=== PATIENT | female | born 1945 | race African-American/Black ===

== ENCOUNTER 2017-12-17 16:01 | Emergency (ER) | payer OTHER ==
--- OUTSIDE RECORDS SUMMARY | 2017-12-17 16:02 | XMS REPORT | Clinical Summary ---
:1945 Author Organization [facility] Address [address] [place] [address] Care Team Providers Name Role Phone Shaneka Nayak MD Primary Care Provider Allergies Active Allergy Reactions Severity Noted Date Comments Codeine GI Intolerance 06/19/2016 nausea Current Medications Prescription Sig. Disp. Refills Start Date End Date Status aspirin (ECOTRIN) Take 1 tablet Active 81 MG enteric every day by coated tablet oral route. CALCIUM ORAL Take 600 mg by Active mouth 2 (two) times a day. DOCOSAHEXANOIC Take by mouth. Active ACID/EPA (FISH OIL ORAL) glimepiride Take 1 tablet (4 180 tablet 3 08/10/2017 Active (AMARYL) 4 MG mg total) by tablet mouth 2 (two) times a day. amLODIPine Take 1 tablet (5 90 tablet 3 08/10/2017 08/10/19 Active (NORVASC) 5 mg mg total) by 19 tablet mouth 2 (two) times a day. lisinopril-hydrochl Take 1 tablet by 180 tablet 3 08/10/2017 Active orothiazide mouth 2 (two) (PRINZIDE,ZESTORETI times a day. C) 20-25 mg per tablet meloxicam (MOBIC) Take 1 tablet 90 tablet 3 10/12/2017 Active 7.5 mg tablet (7.5 mg total) by mouth daily. metFORMIN XR Take 2 tablets 360 tablet 3 10/12/2017 10/13/19 Active (GLUCOPHAGE XR) 500 (1,000 mg total) 19 mg 24 hr tablet by mouth daily with breakfast. Take 2 tablets by mouth twice daily simvastatin (ZOCOR) Take 1 tablet 90 tablet 3 10/12/2017 Active 40 MG tablet (40 mg total) by mouth nightly. simvastatin 40 mg tablet metFORMIN XR TAKE TWO TABLETS 360 tablet 3 08/18/2016 08/10/19 Discontinued (GLUCOPHAGE-XR) 500 BY MOUTH TWICE 18 mg 24 hr tablet DAILY simvastatin (ZOCOR) simvastatin 40 01/13/20 Discontinued 40 MG tablet mg tablet 17 amLODIPine amlodipine 10 mg 06/26/20 Discontinued (NORVASC) 10 MG tablet 17 tablet glimepiride Take one tablet 90 tablet 3 09/05/2016 08/10/19 Discontinued (AMARYL) 4 MG by mouth once 18 tablet daily lisinopril-hydrochl Take 1 tablet by 180 tablet 3 11/19/2016 08/10/19 Discontinued orothiazide mouth 2 (two) 18 (PRINZIDE,ZESTORETI times a day. C) 20-25 mg per tablet azithromycin 01/03/2017 07/14/20 Discontinued (ZITHROMAX) 250 MG 17 tablet benzonatate 01/03/2017 07/14/20 Discontinued (TESSALON) 100 MG 17 capsule simvastatin (ZOCOR) simvastatin 40 90 tablet 3 01/12/2017 01/16/20 Discontinued 40 MG tablet mg tablet 17 simvastatin (ZOCOR) Take 1 tablet 90 tablet 3 01/15/2017 08/10/19 Discontinued 40 MG tablet (40 mg total) by 18 mouth nightly. simvastatin 40 mg tablet amLODIPine TAKE ONE TABLET 90 tablet 3 06/30/2017 08/10/19 Discontinued (NORVASC) 10 mg BY MOUTH ONCE 18 tablet DAILY meloxicam (MOBIC) Take 2 tablets 28 tablet 0 07/14/2017 07/28/20 7.5 mg (15 mg total) by 17 tabletIndications: mouth daily for Acute pain of left 14 days. shoulder metroNIDAZOLE Take 1 tablet 14 tablet 0 07/29/2017 08/05/19 (FLAGYL) 500 MG (500 mg total) 18 tablet by mouth 2 (two) times a day for 7 days. meloxicam (MOBIC) Take 7.5 mg by 10/13/19 Discontinued 7.5 mg tablet mouth daily. Prn 18 metFORMIN XR Take 1 tablet 180 tablet 3 08/10/2017 09/18/19 Discontinued (GLUCOPHAGE-XR) 500 (500 mg total) 18 mg 24 hr tablet by mouth 2 (two) times a day. simvastatin (ZOCOR) Take 1 tablet 90 tablet 3 08/10/2017 10/13/19 Discontinued 40 MG tablet (40 mg total) by 18 mouth nightly. simvastatin 40 mg tablet metFORMIN Take 2 tablets 480 tablet 3 09/18/2017 10/13/19 Discontinued (GLUCOPHAGE) 500 mg by mouth twice 18 tablet daily Active Problems Problem Noted Date Diabetes mellitus 06/19/2016 Essential hypertension 06/19/2016 Hyperlipidemia 06/19/2016 Hypertension 06/19/2016 Encounters Date Type Specialty Care Team Description 10/12/2017 Office Visit Cardiology Tommy Carey Essential hypertension MD Petey 09/18/2017 Refill Cardiology Trever Martinez RN 08/10/2017 Office Visit Cardiology Tommy Carey Routine adult health MD Petey maintenance (Primary Dx) 2017 Orders Only Cardiology Tommy Carey MD 08/06/2017 Refill Cardiology Tommy Carey Med Jean Angelo MD 07/29/2017 Orders Only Family Medicine Shaneka Nayak MD 07/22/2017 Office Visit Family Medicine Malini, Type 2 diabetes mellitus with complication, without long-term current use of insulin (Primary Dx); MD Shaneka Screening for colon cancer; Encounter for screening mammogram for breast cancer; Postmenopausal state; Pap smear for cervical cancer screening; Essential hypertension; Hyperlipidemia, unspecified hyperlipidemia type; Sciatica of right side 07/22/2017 Orders Only Family Shaneka Powers MD 07/16/2017 Hospital Encounter Radiology Malini, Acute pain of right knee MD Shaneka 07/14/2017 Office Visit Family Bob Nayak, Type 2 diabetes mellitus with complication, without long-term current use of insulin (Primary Dx); MD Shaneka Hyperlipidemia, unspecified hyperlipidemia type; Acute pain of right knee; Screening for thyroid disorder; Acute pain of left shoulder; Flu vaccine need 06/26/2017 Refill Cardiology Tommy Carey MD 01/16/2017 Refill Cardiology Trever Martinez RN 01/15/2017 Refill Cardiology Trever Martinez RN 01/12/2017 Refill Cardiology Trever Martinez RN 01/07/2017 Office Visit Cardiology Tommy Carey Essential hypertension ( Primary Dx); MD Petey Diabetes mellitus screening; Hyperlipidemia, unspecified hyperlipidemia type after 12/16/2016 Immunizations Name Dates Previously Given Next Due FLUZONE HIGH-DOSE PF 07/14/2017 Family History Medical History Relation Name Comments Heart disease Father Arthritis Mother Diabetes Mother Heart disease Mother Hypertension Mother Relation Name Status Comments Father Mother Alive Social History Tobacco Use Types Packs/Day Years Used Date Never Smoker Smokeless Tobacco: Never Used Alcohol Use Drinks/Week oz/Week Comments No Sex Assigned at Date Recorded Not on file Last Filed Vital Signs Vital Sign Reading Time Taken Blood Pressure 150/73 10/12/2017 11:26 AM CDT Pulse 78 10/12/2017 11:26 AM CDT Temperature 36.7 C (98.1 F) 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 Respiratory Rate - - Oxygen Saturation 95% 08/10/2017 11:05 AM 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 Inhaled Oxygen Concentration - - Weight 108 kg (237 lb) 10/12/2017 11:26 AM CDT Height 175.3 cm (5' 9") 10/12/2017 11:26 AM CDT Body Mass Index 35 10/12/2017 11:26 AM CDT Plan of Treatment Date Type Specialty Care Team Description 02/08/2018 Office Visit Cardiology Tommy Carey MD [address] [address] Health Maintenance Due Date Last Done Comments DIABETIC FOOT EXAM 1955 COLON CANCER SCREENING 1994 SHINGRIX VACCINE (#1) 1994 ZOSTER VACCINE 2004 PNEUMOCOCCAL POLYSACCHARIDE VACCINE AGE 65 2009 AND OVER PNEUMOCOCCAL-13 2009 INFLUENZA VACCINE 03/03/2018 07/14/2017, 07/14/2017 URINE MICROALBUMIN 07/14/2018 07/14/2017 DIABETIC RETINAL EYE EXAM 03/03/2019 03/03/2017 BREAST CANCER SCREENING 07/22/2019 07/22/2017 Results ECG 12 lead (08/10/2017 11:10 AM)Only the most recent of2 resultswithin the time period is included. Component Value Ref Range Ventricular rate 82 Atrial rate 82 CA interval 170 QRSD interval 80 QT interval 404 QTC interval 472 P axis 1 67 QRS axis 1 46 T wave axis 46 EKG impression Sinus rhythm with marked sinus arrhythmia-Nonspecific T wave abnormality-Prolonged QT-Abnormal ECG-In automated comparison with ECG of 07-JAN-2017 10:30,-No significant change was found- Specimen Performing Laboratory [facility] [place] [address] [place] [address] Pap IG, HPV-hr (07/22/2017) Component Value Ref Range Diagnosis Comment Comment: NEGATIVE FOR INTRAEPITHELIAL LESION AND MALIGNANCY. PREDOMINANCE OF COCCOBACILLI CONSISTENT WITH SHIFT IN VAGINAL ROXANNA IS PRESENT. Specimen adequacy Comment Comment: Satisfactory for evaluation.Endocervical and/or squamous metaplastic cells (endocervical component) are present. Clinician provided ICD10 CommentComment: Z12.4 Performed by: CommentComment: Mira Corcoran, Mathematics Education Professor (ASCP) Comment . Pathologist provided ICD10 CommentComment: R87.5 Note: Comment Comment: The Pap smear is a screening test designed to aid in the detection of premalignant and malignant conditions of the uterine cervix.It is not a diagnostic procedure and should not be used as the sole means of detecting cervical cancer.Both false-positive and false-negative reports do occur. Test methodology Comment Comment: This liquid based ThinPrep(R) pap test was screened with the use of an image guided system. HPV, high-risk Negative Negative Comment: This high-risk HPV test detects thirteen high-risk types (16/18/31/33/35/39/45/51/52/56/58/59/68) without differentiation. Specimen Performing Laboratory [facility] Narrative Performed at: - [id number] Production Editor: Yanna Page MD, Phone:[phone] Performed at: - [id number] Production Editor: Yanna Page MD, Phone:[phone] Specimen Comment: No. of containers..01 ThinPrep Vial XR Knee 3 Vw Right (07/16/2017 2:50 PM) Specimen Performing Laboratory [facility] [address] [place] [address] Narrative EXAMINATION:XR KNEE 3 VW RIGHT CLINICAL HISTORY:M25.561 Pain in right knee, R knee pain COMPARISON:None. IMPRESSION: There is patella viviana. There is a joint effusion. No fractures seen. Degenerative osteoarthritic changes are present. MRI recommended for further evaluation. 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 IMPRESSION: There is patella viviana. There is a joint effusion. No fractures seen. Degenerative osteoarthritic changes are present. MRI recommended for further evaluation. [facility]-[id number] Microalbumin / creatinine urine ratio (07/14/2017 10:40 AM) Component Value Ref Range Creatinine, urine, random 200.4 Not Estab. mg/dL Microalbumin, urine 20.4 Not Estab. ug/mL Microalbumin/creatinine ratio 10.2 0.0 - 30.0 mg/g creat Specimen Performing Laboratory Urine [facility] Narrative Performed at:[address] [place], [place] [id number] Production Editor: Mitul Aponte MD, Phone:[phone] Thyroid stimulating hormone (07/14/2017 10:40 AM) Component Value Ref Range TSH 0.967 0.450 - 4.500 uIU/mL Specimen Performing Laboratory Blood [facility] Narrative Performed at:[address] [place], [place] [id number] Production Editor: Mitul Aponte MD, Phone:[phone] Hemoglobin A1c (07/14/2017 10:40 AM) Component Value Ref Range Hemoglobin A1C 11.0 (H) 4.8 - 5.6 % Comment: Pre-diabetes: 5.7 - 6.4 Diabetes: >6.4 Glycemic control for adults with diabetes: <7.0 Specimen Performing Laboratory Blood [facility] Narrative Performed at:[id number] Production Editor: Mitul Aponte MD, Phone:[phone] Lipid panel (07/14/2017 10:40 AM)Only the most recent of2 resultswithin the time period is included. Component Value Ref Range Cholesterol 121 100 - 199 mg/dL Triglycerides 93 0 - 149 mg/dL HDL cholesterol 41 >39 mg/dL VLDL cholesterol josé 19 5 - 40 mg/dL LDL cholesterol calculated 61 0 - 99 mg/dL Non-HDL cholesterol 80 0 - 129 mg/dL Specimen Performing Laboratory Blood [facility] Narrative Performed at: - [facility] [id number] Production Editor: Mitul Aponte MD, Phone:[phone] Comprehensive metabolic panel (07/14/2017 10:40 AM)Only the most recent of2 resultswithin the time period is included. Component Value Ref Range Glucose 235 (H) 65 - 99 mg/dL BUN, whole blood 13 8 - 27 mg/dL Creatinine 0.69 0.57 - 1.00 mg/dL EGFR Non-Afr. Zimbabwean 87 >59 mL/min/1.73 EGFR 101 >59 mL/min/1.73 BUN/creatinine ratio 19 12 - 28 Sodium 142 134 - 144 mmol/L Potassium 3.9 3.5 - 5.2 mmol/L Chloride 98 96 - 106 mmol/L CO2 28 18 - 29 mmol/L Calcium 9.6 8.7 - 10.3 mg/dL Protein 6.9 6.0 - 8.5 g/dL Albumin, S 4.2 3.5 - 4.8 g/dL Globulin, total 2.7 1.5 - 4.5 g/dL Albumin/globulin ratio 1.6 1.2 - 2.2 Total bilirubin 0.4 0.0 - 1.2 mg/dL Alkaline phosphatase 64 39 - 117 IU/L AST 12 0 - 40 IU/L ALT 10 0 - 32 IU/L Specimen Performing Laboratory Blood [facility] Narrative Performed at: - [facility] [id number] Production Editor: Mitul Aponte MD, Phone:[phone] after 12/16/2016 Insurance Payer Benefit Plan / Group Subscriber ID Type Phone Address [employer] [facility] xxxxxxxxx HMO [phone] [place] [id number]
--- NOTE | 2017-12-17 16:59 | ER ---
Nurse's Notes [facility] Name: Marianela Mills Age: 72 yrs Sex: Female : 1945 Arrival Date: 12/17/2017 Time: 16:04 Bed Waiting Private MD: None, None Diagnosis: Presentation: 12/17 16:10 Presenting complaint: Patient states: Right low back pain that shoots down right leg aj for 1 week. Transition of care: patient was not received from another setting of care. Onset of symptoms was December 10, 2017. Care prior to arrival: None. 16:10 Method Of Arrival: Ambulatory aj 16:10 Acuity: CASANDRA 4 aj Triage Assessment: 16:13 General: Appears in no apparent distress. comfortable, Behavior is calm, cooperative, aj appropriate for age. Pain: Complains of pain in coccyx, right lower back, right gluteus agnieszka and right gluteal fold. Neuro: Level of Consciousness is awake, alert, obeys commands, Oriented to person, place, time, situation, Appropriate for age. Respiratory: Airway is patent Respiratory effort is even, unlabored, Respiratory pattern is regular, symmetrical. Derm: Skin is intact, is healthy with good turgor, Skin is pink, warm \T\ dry. normal. Musculoskeletal: Circulation, motion, and sensation intact. Range of motion: intact in all extremities. Historical: - Allergies: 16:13 Codeine; aj - Home Meds: 16:13 lisinopril-hydrochlorothiazide 20-25 mg oral tab 1 tab twice a day [Active]; aj glimepiride 4 mg Oral tab 2 tab twice a day [Active]; metformin 500 mg Oral Tb24 2 tabs 2 times per day [Active]; aspirin 81 mg Oral TbEC 1 tab once daily [Active]; amlodipine oral [Active]; simvastatin 40 mg Oral tab 1 tab once daily [Active]; - PMHx: 16:13 Diabetes - NIDDM; Hyperlipidemia; Hypertension; aj - PSHx: 16:13 None; aj - Immunization history:: Adult Immunizations up to date. - Social history:: Smoking status: Patient/guardian denies using tobacco. Vital Signs: 16:13 BP 149 / 58; Pulse 81; Resp 16; Temp 97.9; Pulse Ox 99% on R/A; Weight 107.5 kg; Height aj 5 ft. 9 in. (175.26 cm); 16:13 Body Mass Index 35.00 (107.50 kg, 175.26 cm) aj ED Course: 16:04 Patient arrived in ED. mr 16:04 None, None is Private Physician. mr 16:11 Triage completed. aj 16:13 Arm band placed on left wrist. Patient placed in waiting room, Patient notified of wait aj time. Administered Medications: No medications were administered Outcome: 17:28 Patient left the ED. iw Signatures: Sheila Vargas, RN RN Claudia Villa mr Rayne Marquis, RN RN iw
[2017-12-17 17:31] VITALS: BP 149/58; TEMP 97.9; O2SAT 99
== END 2017-12-17 17:28 | disposition left against medical advice (07) ==
LOC: ER 16:01
DX: Z53.21 Procedure and treatment not carried out due to patient leaving prior to being seen by health care provider (principal)
CPT/HCPCS: 99281

== ENCOUNTER 2017-12-19 08:44 | Emergency (ER) | payer OTHER ==
--- OUTSIDE RECORDS SUMMARY | 2017-12-19 08:48 | XMS REPORT | Clinical Summary ---
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 Respiratory Rate - - Oxygen Saturation 95% 08/10/2017 11:05 AM SCOURING MACHINE TENDER Inhaled Oxygen Concentration - - Weight 108 kg (237 lb) 10/12/2017 11:26 AM CDT Height 175.3 cm (5' 9") 10/12/2017 11:26 AM CDT Body Mass Index 35 10/12/2017 11:26 AM CDT Plan of Treatment Date Type Specialty Care Team Description 02/08/2018 Office Visit Cardiology Tommy Carey MD [address] [address] Health Maintenance Due Date Last [...] Range Ventricular rate 82 Atrial rate 82 [place] interval 170 QRSD interval 80 QT interval 404 QTC interval 472 P axis 1 67 QRS axis 1 46 T wave axis 46 EKG impression Sinus rhythm with marked sinus arrhythmia-Nonspecific T wave abnormality-Prolonged QT-Abnormal ECG-In automated comparison with ECG of 07-JAN-2017 10:30,-No significant change was found- Specimen Performing Laboratory [facility] [address] [place] [address] Pap IG, HPV-hr (07/22/2017) Component Value Ref Range Diagnosis Comment Comment: NEGATIVE FOR INTRAEPITHELIAL LESION AND MALIGNANCY. PREDOMINANCE OF COCCOBACILLI CONSISTENT WITH SHIFT IN VAGINAL ROXANNA IS PRESENT. Specimen adequacy Comment Comment: Satisfactory for evaluation.Endocervical and/or squamous metaplastic cells (endocervical component) are present. Clinician provided ICD10 CommentComment: Z12.4 Performed by: CommentComment: Mira Corcoran, Supervisor Slate Splitting (ASCP) Comment . Pathologist provided ICD10 CommentComment: [...] Performing Laboratory [facility] Narrative Performed at: - [id number] Sleeve Setter Safety Stitch: Yanna Page MD, Phone:[phone] Performed at: - [id number] Sleeve Setter Safety Stitch: Yanna Page MD, Phone:[phone] Specimen Comment: No. of containers..01 ThinPrep Vial XR Knee 3 Vw Right (07/16/2017 2:50 PM) Specimen Performing Laboratory [facility] [address] [place] [address] Narrative EXAMINATION:XR KNEE 3 VW RIGHT CLINICAL HISTORY:M25.561 Pain in right knee, R knee pain COMPARISON:None. IMPRESSION: There is patella viviana. There is a joint effusion. No fractures seen. Degenerative osteoarthritic changes are present. MRI recommended for further evaluation. 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 IMPRESSION: There is patella viviana. There is a joint effusion. No fractures seen. Degenerative osteoarthritic changes are present. MRI recommended for further evaluation. [facility]-[id number] Microalbumin / creatinine urine ratio (07/14/2017 10:40 AM) Component Value Ref Range Creatinine, urine, random 200.4 Not Estab. mg/dL Microalbumin, urine 20.4 Not Estab. ug/mL Microalbumin/creatinine ratio 10.2 0.0 - 30.0 mg/g creat Specimen Performing Laboratory Urine [facility] Narrative Performed at:[address] [place], [place] [id number] Sleeve Setter Safety Stitch: Mitul Aponte MD, Phone:[phone] Thyroid stimulating hormone (07/14/2017 10:40 AM) Component Value Ref Range TSH 0.967 0.450 - 4.500 uIU/mL Specimen Performing Laboratory Blood [facility] Narrative Performed at:[address] [place], [place] [id number] Sleeve Setter Safety Stitch: Mitul Aponte MD, Phone:[phone] Hemoglobin A1c (07/14/2017 10:40 AM) Component Value Ref Range Hemoglobin A1C 11.0 (H) 4.8 - 5.6 % Comment: Pre-diabetes: 5.7 - 6.4 Diabetes: >6.4 Glycemic control for adults with diabetes: <7.0 Specimen Performing Laboratory Blood [facility] Narrative Performed at:[id number] Sleeve Setter Safety Stitch: Mitul Apnote MD, Phone:[phone] Lipid panel (07/14/2017 10:40 AM)Only the most [...] Blood [facility] Narrative Performed at: - [facility] [id number] Sleeve Setter Safety Stitch: Mitul Aponte MD, Phone:[phone] Comprehensive metabolic panel (07/14/2017 10:40 AM)Only the most recent of2 resultswithin the time period is included. Component Value Ref Range Glucose 235 (H) 65 - 99 mg/dL BUN, whole blood 13 8 - 27 mg/dL Creatinine 0.69 0.57 - 1.00 mg/dL EGFR Non-Afr. Algerian 87 >59 mL/min/1.73 EGFR 101 >59 mL/min/1.73 [...] Blood [facility] Narrative Performed at: - [facility] [id number] Sleeve Setter Safety Stitch: Mitul Aponte MD, Phone:[phone] after 12/18/2016 Insurance Payer Benefit Plan / Group Subscriber ID Type Phone Address [employer] [facility] xxxxxxxxx HMO [phone] [place] [id number]
--- NOTE | 2017-12-19 10:00 | RAD REPORT ---
EXAM DESCRIPTION: CT - Stone Protocol - 12/19/2017 9:33 am CLINICAL HISTORY: Abdominal pain, flank pain COMPARISON: CT study September 2012 TECHNIQUE: Axial 5 mm thick images were obtained without oral or IV contrast. The [id number] span s the entirety of the system including uppermost abdomen and lung bases. All CT scans are performed using dose optimization technique as appropriate and may include automated exposure control or mA/KV adjustment according to patient size. FINDINGS: No hydronephrosis is present and no obstructing ureteral calculi. No suspicious renal mass es. Isodense masses and pyelonephritis are not excluded on a stone protocol CT scan. No nonobstructin g calculi. No perinephric stranding. Urinary bladder is contracted limiting assessment. No bladder ca lculi. No adrenal abnormality. Imaged portions of the liver, spleen and pancreas show no suspicious findings on non-contrast imaging . No gallbladder or biliary tree abnormality identified. Gallstones can be occult. No suspicious bowel findings. Uterus and ovaries show no suspicious findings. No hernia, mass or bulky lymphadenopathy noted. No free air, free fluid or inflammatory stranding. No significant bony abnormality. IMPRESSION: Negative CT stone protocol study for acute or suspicious finding. Isodense masses and pyelonephritis are not excluded on stone protocol technique.
[2017-12-19 10:20] LABS: Urine Blood NEGATIVE (NEG); Urine Glucose TRACE (NEG); Urine Protein TRACE (NEG); Urine Specific Gravity 1.015 (1.005-1.030)
--- NOTE | 2017-12-19 10:22 | ER ---
Nurse's Notes [facility] Name: Marianela Mills Age: 72 yrs Sex: Female : 1945 Arrival Date: 12/19/2017 Time: 08:48 Bed 7 Private MD: Diagnosis: Sprain of ligaments of lumbar spine Presentation: 12/19 09:01 Presenting complaint: Patient states: right lower back pain radiates to right leg. pain ae1 scale of 9/10. denies injury. Transition of care: patient was not received from another setting of care. Onset of symptoms was December 13, 2017. Initial Sepsis Screen: Does the patient meet any 2 criteria? No. Patient's initial sepsis screen is negative. Does the patient have a suspected source of infection? No. Patient's initial sepsis screen is negative. Care prior to arrival: None. 09:01 Method Of Arrival: Ambulatory ae1 09:01 Acuity: CASANDRA 4 ae1 Triage Assessment: 09:11 General: Appears uncomfortable, Behavior is cooperative, anxious. Pain: Complains of ae1 pain in right mid back and right low back Pain radiates to right gluteal fold and right hamstring. 09:30 EENT: No signs and/or symptoms were reported regarding the EENT system. Neuro: Level of ae1 Consciousness is awake, alert, obeys commands, Oriented to person, place, time, situation. Cardiovascular: Patient's skin is warm and dry. Respiratory: Airway is patent Respiratory effort is even, unlabored, Respiratory pattern is regular, symmetrical. GI: No signs and/or symptoms were reported involving the gastrointestinal system. Abdomen is round obese. : No signs and/or symptoms were reported regarding the genitourinary system. Denies burning with urination. Derm: Skin is normal. Musculoskeletal: Reports pain in right mid back and right low back That radiates to the right posterior leg. Historical: - Allergies: 09: Codeine; ae1 - Home Meds: 09:09 amlodipine oral [Active]; aspirin 81 mg Oral TbEC 1 tab once daily [Active]; ae1 glimepiride 4 mg Oral tab 2 tab twice a day [Active]; lisinopril-hydrochlorothiazide 20-25 mg Oral tab 1 tab twice a day [Active]; metformin 500 mg Oral Tb24 2 tabs 2 times per day [Active]; simvastatin 40 mg Oral tab 1 tab once daily [Active]; - PMHx: 09:09 Diabetes - NIDDM; Hyperlipidemia; Hypertension; ae1 - PSHx: 09:09 None; ae1 - Immunization history:: Last tetanus immunization: > 10 years ago Flu vaccine is up to date. - Social history:: Smoking status: Patient/guardian denies using tobacco. Screenin:10 Abuse screen: Denies threats or abuse. Nutritional screening: No deficits noted. ae1 Tuberculosis screening: No symptoms or risk factors identified. Fall Risk None identified. Assessment: 10:35 Reassessment: Patient appears in no apparent distress at this time. No changes from ae1 previously documented assessment. Vital Signs: 09:06 BP 160 / 85; Pulse 70; Resp 20; Temp 98(O); Pulse Ox 99% on R/A; Weight 107.5 kg (R); ae1 Pain 9/10; 10:00 BP 144 / 76; Pulse 69; Resp 16; Pulse Ox 100% ; jl7 10:31 BP 165 / 70; Pulse 70; Resp 16; Pulse Ox 98% ; jl7 ED Course: 08:48 Patient arrived in ED. sb2 08:50 Hany Munson MD is Attending Physician. gs 08:51 Chantelle Taylor, XIANG is Primary Nurse. jl7 09:05 Triage completed. ae1 09:09 Placed in gown. Bed in low position. Call light in reach. Side rails up X 1. Pulse ox ae1 on. NIBP on. Warm blanket given. 09:10 Arm band placed on right wrist. ae1 09:31 CT completed. Patient moved to CT via stretcher. Patient moved back from CT. cw1 09:32 CT Stone Protocol In Process Unspecified. EDMS 10:35 No provider procedures requiring assistance completed. Patient did not have IV access ae1 during this emergency room visit. Administered Medications: No medications were administered Outcome: 10:22 Discharge ordered by . gs 10:35 Discharged to home ambulatory, with personal cane. ae1 10:35 Condition: stable 10:35 Discharge instructions given to patient, Instructed on discharge instructions, follow up and referral plans. Demonstrated understanding of instructions, follow-up care. 10:37 Patient left the ED. ae1 Signatures: Dispatcher [employer] EDFL Erika Pressley cw1 Eloy Murguia RN RN ae1 Chantelle Taylor RN RN jl7 Hany Munson MD MD gs Misa Mitchell sb2 Corrections: (The following items were deleted from the chart) 10:37 10:36 BP 165 / 70; Pulse 71bpm; Resp 17bpm; Pulse Ox 99% RA; ae1 ae1
--- NOTE | 2017-12-19 10:22 | EDPHYS ---
Physician Documentation [facility] Name: Marinaela Mills Age: 72 yrs Sex: Female : 1945 Arrival Date: 12/19/2017 Time: 08:48 Bed 7 Private MD: ED Physician Hany Munson HPI: 12/19 11:25 This 72 yrs old Black Female presents to ER via Ambulatory with complaints of Low Back gs Pain, SIDE PAIN. 11:25 The patient presents with pain that is acute. The symptoms are located in the right mid gs back and right low back. The pain radiates to the right low back. Onset: The symptoms/episode began/occurred 1 week(s) ago. Modifying factors: the patient symptoms are aggravated by any movement, movement. Associated signs and symptoms: Pertinent negatives: hematuria. Associated signs and symptoms: Pertinent negatives: incontinence, urinary retention. Severity of symptoms: At their worst the symptoms were moderate, in the emergency department the symptoms are unchanged. Historical: - Allergies: 09:09 Codeine; ae1 - Home Meds: 09:09 amlodipine oral [Active]; aspirin 81 mg Oral TbEC 1 tab once daily [Active]; ae1 glimepiride 4 mg Oral tab 2 tab twice a day [Active]; lisinopril-hydrochlorothiazide 20-25 mg Oral tab 1 tab twice a day [Active]; metformin 500 mg Oral Tb24 2 tabs 2 times per day [Active]; simvastatin 40 mg Oral tab 1 tab once daily [Active]; - PMHx: 09:09 Diabetes - NIDDM; Hyperlipidemia; Hypertension; ae1 - PSHx: 09:09 None; ae1 - Immunization history:: Last tetanus immunization: > 10 years ago Flu vaccine is up to date. - Social history:: Smoking status: Patient/guardian denies using tobacco. ROS: 11:25 All other systems are negative. gs Exam: 11:25 Head/Face: Normocephalic, atraumatic. Eyes: Pupils equal round and reactive to light, gs extra-ocular motions intact. Lids and lashes normal. Conjunctiva and sclera are non-icteric and not injected. Cornea within normal limits. Periorbital areas with no swelling, redness, or edema. ENT: Nares patent. No nasal discharge, no septal abnormalities noted. Tympanic membranes are normal and external auditory canals are clear. Oropharynx with no redness, swelling, or masses, exudates, or evidence of obstruction, uvula midline. Mucous membranes moist. Neck: Trachea midline, no thyromegaly or masses palpated, and no cervical lymphadenopathy. Supple, full range of motion without nuchal rigidity, or vertebral point tenderness. No Meningismus. Chest/axilla: Normal chest wall appearance and motion. Nontender with no deformity. No lesions are appreciated. Cardiovascular: Regular rate and rhythm with a normal S1 and S2. No gallops, murmurs, or rubs. Normal PMI, no JVD. No pulse deficits. Respiratory: Lungs have equal breath sounds bilaterally, clear to auscultation and percussion. No rales, rhonchi or wheezes noted. No increased work of breathing, no retractions or nasal flaring. Abdomen/GI: Soft, non-tender, with normal bowel sounds. No distension or tympany. No guarding or rebound. No evidence of tenderness throughout. Skin: Warm, dry with normal turgor. Normal color with no rashes, no lesions, and no evidence of cellulitis. MS/ Extremity: Pulses equal, no cyanosis. Neurovascular intact. Full, normal range of motion. Neuro: Awake and alert, GCS 15, oriented to person, place, time, and situation. Cranial nerves II-XII grossly intact. Motor strength 5/5 in all extremities. Sensory grossly intact. Cerebellar exam normal. Normal gait. 11:25 Constitutional: The patient appears alert, awake. 11:25 Back: pain. 11:40 Back: pain, that is moderate, of the right low back. gs Vital Signs: 09:06 BP 160 / 85; Pulse 70; Resp 20; Temp 98(O); Pulse Ox 99% on R/A; Weight 107.5 kg (R); ae1 Pain 9/10; 10:00 BP 144 / 76; Pulse 69; Resp 16; Pulse Ox 100% ; jl7 10:31 BP 165 / 70; Pulse 70; Resp 16; Pulse Ox 98% ; jl7 MDM: 09:07 Patient medically screened. gs 11:40 Differential diagnosis: strain, Herniated disc UTI, kidney stone. Data reviewed: vital gs signs, nurses notes. Response to treatment: the patient's symptoms have mildly improved after treatment, and as a result, I will discharge patient. 12/19 09:37 Order name: Urine Dipstick--Ancillary (enter results) ag 12/19 09:09 Order name: CT Stone Protocol; Complete Time: 10:20 gs 12/19 09:09 Order name: Urine Dipstick-Ancillary (obtain specimen); Complete Time: 09:29 Administered Medications: No medications were administered Disposition: 12/19/17 10:22 Discharged to Home. Impression: Sprain of ligaments of lumbar spine. - Condition is Stable. - Discharge Instructions: Back Exercises, [id number]. - Medication Reconciliation Form, Thank You Letter, Antibiotic Education, Prescription Opioid Use form. - Follow up: Private Physician; When: 2 - 3 days; Reason: Re-evaluation by your physician. Signatures: Dispatcher [employer] EDEloy Solis RN RN ae1 Hany Munson MD MD gs Corrections: (The following items were deleted from the chart) 10:37 10:22 12/19/2017 10:22 Discharged to Home. Impression: Sprain of ligaments of lumbar ae1 spine. Condition is Stable. Forms are Medication Reconciliation Form, Thank You Letter, Antibiotic Education, Prescription Opioid Use. Follow up: Private Physician; When: 2 - 3 days; Reason: Re-evaluation by your physician. gs
[2017-12-19 10:41] VITALS: TEMP 98
[2017-12-19 10:43] VITALS: BP 165/70; O2SAT 98
== END 2017-12-19 10:37 | disposition home or self-care (01) ==
LOC: ER 08:44
DX: S33.5XXA Sprain of ligaments of lumbar spine, initial encounter (principal); I10 Essential (primary) hypertension; E78.5 Hyperlipidemia, unspecified; E11.9 Type 2 diabetes mellitus without complications; Z79.82 Long term (current) use of aspirin; Z88.5 Allergy status to narcotic agent
CPT/HCPCS: 74176; 76377; 81003; 99284

== ENCOUNTER 2018-09-14 16:31 | Emergency (ER) | payer OTHER ==
--- OUTSIDE RECORDS SUMMARY | 2018-09-14 16:34 | XMS REPORT | Clinical Summary ---
:1945 Author Organization [facility] Address [address] [place] [address] Care Team Providers Name Role Phone Yobany Natarajan DO Primary Care Provider Allergies Active Allergy Reactions Severity Noted Date Comments Codeine GI Intolerance 06/19/2016 nausea Medications Medication Sig Dispensed Refills Start Date End Date Status aspirin (ECOTRIN) Take 1 tablet 0 Active 81 MG enteric every day by coated tablet oral route. CALCIUM ORAL Take 600 mg by 0 Active mouth 2 (two) times a day. DOCOSAHEXANOIC Take by mouth. 0 Active ACID/EPA (FISH OIL ORAL) glimepiride Take 1 tablet (4 180 tablet 3 08/10/2017 Active (AMARYL) 4 MG mg total) by tablet mouth 2 (two) times a day. meloxicam (MOBIC) Take 1 tablet 90 tablet [...] by mouth nightly. simvastatin 40 mg tablet cyanocobalamin Take 1,000 mcg 0 Active (VITAMIN B-12) 1000 by mouth daily. MCG tablet cholecalciferol, Take by mouth. 0 Active vitamin D3, (VITAMIN D3) 5,000 unit tablet amLODIPine TAKE ONE TABLET 90 tablet 3 04/23/2018 Active (NORVASC) 5 mg BY MOUTH TWICE tablet DAILY lisinopril-hydrochl TAKE ONE TABLET 180 tablet 3 08/30/2018 Active orothiazide BY MOUTH TWICE (PRINZIDE,ZESTORETI DAILY C) 20-25 mg per tablet meloxicam (MOBIC) Take 7.5 mg by 0 10/13/19 Discontinued 7.5 mg tablet mouth daily. Prn 18 amLODIPine Take 1 tablet (5 90 tablet 3 08/10/2017 04/23/20 Discontinued (NORVASC) 5 mg mg total) by 18 tablet mouth 2 (two) times a day. metFORMIN XR Take 1 tablet 180 tablet 3 08/10/2017 09/18/19 Discontinued (GLUCOPHAGE-XR) 500 (500 mg total) 18 mg 24 hr tablet by mouth 2 (two) times a day. simvastatin (ZOCOR) Take 1 tablet 90 tablet 3 08/10/2017 10/13/19 Discontinued 40 MG tablet (40 mg total) by 18 mouth nightly. simvastatin 40 mg tablet lisinopril-hydrochl Take 1 tablet by 180 tablet 3 08/10/2017 08/30/19 Discontinued orothiazide mouth 2 (two) 19 (PRINZIDE,ZESTORETI times a day. C) 20-25 mg per tablet metFORMIN Take 2 tablets 480 tablet 3 09/18/2017 10/13/19 Discontinued (GLUCOPHAGE) 500 mg by mouth twice 18 tablet daily Active Problems Problem Noted Date Diabetes mellitus 06/19/2016 Essential hypertension 06/19/2016 Hyperlipidemia 06/19/2016 Hypertension 06/19/2016 Encounters Date Type Specialty Care Team Description 09/04/2018 Refill Cardiology Tommy Carey MD 08/30/2018 Refill Cardiology Tommy Carey Med Refill MD Petey 05/12/2018 Office Visit Cardiology Tommy Carey Essential hypertension MD Petey (Primary Dx) 04/23/2018 Refill Cardiology Tommy Carey MD 02/08/2018 Office Visit Cardiology Tommy Carey Essential hypertension MD Petey (Primary Dx) 10/12/2017 Office Visit Cardiology Tommy Carey Essential hypertension MD Petey 09/18/2017 Refill Cardiology José Luis Martinez, RN Med Refill after 09/13/2017 Immunizations Name Dates Previously Given Next Due [...] Assigned at Date Recorded Not on file Job Start Date Occupation Industry Not on file Not on file Not on file Travel History Travel Start Travel End No recent travel history available. Last Filed Vital Signs Vital Sign Reading Time Taken Blood Pressure 132/72 05/12/2018 11:55 AM CDT Pulse 69 05/12/2018 11:55 AM CDT Temperature - - Respiratory Rate 16 02/08/2018 11:39 AM CDT Oxygen Saturation - - Inhaled Oxygen Concentration - - Weight 112 kg (247 lb) 05/12/2018 11:55 AM CDT Height 175.3 cm (5' 9") 05/12/2018 11:55 AM CDT Body Mass Index 36.48 05/12/2018 11:55 AM CDT Plan of Treatment Date Type Specialty Care Team Description 11/10/2018 Office Visit Cardiology Tommy Carey MD [address] [place] [id number] Health Maintenance Due Date Last Done Comments DIABETIC FOOT EXAM 1955 COLON CANCER SCREENING 1994 SHINGLES VACCINES (1 of 2) 1994 PNEUMOCOCCAL POLYSACCHARIDE VACCINE AGE 65 2009 AND OVER PNEUMOCOCCAL-13 2009 INFLUENZA VACCINE 03/03/2018 07/14/2017, 07/14/2017 URINE MICROALBUMIN 07/14/2018 07/14/2017 DIABETIC RETINAL EYE EXAM 05/18/2019 05/18/2018, 03/03/2017 BREAST CANCER SCREENING 07/22/2019 07/22/2017 Procedures Procedure Name Priority Date/Time Associated Diagnosis Comments ECG 12-LEAD Routine 02/08/2018 11:39 AM Essential hypertension Results for this CDT procedure are in the results section. after 09/13/2017 Results ECG 12 lead (02/08/2018 11:39 AM CDT) Ventricular rate 74 [facility] Atrial rate 74 [facility] ND interval 176 [facility] QRSD interval 84 [facility] QT interval 402 [facility] QTC interval 446 [facility] P axis 1 62 [facility] QRS axis 1 22 [facility] T wave axis 53 [facility] EKG impression Normal sinus rhythm-Nonspecific T wave abnormality-Abnormal ECG -In automated comparison with ECG of 10-AUG-2017 11:10,-Nonspecific T wave abnormality no longer evident in Inferior leads-Electronically S [facility] igned By Shun Gallardo ([id number]) on 02/08/2018 10:23:39 PM Performing Organization Address City/State/Zipcode Phone Number [facility] [address] [place] [address] after 09/13/2017 Insurance Payer Benefit Plan / Group Subscriber ID Type Phone Address [facility] xxxxxxxxx O ([place]) [place] [address]
--- NOTE | 2018-09-14 19:31 | RAD REPORT ---
EXAM DESCRIPTION: CT - Stone Protocol - 09/14/2018 7:22 pm CLINICAL HISTORY: Abdominal pain, right flank pain COMPARISON: December 2017 TECHNIQUE: Axial 5 mm thick images were obtained without oral or IV contrast. The [id number] span s the entirety of the system including uppermost abdomen and lung bases. All CT scans are performed using dose optimization technique as appropriate and may include automated exposure control or mA/KV adjustment according to patient size. FINDINGS: No hydronephrosis is present and no obstructing ureteral calculi. No suspicious renal mass es. Isodense masses and pyelonephritis are not excluded on a stone protocol CT scan. Urinary bladder is fully contracted limiting assessment. Uterus and ovaries show no suspicious findings. Phleboliths are present in the pelvis. No significant adrenal finding. Imaged portions of the liver, spleen and pancreas show no suspicious findings on non-contrast imaging . Small left lobe subcapsular liver cyst is unchanged. No biliary tree dilatation. No acute gallbladder finding seen. Gallstones can be occult on CT imaging . No suspicious bowel findings. Appendix is normal. Small hiatal hernia is present. No mass or bulky lymphadenopathy. No free air, free fluid or inflammatory stranding. Disc and bony degenerative changes are present similar to comparison. IMPRESSION: Noncontrast CT abdomen and pelvis imaging shows no acute or emergent finding. Isodense masses and pyelonephritis are not excluded on stone protocol technique. Above detailed findings are not significantly different from December 2017.
[2018-09-14] MEDS ORDERED: ALBUTEROL 2.5 MG/3 ML NEB SOL ONE (20:15)
[2018-09-14 20:23] LABS: Absolute Lymphocytes (CBC) 1.6 K/uL (0.7-4.9); Absolute Monocytes 0.5 K/uL (0.1-1.3); Absolute Neutrophil 2.7 K/uL (1.8-8.0); Basophils % 1.2 % (0-1.3); Eosinophils % 1.3 % (0-4.4); Hematocrit 36.5 % (36.0-45.0); Lymphocytes % 32.6 % (15.3-44.8); MPV 10.3 fL (7.6-11.3); Monocytes % 9.9 % (3.3-12.3)
[2018-09-14 20:32] LABS: Potassium 3.1 mmol/L (3.5-5.1)
--- NOTE | 2018-09-14 20:48 | RAD REPORT ---
EXAM DESCRIPTION: RAD - Chest Pa And Lat (2 Views) - 09/14/2018 8:25 pm CLINICAL HISTORY: Abdominal pain, right flank pain COMPARISON: Portable January 2017 TECHNIQUE: PA and lateral views of the chest were obtained. FINDINGS: The lungs are clear of a focal consolidation, mass or failure finding. Fibrotic lung patte rn is not clearly different. Heart size is normal and central vasculature is within normal limits. No pleural effusion or pneumothorax seen. No acute bony finding noted. No aortic abnormality. IMPRESSION: No acute cardiopulmonary process. No significant change from comparison.
[2018-09-14 21:11] LABS: Anisocytosis 1+; Blood Morphology Comment NOTED (NOT SEEN); Hypochromasia 1+; Platelet Estimate ADEQ; Platelets, Giant FEW; Target Cells 1+; Urine White Blood Cell Casts OK
--- NOTE | 2018-09-14 21:13 | ER ---
Nurse's Notes [facility] Name: Marianela Mills Age: 73 yrs Sex: Female : 1945 Arrival Date: 09/14/2018 Time: 16:35 Bed 28 Private MD: None, None Diagnosis: Acute bronchitis;Low back pain Presentation: 09/14 16:49 Presenting complaint: Right flank pain and lower abdominal pain x 2 days. Also c/o hb nonproductive cough and mild SOB x 1 week. Transition of care: patient was not received from another setting of care. Onset of symptoms was September 14, 2018. Risk Assessment: Do you want to hurt yourself or someone else? Patient reports no desire to harm self or others. Care prior to arrival: None. 16:49 Method Of Arrival: Ambulatory hb 16:49 Acuity: CASANDRA 3 hb 22:11 Initial Sepsis Screen: Does the patient meet any 2 criteria? No. Patient's initial mg2 sepsis screen is negative. Does the patient have a suspected source of infection? No. Patient's initial sepsis screen is negative. Historical: - Allergies: 16:50 Codeine; hb - PMHx: 21:08 Diabetes - NIDDM; Hypertension; Hyperlipidemia; gs - Immunization history:: Adult Immunizations up to date. - Social history:: Smoking status: Patient/guardian denies using tobacco. - Ebola Screening: : No symptoms or risks identified at this time. Screenin:45 Abuse screen: Denies threats or abuse. Nutritional screening: No deficits noted. tl3 Tuberculosis screening: No symptoms or risk factors identified. Fall Risk None identified. Assessment: 18:45 General: Appears in no apparent distress. comfortable, well groomed, well developed, tl3 well nourished, Behavior is calm, cooperative, appropriate for age. Pain: Complains of pain in right flank. Neuro: Level of Consciousness is awake, alert, obeys commands, Oriented to person, place, time, situation, Appropriate for age. Cardiovascular: Patient's skin is warm and dry. Respiratory: Airway is patent Respiratory effort is even, unlabored, Respiratory pattern is regular, symmetrical, Breath sounds are clear bilaterally. Respiratory: Reports cough that is dry. GI: No signs and/or symptoms were reported involving the gastrointestinal system. : No signs and/or symptoms were reported regarding the genitourinary system. EENT: No signs and/or symptoms were reported regarding the EENT system. Derm: No signs and/or symptoms reported regarding the dermatologic system. 20:09 Reassessment: Patient appears in no apparent distress at this time. No changes from tl3 previously documented assessment. Patient and/or family updated on plan of care and expected duration. Pain level reassessed. Patient is alert, oriented x 3, equal unlabored respirations, skin warm/dry/pink. Vital Signs: 16:50 BP 148 / 80; Pulse 88; Resp 16; Temp 97.9; Pulse Ox 100% on R/A; Pain 8/10; hb 18:45 BP 160 / 93; Pulse 77; Resp 16; Pulse Ox 99% on R/A; tl3 20:09 BP 166 / 63; Pulse 74; Resp 18; Pulse Ox 100% on R/A; tl3 ED Course: 16:35 Patient arrived in ED. sb2 16:37 None, None is Private Physician. sb2 16:49 Triage completed. hb 16:50 Arm band placed on. hb 18:38 Hany Munson MD is Attending Physician. gs 18:45 Patient has correct armband on for positive identification. Bed in low position. Call tl3 light in reach. Side rails up X2. Pulse ox on. NIBP on. Warm blanket given. 18:45 No provider procedures requiring assistance completed. tl3 18:51 Mallory Mccoy, RN is Primary Nurse. tl3 19:[address] via wheelchair. vm2 19:22 CT Stone Protocol In Process Unspecified. EDMS 20:09 Initial lab(s) drawn, by ED staff, sent to lab. Inserted saline lock: 20 gauge in left tl3 antecubital area, using aseptic technique. Blood collected. 20:14 Basic Metabolic Panel Sent. jp3 20:14 CBC with Diff Sent. jp3 20:30 Chest Pa And Lat (2 Views) XRAY In Process Unspecified. EDMS 21:06 Urine collected: clean catch specimen, clear, rebecca colored. tl3 21:07 Urine Microscopic Only Sent. tl3 22:10 IV discontinued, intact, bleeding controlled, No redness/swelling at site. Pressure mg2 dressing applied. Administered Medications: 20:04 Drug: Albuterol 2.5 mg Route: Inhalation; tl3 21:24 Follow up: Response: No adverse reaction tl3 21:24 Drug: Potassium Effervescent Tablet 50 mEq Route: PO; tl3 21:24 Follow up: Response: No adverse reaction tl3 Outcome: 21:12 Discharge ordered by . gs 22:10 Discharged to home ambulatory. mg2 22:10 Condition: stable 22:10 Discharge instructions given to patient, Instructed on discharge instructions, follow up and referral plans. medication usage, Demonstrated understanding of instructions, follow-up care, medications, Prescriptions given X 1. 22:11 Patient left the ED. mg2 Signatures: Dispatcher [employer] EDMS Freya Reinoso, RN RN Jazmine Garnett 2 Hany Munson MD MD gs Misa Mitchell sb2 Mallory Mccoy RN RN tl3 Lucas Doshi RN RN mg2 Renard Skinner jp3 Corrections: (The following items were deleted from the chart) 16:51 16:49 Presenting complaint: Right flank pain and lower abdominal pain x [address] [facility]
--- NOTE | 2018-09-14 21:13 | EDPHYS ---
Physician Documentation [facility] Name: Marianela Mills Age: 73 yrs Sex: Female : 1945 Arrival Date: 09/14/2018 Time: 16:35 Bed 28 Private MD: None, None ED Physician Hany Munson HPI: 09/14 21:10 This 73 yrs old Black Female presents to ER via Ambulatory with complaints of Flank gs Pain. 21:10 The patient complains of pain in the right low back. The pain radiates to the right gs lower quadrant. Onset: The symptoms/episode began/occurred 2 day(s) ago. Modifying factors: The symptoms are alleviated by nothing. the symptoms are aggravated by movement, cough. Associated signs and symptoms: Pertinent negatives: dysuria, fever, hematuria. Associated signs and symptoms: Pertinent negatives: pain radiating to the lower extremities. Severity of pain: At its worst the pain was moderate in the emergency department the pain is unchanged. The patient has experienced similar episodes in the past, a few times. Historical: - Allergies: 16:50 Codeine; hb - PMHx: 21:08 Diabetes - NIDDM; Hypertension; Hyperlipidemia; gs - Immunization history:: Adult Immunizations up to date. - Social history:: Smoking status: Patient/guardian denies using tobacco. - Ebola Screening: : No symptoms or risks identified at this time. ROS: 21:10 Respiratory: Positive for cough. gs 21:10 All other systems are negative. Exam: 21:10 Head/Face: Normocephalic, atraumatic. Eyes: Pupils equal round and reactive to light, gs extra-ocular motions intact. Lids and lashes normal. Conjunctiva and sclera are non-icteric and not injected. Cornea within normal limits. Periorbital areas with no swelling, redness, or edema. ENT: Nares patent. No nasal discharge, no septal abnormalities noted. Tympanic membranes are normal and external auditory canals are clear. Oropharynx with no redness, swelling, or masses, exudates, or evidence of obstruction, uvula midline. Mucous membranes moist. Neck: Trachea midline, no thyromegaly or masses palpated, and no cervical lymphadenopathy. Supple, full range of motion without nuchal rigidity, or vertebral point tenderness. No Meningismus. Chest/axilla: Normal chest wall appearance and motion. Nontender with no deformity. No lesions are appreciated. Cardiovascular: Regular rate and rhythm with a normal S1 and S2. No gallops, murmurs, or rubs. Normal PMI, no JVD. No pulse deficits. 21:10 Abdomen/GI: Soft, non-tender, with normal bowel sounds. No distension or tympany. No guarding or rebound. No evidence of tenderness throughout. Skin: Warm, dry with normal turgor. Normal color with no rashes, no lesions, and no evidence of cellulitis. MS/ Extremity: Pulses equal, no cyanosis. Neurovascular intact. Full, normal range of motion. Neuro: Awake and alert, GCS 15, oriented to person, place, time, and situation. Cranial nerves II-XII grossly intact. Motor strength 5/5 in all extremities. Sensory grossly intact. Cerebellar exam normal. Normal gait. 21:10 Constitutional: The patient appears alert, awake. 21:10 Respiratory: the patient does not display signs of respiratory distress, Respirations: normal, Breath sounds: wheezing: expiratory that is mild, is scattered. 21:10 Back: CVA tenderness, that is mild, is noted on the right. Vital Signs: 16:50 BP 148 / 80; Pulse 88; Resp 16; Temp 97.9; Pulse Ox 100% on R/A; Pain 8/10; hb 18:45 BP 160 / 93; Pulse 77; Resp 16; Pulse Ox 99% on R/A; tl3 20:09 BP 166 / 63; Pulse 74; Resp 18; Pulse Ox 100% on R/A; tl3 MDM: 19:43 Patient medically screened. 21:10 Differential diagnosis: pyelonephritis, UTI, back strain pneumonia. Data reviewed: vital signs, nurses notes. Counseling: I had a detailed discussion with the patient and/or guardian regarding: the historical points, exam findings, and any diagnostic results supporting the discharge/admit diagnosis, lab results, radiology results, the need for outpatient follow up. Response to treatment: the patient's symptoms have markedly improved after treatment, and as a result, I will discharge patient. 09/14 19:02 Order name: Urine Microscopic Only; Complete Time: 21:23 09/14 19:02 Order name: CBC with Diff; Complete Time: 21:13 09/14 19:02 Order name: Basic Metabolic Panel; Complete Time: 21:07 09/14 20:44 Order name: CBC Smear Scan; Complete Time: 21:13 EDGA 09/14 21:25 Order name: Urine Dipstick--Ancillary (enter results) ms 09/14 21:25 Order name: Urine --Ancillary (enter results) ms 09/14 19:02 Order name: Urine Dipstick-Ancillary (obtain specimen); Complete Time: 21:07 09/14 19:02 Order name: CT Stone Protocol; Complete Time: 19:43 09/14 19:44 Order name: Chest Pa And Lat (2 Views) XRAY; Complete Time: 21:07 Administered Medications: 20:04 Drug: Albuterol 2.5 mg Route: Inhalation; tl3 21:24 Follow up: Response: No adverse reaction tl3 21:24 Drug: Potassium Effervescent Tablet 50 mEq Route: PO; tl3 21:24 Follow up: Response: No adverse reaction tl3 Disposition: 09/14/18 21:12 Discharged to Home. Impression: Acute bronchitis, Low back pain. - Condition is Stable. - Discharge Instructions: Acute Bronchitis, Adult, Back Injury Prevention, [id number]. - Prescriptions for Albuterol Sulfate 90 mcg/actuation - inhale 1-2 puff by INHALATION route every 4-6 hours; 1 Inhaler. - Medication Reconciliation Form, Thank You Letter, Antibiotic Education, Prescription Opioid Use form. - Follow up: Private Physician; When: 2 - 3 days; Reason: Re-evaluation by your physician. Signatures: Dispatcher [employer] [facility] Freya Reinoso RN RN Hany Munson MD MD Mallory Mccoy RN RN tl3 Lucas Doshi RN RN mg2 Corrections: (The following items were deleted from the chart) 22:11 21:12 09/14/2018 21:12 Discharged to Home. Impression: Acute bronchitis; Low back pain. mg2 Condition is Stable. Forms are Medication Reconciliation Form, Thank You Letter, Antibiotic Education, Prescription Opioid Use. Follow up: Private Physician; When: 2 - 3 days; Reason: Re-evaluation by your physician.
[2018-09-14 21:18] LABS: Urine Bacteria NONE SEEN /HPF (<20); Urine Culture Reflex Order NOT NEEDED; Urine RBC NONE SEEN /HPF (NONE SEEN)
[2018-09-14] MEDS ORDERED: POTASSIUM 25 MEQ EFFERV TAB ONE (21:30)
[2018-09-14 21:43] LABS: Urine Blood NEGATIVE (NEG); Urine Glucose NEGATIVE (NEG); Urine Protein NEGATIVE (NEG)
[2018-09-14 23:15] VITALS: TEMP 97.9
[2018-09-14 23:19] VITALS: BP 166/63; O2SAT 100
== END 2018-09-14 22:11 | disposition home or self-care (01) ==
LOC: ER 16:31
DX: J20.9 Acute bronchitis, unspecified (principal); M54.5 Low back pain; E11.9 Type 2 diabetes mellitus without complications; I10 Essential (primary) hypertension; E78.5 Hyperlipidemia, unspecified; Z88.5 Allergy status to narcotic agent
CPT/HCPCS: 36415; 71046; 74176; 76377; 80048; 81003; 81015; 81025; 85025; 99285

== ENCOUNTER 2020-07-10 19:05 | Observation (INO) | payer OTHER ==
--- OUTSIDE RECORDS SUMMARY | 2020-07-10 19:13 | XMS REPORT | Clinical Summary ---
:1945 Author Organization [facility] Address [address] [place] [address] Care Team Providers Name Role Phone Yobany Natarajan DO Primary Care Provider Allergies Active Allergy Reactions Severity Noted Date Comments Codeine GI Intolerance 06/19/2016 nausea Medications Medication Sig Dispensed Refills Start Date End Date Status aspirin (ECOTRIN) Take 1 tablet 0 Active 81 MG enteric every day by coated tablet oral route. CALCIUM ORAL Take 600 mg by 0 Ac tive mouth 2 (two) times a day. DOCOSAHEXANOIC Take by mouth. 0 Active ACID/EPA (FISH OIL ORAL) glimepiride Take 1 tablet (4 180 tablet 3 08/10/2017 Active (AMARYL) 4 MG mg total) by tablet mouth 2 (two) times a day. meloxicam (MOBIC) Take 1 tablet 90 tablet 3 10/12/2017 Active 7.5 mg tablet (7.5 mg total) by mouth daily. cyanocobalamin Take 1,000 mcg 0 Active (VITAMIN B-12) 1000 by mouth daily. MCG tablet cholecalciferol, Take by mouth. 0 Active vitamin D3, (VITAMIN D3) 5,000 unit tablet lisinopril-hydrochl TAKE ONE TABLET 180 tablet 3 08/30/2018 Active orothiazide BY MOUTH TWICE (PRINZIDE,ZESTORETI DAILY C) 20-25 mg per tablet simvastatin (ZOCOR) Take 1 tablet 90 tablet 3 04/18/2019 Active 40 MG tablet (40 mg total) by mouth nightly. simvastatin 40 mg tablet amLODIPine Take 1 tablet by 180 tablet 0 07/06/2020 Active (NORVASC) 5 mg mouth twice tablet daily amLODIPine Take 1 tablet (5 180 tablet 1 04/13/2019 04/11/20 Discontinued (NORVASC) 5 mg mg total) by 20 tablet mouth 2 (two) times a day. amLODIPine Take 1 tablet by 180 tablet 0 04/11/2020 07/06/20 Discontinued (NORVASC) 5 mg mouth twice 20 tablet daily Active Problems Problem Noted Date Diabetes mellitus 06/19/2016 Essential hypertension 06/19/2016 Hyperlipidemia 06/19/2016 Hypertension 06/19/2016 Encounters Date Type Specialty Care Team Description 07/06/2020 Refill Cardiology Tommy Carey MD M ed Refill 04/11/2020 Refill Cardiology Tommy Carey MD M ed Refill after 07/10/2019 Immunizations Name Administration Dates Next Due FLUZONE HIGH-DOSE PF 07/14/2017 Surgical History Surgery Date Site/Laterality Comments BUNIONECTOMY Medical History Medical History Date Comments Hypertension Hyperlipidemia Diabetes (HCC) Chest pain in the past Family History Medical History Relation Name Comments Heart disease Father Arthritis Mother Diabetes Mother Heart disease Mother Hypertension Mother Relation Name Status Comments Father Mother Alive Social History Tobacco Use Types Packs/Day Years Used Date Never Smoker Smokeless Tobacco: Never Used Alcohol Use Drinks/Week oz/Week Comments No Sex Assigned at Date Recorded Not on file Last Filed Vital Signs Not on file Plan of Treatment Health Maintenance Due Date Last Done Comments DIABETIC FOOT EXAM 1954 COLONOSCOPY SCREENING 1994 SHINGLES VACCINES (#1) 1994 65+ PNEUMOCOCCAL VACCINE (1 of 1 - 2009 PPSV23) URINE MICROALBUMIN 07/14/2018 07/14/2017 BREAST CANCER SCREENING 07/22/2019 07/22/2017 INFLUENZA VACCINE 03/03/2020 07/14/2017, 07/14/2017, 12/18/2015 DIABETES: RETINAL EYE EXAM 05/18/2020 05/18/2018, 7, 03/03/2017, Additional history exists Results Not on fileafter 07/10/2019
[2020-07-10 19:50] LABS: Basophils % 0.9 % (0-1.3); Hematocrit 34.5 % (36.0-45.0); Lymphocytes % 30.5 % (15.3-44.8); MPV 9.9 fL (7.6-11.3); RBC Red Blood Cell Count 5.27 M/uL (3.86-4.86)
[2020-07-10 19:53] LABS: Protime INR 0.98
[2020-07-10 20:06] LABS: ALT/SGPT 14 U/L (12-78); AST/SGOT 12 U/L (15-37); Albumin 3.6 g/dL (3.4-5.0); Alkaline Phosphatase 48 U/L (45-117); Bilirubin Direct < 0.1 mg/dL (0-0.2); Bilirubin Total 0.2 mg/dL (0.2-1.0); Magnesium 1.7 mg/dL (1.8-2.4); NT PRO-BNP 808 pg/mL (<450); Protein, Total 7.5 g/dL (6.4-8.2)
[2020-07-10 20:07] LABS: Blood Morphology Comment NOTED (NOT SEEN); Hypochromasia 1+; Platelet Estimate ADEQ; White Blood Cell Scan OK (OK)
[2020-07-10 20:10] LABS: Potassium 3.4 mmol/L (3.5-5.1)
[2020-07-10] MEDS ORDERED: FAMOTIDINE 20 MG/2 ML VIAL IV ONE (20:15)
--- NOTE | 2020-07-10 21:07 | RAD REPORT ---
EXAM DESCRIPTION: RAD - Chest Single View - 07/10/2020 8:45 pm CLINICAL HISTORY: SOB, bilateral arm pain COMPARISON: Two view chest December 1018 TECHNIQUE: AP portable chest image was obtained 07/10/2020 8:45 pm . FINDINGS: No peripheral mass or consolidation. Interstitial pattern matches comparison. Overlying so ft tissues accentuate lung base opacification. Heart and vasculature are normal. No measurable pleura l effusion and no pneumothorax. No acute bony abnormality seen. No acute aortic findings suspected. IMPRESSION: No acute cardiopulmonary process. No significant change from comparison study.
[2020-07-10] MEDS ORDERED: MAGNESIUM SULFATE 1 gm IVPB 1 GM/100 ML BAG IV ONE (21:09)
[2020-07-10] MEDS ORDERED: POTASSIUM 25 MEQ EFFERV TAB ONE (21:09)
--- NOTE | 2020-07-10 21:47 | EDPHYS ---
Physician Documentation [facility] Name: Marianela Mills Age: 74 yrs Sex: Female : 1945 Arrival Date: 07/10/2020 Time: 19:06 Bed 18 Private MD: None, None ED Physician Julio Cesar Gongora HPI: 07/10 19:59 This 74 yrs old Black Female presents to ER via Ambulatory with complaints of Shortness karli Of Breath, Shoulder Pain, Neck Pain, <24hrs Old, Decreased Heart Rate, Headache. 19:59 The patient has shortness of breath at rest, with light activity. Onset: The karli symptoms/episode began/occurred 2 day(s) ago. Duration: The symptoms are continuous, and are steadily getting worse. The patient's shortness of breath has no apparent modifying factors. Associated signs and symptoms: Pertinent positives: non-productive cough. Severity of symptoms: At their worst the symptoms were mild moderate in the emergency department the symptoms have improved mildly. The patient has experienced similar episodes in the past, a few times. Historical: - Allergies: 19:24 Codeine; ca1 - PMHx: 19:24 Diabetes - NIDDM; Hyperlipidemia; Hypertension; ca1 - PSHx: 19:24 None; ca1 - Immunization history:: Adult Immunizations up to date, Pneumococcal vaccine is up to date, Flu vaccine is up to date. - Social history:: Smoking status: Patient denies any tobacco usage or history of. ROS: 20:00 Constitutional: Negative for fever, chills, and weight loss, Eyes: Negative for injury, karli pain, redness, and discharge, ENT: Negative for injury, pain, and discharge, Neck: Negative for injury, pain, and swelling, Respiratory: Negative for shortness of breath, cough, wheezing, and pleuritic chest pain, Abdomen/GI: Negative for abdominal pain, nausea, vomiting, diarrhea, and constipation, Back: Negative for injury and pain, : Negative for injury, bleeding, discharge, and swelling, MS/Extremity: Negative for injury and deformity, Skin: Negative for injury, rash, and discoloration, Psych: Negative for depression, anxiety, suicide ideation, homicidal ideation, and hallucinations, Allergy/Immunology: Negative for hives, rash, and allergies, Endocrine: Negative for neck swelling, polydipsia, polyuria, polyphagia, and marked weight changes, Hematologic/Lymphatic: Negative for swollen nodes, abnormal bleeding, and unusual bruising. 20:00 Cardiovascular: Positive for palpitations. 20:00 Neuro: Positive for weakness. 20:04 Abdomen/GI: Negative for black/tarry stool, rectal pain, rectal bleeding. karli Exam: 20:00 Constitutional: This is a well developed, well nourished patient who is awake, alert, karli and in no acute distress. Head/Face: Normocephalic, atraumatic. ENT: Nares patent. No nasal discharge, no septal abnormalities noted. Tympanic membranes are normal and external auditory canals are clear. Oropharynx with no redness, swelling, or masses, exudates, or evidence of obstruction, uvula midline. Mucous membranes moist. Neck: Trachea midline, no thyromegaly or masses palpated, and no cervical lymphadenopathy. Supple, full range of motion without nuchal rigidity, or vertebral point tenderness. No Meningismus. Chest/axilla: Normal chest wall appearance and motion. Nontender with no deformity. No lesions are appreciated. Respiratory: Lungs have equal breath sounds bilaterally, clear to auscultation and percussion. No rales, rhonchi or wheezes noted. No increased work of breathing, no retractions or nasal flaring. Abdomen/GI: Soft, non-tender, with normal bowel sounds. No distension or tympany. No guarding or rebound. No evidence of tenderness throughout. Back: No spinal tenderness. No costovertebral tenderness. Full range of motion. Female : Normal external genitalia. Skin: Warm, dry with normal turgor. Normal color with no rashes, no lesions, and no evidence of cellulitis. MS/ Extremity: Pulses equal, no cyanosis. Neurovascular intact. Full, normal range of motion. Neuro: Awake and alert, GCS 15, oriented to person, place, time, and situation. Cranial nerves II-XII grossly intact. Motor strength 5/5 in all extremities. Sensory grossly intact. Cerebellar exam normal. Normal gait. Psych: Awake, alert, with orientation to person, place and time. Behavior, mood, and affect are within normal limits. 20:00 Eyes: Pupils: no acute changes, equal, round, and reactive to light and accomodation, Extraocular movements: no acute changes, Conjunctiva: pale, Corneas: are normal, no acute changes, Sclera: Anterior chamber: normal, no acute changes. 20:04 Musculoskeletal/extremity: DVT Exam: No signs of deep vein thrombosis. no pain, no karli swelling, no tenderness, negative Homans' sign noted on exam, no appreciated bluish discoloration, no erythema, no increased warmth. 20:05 ECG was reviewed by the Attending Physician. karli Vital Signs: 19:21 BP 171 / 62; Pulse 48; Resp 17 S; Temp 97(TE); Pulse Ox 100% on R/A; Weight 104.33 kg ca1 (R); Height 5 ft. 9 in. (175.26 cm) (R); Pain 8/10; 19:52 BP 147 / 54; Pulse 44; Resp 16; Pulse Ox 99% ; rr5 21:24 BP 158 / 62; Pulse 48; Resp 16; Pulse Ox 99% ; rr5 22:20 BP 133 / 88; Pulse 49; Resp 17; Pulse Ox 97% ; rr5 23:12 BP 132 / 59; Pulse 47; Resp 19; Pulse Ox 98% ; rr5 19:21 Body Mass Index 33.96 (104.33 kg, 175.26 cm) ca1 MDM: 19:27 Patient medically screened. karli 20:02 Differential diagnosis: Anemia Bronchitis CHF exacerbation, Chronic Obstructive karli Pulmonary Disease arrythmia, dehydration, pulmonary edema, Unstable Angina. Antibiotic administration: Not indicated. The patient's Wells Deep Vein Thrombosis Score was calculated as follows: Total Score: 0-2 Pts- Low Risk. The patient's pulmonary embolism risk score was calculated as follows: Total Score: 0-2 points. This patient was found to be at low risk for a pulmonary embolism by using the Well's assessment criteria. Immunization status: Pneumococcal vaccine: Influenza vaccine: Not up to date. Data reviewed: vital signs, nurses notes, lab test result(s), EKG, radiologic studies, plain films. Data interpreted: ekg monitor: rate is 44 beats/min, rhythm is regular, Pulse oximetry: on room air is 99 %. Counseling: I had a detailed discussion with the patient and/or guardian regarding: the historical points, exam findings, and any diagnostic results supporting the discharge/admit diagnosis, lab results, radiology results, the need for further work-up and treatment in the hospital. 07/10 19:29 Order name: Basic Metabolic Panel; Complete Time: 20:49 rr5 07/10 19:29 Order name: CBC with Diff rr5 07/10 19:29 Order name: LFT's rr5 07/10 19:29 Order name: Magnesium rr5 07/10 19:29 Order name: NT PRO-BNP rr5 07/10 19:29 Order name: PT-INR rr5 07/10 19:29 Order name: Troponin (emerg Dept Use Only) rr5 07/10 19:51 Order name: CBC with Automated Diff; Complete Time: 20:49 EDMS 07/10 19:59 Order name: Type And Screen [facility] 07/10 19:59 Order name: Protime (+INR); Complete Time: 20:49 EDMS 07/10 20:05 Order name: Troponin (Emerg Dept Use Only); Complete Time: 20:49 EDMS 07/10 20:06 Order name: Liver (Hepatic) Function; Complete Time: 20:49 EDMS 07/10 20:06 Order name: NT PRO-BNP; Complete Time: 20:49 EDMS 07/10 20:06 Order name: Magnesium; Complete Time: 20:49 EDMS 07/10 20:28 Order name: ABO/RH no charge; Complete Time: 20:49 EDMS 07/10 21:00 Order name: Type and Screen EDMA 07/10 22:03 Order name: COVID-19 rr 07/10 22:31 Order name: CORONAVIRUS EDMA 07/10 22:47 Order name: Urine Culture [facility] 07/10 22:51 Order name: Urine Dipstick--Ancillary (enter results) tt3 07/10 23:25 Order name: SARS-COV-2 RT PCR EDMA 07/10 23:29 Order name: Urine Dipstick-Ancillary EDMS 07/11 02:07 Order name: Troponin I EDMS 07/11 05:20 Order name: CBC with Automated Diff EDMS 07/11 05:43 Order name: Hemoglobin A1c EDMS 07/11 05:55 Order name: Comprehensive Metabolic Panel EDMS 07/11 05:55 Order name: T4 Free EDMS 07/11 05:55 Order name: Magnesium EDMS 07/11 05:55 Order name: Thyroid Stimulating Hormone EDMS 07/11 07:34 Order name: Troponin I EDMS 07/10 19:29 Order name: XRAY Chest (1 view); Complete Time: 21:43 rr5 07/10 19:29 Order name: EKG; Complete Time: 19:30 rr5 07/10 19:29 Order name: Cardiac monitoring; Complete Time: 19:29 rr5 07/10 19:29 Order name: EKG - Nurse/Tech; Complete Time: 19:29 rr5 07/10 19:29 Order name: IV Saline Lock; Complete Time: 19:29 rr5 07/10 19:29 Order name: Labs collected and sent; Complete Time: 19:29 rr5 07/10 19:29 Order name: O2 Per Protocol; Complete Time: 19:29 rr5 07/10 19:29 Order name: O2 Sat Monitoring; Complete Time: 19:29 rr5 07/10 19:59 Order name: Urine Dipstick-Ancillary (obtain specimen); Complete Time: 23:12 karli 07/10 20:50 Order name: Shoulder Right (2 View) XRAY [facility] 07/11 07:56 Order name: Glucose, Ancillary Testing EDMS 07/11 12:18 Order name: Glucose, Ancillary Testing EDMS EC:05 Rate is 47 beats/min. Rhythm is regular. QRS [place] is Normal. NV interval is normal. QRS karli interval is normal. QT interval is normal. No Q waves. T waves are Normal. No ST changes noted. Clinical impression: 1st degree heart block. Interpreted by me. Reviewed by me. Administered Medications: 20:09 Drug: Pepcid 20 mg Route: IVP; Site: right forearm; rr5 21:25 Follow up: Response: No adverse reaction rr5 21:00 Drug: Magnesium Sulfate 1 grams Route: IVPB; Infused Over: 1 hrs; Site: right forearm; mg2 22:00 Follow up: Response: No adverse reaction; IV Status: Completed infusion; IV Intake: rr5 100ml 21:01 Drug: Potassium Effervescent Tablet 25 mEq Route: PO; mg2 21:49 Follow up: Response: No adverse reaction rr5 22:50 Drug: Rocephin 1 grams Route: IV; Rate: per protocol; Site: right forearm; rr5 23:37 Follow up: Response: No adverse reaction; IV Status: Completed infusion; IV Intake: [id number] Disposition: 07/11/20 10:51 Hospitalization ordered by Rolf Horner for Observation. Preliminary diagnosis is Chest pain, unspecified. - Bed requested for [facility] ER HOLD. - Status is Observation. ph - Condition is Stable. Signatures: Dispatcher [employer] EDMS Yolis Martinez Kindra Jaquez RN Leona Lam RN Julio Cesar Ellis MD MD cha Hall, Patricia, RN RN ph Glenda, Lucas, RN RN mg2 Shivam Chaves RN RN rr5 Gale Bro RN RN ca1 Corrections: (The following items were deleted from the chart) 22:04 21:47 Hospitalization Ordered by Shivam Montejo MD for Observation. Preliminary mw diagnosis is Hypokalemia; Hypomagnesemia; Dizziness and giddiness; Bradycardia, unspecified; Type 2 diabetes mellitus. Bed requested for Telemetry/MedSurg (observation). Status is Observation. Condition is Fair. Problem is new. Symptoms have improved. [facility] 22:48 22:04 07/10/2020 21:47 Hospitalization Ordered by Shivam Montejo MD for Observation. [facility] Preliminary diagnosis is Hypokalemia; Hypomagnesemia; Dizziness and giddiness; Bradycardia, unspecified; Type 2 diabetes mellitus. Bed requested for [facility] ER HOLD. Status is Observation. Condition is Fair. Problem is new. Symptoms have improved. 07/11 10:17 12 22:48 07/10/2020 21:47 Hospitalization Ordered by Shivam Montejo MD for Observation. Preliminary diagnosis is Hypokalemia; Hypomagnesemia; Dizziness and giddiness; Bradycardia, unspecified; Type 2 diabetes mellitus; Urinary tract infection, site not specified. Bed requested for [facility] ER HOLD. Status is Observation. Condition is Fair. Problem is new. Symptoms have improved. [facility] 07/11 10:49 10:17 07/10/2020 21:47 Hospitalization Ordered by Shivam Montejo MD for Observation. Preliminary diagnosis is Hypokalemia; Hypomagnesemia; Dizziness and giddiness; Bradycardia, unspecified; Type 2 diabetes mellitus; Urinary tract infection, site not specified. Bed requested for Telemetry/MedSurg (Inpatient). Status is Observation. Condition is Fair. Problem is new. Symptoms have improved. 14:44 10:51 Hospitalization Ordered by Rolf Horner DO for Observation. Preliminary bd diagnosis is Chest pain, unspecified. Bed requested for Telemetry/MedSurg (observation). Status is Observation. Condition is Stable. kl 14:46 14:44 07/11/2020 10:51 Hospitalization Ordered by Rolf Horner DO for Observation. ph Preliminary diagnosis is Chest pain, unspecified. Bed requested for [facility] ER HOLD. Status is Observation. Condition is Stable. bd
--- NOTE | 2020-07-10 21:47 | ER ---
Nurse's Notes [facility] Name: Marianela Mills Age: 74 yrs Sex: Female : 1945 Arrival Date: 07/10/2020 Time: 19:06 Bed 18 Private MD: None, None Diagnosis: Chest pain, unspecified Presentation: 07/10 19:21 Chief complaint: Patient states: Low HR at 46 bpm today. Bilateral arm pain x 1 week, ca1 denies injury. Headache and neck pain x 2 weeks, worse in the last few days. SOB with exertion, denies cough and fever. Coronavirus screen: Client denies travel out of the [place] in the last 14 days. shortness of breath, Client presents with at least one sign or symptom that may indicate coronavirus-19. Standard/surgical mask placed on the client. Provider contacted for isolation considerations. Ebola Screen: Patient negative for fever greater than or equal to 101.5 degrees Fahrenheit, and additional compatible Ebola Virus Disease symptoms Patient denies exposure to infectious person. Patient denies travel to an Ebola-affected area in the 21 days before illness onset. No symptoms or risks identified at this time. Initial Sepsis Screen: Does the patient meet any 2 criteria? No. Patient's initial sepsis screen is negative. Does the patient have a suspected source of infection? No. Patient's initial sepsis screen is negative. Risk Assessment: Do you want to hurt yourself or someone else? Patient reports no desire to harm self or others. Onset of symptoms was July 10, 2020. 19:21 Method Of Arrival: Ambulatory ca1 19:21 Acuity: CASANDRA 2 ca1 Triage Assessment: 19:30 Respiratory: the patient has mild shortness of breath. rr5 Historical: - Allergies: 19:24 Codeine; ca1 - PMHx: 19:24 Diabetes - NIDDM; Hyperlipidemia; Hypertension; ca1 - PSHx: 19:24 None; ca1 - Immunization history:: Adult Immunizations up to date, Pneumococcal vaccine is up to date, Flu vaccine is up to date. - Social history:: Smoking status: Patient denies any tobacco usage or history of. Screenin:54 Abuse screen: Denies threats or abuse. Denies injuries from another. Nutritional rr5 screening: No deficits noted. Tuberculosis screening: No symptoms or risk factors identified. Fall Risk IV access (20 points). Total Bhakta Fall Scale indicates No Risk (0-24 pts). Assessment: 19:30 General: Appears in no apparent distress. uncomfortable, Behavior is calm, cooperative, rr5 appropriate for age. 19:30 Pain: Complains of pain in head, neck, arm Pain currently is 10 out of 10 on a pain rr5 scale. Quality of pain is described as aching, Pain began gradually, Is intermittent. Neuro: Level of Consciousness is awake, alert, obeys commands, Oriented to person, place, time, situation, Reports headache. Cardiovascular: Capillary refill < 3 seconds Patient's skin is warm and dry. Rhythm is sinus bradycardia. Respiratory: Airway is patent Respiratory effort is even, unlabored, Respiratory pattern is regular, symmetrical, GI: No signs and/or symptoms were reported involving the gastrointestinal system. : No signs and/or symptoms were reported regarding the genitourinary system. EENT: No signs and/or symptoms were reported regarding the EENT system. Derm: Skin is intact, is healthy with good turgor, Skin temperature is warm. Musculoskeletal: Circulation, motion, and sensation intact. Capillary refill < 3 seconds. 20:10 Reassessment: Patient appears in no apparent distress at this time. Patient is alert, rr5 oriented x 3, equal unlabored respirations, skin warm/dry/pink. 21:24 Reassessment: Patient appears in no apparent distress at this time. Patient is alert, rr5 oriented x 3, equal unlabored respirations, skin warm/dry/pink. Patient states symptoms have improved. 21:32 Reassessment: Patient appears in no apparent distress at this time. shoulder xray rr5 performed at bedside. 22:28 Reassessment: Patient appears in no apparent distress at this time. Patient is alert, rr5 oriented x 3, equal unlabored respirations, skin warm/dry/pink. hospitalist at bedside assessing the patient. 23:35 Reassessment: Patient appears in no apparent distress at this time. Patient is alert, rr5 oriented x 3, equal unlabored respirations, skin warm/dry/pink. Vital Signs: 19:21 BP 171 / 62; Pulse 48; Resp 17 S; Temp 97(TE); Pulse Ox 100% on R/A; Weight 104.33 kg ca1 (R); Height 5 ft. 9 in. (175.26 cm) (R); Pain 8/10; 19:52 BP 147 / 54; Pulse 44; Resp 16; Pulse Ox 99% ; rr5 21:24 BP 158 / 62; Pulse 48; Resp 16; Pulse Ox 99% ; rr5 22:20 BP 133 / 88; Pulse 49; Resp 17; Pulse Ox 97% ; rr5 23:12 BP 132 / 59; Pulse 47; Resp 19; Pulse Ox 98% ; rr5 19:21 Body Mass Index 33.96 (104.33 kg, 175.26 cm) ca1 ED Course: 19:06 Patient arrived in ED. ag5 19:18 Shivam Chaves, RN is Primary Nurse. rr5 19:23 Triage completed. ca1 19:24 Arm band placed on right wrist. ca1 19:27 Julio Cesar Gongora MD is Attending Physician. karli 19:29 Inserted saline lock: 20 gauge in right forearm, using aseptic technique. Blood rr5 collected. 19:30 EKG done, by ED staff, reviewed by Julio Cesar Gongora MD. rr5 19:54 Patient has correct armband on for positive identification. Placed in gown. Bed in low rr5 position. Call light in reach. quality assurance monitor body on. Pulse ox on. NIBP on. 20:44 XRAY Chest (1 view) In Process Unspecified. EDMS 21:43 Shoulder Right (2 View) XRAY In Process Unspecified. EDMS 21:45 Shivam Montejo MD is Hospitalizing Provider. karli 21:57 None, None is Private Physician. sg 22:18 COVID swab sent to lab. jp3 22:29 No provider procedures requiring assistance completed. Patient admitted, IV remains in rr5 place. intact, No redness/swelling at site. 07/11 10:50 Rolf Horner DO is Hospitalizing Provider. kl Administered Medications: 07/10 20:09 Drug: Pepcid 20 mg Route: IVP; Site: right forearm; rr5 21:25 Follow up: Response: No adverse reaction rr5 21:00 Drug: Magnesium Sulfate 1 grams Route: IVPB; Infused Over: 1 hrs; Site: right forearm; mg2 22:00 Follow up: Response: No adverse reaction; IV Status: Completed infusion; IV Intake: rr5 100ml 21:01 Drug: Potassium Effervescent Tablet 25 mEq Route: PO; mg2 21:49 Follow up: Response: No adverse reaction rr5 22:50 Drug: Rocephin 1 grams Route: IV; Rate: per protocol; Site: right forearm; rr5 23:37 Follow up: Response: No adverse reaction; IV Status: Completed infusion; IV Intake: [id number] Intake: 22:00 IV: 100ml; Total: 100ml. rr5 23:37 IV: 10ml; Total: 110ml. rr5 Outcome: 21:47 Decision to Hospitalize by Provider. karli 23:13 Admitted to ER Hold. Please see [facility] for further documentation. rr5 23:13 Condition: stable 23:13 Instructed on the need for admit. 07/11 10:51 Decision to Hospitalize by Provider. kl 14:46 Patient left the ED. ph Signatures: Dispatcher [employer] EDKindra Cassidy RN RN Sarmad Eugene RN RN sg Anderson, Corey, MD MD cha Hall, Patricia, RN RN Lucas Doshi RN RN mg2 Renard Skinner jp3 Shivam Chaves RN RN rr5 Gale Bro RN RN ca1 Robert Tracy [facility]
[2020-07-10] MEDS ORDERED: ONDANSETRON 4 MG/2 ML VIAL ONE (22:09)
--- NOTE | 2020-07-10 23:02 | P.HP ---
Certification for Inpatient Patient admitted to: Observation With expected LOS: <2 Midnights Patient will require the following post-hospital care: None Practitioner: I am a practitioner with admitting privileges, knowledge of patient current condition, hospital course, and medical plan of care. Services: Services provided to patient in accordance with Admission requirements found in Title 42 Section 412.3 of the Code of Federal Regulations <Quinn Azevedo - Last Filed: 07/10/20 22:59> Patient History Date of Service: 07/10/20 Primary Care Provider: Dr. brooks Reason for admission: Bradycardia History of Present Illness: 74-year-old female with history of diabetes mellitus type 2, hy pertension, hyperlipidemia presents emergency department for palpitations and shortness of breath with exertion over the course of the last 1 week. Patient reports checking her heart rate this morning with a pulse oximeter and reading in the 40s. Patient denies any chest pain, does report some shortness of breath with exertion and orthostatic symptoms. Patient was evaluated in the emergency department, EKG shows sinus bradycardia, patient does not take any beta- blockers, only lisinopril and amlodipine for blood pressure. Workup in the emergency department revealed mild hypokalemia and hypomagnesemia 3.4 and 1.7 respectively. Patient denies history of heart disease, BNP mildly elevated at 808, initial troponin 0.04. Patient also with microcytic anemia, hemoglobin 11.0, hematocrit 34.5, MCV 65.4. Patient denies any blood in stools. ED provider wishes to admit patient for further evaluation and management. When I saw the patient in the emergency department she is awake, alert, oriented x3. Patient denies any chest pain, dizziness but does report shortness of breath with exertion. - Past Medical/Surgical History -: Diabetes mellitus type 2 -: Hypertension -: Hyperlipidemia -: none Psychosocial/ Personal History: Patient lives at home with her and is retired. - Social History Smoking Status: Never smoker Alcohol use: No CD- Drugs: No Caffeine use: Yes Place of Residence: Home <Quinn Azevedo - Last Filed: 07/10/20 22:59> Date of Service: 07/11/20 - Family History Family History: Reviewed- Non-Contributory <Shivam Montejo - Last Filed: 07/11/20 20:36> Allergies codeine [Codeine] Adverse Reaction (Verified 09/19/12 10:52) Nausea/Vomiting Review of Systems 10-point ROS is otherwise unremarkable Cardiovascular: Palpitations, Other (Orthostatics dizziness) <Quinn Azevedo - Last Filed: 07/10/20 22:59> Physical Examination - Physical Exam General: Alert, In no apparent distress HEENT: Atraumatic, PERRLA, Mucous membr. moist/pink Neck: Supple, 2+ carotid pulse no bruit, No LAD Respiratory: Clear to auscultation bilaterally, Normal air movement Cardiovascular: Normal S1 S2, Irregular heart rate/rhythm (Sinus bradycardia in the 40s) Capillary refill: <2 Seconds Gastrointestinal: Normal bowel sounds, No tenderness Musculoskeletal: No tenderness Integumentary: No rashes Neurological: Normal speech, Normal strength at 5/5 x4 extr, Normal tone, Normal affect - Studies Laboratory Data (last 24 hrs) 07/10/20 19:35: PT 11.6, INR 0.98 07/10/20 19:35: Magnesium 1.7 L, Total Bilirubin 0.2, AST 12 L, ALT 14, Alkaline Phosphatase 48 07/10/20 19:35: Sodium 141, Potassium 3.4 L, BUN 32 H, Creatinine 1.03, Glucose 252 H 07/10/20 19:29: WBC 6.4, Hgb 11.0 L, Hct 34.5 L, Plt Count 198 <Quinn Azevedo - Last Filed: 07/10/20 22:59> Assessment and Plan - Plan Assessment Palpitations, Sinus bradycardia with a rate in the low 40s Hypomagnesemia Hypokalemia Hypertension Diabetes mellitus type 2 Hyperlipidemia Plan Palpitations, Sinus bradycardia with a rate in the low 40s: Patient not significantly symptomatic at this time. Monitor on telemetry. Check thyroid panel with morning labs. Review medications. Cardiology consult in place. DVT prophylaxis with Lovenox 40 mg subcutaneous once daily. Hypomagnesemia: Magnesium protocol Hypokalemia: Potassium protocol Hypertension: Obtained, reviewed and continue home medications as appropriate. Diabetes mellitus type 2: A1c with morning labs, a.c. HS Accu-Cheks, sliding scale insulin therapy. Hyperlipidemia: Obtain and continue home medications. Discharge Plan: Home Plan to discharge in: 24 Hours - Advance Directives Does patient have a Living Will: No Does patient have a Durable POA for Healthcare: No - Code Status/Comfort Care Code Status Assessed: Yes (Full code) Critical Care: No Time Spent Managing Pts Care (In Minutes): 55 <Quinn Azevedo - Last Filed: 07/10/20 22:59> - Plan Plan of care reviewed and agree as noted above by Quinn Azevedo. <Shivam Montejo - Last Filed: 07/11/20 20:36>
[2020-07-10] MEDS ORDERED: CEFTRIAXONE/SWI 1gm 1 GM/10 ML SYR ONE (23:09)
[2020-07-10 23:28] LABS: Urine Specific Gravity 1.025 (1.005-1.030)
[2020-07-10 23:29] LABS: Urine Blood NEGATIVE (NEG); Urine Glucose NEGATIVE (NEG); Urine Protein NEGATIVE (NEG); Urine pH 5.5 (5.0-7.0)
[2020-07-11] MEDS ORDERED: ACETAMINOPHEN 500 MG TAB PO PRN (00:19)
[2020-07-11] MEDS ORDERED: ONDANSETRON 4 MG/2 ML VIAL IV PRN (00:19)
[2020-07-11 00:49] VITALS: BMI 33.8
[2020-07-11 05:19] LABS: Absolute Lymphocytes (CBC) 1.5 K/uL (0.7-4.9); Basophils % 0.9 % (0-1.3); Hematocrit 33.7 % (36.0-45.0); Lymphocytes % 29.2 % (15.3-44.8); MPV 10.4 fL (7.6-11.3); RBC Red Blood Cell Count 5.14 M/uL (3.86-4.86)
[2020-07-11] MEDS ORDERED: ACETAMINOPHEN 500 MG TAB ONE (05:29)
[2020-07-11 05:55] LABS: ALT/SGPT 16 U/L (12-78); AST/SGOT 10 U/L (15-37); Albumin 3.2 g/dL (3.4-5.0); Alkaline Phosphatase 43 U/L (45-117); BUN Blood Urea Nitrogen 25 mg/dL (7-18); Bicarbonate 29 mmol/L (21-32); Bilirubin Total 0.3 mg/dL (0.2-1.0); Glucose Level 198 mg/dL (74-106); Magnesium 1.8 mg/dL (1.8-2.4); Potassium 3.6 mmol/L (3.5-5.1); Protein, Total 6.7 g/dL (6.4-8.2); Sodium Level 141 mmol/L (136-145)
--- NOTE | 2020-07-11 07:13 | EKG ---
Test Date: 2020-07-10 Test Time: 19:22:19 Economic Analyst: MEASUREMENT RESULTS: Intervals: Rate: 47 [place]: 252 QRSD: 76 QT: 486 QTc: 430 [place]: P: 67 [place]: 252 QRS: 29 T: 84 INTERPRETIVE STATEMENTS: Marked sinus bradycardia with 1st degree AV block Abnormal ECG Compared to ECG 09/19/2012 12:59:55 First degree AV block now present Sinus rhythm no longer present T-wave abnormality no longer present Electronically Signed On 07-11-20 07:09:04 ICEBOX WORKER by Marlon Lorenz
[2020-07-11] MEDS ORDERED: MAGNESIUM SULFATE 1 gm IVPB 1 GM/100 ML BAG IV ONE ×2 (07:24→07:42)
[2020-07-11] MEDS ORDERED: POTASSIUM CL SA 10 MEQ TAB PO ONE ×2 (07:26→07:41)
--- NOTE | 2020-07-11 07:55 | RAD REPORT ---
EXAM DESCRIPTION: Shoulder Right 2 View - 07/10/2020 9:43 pm CLINICAL HISTORY: PAIN COMPARISON: No comparisons TECHNIQUE: Internal and external rotation views of the right shoulder were obtained. FINDINGS: There is no fracture or dislocation. AC joint degenerative changes are present with infer iorly directed spurring from both the clavicle and acromion. Acromial humeral joint space is narrowed . No abnormal soft tissue calcifications. No acute or destructive process. IMPRESSION: Right shoulder degenerative change without fracture or dislocation.
[2020-07-11] MEDS: INSULIN -REGULAR HUMAN 50 UNIT/0.5 ML ML SQ SCH ×2 (09:00→13:00)
[2020-07-11] MEDS ORDERED: ENOXAPARIN 40 MG/0.4 ML SQ SCH (09:00)
[2020-07-11] MEDS ORDERED: ENOXAPARIN 40 MG/0.4 ML SQ ONE (09:52)
[2020-07-11] MEDS ORDERED: INSULIN -REGULAR HUMAN 50 UNIT/0.5 ML ML ONE ×2 (09:52→13:21)
[2020-07-11] MEDS ORDERED: PNEUMOCOCCAL VACCINE 0.5 ML IMVAC ONE (10:00)
--- NOTE | 2020-07-11 13:18 | ECHO ---
HEIGHT: 5 ft 9 in WEIGHT: 229 lb 4.492 oz DATE OF STUDY: 07/11/[address]: Marlon Lorenz MD 2-DIMENSIONAL: YES M.MODE: YES DOPPLER: YES COLOR FLOW: YES TDS: NO PORTABLE: NO DEFINITY: NO BUBBLE STUDY: NO DIAGNOSIS: CHEST PAIN, BRADYCARDIA CARDIAC HISTORY: CATHERIZATION: NO SURGERY: NO PROSTHETIC VALVE: NO PACEMAKER: NO MEASUREMENTS (cm) DIASTOLIC (NORMALS) SYSTOLIC (NORMALS) IVSd 1.3 (0.6-1.2) LA Diam 4.0 (1.9-4.0) LVEF 62% LVIDd 4.5 (3.5-5.7) LVIDs 3.0 (2.0-3.5) %FS 33% LVPWd 1.3 (0.6-1.2) Ao Diam 3.0 (2.0-3.7) 2 DIMENSIONAL ASSESSMENT: RIGHT ATRIUM: NORMAL LEFT ATRIUM: NORMAL RIGHT VENTRICLE: NORMAL LEFT VENTRICLE: LEFT VENTRICULAR HYPERTROPHY TRICUSPID VALVE: NORMAL MITRAL VALVE: MITRAL ANNULAR CALCIFICATION PULMONIC VALVE: NORMAL AORTIC VALVE: SCLEROSIS PERICARDIAL EFFUSION: NONE AORTIC ROOT: NORMAL LEFT VENTRICULAR WALL MOTION: NORMAL DOPPLER/COLOR FLOW: MILD TRICUSPID REGURGITATION. RIGHT VENTRICULAR SYSTOLIC PRESSURE 40 mmHg. COMMENTS: MILD PULMONARY HYPERTENSION. NORMAL LEFT VENTRICULAR EJECTION FRACTION. LEFT VENTRICULAR HYPERTROPHY. NO WALL MOTION ABNORMALITY. NO EFFUSION. MITRAL ANNULAR CALCIFICATION. AORTIC SCLEROSIS. TECHNOLOGIST: Carlos FALCON
--- NOTE | 2020-07-11 14:14 | P.DS ---
Admission Date: 07/10/20 Discharge Date: 07/11/20 Primary Care Provider: Dr. brooks Disposition: ROUTINE DISCHARGE Discharge Condition: GOOD Reason for Admission: Bradycardia Consultations: Cardiology - Dr. Lorenz Procedures: CXR: no acute cardiopulmonary process R shoulder x-ray: AC joint degenerative changes without fracture or dislocation. no acute or destructive process. EKG (07/10): Sinus bradycardia (HR: 47), with 1st degree AV block (ID: 252, QTc: 430) TTE (07/11): normal LVEF: 62%, no wall motion abnormality. no effusion. mild pulmonary HTN, LVH, mitral annular calficiation, aortic sclerosis. Problem List Palpitations, Sinus bradycardia with a rate in the low 40s Hypomagnesemia Hypokalemia Hypertension Diabetes mellitus type 2 Hyperlipidemia Brief History of Present Illness: 74-year-old female, PMH: DM2, HTN, HLD, who presented to ED due to palpitation and intermittent SOB over the last 1 week. Patient reports checking her heart rate this morning with a pulse oximeter and reading in the 40s. Patient denies any chest pain, does report some shortness of breath with exertion and orthostatic symptoms. Patient was evaluated in the emergency department, EKG shows sinus bradycardia, patient does not take any beta- blockers, only lisinopril and amlodipine for blood pressure. Workup in the emergency department revealed mild hypokalemia and hypomagnesemia 3.4 and 1.7 respectively. Patient denies history of heart disease, BNP mildly elevated at 808, initial troponin 0.04. Patient also with microcytic anemia, hemoglobin 11.0, hematocrit 34.5, MCV 65.4. Patient denies any blood in stools. Hospital Course: Patient was monitored on telemetry without any acute events. Her heart rate re mained in sinus bradycardia 45-50s. Her troponins were obtained and were 0.4 -> 0.5 -> 0.4. Cardiology was consulted and felt this may be due to her amlodipine. Her amlodipine was discontinued, an echocardiogram was obtained which was reported as normal. Her case was discussed with Cardiology who felt patient was stable for discharge home, with a plan for her to follow up as an outpatient for possible lexiscan and event monitor once off amlodipine for at least 1 week. Patient denied any dizziness/palpitations/chest pain on day of discharge. TSH/Free T4 were normal. Hgb A1c was checked and 8.3. Recommended to f/u with PCP regarding microcytic anemia and shoulder pain. Vital Signs/Physical Exam: Temp Pulse Resp BP Pulse Ox 97.4 F 48 L 16 128/42 L 97 07/11/20 08:00 07/11/20 08:00 07/11/20 08:00 07/11/20 08:00 07/11/20 08:00 General: Alert, In no apparent distress, Oriented x3 HEENT: Mucous membr. moist/pink, Sclerae nonicteric Respiratory: Clear to auscultation bilaterally, Normal air movement Cardiovascular: No edema, Other (sinus bradycardia, HR: 48-50) Gastrointestinal: Soft and benign, No tenderness Musculoskeletal: Other (R shoulder with some pain with passive and active ROM al ingrid AC joint) Integumentary: No rashes, No significant lesion Neurological: Normal speech, Normal affect Laboratory Data at Discharge: WBC 5.1 K/uL (4.3-10.9) D 07/11/20 05:00 Hgb 10.6 g/dL (12.0-15.0) L 07/11/20 05:00 Hct 33.7 % (36.0-45.0) L 07/11/20 05:00 Plt Count 188 K/uL (152-406) 07/11/20 05:00 PT 11.6 SECONDS (9.5-12.5) 07/10/20 19:35 INR 0.98 07/10/20 19:35 Sodium 141 mmol/L (136-145) 07/11/20 05:00 Potassium 3.6 mmol/L (3.5-5.1) 07/11/20 05:00 BUN 25 mg/dL (7-18) H 07/11/20 05:00 Creatinine 0.75 mg/dL (0.55-1.3) 07/11/20 05:00 Glucose 198 mg/dL (74-106) H 07/11/20 05:00 Magnesium 1.8 mg/dL (1.8-2.4) 07/11/20 05:00 Total Bilirubin 0.3 mg/dL (0.2-1.0) 07/11/20 05:00 AST 10 U/L (15-37) L 07/11/20 05:00 ALT 16 U/L (12-78) 07/11/20 05:00 Alkaline Phosphatase 43 U/L (45-117) L 07/11/20 05:00 Troponin I 0.04 ng/mL (0.0-0.045) 07/11/20 06:50 Patient Discharge Instructions: Follow up with PCP in the next [address] Lorenz's office will contact you in the next few days to set up an appointment. He will work to schedule you for a cardiac stress test and possibly a heart event monitor. Continue home medications except for your amlodipine. Diet: ADA Activity: Ad tim Followup: Marlon Lorenz MD [ACTIVE - CAN ADMIT] - NONE,NONE [Primary Care Provider] - Time spent managing pt's care (in minutes): 40
[2020-07-11 14:52] VITALS: BP 137/72; TEMP 98.1
--- NOTE | 2020-07-15 14:17 | CON ---
Date of Consultation: 07/11/2020 The patient admitted to Dr. Montejo's service on 07/10/2020. I saw the patient on 07/11/2020. Reason For Consultation: Bradycardia. History Of Present Illness: Ms. Mills is a 74-year-old white woman without any significant past c ardiac history. She has a history of diabetes, hypertension, dyslipidemia. Came in with atypical ch est pain, mostly neck pain, shortness of breath, headache, pain in the left arm, loss of balance, but was found to have a bradycardia with a heart rate of 44. The patient does take a calcium channel bl ocker, specifically amlodipine. Denied any syncope. Denied any nausea, vomiting, diaphoresis, PND, orthopnea, pedal edema, or palpitation. Past Medical History: As stated above. Allergies: INCLUDE CODEINE. Review of Systems: Negative. Social History: Negative. Family History: Negative. Physical Examination: Vital Signs: Stable except for a heart rate of 44. General: She was in no acute distress, tension free HEENT: Negative. Neck: Supple with no bruit. Chest: Clear. Cardiac: Revealed bradycardia with aortic sclerosis and murmur. No gallops or rubs. Abdomen: Benign. Extremities: Revealed no clubbing, cyanosis, or edema. Diagnostic Data: Showed UTI with troponin of 0.05. Impression And Plan: Bradycardia, unknown etiology, certainly could be related to her urinary tract infection. Her troponin elevation is not clinically significant. She is on lisinopril, Zocor, glime piride, Neurontin, and metformin and I would stop her amlodipine and consider decreasing her Neuronti n dose. We would like to get an echocardiogram on her. I would consider an event monitor and a Pauly scan in the near future because of her atypical symptoms including shortness of breath and neck pain. I would be happy to see her in the office in the next week or 2. We will see what her echo shows. Her urinary tract infection needs to be treated with antibiotics. MARGARITO/STEPHON Voice ID: [id number] Report ID: [id number]
== END 2020-07-11 14:20 | disposition home or self-care (01) ==
LOC: ER 19:05 → ERHOLD 22:53
PROVIDERS: ADMIT Hospitalist; ATTEND Hospitalist
DX: R00.1 Bradycardia, unspecified (principal); R00.2 Palpitations; E83.42 Hypomagnesemia; E87.6 Hypokalemia; I10 Essential (primary) hypertension; Z20.828 Contact with and (suspected) exposure to other viral communicable diseases; E11.9 Type 2 diabetes mellitus without complications; E78.5 Hyperlipidemia, unspecified; D50.9 Iron deficiency anemia, unspecified; R94.31 Abnormal electrocardiogram [ECG] [EKG]
CPT/HCPCS: 96365; 96367; 93005; 93306; 87088; 85025 ×2; 87086; 80048; 36415; 86900; 83735 ×2; 86850; 85610; 86901; 82947 ×2; 80076; 84443; 87077; 87186; 81003; 83036; 84484 ×3; 84439; 80053; 83880; 71045; 73030; 96375; 99285; U0003; J1650; J3475 ×2; J0696; J2405; G0378 ×2

== ENCOUNTER 2022-01-07 21:53 | Emergency (ER) | payer OTHER ==
--- OUTSIDE RECORDS SUMMARY | 2022-01-07 21:56 | XMS REPORT | Continuity of Care Document ---
:[address] [facility] t Address [address] [place] [address] [address] [place] [address] Care Team Providers Name Role Phone Pcp, Does Not Have A Primary Care Physician Dave_S Attending Clinician Unavailable RACHELLE Attending Clinician Unavailable lAberto OTOOLE, T Attending Clinician Unavailable Only, Db Test Attending Clinician Unavailable Thelma STOCKLAYER Attending Clinician THELMA Attending Clinician Unavailable ISAEL Attending Clinician Unavailable PIERCE Attending Clinician Unavailable NINO Attending Clinician Unavailable MD NINO Attending Clinician Unavailable Ogletree_C Attending Clinician Unavailable Delgado_Roddy Admitting Clinician Unavailable NINO Admitting Clinician Unavailable MD NINO Admitting Clinician Unavailable Ogletree_C Admitting Clinician Unavailable Payers Payer Name Policy Type Policy Number Effective Date Expiration Date S ource [facility] [id number] 2021 [employer] 00:00:00 (MEDICARE REPLACEMENT/ADVANT AGE - HMO) [employer] [place] [id number] 2018 (MEDICARE 00:00:00 REPLACEMENT/ADVANT AGE - HMO) Problems Condition Condition Condition Status Onset Resolution Last Treating Co mments Source Name Details Category Date Date Treatment Clinician Date Vitamin D 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 4-18 Fa bassem 00:00: Practic 00 e Vaginolabi Vaginolabi Problem Active V illage al hernia al Hernia 9-25 Fami ly 00:00: Practic [address] SNOM[address] CT Problem Active Destinee adam Concept Concept 7-24 Family 00:00: Practic 00 e R06.02 - Diagnosis Active 2021-01-03 M emoria SHORTNESS 01-03 11:44:00 l OF BREATH R06.02 - 00:01: Her webb SHORTNESS 00 OF BREATH Active 01/03/2021 [facility] Epigastric Epigastric Problem Active V illage pain Pain 1-11 Family 00:00: Practic 00 e Cardiac Cardiac Problem Active 2019-08 [facility] pacemaker Pacemaker 2-25 Fami ly in situ in Situ 00:00: Practic 00 e History of Problem Active 2019-082020-10-09 M smootha heart 2 17:34:47 l block History 00:00: [place] (situation of heart 00 ) block (situation ) Active 07/03/2020 Problem 10/09/2020 HAS A PACEMAKER [facility] 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 adam mammograph Mammograph 8-19 Fa bassem y y 00:00: Practic 00 e Fredrickso Fredrickso Problem Active [facility] n [facility] IIa n [facility]op 00:00: Pr actic roteinemia roteinemia 00 e Benign Benign Problem Active [facility] essential Essential 04-11 Fami ly hypertensi Hypertensi 00:00: Pr actic on on 00 e Evaluation Evaluation Problem Active [facility] ill[facility] finding Finding 04-11 Family 00:00: Practic 00 e Pure Pure Problem Active [facility] hyperchole [facility]ole 04[facility]11 [facility] sterolemia sterolemia 00:00: Pr actic 00 e Type 2 Type 2 Problem Active [facility] diabetes Diabetes 04-11 Family mellitus Mellitus 00:00: Practi c without without 00 e complicati Complicati on on Family Family Problem Active [facility] history of History of 6-05 Fa bassem malignant Malignant 00:00: Prac tic neoplasm Neoplasm 00 e of of digestive Digestive organ Organ Family Family Problem Active [place] history of History of 6-05 Fa bassem malignant Malignant 00:00: Prac tic neoplasm Neoplasm 00 e of of gastrointe Gastrointe stinal stinal tract Tract Family Family Problem Active [facility] history of History of 6-05 Fa bassem cancer of Cancer of 00:00: Prac tic colon Colon 00 e Vitamin B Vitamin B Problem Active Destinee adam deficiency Deficiency 6-04 Fa bassem 00:00: Practic 00 e Anemia Anemia Problem Active [place] 6-04 Family 00:00: Practic 00 e Hypertensi Hypertensi Problem Active V illage ve ve 2-19 Family disorder Disorder 00:00: Practi c 00 e Hyperchole Problem Active 2020-10-09 M emoria sterolemia 17:34:47 l (disorder) Miguel n Hyperchole sterolemia (disorder) Active Problem 10/09/2020 [facility] Unspecifie Problem 2020-10-09 M emoria d chronic 17:34:47 l gastritis Arturo without Unspecifie bleeding d chronic gastritis without bleeding 10/09/2020 [facility] Hyperlipid Problem Resolve 2021-04-20 Memoria emia d 00:38:26 l (disorder) Miguel n Hyperlipid emia (disorder) Resolved Problem 04/20/2021 Medical Group,[facility] Complete Problem Active 2021-04-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 00:38:26 l icular Complete Miguel n block atrioventr (disorder) icular block (disorder) Active Problem 04/20/2021 Medical Group,[facility] Dyspnea on Problem Active 2021-04-20 M emoria exertion 00:38:26 l (finding) Dyspnea Herm gabi on exertion (finding) Active Problem 04/20/2021 Medical [facility] Morbid Problem Active 2021-04-20 Memor ia obesity 00:38:26 l (disorder) Morbid Herm gaib obesity (disorder) Active Problem 04/20/2021 Medical [facility] Palpitatio Problem Active 2021-04-20 M emoria ns 00:38:26 l (finding) Arturo Palpitatio ns (finding) Active Problem 04/20/2021 Medical [facility] Diabetes Problem Resolve 2021-04-20 Me moria mellitus d 00:38:26 l (disorder) Diabetes He rmann mellitus (disorder) Resolved Problem 04/20/2021 Medical Group,[facility] , [facility] Gastroesop Problem Active 2020-10-09 M emoria hageal 17:34:47 l reflux Arturo disease Gastroesop (disorder) hageal reflux disease (disorder) Active Problem 10/09/2020 [facility] Allergies, Adverse Reactions, Alerts Allergy Allergy Status Severity Reaction(s) Onset Inactive Treating Comm ents Source Name Type Date Date Clinician CODEINE Allergy Active [place] SULFATE to 5-25 Family substan 00:00: Practic e 00 e NO KNOWN Drug Active [facility] ALLERGIE Class ity of [facility] codeine codeine Active Nausea Memoria (finding) l Arturo Social History Social Habit Start Date Stop Date Quantity Comments Source Exposure to Yes [facility] SARS-CoV-2 (event) Medica Branch Sex Ass[birth year] [facility] 00:00:00 00:00:00 Medical Branch Smoking Status Start Date Stop Date Source Unknown if ever smoked [facility] Never Smoker [facility] Family P racjudy Medications Ordered Filled Start Stop Current Ordering Indication Dosage Frequency Signature Comments Components Source Medication Medication Date Date Medication? 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, stop date 09/24/20 9:41:00 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 propofol No 50 mg = 5 Maurizio rainer 2-22 mL, l 15:26: Emulsion, 00 IV, Once, first dose 09/24/20 9:26:00 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, stop date 09/24/20 9:26:00 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 propofol 2021-0 No 50 mg = 5 Maurizio rainer 2-22 mL, l 15:26: Emulsion, [place] 00 IV, Once, first dose 09/24/20 9:26:00 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, stop date 09/24/20 9:26:00 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 propofol 2020-0 No 70 mg = 7 Maurizio rainer 2-22 mL, l 15:22: Emulsion, [place] 00 IV, Once, first dose 09/24/20 9:22:00 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, stop date 09/24/20 9:22:00 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 propofol 2020-0 No 70 mg = 7 Maurizio rainer 2-22 mL, l 15:22: Emulsion, [place] 00 IV, Once, first dose 09/24/20 9:22:00 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, stop date 09/24/20 9:22:00 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 lidocaine 2020-0 No 50 mg = Memor ia - 2.5 mL, l 15:20: Injection, Arturo 00 IV, Once, first dose 09/24/20 9:20:00 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, stop date 09/24/20 9:20:00 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 lidocaine 2020-0 No 50 mg = Memor ia -22 2.5 mL, l 15:20: Injection, Arturo 00 IV, Once, first dose 09/24/20 9:20:00 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, stop date 09/24/20 9:20:00 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 LR 1,000 mL 2020-0 No 1,000 mL, M emoria 2-22 IV, 30 l 13:35: mL/hr, [place] 00 start date 09/24/20 7:35:00 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, 2.2, m2 Lidocaine 2020-0 Yes 0.2 mL, Memor ia 2% 0.2 mL 09-24 Injection, l IV Start 13:35: Subcutaneo Her webb [[facility]] 00 us, Once PRN for other (see comment), first dose 09/24/20 7:35:00 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 LR 1,000 mL 2020-0 No 1,000 mL, M emoria 2-22 IV, 30 l 13:35: mL/hr, [place] 00 start date 09/24/20 7:35:00 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, 2.2, m2 Lidocaine 2020-0 Yes 0.2 mL, Memor ia 2% 0.2 mL 2-22 Injection, l IV Start 13:35: Subcutaneo Her webb [[place]] 00 us, Once PRN for other (see comment), first dose 09/24/20 7:35:00 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 Metformin 0 Yes 500 mg, Memor ia 2-20 Oral, BID, l 17:05: DM Metformin Yes 500 mg, Memor ia 2-20 Oral, BID, l 17:05: DM gabapentin Yes 300 mg = 1 M emoria 300 MG Oral 2-20 caps, l Capsule 16:46: Oral, qHS Beth nn [Neurontin] 00 simvastatin Yes 40 mg = 1 M emoria 40 mg oral 2-20 tabs, l tablet 16:46: Oral, qHS, Beth nn 00 HIGH CHOL Vitamin D3 Yes 5,000 Memori a 5000 intl 2-20 IntUnit = l units (125 16:46: 1 caps, Herm gabi mcg) oral 00 Oral, capsule Daily, SUPPLEMENT gabapentin Yes 300 mg = 1 M emoria 300 MG Oral 2-20 caps, l Capsule 16:46: Oral, qHS Beth nn [Neurontin] 00 simvastatin Yes 40 mg = 1 M emoria 40 mg oral 2-20 tabs, l tablet 16:46: Oral, qHS, Beth nn 00 HIGH CHOL Vitamin D3 Yes 5,000 Memori a 5000 intl 2-20 IntUnit = l units (125 16:46: 1 caps, Herm gabi mcg) oral 00 Oral, capsule Daily, SUPPLEMENT glimepiride Yes 2 mg = 1 Me moria 2 mg oral 2-20 tabs, l tablet 16:44: Oral, [place] 00 Daily, DM lisinopril Yes 20 mg = 1 Me moria 20 mg oral 2-20 tabs, l tablet 16:44: Oral, Arturo 00 Daily, HTN glimepiride Yes 2 mg = 1 Me moria 2 mg oral 2-20 tabs, l tablet 16:44: Oral, Arturo 00 Daily, DM lisinopril Yes 20 mg = 1 Me moria 20 mg oral 2-20 tabs, l tablet 16:44: Oral, Arturo Daily, HTN Metoprolol Yes 50 mg = 1 Me moria Succinate 2-20 tabs, l ER 50 mg 16:43: Oral, qHS, Her webb oral 00 HTN tablet, extended release Omeprazole 0 Yes 20 mg = 1 Me moria 20 MG 2-20 caps, l Enteric 16:43: Oral, [place] Coated Daily, Capsule GERD Metoprolol Yes 50 mg = 1 Me moria Succinate 2-20 tabs, l ER 50 mg 16:43: Oral, qHS, Her webb oral 00 HTN tablet, extended release Omeprazole Yes 20 mg = 1 Me moria 20 MG 2-20 caps, l Enteric 16:43: Oral, Arturo Coated Daily, Capsule GERD amLODIPine Yes 2.5 mg = 1 M emoria 2.5 mg oral 2-20 tabs, l tablet 16:41: Oral, [place] Daily, HTN Aspir 81 Yes 81 mg = 1 Maurizio rainer oral 2-20 tabs, l delayed 16:41: Oral, Arturo release 00 Daily tablet amLODIPine Yes 2.5 mg = 1 M emoria 2.5 mg oral 2-20 tabs, l tablet 16:41: Oral, [place] Daily, HTN Aspir 81 Yes 81 mg = 1 Maurizio rainer oral 2-20 tabs, l delayed 16:41: Oral, Arturo release 00 Daily tablet metoprolol Yes 50 mg = 1 Me moria 50 mg oral 2-05 tab, PO, l tablet, 18:18: Daily, # Miguel n extended 00 90 tab, 3 release Refill(s), Pharmacy: [facility], 175.26, cm, 09/07/20 11:34:00 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, Height, 108.182, kg, 09/07/20 11:34:00 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, Weight glimepiride Yes 2 mg = 1 Me moria 2 mg oral 2-05 tab, PO, l tablet 17:42: Breakfast, Beth nn 00 # 30 tab, 0 Refill(s) Aspirin 81 0 Yes 81 mg = 1 Me moria MG Enteric 2-05 tab, PO, l Coated 17:42: Daily, # Arturo Tablet 00 90 tab, 3 Refill(s) Vitamin D3 Yes 0 Memoria 2-05 Refill(s) l 17:42: Arturo 00 Vitamin B12 Yes 0 Memori a 2-05 Refill(s) l 17:42: [place] 00 Calcium Yes CHEW, BID, Maurizio rainer 500+D 2-05 0 l 17:42: Refill(s) [place] 00 omeprazole Yes 20 mg = 1 Me moria 20 mg oral 2-05 cap, PO, l delayed 17:42: Daily, # Miguel n release 00 30 cap, 0 capsule Refill(s) Metformin Yes 500 mg = 1 Me moria hydrochlori 2-05 tab, PO, l de 500 MG 17:42: BID-Meals, He rmann Oral Tablet 00 # 30 tab, 0 Refill(s) Hydrochloro Yes 1 tab, PO, Memoria thiazide 25 2-05 Daily, # l MG / 17:42: 30 tab, 0 [place] Lisinopril 00 Refill(s) 20 MG Oral Tablet amLODIPine Yes 5 mg = 1 Mem oria 5 mg oral 2-05 tab, PO, l tablet 17:42: Daily, # [place] 00 90 tab, 0 Refill(s) simvastatin Yes 40 mg = 1 M emoria 40 mg oral 2-05 tab, PO, l tablet 17:42: Bedtime, # Beth nn 00 90 tab, 1 Refill(s) Tylenol as Tylenol as No Tylenol as [place] needed needed needed Family Practic e Vitamin D3 Vitamin D3 No Vitamin D3 [place] Take 1 tab Take 1 tab Take 1 tab Family daily daily daily Practic e amlodipine amlodipine No amlodipine [place] 5 mg tablet 5 mg tablet 5 mg F amily TAKE 1 TAKE 1 tablet Practic TABLET BY TABLET BY TAKE 1 e MOUTH TWICE MOUTH TWICE TABLET BY A DAY A DAY MOUTH TWICE A DAY calcium calcium No calcium Villag e Take 1 tab Take 1 tab Take 1 tab Family daily daily daily Practic e Eliquis 5 Eliquis 5 No Eliquis 5 Village mg tablet mg tablet mg tablet Family TAKE 1 TAKE 1 TAKE 1 Practic TABLET BY TABLET BY TABLET BY e MOUTH TWICE MOUTH TWICE MOUTH A DAY A DAY TWICE A DAY FreeStyle FreeStyle No FreeStyle [facility] Marisabel 2 Marisabel 2 Marisabel 2 Family Sensor kit Sensor kit Sensor kit Practic Use as Use as Use as e directed. directed. directed. glimepiride glimepiride No glimepirid [facility] 2 mg tablet 2 mg tablet e 2 mg Family TAKE 1 TAKE 1 tablet Practic TABLET BY TABLET BY TAKE 1 e MOUTH EVERY MOUTH EVERY TABLET BY DAY DAY MOUTH EVERY DAY iron 1QD iron 1QD No iron 1QD [facility] Pract[facility] e lisinopril lisinopril No lisinopril [facility] 20 20 20 Family mg-hydrochl mg-hydrochl mg-hydroch Practic orothiazide orothiazide lorothiazi e 25 mg 25 mg de 25 mg tablet TAKE tablet TAKE tablet 1 TABLET 1 TABLET TAKE 1 TWICE A DAY TWICE A DAY TABLET BY ORAL BY ORAL TWICE A ROUTE FOR ROUTE FOR DAY BY 90 DAYS. 90 DAYS. ORAL ROUTE FOR 90 DAYS. metformin metformin No metformin [facility] ER 500 mg ER 500 mg ER 500 mg Family tablet,exte tablet,exte tablet,ext Practic nded nded ended e release 24 release 24 release 24 hr TAKE 2 hr TAKE 2 hr TAKE 2 TABLETS BY TABLETS BY TABLETS BY MOUTH TWICE MOUTH TWICE MOUTH A DAY FOR A DAY FOR TWICE A 90 DAYS 90 DAYS DAY FOR 90 DAYS metoprolol metoprolol No metoprolol [facility] succinate succinate succinate Family ER 50 mg ER 50 mg ER 50 mg Pra ctic tablet,exte tablet,exte tablet,ext e nded nded ended release 24 release 24 release 24 hr TAKE 1 hr TAKE 1 hr TAKE 1 TABLET BY TABLET BY TABLET BY MOUTH TWICE MOUTH TWICE MOUTH A DAY FOR A DAY FOR TWICE A 30 DAYS 30 DAYS DAY FOR 30 DAYS omeprazole omeprazole No 1mg Q1D omeprazole [facility] 20 mg 20 mg 20 mg Family capsule,del capsule,del capsule,de Practic ayed ayed layed e release release release Take 1 mg Take 1 mg Take 1 mg every day every day every day by oral by oral by oral route. route. route. OneTouch OneTouch No OneTouch Destinee adam Delica Plus Delica Plus Delica Family Lancet 33 Lancet 33 Plus Pract ic gauge gauge Lancet 33 e gauge OneTouch OneTouch No OneTouch Destinee adam Ultra Test Ultra Test Ultra Test Family strips USE strips USE strips USE Practic 1 STRIP TO 1 STRIP TO 1 STRIP TO e CHECK 3 CHECK 3 CHECK 3 TIMES DAILY TIMES DAILY TIMES DAILY OneTouch OneTouch No OneTouch Destinee medina Ultra2 Ultra2 Ultra2 Family Meter Meter Meter Practic e simvastatin simvastatin No naomitati [place] 40 mg 40 mg n 40 mg Family tablet tablet tablet Practic simvastatin simvastatin glenn e 40 mg 40 mg n 40 mg tablet 1 tablet 1 tablet 1 Tablet(s) Tablet(s) Tablet(s) Oral at Oral at Oral at bedtime bedtime bedtime Immunizations Ordered Immunization Filled Immunization Date Status Commen ts Source Name Name COVID-19, mRNA, COVID-19, mRNA, 2021-07-03 Completed [facility] age Family LNP-S, PF, 30 mcg/0.3 LNP-S, PF, 30 mcg/0.3 00:00:00 Practice mL dose mL dose (Pfizer-BioNTech) (Xradia-BioNTech) influenza, high-dose, influenza, high-dose, 2021-04-03 Completed [facility] quadrivalent quadrivalent 00:00:00 Practice COVID-19, mRNA, COVID-19, mRNA, 2020-10-04 Completed [facility] age Family LNP-S, PF, 30 mcg/0.3 LNP-S, PF, 30 mcg/0.3 00:00:00 Practice mL dose mL dose (Pfizer-BioNTech) (Pfizer-BioNTech) COVID-19, mRNA, COVID-19, mRNA, 2020-09-03 Completed [facility] age Family LNP-S, PF, 30 mcg/0.3 LNP-S, PF, 30 mcg/0.3 00:00:00 Practice mL dose mL dose (Pfizer-BioNTech) (Pfizer-BioNTech) influenza, seasonal, influenza, seasonal, 2014-05-09 Completed [facility] injectable injectable 00:00:00 Practice pneumococcal pneumococcal 2011-12-05 Completed [facility] bassem polysaccharide PPV23 polysaccharide PPV23 00:00:00 Practice Td (adult) Td (adult) 2003-04-27 Completed [facility] preservative free preservative free 00:00:00 Practice Vital Signs Vital Name Observation Time Observation Value Comments Source BP Diastolic 2021-11-18 00:00:00 74 mm[Hg] [facility] Height 2021-11-18 00:00:00 68 [in_i] [facility] BMI (Body Mass Index) 2021-11-18 00:00:00 36.9 kg/m2 [facility] Family Practice BP Systolic 2021-11-18 00:00:00 149 mm[Hg] [facility] Practice Body Weight 2021-11-18 00:00:00 242.6 [lb_av] [facility] Practice BP Diastolic 2021-08-19 00:00:00 80 mm[Hg] [facility] Practice Height 2021-08-19 00:00:00 68 [in_i] [facility] Practice BMI (Body Mass Index) 2021-08-19 00:00:00 38.3 kg/m2 [facility] Practice BP Systolic 2021-08-19 00:00:00 156 mm[Hg] [facility] Practice Body Weight 2021-08-19 00:00:00 252 [lb_av] [facility] Practice Height 2021-04-04 15:11:00 175.26 cm [facility] Arturo Weight 2021-04-04 15:11:00 [facility] Arturo BMI Calculated 2021-04-04 15:11:00 Memori al Arturo Systolic (mm Hg) 2021-04-04 15:11:00 Maurizio rial Arturo Diastolic (mm Hg) 2021-04-04 15:11:00 Mem orial [place] Heart Rate 2021-04-04 15:11:00 [facility] Arturo Systolic (mm Hg) 2021-01-03 16:17:00 Maurizio rial [place] Diastolic (mm Hg) 2021-01-03 16:17:00 Mem orial Arturo Heart Rate 2021-01-03 16:17:00 [facility] [place] Height 2021-01-03 16:17:00 175.26 cm [facility] [place] Weight 2021-01-03 16:17:00 [facility] Arturo BMI Calculated 2021-01-03 16:17:00 Memori al Arturo Systolic (mm Hg) 2020-10-08 15:56:00 Maurizio rial Arturo Diastolic (mm Hg) 2020-10-08 15:56:00 Mem orial Arturo Heart Rate 2020-10-08 15:56:00 [facility] [place] Height 2020-10-08 15:56:00 175.26 cm [facility] Arturo Weight 2020-10-08 15:56:00 [facility] Arturo BMI Calculated 2020-10-08 15:56:00 Memori al Arturo Respitory Rate 2020-09-24 16:06:00 Memori al [place] Systolic (mm Hg) 2020-09-24 16:06:00 Maurizio rial [place] Diastolic (mm Hg) 2020-09-24 16:06:00 Mem orial Arturo Heart Rate 2020-09-24 15:50:00 [facility] [place] Respitory Rate 2020-09-24 15:50:00 Memori al [place] Systolic (mm Hg) 2020-09-24 15:50:00 Maurizio rial [place] Diastolic (mm Hg) 2020-09-24 15:50:00 Mem orial [place] Heart Rate 2020-09-24 15:40:00 [facility] [place] Respitory Rate 2020-09-24 15:40:00 Memori al Arturo Systolic (mm Hg) 2020-09-24 15:40:00 Maurizio rial [place] Diastolic (mm Hg) 2020-09-24 15:40:00 Mem orial [place] Temperature Oral (F) 2020-09-24 15:30:00 36.4 [facility] Heart Rate 2020-09-24 15:30:00 [facility] Art[facility] Temperature Oral (F) 2020-09-24 13:46:00 36.5 [facility] [place] Height 2020-09-24 13:46:00 175.2 cm [facility] [place] Height 2020-09-22 16:40:00 175.2 cm [facility] Arturo Systolic (mm Hg) 2020-09-07 17:34:00 Maurizio rial [place] Diastolic (mm Hg) 2020-09-07 17:34:00 Mem orial Arturo Heart Rate 2020-09-07 17:34:00 [facility] Height 2020-09-07 17:34:00 175.26 cm [facility] Weight 2020-09-07 17:34:00 [facility] BMI Calculated 2020-09-07 17:34:00 Memori al Arturo Procedures Procedure Date / Time Performing Source Performed Clinician X-RAY CERVICAL SPINE 2 OR 3 VIEW 2021-08-19 [facility] 00:00:00 Practice ESOPHAGOGASTRODUODENOSCOPY 2020-09-24 Memcarley ial Arturo W/BIOPSY [id number] (N/A)<sup>1</sup> 15:25:00 PACEMAKER PLACEMENT<sup>2, 3</sup> 2020-07-03 [facility] 00:00:00 Cardiac pacemaker procedure Maurizio rianancy Morris Bunionectomy [facility] Colonoscopy [facility] Excision of Bunion [place] [facility] y Practice Plan of Care Planned Activity Planned Date Details Comments Source Diagnostic Test Pending 2021-11-18 HbA1c (hemoglobin [facility] Family 00:00:00 A1c), blood [code Practice = HbA1c (hemoglobin A1c), blood] Diagnostic Test Pending 2021-11-18 microalbumin/crea [facility] 00:00:00 tinine, mass Practice ratio, urine [code = microalbumin/crea tinine, mass ratio, urine] Diagnostic Test Pending 2021-11-18 lipid panel, [facility] 00:00:00 serum [code = Practice lipid panel, serum] Diagnostic Test Pending 2021-11-18 vitamin B12 + Destinee [facility] 00:00:00 folate, serum or Practice blood [code = vitamin B12 + folate, serum or blood] Diagnostic Test Pending 2021-11-18 vitamin D, [facility] 00:00:00 25-hydroxy, Practice total, serum [code = vitamin D, 25-hydroxy, total, serum] Diagnostic Test Pending 2021-11-18 [facility]in, serum Practice [code = iron + TIBC + ferritin, serum] Diagnostic Test Pending 2021-11-18 CBC w/ auto diff [facility] 00:00:00 [code = CBC w/ Practice auto diff] Instructions [facility] Practice Encounters Start End Encounter Admission Attending Care Care Encounter Source Date/Time Date/Time Type Type Clinicians Facility Department ID 2021-04-03 Preadmit nullFlavo [facility] [id number] [place] 14:14:13 jose rafael Morris 2021-11-18 2021-11-18 Outpatient Delgado_S VFP VFP [id number] [facility] 02:05:00 02:05:00 [id number] Family Practic e 2021-11-18 2021-11-18 Yobany VFP [place] - [id number] [facility] 00:00:00 00:00:00 R Delgado [facility] DO: 1309 Medical - Pract ic Fm [address] [facility] ([facility]) [place] [address] , Ph. 2021-10-10 2021-10-10 Outpatient RADHA RADHA [id number] Memoria 10:30:00 10:30:00 42 l [place] 2021-09-04 2021-09-04 Outpatient Dave_S VFP VFP [id number] [facility] 05:38:00 05:38:00 [id number] Family Practic e 2021-09-04 2021-09-04 Outpatient Dave_S VFP VFP [id number] [facility] 05:38:00 05:38:00 [id number] Family Practic e 2021-08-22 2021-08-22 Outpatient Dave_S VFP VFP [id number] [facility] 03:12:00 03:12:00 [id number] Family Practic e 2021-08-19 2021-08-19 Outpatient Dave_S VFP VFP [id number] [facility] 01:08:00 01:08:00 [id number] Family Practic e 2021-08-19 2021-08-19 Yobany VFP [place] - [id number] [facility] 00:00:00 00:00:00 Jose Rafael Kiesha Natarajan Family DO: 1309 Medical - Pract ic [address] [facility] ([facility]) [place] [address] , Ph. 2021-07-30 2021-07-30 Outpatient Dave_S VFP VFP [id number] [facility] 10:12:00 10:12:00 [id number] Family Practic e 2021-07-03 2021-07-03 Outpatient [facility] [id number] [place] 00:00:00 00:00:[address] 2021-05-12 2021-05-12 Emergency MONTICELLO, [facility] [id number] [place] 00:00:00 00:00:00 SHAHBAZ [address] 2021-04-17 2021-04-18 Outpatient nullFlavo [facility] [id number] Memoria 16:30:00 04:59:59 r Cardiology [address] [place] 2021-04-04 2021-04-05 Outpatient nullFlavo [facility] [id number] Memoria 15:00:00 04:59:59 r Cardiology 39 l [place] Herma 2021-04-05 2021-04-05 Letter ESTEVAN Dominguez [id number] Univers 00:00:00 00:00:00 (Out) Lilibeth T JOSE [id number] it y of [facility] [id number] Aidan as [id number] [address] 2021-04-03 2021-04-03 Laboratory Only, Ang Db Test [facility] [id number] Univers 14:12:44 14:22:44 Only Thelma, [facility] [id number] ity [facility] [id number] Aidan as Delgado?Blea [id number] [address] Medical Office Building 2021-04-03 2021-04-03 Outpatient R THELMA [facility] [id number] [facility] 14:10:00 14:10:00 BRAD estevez o f [facility] 2021-01-03 2021-01-04 Outpatient nullFlavo [facility] [id number] Memoria 16:00:00 04:59:59 r Cardiology 40 l [facility] Miguel 2021-01-03 2021-01-04 Outpt Diag nullFlavo [facility] [id number] Memoria 16:34:00 04:59:00 Services r Outpatient 01 l [facility] [place] [facility] 2020-12-04 2020-12-06 Phone nullFlavo [facility] [id number] Memoria 15:12:08 04:59:59 Message r Cardiology 00 l [facility] Miguel 2020-11-06 2020-11-06 Emergency [facility] [id number] [place] [address] 00:00:00 00:00:00 NERI [address] 2020-10-08 2020-10-09 Outpatient nullFlavo [facility] [id number] Memoria 16:15:00 05:59:59 r Cardiology 37 l [facility] Miguel 2020-10-082020-10-09 Outpatient nullFlavo [facility] [id number] Memoria 14:15:00 05:59:59 r Cardiology 38 l Alexandrea Rivera n 2020-10-04 2020-10-04 Outpatient PIERCE [facility] [id number] [place] 00:00:00 00:00:[address] 2020-09-27 2020-09-27 Ambulatory nullFlavo [facility] [id number] Memoria 20:00:00 20:00:00 Pre-Reg r Cardiology 36 l Alexandrea Rivera n 2020-09-24 2020-09-24 Outpatient nullFlavo [facility] [id number] Memoria 13:16:01 16:18:00 [facility] 2020-09-13 2020-09-13 Outpatient [facility] [id number] [place] 00:00:00 00:00:[address] 2020-09-07 2020-09-08 Outpatient nullFlavo [facility] [id number] Memoria 17:00:00 05:59:59 r Cardiology 35 l Alexandrea Rivera n 2020-07-13 2020-07-17 Inpatient NINO [facility] [id number] [place] 00:00:00 00:00:00 IBLL [address] 2020-07-16 2020-07-16 Ambulatory nullFlavo [facility] [id number] Memoria 21:00:00 21:00:00 Pre-Reg r Cardiology 34 l Alexandrea Rivera n 2018-12-22 2018-12-22 Outpatient Ogletree_C [facility] [id number] [place] 11:37:00 11:37:00 [facility] Results Test Description Test Time Test Comments Results Result Comments Source LABORATORY 2020-09-24 164 [facility] Beth nn 13:37:00 LABORATORY 2020-09-24 164 [facility] 13:37:00 SARS-CoV-2 (COVID-19) RNA [Presence] in Respiratory sp ecimen by 2020-07-14 05:35:39 MILLY with probe detection Test Item Value Reference Range Interpretation Comme nts SARS-CoV-2 (COVID-19) RNA [Presence] in Respiratory Not detected No t-Detected specimen by MILLY with probe detection (test code = 57710-3)
[2022-01-07] MEDS ORDERED: NA CHLORIDE 0.9% 500 ML ONE (23:27)
[2022-01-07] MEDS ORDERED: DIPHENHYDRAMINE 50 MG/ML VIAL ONE (23:27)
[2022-01-07] MEDS ORDERED: METOCLOPRAMIDE 10 MG/2mL INJ ONE (23:27)
[2022-01-07 23:28] LABS: Absolute Lymphocytes (CBC) 1.7 K/uL (0.7-4.9); Hematocrit 34.7 % (36.0-45.0); Lymphocytes % 32.4 % (15.3-44.8); MPV 9.9 fL (7.6-11.3); RBC Red Blood Cell Count 5.26 M/uL (3.86-4.86)
[2022-01-07 23:29] LABS: Protime INR 1.32
[2022-01-07 23:44] LABS: Albumin 3.4 g/dL (3.4-5.0); Bilirubin Direct 0.1 mg/dL (0-0.2); Bilirubin Total 0.2 mg/dL (0.2-1.0); Magnesium 1.8 mg/dL (1.8-2.4); Potassium 3.3 mmol/L (3.5-5.1); Protein, Total 6.9 g/dL (6.4-8.2); Troponin High Sensitivity 46.9 pg/mL (<58.9)
[2022-01-08 00:13] LABS: Blood Morphology Comment NOTED (NOT SEEN); Hypochromasia 1+; Platelet Estimate ADEQ; Platelets, Giant OCC; Polychromasia 1+; Target Cells 1+; White Blood Cell Scan OK (OK)
[2022-01-08 00:16] LABS: Urine Blood Negative (Negative); Urine Glucose 2+ (Negative); Urine Protein Negative (Negative)
--- NOTE | 2022-01-08 01:19 | ER ---
Nurse's Notes [facility] Name: Marianela Mills Age: 76 yrs Sex: Female : 1945 Arrival Date: 01/07/2022 Time: 21:55 Bed 4 Private MD: Diagnosis: Other cervical disc degeneration, unspecified cervical region;Headache Presentation: 01/07 22:01 Chief complaint: Patient states: The neck pain started about 3-4 weeks ago. The jb4 headache started 2-3 days ago. tylenol is no helping. Coronavirus screen: At this time, the client does not indicate any symptoms associated with coronavirus-19. Ebola Screen: No symptoms or risks identified at this time. Initial Sepsis Screen: Does the patient meet any 2 criteria? No. Patient's initial sepsis screen is negative. Does the patient have a suspected source of infection? No. Patient's initial sepsis screen is negative. Risk Assessment: Do you want to hurt yourself or someone else? Patient reports no desire to harm self or others. Onset of symptoms was January 07, 2022. Transition of care: patient was not received from another setting of care. 22:01 Method Of Arrival: Ambulatory jb4 22:01 Acuity: CASANDRA 4 jb4 Triage Assessment: 22:02 Headache History: The patient has had previous headaches and this one is more severe jb4 than previous episodes. General: Appears in no apparent distress. comfortable, Behavior is calm, cooperative, appropriate for age. Pain: Pain currently is 8 out of 10 on a pain scale. Pain began 2-3 days ago. Also complains of no other associated symptoms. Neuro: Level of Consciousness is awake, alert, obeys commands, Oriented to person, place, time, situation. Historical: - Allergies: 22:02 Codeine; jb4 - PMHx: 22:02 Diabetes - NIDDM; Hypertension; Hyperlipidemia; jb4 - PSHx: 22:02 pacemaker; jb4 - Immunization history:: Adult Immunizations up to date. - Social history:: Smoking status: Patient denies any tobacco usage or history of. Patient/guardian denies using alcohol, street drugs. Screenin:41 Abuse screen: Denies threats or abuse. Denies injuries from another. Nutritional as6 screening: No deficits noted. Tuberculosis screening: No symptoms or risk factors identified. Fall Risk None identified. Assessment: 22:40 General: Appears in no apparent distress. Behavior is calm, cooperative. Pain: as6 Complains of pain in head and neck Quality of pain is described as sharp. Neuro: Byers Agitation-Sedation Scale (RASS): 0 - Alert and Calm Level of Consciousness is awake, alert, obeys commands, Oriented to person, place, time, situation, Reports headache. Cardiovascular: Capillary refill < 3 seconds Patient's skin is warm and dry. Respiratory: Respiratory effort is even, unlabored, Respiratory pattern is regular, symmetrical. Musculoskeletal: Reports pain in neck. 01/08 00:52 Reassessment: Patient and/or family updated on plan of care and expected duration. Pain as6 level reassessed. Patient states symptoms have improved. Vital Signs: 01/07 22:01 BP 146 / 68; Pulse 77; Resp 16; Temp 98.7(O); Pulse Ox 99% on R/A; Weight 107.5 kg (R); jb4 Height 5 ft. 8 in. (172.72 cm) (R); Pain 8/10; 22:41 BP 134 / 55; Pulse 68; Resp 18 S; Pulse Ox 100% on R/A; as6 01/08 00:00 BP 146 / 73; Pulse 65; Resp 18 S; Pulse Ox 100% on R/A; as6 00:52 BP 139 / 65; Pulse 68; Resp 19 S; Pulse Ox 100% on R/A; as6 01/07 22:01 Body Mass Index 36.04 (107.50 kg, 172.72 cm) jb4 ED Course: 01/07 21:55 Patient arrived in ED. ja2 22:02 Triage completed. jb4 22:02 Arm band placed on right wrist. jb4 22:34 Estuardo Pedroza, XIANG is Primary Nurse. as6 22:40 Sohail Barron MD is Attending Physician. mh7 22:41 Bed in low position. Call light in reach. Side rails up X 1. Adult w/ patient. Pulse ox as6 on. NIBP on. Warm blanket given. 23:19 Inserted saline lock: 20 gauge in right antecubital area, using aseptic technique. as6 Blood collected. 23:44 XRAY Chest (1 view) In Process Unspecified. EDMS 01/08 00:24 CT Head C Spine In Process Unspecified. EDMS 01:30 No provider procedures requiring assistance completed. IV discontinued, intact, as6 bleeding controlled, No redness/swelling at site. Pressure dressing applied. Administered Medications: 01/07 23:28 Drug: NS 0.9% 500 ml Route: IV; Rate: bolus; Site: right antecubital; as6 01/08 01:29 Follow up: Response: No adverse reaction; IV Status: Completed infusion; IV Intake: as6 500ml 01/07 23:28 Drug: Reglan (metoCLOPramide) 5 mg Route: IVP; Site: right antecubital; as6 01/08 01:29 Follow up: Response: No adverse reaction as6 01/07 23:28 Drug: Benadryl (diphenhydrAMINE) 25 mg Route: IVP; Site: right antecubital; as6 01/08 01:30 Follow up: Response: No adverse reaction as6 Medication: 01:30 VIS not applicable for this client. as6 Intake: 01:29 IV: 500ml; Total: 500ml. as6 Outcome: 01:19 Discharge ordered by . home 01:30 Discharged to home ambulatory, with significant other. as6 01:30 Condition: stable 01:30 Discharge instructions given to patient, Instructed on discharge instructions, follow up and referral plans. Demonstrated understanding of instructions, follow-up care. 01:30 Patient left the ED. as6 Signatures: Dispatcher [employer] EDMS Alvaro Marvin RN RN Sohail Ramírez MD MD mh7 Alexander, Jessica ja2 Slawson, Ashby RN RN as6 Corrections: (The following items were deleted from the chart) 01/07 22:04 22:02 PSHx: None; gera jb4
--- NOTE | 2022-01-08 01:19 | EDPHYS ---
Physician Documentation [facility] Name: Marianela Mills Age: 76 yrs Sex: Female : 1945 Arrival Date: 01/07/2022 Time: 21:55 Bed 4 Private MD: ED Physician Sohail Barron HPI: 01/07 22:55 This 76 yrs old Black Female presents to ER via Ambulatory with complaints of Headache, mh7 Neck Pain, <24hrs Old. 22:55 The patient or guardian complains of pain, that is chronic. The symptoms are located on mh7 the right paraspinal. Onset: The symptoms/episode began/occurred 4 week(s) ago. 22:55 Context: The problem was sustained at an unknown location, The neck injury/problem mh7 resulted from from unknown cause. Associated signs and symptoms: Pertinent positives: headache, Pertinent negatives: chills, constipation, fever, bladder incontinence, bowel incontinence, nausea, numbness, tingling, vomiting, weakness. The pain does not radiate. Modifying factors: The symptoms are alleviated by nothing. the symptoms are aggravated by movement, touching area. Severity of symptoms: At their worst the symptoms were moderate, 5 day(s) ago, in the emergency department the symptoms have improved, moderately. Historical: - Allergies: 22:02 Codeine; jb4 - PMHx: 22:02 Diabetes - NIDDM; Hypertension; Hyperlipidemia; jb4 - PSHx: 22:02 pacemaker; jb4 - Immunization history:: Adult Immunizations up to date. - Social history:: Smoking status: Patient denies any tobacco usage or history of. Patient/guardian denies using alcohol, street drugs. ROS: 22:55 Constitutional: Negative for fever, chills, and weight loss, Eyes: Negative for injury, mh7 pain, redness, and discharge, ENT: Negative for injury, pain, and discharge, Cardiovascular: Negative for chest pain, palpitations, and edema, Respiratory: Negative for shortness of breath, cough, wheezing, and pleuritic chest pain, Abdomen/GI: Negative for abdominal pain, nausea, vomiting, diarrhea, and constipation, Back: Negative for injury and pain, : Negative for injury, bleeding, discharge, and swelling, MS/Extremity: Negative for injury and deformity, Skin: Negative for injury, rash, and discoloration. 22:55 Psych: Negative for depression, anxiety, suicide ideation, homicidal ideation, and hallucinations, Allergy/Immunology: Negative for hives, rash, and allergies, Endocrine: Negative for neck swelling, polydipsia, polyuria, polyphagia, and marked weight changes, Hematologic/Lymphatic: Negative for swollen nodes, abnormal bleeding, and unusual bruising. 22:55 Neuro: Negative for altered mental status, dizziness, gait disturbance, hearing loss, loss of consciousness, numbness, seizure activity, speech changes, syncope, near syncope, tingling, tinnitus, tremor, visual changes, weakness. Exam: 22:55 Constitutional: This is a well developed, well nourished patient who is awake, alert, mh7 and in no acute distress. Head/Face: Normocephalic, atraumatic. Eyes: Pupils equal round and reactive to light, extra-ocular motions intact. Lids and lashes normal. Conjunctiva and sclera are non-icteric and not injected. Cornea within normal limits. Periorbital areas with no swelling, redness, or edema. ENT: Nares patent. No nasal discharge, no septal abnormalities noted. Tympanic membranes are normal and external auditory canals are clear. Oropharynx with no redness, swelling, or masses, exudates, or evidence of obstruction, uvula midline. Mucous membranes moist. Chest/axilla: Normal chest wall appearance and motion. Nontender with no deformity. No lesions are appreciated. Cardiovascular: Regular rate and rhythm with a normal S1 and S2. No gallops, murmurs, or rubs. Normal PMI, no JVD. No pulse deficits. Respiratory: Lungs have equal breath sounds bilaterally, clear to auscultation and percussion. No rales, rhonchi or wheezes noted. No increased work of breathing, no retractions or nasal flaring. Abdomen/GI: Soft, non-tender, with normal bowel sounds. No distension or tympany. No guarding or rebound. No evidence of tenderness throughout. Back: No spinal tenderness. No costovertebral tenderness. Full range of motion. Skin: Warm, dry with normal turgor. Normal color with no rashes, no lesions, and no evidence of cellulitis. MS/ Extremity: Pulses equal, no cyanosis. Neurovascular intact. Full, normal range of motion. Neuro: Awake and alert, GCS 15, oriented to person, place, time, and situation. Cranial nerves II-XII grossly intact. Motor strength 5/5 in all extremities. Sensory grossly intact. Cerebellar exam normal. Normal gait. Psych: Awake, alert, with orientation to person, place and time. Behavior, mood, and affect are within normal limits. Vital Signs: 22:01 BP 146 / 68; Pulse 77; Resp 16; Temp 98.7(O); Pulse Ox 99% on R/A; Weight 107.5 kg (R); jb4 Height 5 ft. 8 in. (172.72 cm) (R); Pain 8/10; 22:41 BP 134 / 55; Pulse 68; Resp 18 S; Pulse Ox 100% on R/A; as6 0608 00:00 BP 146 / 73; Pulse 65; Resp 18 S; Pulse Ox 100% on R/A; as6 00:52 BP 139 / 65; Pulse 68; Resp 19 S; Pulse Ox 100% on R/A; as6 01/07 22:01 Body Mass Index 36.04 (107.50 kg, 172.72 cm) jb4 MDM: 01:15 Differential diagnosis: arthritis, C-Spine Fracture Cervical Disc Herniation Cervical mh7 Discogenic Pain Cervical Raiculopathy Cervical Spondylosis cervical strain, Degenerative Disc Disease fracture, Osteoarthritis Spondylolisthesis Spondylosis torticollis. Data reviewed: vital signs, nurses notes, lab test result(s), cardiac enzymes, CBC, electrolytes, urinalysis, EKG, radiologic studies, CT scan. Data interpreted: Pulse oximetry: on room air is 100 %. Interpretation: normal. Counseling: I had a detailed discussion with the patient and/or guardian regarding: the historical points, exam findings, and any diagnostic results supporting the discharge/admit diagnosis, the presence of at least one elevated blood pressure reading (>120/80) during this emergency department visit, lab results, radiology results, the need for outpatient follow up, to return to the emergency department if symptoms worsen or persist or if there are any questions or concerns that arise at home. Response to treatment: the patient's symptoms have resolved after treatment, the patient's blood pressure is in an acceptable range, mental status has returned to baseline, the patient no longer shows bradycardia, the patient is not short of breath, the patient is not tachycardic, the patient's pain is gone, the patient's temperature has normalized. 01:19 Patient medically screened. [facility] 01/07 23:01 Order name: Basic Metabolic Panel; Complete Time: 00:17 [facility] 01/07 23:01 Order name: CBC with Diff; Complete Time: 00:17 [facility] 01/07 23:01 Order name: LFT's; Complete Time: 00:17 [facility] 01/07 23:01 Order name: Magnesium; Complete Time: 00:17 [facility] 01/07 23:01 Order name: NT PRO-BNP; Complete Time: 00:17 [facility] 01/07 23:01 Order name: PT-INR; Complete Time: 23:44 [facility] 01/07 23:01 Order name: Troponin HS; Complete Time: 00:17 [facility] 01/07 23:01 Order name: XRAY Chest (1 view) [facility] 01/07 23:05 Order name: CT Head C Spine [facility] 01/07 23:31 Order name: CBC Smear Scan; Complete Time: 00:17 [facility] 01/08 00:16 Order name: Urine Dipstick-Ancillary; Complete Time: 00:17 [facility] 01/07 23:01 Order name: EKG; Complete Time: 23:02 [facility] 01/07 23:01 Order name: Cardiac monitoring; Complete Time: 23:32 [facility] 01/07 23:01 Order name: EKG - Nurse/Tech; Complete Time: 23:32 [facility] 01/07 23:01 Order name: IV Saline Lock; Complete Time: 23:19 [facility] 01/07 23:01 Order name: Labs collected and sent; Complete Time: 23:19 [facility] 01/07 23:01 Order name: O2 Per Protocol; Complete Time: 23:08 [facility] 01/07 23:01 Order name: O2 Sat Monitoring; Complete Time: 23:08 [facility] 01/07 23:05 Order name: Urine Dipstick-Ancillary (obtain specimen); Complete Time: 00:16 7 Administered Medications: 01/07 23:28 Drug: NS 0.9% 500 ml Route: IV; Rate: bolus; Site: right antecubital; as6 01/08 01:29 Follow up: Response: No adverse reaction; IV Status: Completed infusion; IV Intake: as6 500ml 01/07 23:28 Drug: Reglan (metoCLOPramide) 5 mg Route: IVP; Site: right antecubital; as6 01/08 01:29 Follow up: Response: No adverse reaction as6 01/07 23:28 Drug: Benadryl (diphenhydrAMINE) 25 mg Route: IVP; Site: right antecubital; as6 01/08 01:30 Follow up: Response: No adverse reaction as6 Disposition Summary: 01/08/22 01:19 Discharge Ordered Location: Home [facility] Problem: an ongoing problem 7 Symptoms: have improved mh7 Condition: Stable mh7 Diagnosis - Other cervical disc degeneration, unspecified cervical region mh7 - Headache mh7 Followup: 7 - With: Private Physician - When: 1 - 2 days - Reason: Worsening of condition, Recheck today's complaints, Continuance of care, Re-evaluation by your physician Discharge Instructions: - Discharge Summary Sheet mh7 - General Headache Without Cause mh7 - Degenerative Disk Disease mh7 Forms: - Medication Reconciliation Form 7 - Thank You Letter mh7 - Antibiotic Education mh7 - Prescription Opioid Use 7 Signatures: Dispatcher [employer] EDAlvaro Reyes RN RN jb4 Sohail Barron MD MD mh7 Estuardo Pedroza RN RN as6 Corrections: (The following items were deleted from the chart) 01/07 22:04 22:02 PSHx: None; jb4 jb4
[2022-01-08 01:37] VITALS: TEMP 98.7
[2022-01-08 01:39] VITALS: O2SAT 100
[2022-01-08 01:42] VITALS: BP 139/65
--- NOTE | 2022-01-08 07:52 | EKG ---
Test Date: 2022-01-07 Test Time: 23:18:07 Carpenters Supervisor: ANGY MEASUREMENT RESULTS: Intervals: Rate: 60 OH: 204 QRSD: 150 QT: 454 QTc: 454 Winder: P: 26 OH: 204 QRS: -57 T: 109 INTERPRETIVE STATEMENTS: AV dual-paced rhythm Abnormal ECG Compared to ECG 07/10/2020 19:22:19 Sinus bradycardia no longer present First degree AV block no longer present Electronically Signed On 01-08-22 07:52:24 CDT by Marlon Lorenz
--- NOTE | 2022-01-08 13:19 | RAD REPORT ---
EXAM DESCRIPTION: Chest Single View CLINICAL HISTORY: 76 years Female, CONGESTION TECHNIQUE: 1 view (Single frontal view of the chest) COMPARISON: None. FINDINGS: Suboptimal evaluation of the lung bases secondary to patient's body habitus and underexpos ure of this region. LINES AND TUBES: Dual-lead left-sided pacemaker. CARDIOVASCULAR STRUCTURES: Cardiomegaly. No pulmonary venous congestion. LUNGS: No gross confluent areas of acute consolidation. PLEURA: No layering pleural effusions. No pneumothorax. BONES: No acute osseous abnormality of the thorax. IMPRESSION: 1. Suboptimal evaluation of lung bases as described. Bibasilar atelectasis/consolidati on plus or minus small effusions cannot be entirely excluded. 2. Cardiomegaly. Electronically signed by: Scot Del Rio MD 01/08/2022 12:02 AM CDT Due to temporary technical issues with the PACS/Fluency reporting system, reports are being signed by the in house radiologist without review as a courtesy to ensure prompt reporting. The interpreting r adiologist is fully responsible for the content of the report.
--- NOTE | 2022-01-08 13:24 | RAD REPORT ---
EXAM DESCRIPTION: CT HEAD AND CERVICAL SPINE WITHOUT CONTRAST CLINICAL HISTORY: Headache COMPARISON: None. TECHNIQUE: CT HEAD AND CERVICAL SPINE WITHOUT CONTRAST on 01/07/2022 11:05 PM CDT This exam was performed according to our departmental dose-optimization program, which includes autom ated exposure control, adjustment of the mA and/or kV according to patient size and/or use of iterati ve reconstruction technique. FINDINGS: Brain: There is no acute hemorrhage, mass effect or midline shift. Dalton-white differentiat ion is preserved. There is no hydrocephalus. There is no significant volume loss for age. The calvarium is intact. Orbits and globes are unremarkable. The paranasal sinuses are clear. Mastoid air cells are clear. Cervical Spine: There is no acute fracture. Alignment is anatomic. There are small ventral osteophyte s at essentially every level. There is incomplete posterior fusion of C1. There is moderate narrowing of the C5-6 and C6-7 discs. Vertebral body heights are preserved. Soft ti ssues are unremarkable. IMPRESSION: No acute postraumatic findings. Electronically signed by: Randolph Bingham MD 01/08/2022 12:36 AM CDT Due to temporary technical issues with the PACS/Fluency reporting system, reports are being signed by the in house radiologist without review as a courtesy to ensure prompt reporting. The interpreting r adiologist is fully responsible for the content of the report.
== END 2022-01-08 01:30 | disposition home or self-care (01) ==
LOC: ER 21:53
DX: M50.30 Other cervical disc degeneration, unspecified cervical region (principal); E11.9 Type 2 diabetes mellitus without complications; I10 Essential (primary) hypertension; Z95.0 Presence of cardiac pacemaker; Z88.5 Allergy status to narcotic agent
CPT/HCPCS: 96361; 93005; 85025; 80048; 36415; 83735; 85610; 80076; 81003; 84484; 83880; 70450; 72125; 71045; 96375; 96374; 99284; J2765; J1200; J7040

== ENCOUNTER 2023-05-08 05:46 | Emergency (ER) | payer OTHER ==
--- OUTSIDE RECORDS SUMMARY | 2023-05-08 05:54 | XMS REPORT | Continuity of Care Document ---
:1945 Author Organization [facility] t Address [address] [place] [address] Care Team Providers Name Role Phone PCP, PATIENT DOES NOT HAVE A Primary Care Physician Unavaila DEDE Montoya Attending Clinician Unavailable RICH BIRCH Attending Clinician Unavailable MAG AKHTAR Attending Clinician Unavailable ROBBIN HITCHCOCK Attending Clinician Unavailable MD LUKE Attending Clinician Unavailable LAB45 Attending Clinician Unavailable ADI LANGFORD Attending Clinician Unavailable Only, Ang Db Test Attending Clinician Unavailable Unknown, Attending Attending Clinician Unavailable Doctor Unassigned, [place] Attending Clinician Unavailable Wendy Travis Attending Clinician Jaciel SADLER, Celestine Ac Attending Clinician ROSE PAULINO Attending Clinician Unavailable Chay Skinner Attending Clinician VISIT, NURSE CSL ECHO Attending Clinician Unavailable Neri José DO Attending Clinician Erin SADLER, Katia Attending Clinician Dominic SADLER, Sukhwinder Attending Clinician Britney SADLER, Allie Hilton Attending Clinician Kelsy Avila Attending Clinician Sarmad Dyer Attending Clinician Raina Dunham Attending Clinician Thania SADLER, Keturah Forbes. Attending Clinician Vikash SADLER, Byron Maria Attending Clinician [phone] Tatianna ZAMORANO, Thania Attending Clinician Kristine Riggs DO Attending Clinician [phone] Anuj SADLER, Ervin Orozco Attending Clinician Bharat SADLER, Stefani Attending Clinician Barron Quevedo DO Attending Clinician Sha SADLER, Marlene Attending Clinician Tino SADLER, Andressa Attending Clinician Alberto OTOOLE, Lilibeth Bonds Attending Clinician Unavailable ObduliaKindra Grant Attending Clinician KINDRA STEINER Attending Clinician Unavailable Dave_S Attending Clinician Unavailable Tani Garcia Attending Clinician Estevan Carey MD Attending Clinician [phone] Brad Albright Attending Clinician BRAD GOMEZ Attending Clinician Unavailable Yani Velazco Attending Clinician POLO PELAYO Attending Clinician Unavailable VISIT, NURSE GRADUATE STUDENT STRESS Attending Clinician Unavailable Roslyn Miles Attending Clinician BILL ONEILL Attending Clinician Unavailable Yoan Ribeiro Attending Clinician MD BILL ONEILL Attending Clinician Unavailable Ogletree_C Attending Clinician Unavailable MD CELESTINE GRISSOM Admitting Clinician Unavailable KATIA PANIAGUA Admitting Clinician Unavailable KETURAH CALZADA Admitting Clinician Unavailable BARRON QUEVEDO Admitting Clinician Unavailable MD STEFANI MICHELLE Admitting Clinician Unavailable Dave_S Admitting Clinician Unavailable Roslyn Miles Admitting Clinician BILL ONEILL Admitting Clinician Unavailable MD BILL ONEILL Admitting Clinician Unavailable Ogletree_C Admitting Clinician Unavailable Payers Payer Name Policy Type Policy Number Effective Date Expiration Date Roddy dahl WELLCARE [place] [id number] 2023 CLASSIC NO PREMIUM 00:00:00 R2T [place]ARE [place] [id number] 2021 CLASSIC NO PREMIUM 00:00:00 [place] - [id number] 2021 [place] 00:00:00 (MEDICARE REPLACEMENT/ADVANT AGE - HMO) [place] [id number] (MEDICARE 00:00:00 REPLACEMENT/ADVANT AGE - HMO) Problems Condition Condition Condition Status Onset Resolution Last Treating Co mments Source Name Details Category Date Date Treatment Clinician Date Hypercoagu Hypercoagu Disease Active Overview : Constance pichardo lable 04-30 Formattin Seybold state state 00:00: g of this - (multi (multi 00 note Externa HCC) HCC) might be l different from the original. On [facility] st Assessmen t & Plan: Formattin g of this note might be different from the original. monitor Chronic Chronic Disease Active Overview: Kaylie jin diastolic diastolic 04-30 Formattin S eybold heart heart 00:00: g of this - failure failure 00 note Externa (multi (multi might be l HCC) HCC) different from the original. 02/22 Echocardi ogram revealed normal LV systolic function with an EF of 55 to 59% and grade 1 diastolic dysfuncti onLast Assessmen t & Plan: Formattin g of this note might be different from the original. compensat ed History of History of Disease Active Overview : Constance sustained sustained 04-30 Formattin S eybold ventricula ventricula 00:00: g of this - r r 00 note Externa tachycardi tachycardi might be l a a different from the original. History of long VT status post AICD/QT syndrome and AV block status post pacemaker - s/p ICDLast Assessmen t & Plan: Formattin g of this note might be different from the original. Followed by cardiolog y Microcytic Microcytic Disease Active Overview : Constance anemia anemia 04-30 Formattin Seybold 00:00: g of this - 00 note Externa might be l different from the original. chronic Diabetic Diabetic Disease Active Overview: William lsey peripheral peripheral 04-30 Formattin Seybold vascular vascular 00:00: g of this - disease disease 00 note Externa (multi (multi might be l HCC) HCC) different from the original. PAD abnormal Doppler, no significa nt claudicat ionhigh intensity statin Reduce risk factorssm oking abstinenc eRecommen d self foot examinati ons Increase exercise and walkingaro id Doppler showed no hemodynam ically significa nt stenosis in either carotid artery. Mild calcified atheroscl erotic vascular disease is present in the bilateral common, internal and external carotid arteriesL ast Assessmen t & Plan: Formattin g of this note might be different from the original. monitor Paroxysmal Paroxysmal Disease Active Overview : Constance atrial atrial 04-30 Formattin Seybold fibrillati fibrillati 00:00: g of this - on (multi on (multi 00 note Exte rna HCC) HCC) might be l different from the original. Images from the original note were not included. Eliquis 5 MG oral TabletMet oprolol Tartrate (LOPRESSO R) 50 MG oral TabletLas t Assessmen t & Plan: Formattin g of this note might be different from the original. Controlle d Uncontroll Uncontroll Disease Active Overview : Constance ed ed 03-23 Formattin Seybold hypertensi hypertensi 00:00: g of this - on on note Externa might be l different from the original. LISINOPRI L-HCTZ 20-25 MG oral TabletLas t Assessmen t & Plan: Formattin g of this note might be different from the original. 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 long-term long-term A1c goal current current < use of use of 8Metformi insulin insulin n HCl 500 (multi (multi MG oral [facility]) [facility]) TabletLas t Assessmen t & Plan: Formattin g of this note might be different from the original. 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 DM is poorly controlle d with A1c > 8,Aim at improving diabetes control to AIC< 8 I have discussed with her the great importanc e of following the treatment plan diet and medicatio n adherence exactly as directed in order to achieve a good medical outcome.L ast Assessmen t & Plan: Formattin g of this note might be different from the original. monitor Morbid Morbid Disease Active Overview: Constance obesity obesity 02-24 Formattin Seybo ld 00:00: g of this - 00 note is Externa different l from the original. Wt Readings from Last 3 Encounter s: 04/30/23 230 lb (104.3 kg) 03/23/23 228 lb (103.4 kg) 02/24/23 232 lb (105.2 kg) Last Assessmen t & Plan: Formattin g of this note might be different from the original. Unchanged Abnormal Abnormal Diagnosis Active 2023-02-05 Memoria urine odor urine odor 02-02 08:20:24 l (finding) (finding) 00:00: Jose ashley Active 00 02/02/2023 Diagnosis 02/05/2023 [facility] [place] Artificial Artificia Diagnosis Active 2022-09-04 Memoria lens l lens 09-01 10:04:56 l present present 00:00: Arturo (finding) (finding) 00 Active 09/01/2022 Diagnosis 09/04/2022 Medical Group,[facility] [place] Patient Patient Diagnosis Active 2022-09-04 Memoria encounter encounter 09-01 10:04:56 l status status 00:00: Arturo (finding) (finding) 00 Active 09/01/2022 Diagnosis 09/04/2022 [facility] Body mass Body mass Diagnosis Active 2022-09-04 Memoria index 30+ index 30+ 1-30 10:04:56 l - obesity - obesity 00:00: Herm gabi (finding) (finding) 00 Active 09/01/2022 Diagnosis 09/04/2022 [facility] Anemia Anemia Diagnosis Active 2022-09-04 Me moria (disorder) (disorder) 09-01 10:04:56 l Active 00:00: Radcliffe 09/01/2022 00 Diagnosis 09/04/2022 [facility] Vitamin D 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 4-18 Fa bassem 00:00: Practic 00 e Vaginolabi Vaginolabi Problem Active V illage al hernia al Hernia 9-25 Fami ly 00:00: Practic [address] SNOM[address] CT Problem Active Destinee adam Concept Concept 7-24 Family 00:00: Practic 00 e R06.02 - R06.02 - Diagnosis Active 2021-01-03 Memoria SHORTNESS SHORTNESS 6-03 11:44:00 l OF BREATH OF BREATH 00:01: Herm gabi Active 00 01/03/2021 [facility] Epigastric Epigastric Problem Active V illage pain Pain 1-11 Family 00:00: Practic 00 e Mobitz Mobitz Disease Active 2019-08 Methodi type 2 type 2 2-11 st second second 00:00: Hospita degree degree 00 l heart heart block block History of History Problem Active 2019-082020-10-09 Memoria heart of heart 2-01 17:34:47 l block block 00:00: Arturo (situation (situation 00 ) ) Active 07/03/2020 Problem 10/09/2020 HAS A PACEMAKER [facility] 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-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 00:00: Practic 00 e Screening Screening Problem Active Destinee adam mammograph Mammograph 8-19 Fa bassem y y 00:00: Practic 00 e Fredrickso Fredrickso Problem Active V illage n type IIa n Type IIa 04-11 Montrell luevano hyperlipop Hyperlipop 00:00: Pr actic roteinemia roteinemia 00 e Benign Benign Problem Active [facility] essential Essential 04-11 Fami ly hypertensi Hypertensi 00:00: Pr actic on on 00 e Evaluation Evaluation Problem Active V illage finding Finding 04-11 Family 00:00: Practic 00 e Pure Pure Problem Active [facility] hyperchole Hyperchole 04-11 Montrell luevano sterolemia sterolemia 00:00: Pr actic 00 e Type 2 Type 2 Problem Active [facility] diabetes Diabetes 04-11 Family mellitus Mellitus 00:00: Practi c without without 00 e complicati Complicati on on Family Family Problem Active [facility] history of History of 6-05 Montrell luevano malignant Malignant 00:00: Prac tic neoplasm Neoplasm 00 e of of digestive Digestive organ Organ Family Family Problem Active [facility] history of History of 6-05 Montrell luevano malignant Malignant 00:00: Prac tic neoplasm Neoplasm 00 e of of gastrointe Gastrointe stinal stinal tract Tract Family Family Problem Active [facility] history of History of 6-05 Montrell luevano cancer of Cancer of 00:00: Prac tic colon Colon 00 e Vitamin B Vitamin B Problem Active Destinee adam deficiency Deficiency 6-04 Fa bassem 00:00: Practic 00 e Anemia Anemia Problem Active [facility] 6-04 Family 00:00: Practic 00 e Diabetes Diabetes Disease Active 2015-08 Metho di mellitus mellitus 08-19 00:00: Hospita 00 l Essential Essential Disease Active 2015-08 Met hodi hypertensi hypertensi 08-19 on 00:00: Hospita 00 l Hyperlipid Hyperlipid Disease Active 2015-08 M ethodi emia emia 08-19 00:00: Hospita 00 l Hypertensi Hypertensi Disease Active 2015-08 M ethodi on on 08-19 00:00: Hospita 00 l Hypertensi Hypertensi Problem Active V illage ve ve 2-19 Family disorder Disorder 00:00: Practi c 00 e Unspecifie Unspecifi Problem 2020-10-09 Memoria d chronic ed chronic 17:34:47 l gastritis gastritis Herm gabi without without bleeding bleeding 10/09/2020 [facility] Hyperchole Hyperchol Problem Active 2020-10-09 Memoria sterolemia esterolemi 17:34:47 l (disorder) a Miguel n (disorder) Active Problem 10/09/2020 [facility] alpha alpha Problem Active 2023-04-15 Memor ia Thalassemi Thalassemi 22:08:00 l a a Arturo (disorder) (disorder) Active Problem 04/15/2023 [facility] [place] Neuropathy Neuropath Problem Active 2023-04-15 Memoria due to y due to 22:08:00 l type 2 type 2 [place] diabetes diabetes mellitus mellitus (disorder) (disorder) Active Problem 04/15/2023 Medical Group,[facility] [place] Atrial Atrial Problem Active 2022-04-30 Maurizio rainer fibrillati fibrillati 21:50:28 l on on Radcliffe (disorder) (disorder) Active Problem 04/30/2022 Medical Group Dyspnea on Dyspnea Problem Active 2021-10-26 Memoria exertion on 21:38:07 l (finding) exertion Beth nn (finding) Active Problem 10/26/2021 Medical Group, JOE Dawson,M JOE Lechuga Palpitatio Palpitati Problem Active 2021-10-26 Memoria ns ons 21:38:07 l (finding) (finding) Herm gabi Active Problem 10/26/2021 Medical Group, JOE Dawson,[facility] JOE Lechuga 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 22:08:00 l (disorder) (disorder) He rmann Active Problem 04/15/2023 Medical Group,[facility] [place] Automatic Automatic Problem Active 2023-04-15 Memoria implantabl implantabl 22:08:00 l e cardiac e cardiac Herm gabi defibrilla defibrilla tor in tor in situ situ (finding) (finding) Active Problem 04/15/2023 Medical Group,[facility] [place],[facility] [place] Cardiac Cardiac Problem Active 2023-02-05 Me moria pacemaker pacemaker 08:20:24 l in situ in situ Arturo (finding) (finding) Active Problem 02/05/2023 [facility], [facility] Complete Complete Problem Active 2023-04-15 Memoria atrioventr atrioventr 22:08:00 l icular icular Arturo block block (disorder) (disorder) Active Problem 04/15/2023 Medical Group, Daksha Valentine, [facility] [place],[facility] Foot Foot Problem Active 2023-04-15 Memor ia callus callus 22:08:00 l (disorder) (disorder) He rmann Active Problem 04/15/2023 Medical Group,[facility] [place] Gastroesop Gastroeso Problem Active 2023-04-15 Memoria hageal phageal 22:08:00 l reflux reflux Radcliffe disease disease (disorder) (disorder) Active Problem 04/15/2023 Medical Group,[facility] ,[facility] [place] History of History Problem Active 2023-04-15 Memoria cardiac of cardiac 22:08:00 l arrhythmia arrhythmia He rmann (situation (situation ) ) Active Problem 04/15/2023 [facility] [place],[facility] [place] Hypertroph Hypertrop Problem Active 2023-04-15 Memoria y of nail hy of nail 22:08:00 l (disorder) (disorder) He rmann Active Problem 04/15/2023 [facility] [place] Long-term Long-term Problem Active 2023-04-15 Memoria current current 22:08:00 l use of use of Arturo anticoagul anticoagul ant ant (situation (situation ) ) Active Problem 04/15/2023 Medical Group,[facility] [place] Mixed Mixed Problem Active 2023-04-15 Memor ia hyperlipid hyperlipid 22:08:00 l emia emia Radcliffe (disorder) (disorder) Active Problem 04/15/2023 Medical Group,[facility] [place] Peripheral Periphera Problem Active 2023-04-15 Memoria vascular l vascular 22:08:00 l disease disease Arturo (disorder) (disorder) Active Problem 04/15/2023 Medical Group,[facility] [place] Presbyopia Presbyopi Problem Active 2023-04-15 Memoria (disorder) a 22:08:00 l (disorder) Miguel n Active Problem 04/15/2023 Medical Group,[facility] [place] Pseudophak Pseudopha Problem Active 2023-04-15 Memoria ia franck 22:08:00 l (disorder) (disorder) He rmann Active Problem 04/15/2023 Medical Group,[facility] [place] Tear film Tear Problem Active 2023-04-15 Me moria insufficie film 22:08:00 l ncy insufficie Miguel n (disorder) ncy (disorder) Active Problem 04/15/2023 Medical Group,[facility] [place] Vitreous Vitreous Problem Active 2023-04-15 Memoria floaters floaters 22:08:00 l (disorder) (disorder) He rmann Active Problem 04/15/2023 Medical Group,[facility] [place] Hearing Hearing Problem Active 2022-08-31 Me moria loss of loss of 10:04:40 l left ear left ear Miguel n (disorder) (disorder) Active Problem 08/31/2022 Medical Group,[facility] [place] Onychomyco Onychomyc Problem Active 2022-08-31 Memoria sis osis 10:04:40 l (disorder) (disorder) He rmann Active Problem 08/31/2022 [facility] [place] History of History Problem Active 2022-08-31 Memoria - cardiac of - 10:04:40 l pacemaker cardiac Miguel n in situ pacemaker (context-d in situ ependent (context-d category) ependent category) Active Problem 08/31/2022 Medical Group,[facility] [place] Edema of Edema of Problem Active 2023-04-15 Memoria lower lower 22:08:00 l extremity extremity Herm gabi (finding) (finding) Active Problem 04/15/2023 [facility] [place],[facility] [place] Hypertensi Hypertens Problem Active 2023-04-15 Memoria ve heart matteo heart 22:08:00 l disease disease Arturo (disorder) (disorder) Active Problem 04/15/2023 [facility] [place] Z12.31 - Z12.31 - Diagnosis Active 2021-07-31 Memoria ENCNTR ENCNTR 12:37:00 l SCREEN SCREEN Arturo MAMMOGRAM MAMMOGRAM FOR MA FOR MA Active JOE Weldon History of History Diagnosis 2022023-03-01 2023-03-01 Memoria - of - 02-26 09:58:02 09:58:02 l cerebrovas cerebrovas 15:29: He rmann cular cular 00 disease disease (context-d (context-d ependent ependent category) category) 02/26/2023 Diagnosis 03/01/2023 Medical Group,[facility] [place] Localized Localized Diagnosis 2023-03-01 2023-03-01 Memoria edema edema 02-26 09:58:02 09:58:02 l (finding) (finding) 15:29: Herm gabi 02/26/2023 00 Diagnosis 03/01/2023 [facility] [place],[facility] [place] History of Past Illness Condition Condition Condition Status Onset Resolution Last Treating Co mments Source Name Details Category Date Date Treatment Clinician Date Urine Urine Diagnosis 2023-02-05 2023-02-05 Memoria screening screening 02-02 08:20:24 08:20:24 l abnormal abnormal 14:14: Miguel benson (finding) (finding) 00 02/02/2023 Diagnosis 02/05/2023 [facility] [place] Obese Obese Diagnosis 2022-09-2022-09-04 Memoria class II class II 09-01 10:04:56 10:04:56 l (finding) (finding) 16:08: Herm gabi 09/01/2022 00 Diagnosis 09/04/2022 Medical Group Vitreous Vitreous Diagnosis 2022-09-2022-09-04 Memoria opacity of opacity of 09-01 10:04:56 10:04:56 l right eye right eye 16:08: Herm gabi (disorder) (disorder) 00 09/01/2022 Diagnosis 09/04/2022 Medical Group,[facility] [place] Well adult Well Diagnosis 2022-09-2022-09-04 Memoria monitoring adult 09-01 10:04:56 10:04:56 l check done monitoring 16:07: He rachid (finding) check done 00 (finding) 09/01/2022 Diagnosis 09/04/2022 [facility] [place] Atrophic Atrophic Diagnosis 2023-0 2022-09-04 2022-09-04 Memoria vaginitis vaginitis 09-01 10:04:56 10:04:56 l (disorder) (disorder) 16:07: Joshua rashid 09/01/2022 00 Diagnosis 09/04/2022 Medical Group Onychogryp Diagnosis 2022-09-2022-09-04 Memoria osis Onychogryp 09-01 10:04:56 10:04:56 l (disorder) osis 16:07: Miguel n (disorder) 00 09/01/2022 Diagnosis 09/04/2022 Medical Group,[facility] [place] Callosity Callosity Diagnosis 2022-09-2022-09-04 Memoria (disorder) (disorder) 09-01 10:04:56 10:04:56 l 09/01/2022 16:07: Miguel n Diagnosis 00 09/04/2022 Medical Group,[facility] [place] Gastroesop Gastroeso Diagnosis 2022-09-2022-09-04 Memoria hageal phageal 09-01 10:04:56 10:04:56 l reflux reflux 16:07: Arturo disease disease 00 without without esophagiti esophagiti s s (disorder) (disorder) 3 Diagnosis 09/04/2022 Medical Group Essential Essential Diagnosis 2022-09-2022-09-04 Memoria hypertensi hypertensi 09-01 10:04:56 10:04:56 l on on 16:07: Arturo (disorder) (disorder) 00 3 Diagnosis 09/04/2022 Medical Group,[facility] [place] Impacted Impacted Diagnosis 2021-082022-06-19 2022-06-19 Memoria cerumen in cerumen in 08-16 10:36:41 10:36:41 l left ear left ear 15:53: Miguel n (disorder) (disorder) 00 06/16/2022 Diagnosis 06/19/2022 Medical Group Other Other Problem 2022-02-13 2022-02-13 M emoria specified specified 02-10 02:19:35 02:19:35 l noninflamm noninflamm 18:31: He rmann atory atory 00 disorders disorders of vagina of vagina 02/10/2022 2 Medical Group Nail Nail Problem 2022-02-13 2022-02-13 M emoria dystrophy dystrophy 02-10 02:19:35 02:19:35 l 02/10/2022 15:30: Miguel benson 02/13/2022 00 Medical Group Postmenopa Postmenop Problem 2022-02-13 2022-02-13 Memoria usal ausal 02-10 02:19:35 02:19:35 l atrophic atrophic 15:14: Miguel benson vaginitis vaginitis 00 02/10/2022 2 Medical Group Candidiasi Candidias Problem 2022-02-13 2022-02-13 Memoria s of skin is of skin 02-10 02:19:35 02:19:35 l and nail and nail 15:14: Miguel benson 02/10/2022 00 2 Medical Group Impacted Impacted Problem 2022-02-13 2022-02-13 Gonzalooria cerumen, cerumen, 02-10 02:19:35 02:19:35 l left ear left ear 15:13: Miguel benson 02/10/2022 00 2 Medical Group Type 2 Type 2 Problem 2022-02-13 2022-02-13 Memoria diabetes diabetes 02-10 02:19:35 02:19:35 l mellitus mellitus 15:00: Miguel benson with with 00 diabetic diabetic neuropathy neuropathy , , unspecifie unspecifie d d 02/10/2022 02/13/2022 Medical Group Other Other Problem 2022-01-27 2022-01-27 M emoria specified specified 01-24 02:32:49 02:32:49 l menopausal menopausal 22:11: He rmann and and 00 perimenopa perimenopa usal usal disorders disorders 01/24/2022 01/27/2022 Medical Group Candidiasi Candidias Problem 2022-01-27 2022-01-27 Memoria s, is, 01-24 02:32:49 02:32:49 l unspecifie unspecifie 15:59: He rmann d d 01/24/2022 01/27/2022 Medical Group Mixed Mixed Problem 2022-01-11 2022-01-11 Daksha heredia hyperlipid hyperlipid 01-08 02:53:18 02:53:18 l emia emia 18:34: Radcliffe 01/08/2022 00 01/11/2022 Medical Group Unspecifie Unspecifi Problem 2022-01-11 2022-01-11 Memoria d atrial ed atrial 01-08 02:53:18 02:53:18 l fibrillati fibrillati 18:33: He rmann on on 01/08/2022 01/11/2022 Medical Group Essential Essential Problem 2022-01-11 2022-01-11 Memoria (primary) (primary) 01-08 02:53:18 02:53:18 l hypertensi hypertensi 18:33: He rmann on on 01/08/2022 01/11/2022 Medical Group Corns and Corns and Problem 2021-12-30 2021-12-30 Memoria callositie callositie 12-27 02:44:33 02:44:33 l s s 14:44: Arturo 12/27/2021 00 12/30/2021 Medical Group Gastro-eso Gastro-es Problem 2021-12-30 2021-12-30 Memoria phageal ophageal 12-27 02:44:33 02:44:33 l reflux reflux 14:32: Radcliffe disease disease 00 without without esophagiti esophagiti s s 12/27/2021 12/30/2021 Medical Group Presence Presence Problem 2021-12-30 2021-12-30 Memoria of cardiac of cardiac 12-27 02:44:33 02:44:33 l pacemaker pacemaker 14:32: Herm gabi 12/27/2021 00 12/30/2021 Medical Group Allergies, Adverse Reactions, Alerts Allergy Allergy Status Severity Reaction(s) Onset Inactive Treating Comm ents Source Name Type Date Date Clinician Amlodijoycelyn Propensi Active 2022-08 lower Constance ne ty to 0-05 extremity Seybold adverse 00:00: edemalowe - reaction 00 r Externa s extremity l edema Empaglif Propensi Active 2022-08 Constance lozin ty to 0-05 Seybold adverse 00:00: - reaction 00 Externa s l CODEINE Allergy Active [place] SULFATE to 5-25 Family substanc 00:00: Practic e 00 e Codeine Propensi Active GI 2015-08 nausea Methodi ty to Intolerance 08-19 st adverse 00:00: Hospita reaction 00 l s to drug Codeine Propensi Active Nausea Only 2015-08 Other Ke lsey ty to 08-19 reaction( Seybold adverse 00:00: s): GI - reaction 00 Intoleran Exter na s cenauseaO l ther reaction( s): Not available codeine codeine Active Memoria l Arturo Jardianc Jardianc Active Memori a e e l Arturo amLODIPi amLODIPi Active Memori a ne<sup>1 ne<sup>1 l </sup> </sup> [place] NO KNOWN Drug Active [facility] ALLERGIE Class ity of [facility] Family History Family Member Diagnosis Comments Start Date Stop Date Source Natural father Heart disease [facility] Natural mother Arthritis [facility] Natural mother Diabetes [facility] Natural mother Heart disease [facility] Natural mother Hypertension [facility] Social History Social Habit Start Date Stop Date Quantity Comments Source Gender identity [facility] Sexual orientation [facility] History of Social 2023-03-14 2023-03-14 [facility] function 00:00:00 00:00:00 Hospital Tobacco use and 2023-02-24 2023-02-24 Smokeless Constance Olivarez ybold - exposure 00:00:00 00:00:00 tobacco non-user External Alcohol intake 2023-02-10 2023-02-10 Current Mu-Ism 00:00:00 00:00:00 non-drinker of Hospital alcohol (finding) Exposure to 2022-02-18 2022-02-28 Not sure University SARS-CoV-2 (event) 00:00:00 11:32:00 [facility] Sex Ass[birth year] At [birth year] Constance Olivarez ybold - 00:00:00 00:00:00 External Smoking Status Start Date Stop Date Source Tobacco smoking consumption [facility] Tobacco smoking status [facility] Medications Ordered Filled Start Stop Current Ordering Indication Dosage Frequency Signature Comments Components Source Medication Medication Date Date Medication? Clinician (SIG) Name Name Albuterol 2022-08 Yes Constance HFA 0-05 Seybold (VENTOLIN 09:54: - HFA) 108 55 Externa (90 Base) l MCG/ACT IN AERS Amlodipine 2022-08 Yes Constance Besylate 0-05 Seybold (NORVASC) 5 09:54: - MG oral 55 Externa Tablet l Benzonatate 2022-08 Yes Take 1 Kaylie ey 100 MG oral 0-05 capsule 3 Sey bold Capsule 09:54: times a - 55 day by Externa oral l route. Cephalexin 2022-08 Yes Constance 500 MG oral 0-05 Seybold Capsule 09:54: - 55 Externa l Fesoterodin 2022-08 Yes Take 1 Kaylie ey e Fumarate 0-05 tablet Seybold (Toviaz) 4 09:54: every day - MG oral 55 by oral Externa TABLET SR route. l 24 HR Meloxicam 2022-08 Yes Constance 15 MG oral 0-05 Seybold Tablet 09:54: - 55 Externa l Metformin 2022-08 Yes Constance HCl ER 500 0-05 Seybold MG oral 09:54: - TABLET SR 55 Externa 24 HR l Metformin 2022-08 Yes 1000mg Take 2 Kaylie ey HCl 500 MG 0-05 tablets Seybol d oral Tablet 09:53: (1,000 mg - 01 total) by Externa mouth in l the morning and 2 tablets (1,000 mg total) in the evening. Take with meals. Calcium 2022-08 Yes Take by Constance Carb-Cholec 0-05 mouth. Seybol d alciferol 09:53: - (CALCIUM 01 Externa 500 +D OR) l Ciclopirox 2022-08 Yes [id number] Apply to Constance 8 % apply 0-05 bilaterall Seyb old externally 00:00: y foot - Solution 00 daily to Externa the l affected area.. Metformin Yes 1000mg Take 2 Kaylie ey HCl 500 MG 9-28 tablets Seybol d oral Tablet 09:45: (1,000 mg - 45 total) by Externa mouth in l the morning and 2 tablets (1,000 mg total) in the evening. Take with meals. Calcium 2022-0 Yes Take by Constance Carb-Cholec 04-30 mouth. Seybol d alciferol 09:45: - (CALCIUM 45 Externa 500 +D OR) l Amlodipine 2022-0 Yes [id number] 5mg Take 1 K elsey Besylate 04-30 tablet (5 Seybol d (Norvasc) 5 00:00: mg total) - MG oral 00 by mouth Externa Tablet daily. l Amlodipine 2022-0 Yes [id number] 5mg Take 1 K elsey Besylate 04-30 tablet (5 Seybol d (Norvasc) 5 00:00: mg total) - MG oral 00 by mouth Externa Tablet daily. l Glimepiride 2022-0 Yes [id number] 2mg Take 1 Constance 2 MG oral 04-30 3 tablet (2 Seybo ld Tablet 00:00: mg total) - 00 by mouth Externa every l morning (before breakfast) . Dapaglifloz 2022-0 202- No [id number] 10mg Take 10 mg Constance in 04-30 3 by mouth Seybold Propanediol 00:00: 00:00 daily. - (Farxiga) 00 :00 Externa 10 MG oral l Tablet Potassium 2022-0 Yes [id number] 10meq Take 1 K elsey chloride 10 8-22 tablet (10 Se ybold MEQ oral 00:00: mEq total) - Tab CR 00 by mouth Externa daily. l Potassium 2022-0 Yes [id number] 10meq Take 1 K elsey chloride 10 8-22 tablet (10 Se ybold MEQ oral 00:00: mEq total) - Tab CR 00 by mouth Externa daily. l Calcium 2022-0 Yes Take by Constance Carb-Cholec - mouth. Seybol d alciferol 09:29: - (CALCIUM 15 Externa 500 +D OR) l Metformin 3-0 Yes 1000mg Take 2 Kaylie ey HCl 500 MG 8-21 tablets Seybol d oral Tablet 09:26: (1,000 mg - 19 total) by Externa mouth in l the morning and 2 tablets (1,000 mg total) in the evening. Take with meals. OneTouch Yes USE TO Constance Ultra in 8-16 TEST SUGAR Seybo ld vitro Strip 00:00: ONCE A DAY - 00 Externa l Benzonatate Yes TAKE 1 Kaylie ey 100 MG oral 8-15 CAPSULE BY Se ybold Capsule 00:00: MOUTH 3 - 00 TIMES A Externa DAY l NEEDED FOR COUGH FOR UP TO 7 DAYS azithromyci 0 Yes 250mg QD Take 1 Met hodi n 8-[address] (Zithromax 00:00: (250 mg Hosp rohit Z-Korey) 250 00 total) by l MG tablet mouth daily. Take 2 tablets the first day, then 1 tablet daily for 4 days. Azithromyci Yes 250mg Take 1 Isai sey n 250 MG 8-12 tablet Seybold oral Tablet 00:00: (250 mg - 00 total) by Externa mouth l daily. albuterol 2022- No 2{puff} Q4H Inhale 2 Methodi 90 03-14 09-[address] mcg/actuati 00:00: 04:59 every 4 Ho spita on inhaler 00 :00 (four) l hours as needed for wheezing for up to 30 days. benzonatate 2022- No 100mg Q.[id number] Take 1 Methodi (TESSALON) 03-[id number] 100 MG 00:00: 04:59 3D (100 mg Hospita capsule 00 :00 total) by l mouth 3 (three) times a day as needed for cough for up to 7 days. dextrometho 0 2022- No 10mL Q6H Take 10 mL Methodi rphan-guaif 03-[address] enesin 00:00: 04:59 every 6 Hospita (ROBITUSSIN 00 :00 (six) l -DM) 10-100 hours as mg/5 mL needed for liquid cough for up to 7 days. Lancets Yes 3 times Constance (OneTouch 8-10 daily USE Seybo ld Delica Plus 00:00: - [id number]) 00 DIRECTED. Exte rna does not l apply Misc hydrochloro 2023-0 Yes 1 tab, PO, Memoria thiazide-li 7-27 BID, # 180 l sinopril 25 15:30: tab, 3 Herm gabi mg-20 mg 00 Refill(s), oral tablet Pharmacy: [facility] #[id number], 170.18, cm, 02/26/23 9:18:00 CDT, Height, 105.114, kg, 02/26/23 9:18:00 CDT, Weight metoprolol 0 Yes 50 mg = 1 Me moria tartrate 50 7-27 tab, PO, l mg oral 15:29: BID, stop Beth nn tablet 00 metoprolol succ, # 180 tab, 3 Refill(s), Pharmacy: [facility] #[id number], 170.18, cm, 02/26/23 9:18:00 CDT, Height, 105.114, kg, 02/26/23 9:18:00 CDT, Weight Metoprolol 2022-0 Yes [id number] TAKE 1 K elsey Tartrate 7-27 TABLET BY Seybol d (LOPRESSOR) 00:00: MOUTH - 50 MG oral 00 TWICE A Journeyman Pipefitter a Tablet DAY STOP l METOPROLOL SUCCINATE Metoprolol 2022-0 Yes [id number] TAKE 1 K elsey Tartrate 7-27 TABLET BY Seybol d (LOPRESSOR) 00:00: MOUTH - 50 MG oral 00 TWICE A Journeyman Pipefitter a Tablet DAY STOP l METOPROLOL SUCCINATE Metoprolol 2022-0 Yes [id number] TAKE 1 K elsey Tartrate 7-27 TABLET BY Seybol d (LOPRESSOR) 00:00: MOUTH - 50 MG oral 00 TWICE A Journeyman Pipefitter a Tablet DAY STOP l METOPROLOL SUCCINATE Metformin 0 Yes 1000mg Take 2 Kaylie ey HCl 500 MG 7-25 tablets Seybol d oral Tablet 09:12: (1,000 mg - 35 total) by Externa mouth in l the morning and 2 tablets (1,000 mg total) in the evening. Take with meals. Losartan 0 Yes [id number] 1{tbl} Take 1 K elsey Potassium-H 7-25 tablet by Tushar dietz CTZ 50-12.5 00:00: mouth - MG oral 00 daily Externa Tablet l Losartan 2022-0 2023- No [id number] 1{tbl} Take 1 Constance Potassium-H 7-25 08-21 tablet by Se ybold CTZ 50-12.5 00:00: 00:00 mouth - MG oral 00 :00 daily Externa Tablet l MetFORMIN Yes = 2 tab, Maurizio rainer (Eqv-Glucop 7-20 PO, l brooke XR) 13:41: Dinner, # Herm gabi 500 mg oral 00 360 tab, 2 tablet, Refill(s), extended Pharmacy: [id number], 170.18, cm, 02/02/23 8:40:00 CDT, Height, 105.636, kg, 02/02/23 8:40:00 CDT, Weight Metformin 0 Yes = 2 tab, Kaylie ey HCl 500 MG 7-20 PO, Seybold oral Tablet 00:00: Dinner, # - 00 360 tab, 2 Externa Refill(s), l Pharmacy: [facility]ORE [id number], 170.18, cm, 02/02/23 8:40:00 CDT, Height, 105.636, kg, 02/02/23 8:40:00 CDT, Weight amLODIPine 2022- No 5mg Q.5D Take 1 Meth roberto (NORVASC) 5 02-13 tablet (5 st mg tablet 10:28: 00:00 mg total) Ho spita 02 :00 by mouth 2 l (two) times a day. Metoprolol 2022- No 50mg Take 1 Kaylie ey Succinate 02-13 tablet (50 Sey bold 50 MG oral 00:00: 00:00 mg total) - TABLET SR 00 :00 by mouth Journeyman Pipefitter a 24 HR daily l metoprolol 2022- No 50mg QD Take 1 Meth roberto succinate 02-13 tablet (50 st XL 00:00: 04:59 mg total) Hospita (TOPROL-XL) 00 :00 by mouth l 50 mg 24 hr daily for tablet 30 days. Metoprolol 2022- Yes 50mg Take 1 Kaylie ey Succinate 02-13 tablet (50 Sey bold 50 MG oral 00:00: 04:59 mg total) - TABLET SR 00 :00 by mouth Journeyman Pipefitter a 24 HR daily l metoprolol 2023-0 2023- No 50mg QD Take 1 Meth roberto succinate 02-13- tablet (50 st XL 00:00: 00:00 mg total) Hospita (TOPROL-XL) 00 :00 by mouth l 50 mg 24 hr daily for tablet 30 days. cyanocobala 2022-0 2022- No 5000ug QD Take 5 M ethodi min 02-12-[address] (VITAMIN 10:28: 00:00 (5,000 mcg Ho spita B-12) 1000 36 :00 total) by l MCG tablet mouth daily. cholecalcif 2022-0 2022- No Take by Me thodi cristina, 02-12- mouth. st vitamin D3, 10:28: 00:00 Hospi ta 125 mcg 36 :00 l (5,000 unit) tablet metoprolol 2022-0 2022- No 50mg Q.5D Take 1 Meth roberto succinate 02-12 tablet (50 st XL 10:28: 00:00 mg total) Hospita (TOPROL-XL) 35 :00 by mouth 2 l 50 mg 24 hr (two) tablet times a day. CALCIUM 2022-0 Yes 600mg Q.5D Take 600 Metho di ORAL 7-[address] 10:28: mouth 2 Hospita 32 (two) l times a day. metFORMIN 3-0 Yes 1000mg Q.5D Take 2 Meth roberto (GLUCOPHAGE 7-[address] ) 500 mg 10:28: (1,000 mg Hosp rohit tablet 32 total) by l mouth 2 (two) times a day with meals. apixaban 3-0 Yes 5mg Q.5D Take 1 Methodi (ELIQUIS) 5 7-13 tablet (5 st mg tablet 10:28: mg total) Hos andres 32 by mouth 2 l (two) times a day. pantoprazol 3-0 Yes 40mg QD Take 1 Meth roberto e 7-13 tablet (40 st (PROTONIX) 10:28: mg total) Ho spita 40 MG EC 32 by mouth l tablet daily. rosuvastati 3-0 Yes 20mg QD Take 1 Meth roberto n (CRESTOR) 7-13 tablet (20 st 20 mg 10:28: mg total) Hospita tablet 32 by mouth l daily. Eliquis 5 3-0 Yes 5mg Take 1 Constance MG oral 7-13 tablet (5 Seybold Tablet 00:00: mg total) - 00 by mouth Externa every 12 l hours. Eliquis 5 3-0 Yes 5mg Take 1 Constance MG oral 7-13 tablet (5 Seybold Tablet 00:00: mg total) - 00 by mouth Externa every 12 l hours. Eliquis 5 3-0 Yes 5mg Take 1 Constance MG oral 7-13 tablet (5 Seybold Tablet 00:00: mg total) - 00 by mouth Externa every 12 l hours Eliquis 5 3-0 Yes 5mg Take 1 Constance MG oral 7-13 tablet (5 Seybold Tablet 00:00: mg total) - 00 by mouth Externa every 12 l hours. lisinopriL 2022-0 2022- No 20mg QD Take 1 Meth roberto (PRINIVIL) 02-12 tablet (20 st 20 mg 00:00: 04:59 mg total) Hospit a tablet 00 :00 by mouth l daily for 30 days. Lisinopril 2022-0 2022- No TAKE 1 Kaylie ey 20 MG oral -25 TABLET BY Sey bold Tablet 00:00: 00:00 MOUTH - 00 :00 EVERY DAY Externa FOR 30 l DAYS lisinopriL 2022-0 2022- No 20mg QD Take 1 Meth roberto (PRINIVIL) 02-12 tablet (20 st 20 mg 00:00: 00:00 mg total) Hospit a tablet 00 :00 by mouth l daily for 30 days. rosuvastati Yes = 1 tab, Me moria n 20 mg 02-02 PO, l oral tablet 14:25: Bedtime, # [place] 00 90 tab, 3 Refill(s), Pharmacy: [facility] STORE [id number], 170.18, cm, 02/02/23 8:40:00 CDT, Height, 105.636, kg, 02/02/23 8:40:00 CDT, Weight Trulicity Yes 3 mg, Memoria Pen 3 - SUB-Q, l mg/0.5 mL 14:16: qWeek, # 3 He rmann subcutaneou 00 ea, 3 s solution Refill(s), Pharmacy: [facility] #[id number], 170.18, cm, 02/02/23 8:40:00 CDT, Height, 105.636, kg, 02/02/23 8:40:00 CDT, Weight metoprolol 2022-0 Yes 100 mg = 1 M emoria tartrate -03 tab, PO, l 100 mg oral 14:15: BID, # 180 Arturo tablet 00 tab, 3 Refill(s), Pharmacy: [facility] #[id number], 170.18, cm, 02/02/23 8:40:00 CDT, Height, 105.636, kg, 02/02/23 8:40:00 CDT, Weight Rosuvastati 2022-0 Yes 20mg Take 1 Kaylie ey n Calcium 7-03 tablet (20 Seyb old 20 MG oral 00:00: mg total) - Tablet 00 by mouth Externa at l bedtime. Rosuvastati 3-0 Yes 20mg Take 1 Kaylie ey n Calcium 7-03 tablet (20 Seyb old 20 MG oral 00:00: mg total) - Tablet 00 by mouth Externa at l bedtime. Rosuvastati 3-0 Yes 20mg Take 1 Kaylie ey n Calcium 7-03 tablet (20 Seyb old 20 MG oral 00:00: mg total) - Tablet 00 by mouth Externa at bedtime l Rosuvastati 3-0 Yes 20mg Take 1 Kaylie ey n Calcium 7-03 tablet (20 Seyb old 20 MG oral 00:00: mg total) - Tablet 00 by mouth Externa at l bedtime. metoprolol 2022-0 2023- No 100mg Q.5D Take 1 Met hodi tartrate 02-02 07-[address] (LOPRESSOR) 00:00: 00:00 (100 mg Ho spita 100 mg 00 :00 total) by l tablet mouth 2 (two) times a day. 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 l LISINOPRIL- 2022-0 Yes [id number] 1{tbl} Take 1 Constance HCTZ 20-25 6-26 tablet by Seyb old MG oral 00:00: mouth 2 - Tablet 00 times Externa daily. l LISINOPRIL- 2022-0 Yes [id number] 1{tbl} Take 1 Constance HCTZ 20-25 6-26 tablet by Seyb old MG oral 00:00: mouth 2 - Tablet 00 times Externa daily. l Eliquis 5 Yes = 1 tab, Maurizio rainer mg oral 6-09 PO, Q12H, l tablet 15:51: # 180 tab, Beth nn 00 3 Refill(s), Pharmacy: [id number], 170.18, cm, 09/01/22 9:50:00 RETAIL ACCOUNT MANAGER, Height, 103.364, kg, 09/01/22 9:50:00 RETAIL ACCOUNT MANAGER, Weight ONE TOUCH Yes ONE TOUCH Mem oria ULTRA BLUE 6- ULTRA BLUE l TEST STRP 15:51: TEST STRP, He rmann 00 See Instructio carline, USE TO TEST SUGAR ONCE A DAY, # 100 strip, Refill(s) 3, Pharmacy: [facility] [id number], 170.18, cm, 09/01/22 9:50:00 RETAIL ACCOUNT MANAGER, Height, 103.364, kg, 09/01/22 9:50:00 RETAIL ACCOUNT MANAGER, Weight Pantoprazol 0 Yes TAKE 1 Kaylie ey e Sodium 40 5-03 TABLET BY Sey bold MG oral 00:00: MOUTH ONCE - Tablet 00 A DAY Externa Delayed BEFORE l Response MEALS Pantoprazol 2022-0 Yes TAKE 1 Kaylie ey e Sodium 40 5-03 TABLET BY Sey bold MG oral 00:00: MOUTH ONCE - Tablet 00 A DAY Externa Delayed BEFORE l Response MEALS Pantoprazol 2022-0 Yes TAKE 1 Kaylie ey e Sodium 40 5-03 TABLET BY Sey bold MG oral 00:00: MOUTH ONCE - Tablet 00 A DAY Externa Delayed BEFORE l Response MEALS Pantoprazol Yes TAKE 1 Kaylie ey e Sodium 40 5-03 TABLET BY Tushar bold MG oral 00:00: MOUTH ONCE - Tablet 00 A DAY Externa Delayed BEFORE l Response MEALS Trulicity Yes 1.5 mg, Memor ia Pen 1.5 2-23 SUB-Q, l mg/0.5 mL 18:26: qWeek, # 2 He rmann subcutaneou 00 unknown s solution unit, 2 Refill(s), Pharmacy: [facility] STORE [id number], 170.18, cm, 09/01/22 9:50:00 RETAIL ACCOUNT MANAGER, Height, 103.364, kg, 09/01/22 9:50:00 RETAIL ACCOUNT MANAGER, Weight Trulicity 2021-08 Yes 1.5 mg, Memor ia Pen 1.5 2- SUB-Q, l mg/0.5 mL 14:28: qWeek, # 2 He rmann subcutaneou 00 unknown s solution unit, 2 Refill(s), Pharmacy: [facility] STORE [id number], 170.18, cm, 07/01/22 15:55:00 RETAIL ACCOUNT MANAGER, Height, 102.955, kg, 07/01/22 15:55:00 RETAIL ACCOUNT MANAGER, Weight Penlac Nail 2021-08 Yes 1 appl, Mem oria Lacquer 8% 08-31 TOP, l topical 22:16: Daily, X Miguel n solution 00 48 week, # 3 ml, 1 Refill(s), Pharmacy: [facility] #[id number], 170.18, cm, 07/01/22 15:55:00 RETAIL ACCOUNT MANAGER, Height, 102.955, kg, 07/01/22 15:55:00 RETAIL ACCOUNT MANAGER, Weight CALCIUM 2021-08 Yes 600mg Q.5D Take 600 Metho di ORAL 0-[address] 11:40: mouth 2 Hospita 06 (two) l times a day. cyanocobala 2021-08 Yes 5000ug QD Take 5,000 Methodi min 0-[address] (VITAMIN 11:40: mouth Hospita B-12) 1000 06 daily. l MCG tablet cholecalcif 2021-08 Yes Take by Met hodi cristina, 0-[address] vitamin D3, 11:40: Hospit a 125 mcg 06 l (5,000 unit) tablet metFORMIN 2021-08 Yes 1000mg Q.5D Take 1,000 Methodi (GLUCOPHAGE 0-[address] ) 500 mg 11:40: mouth 2 Hospit a tablet 06 (two) l times a day with meals. apixaban 2021-08 Yes 5mg Q.5D Take 1 Methodi (ELIQUIS) 5 0-18 tablet (5 st mg tablet 11:40: mg total) Hos andres 06 by mouth 2 l (two) times a day. Held for colonoscop y 05/20/2022 pantoprazol 2021-08 Yes 40mg QD Take 40 mg Methodi e 0-[address] (PROTONIX) 11:40: daily. Hospi ta 40 MG EC 06 l tablet rosuvastati 2021-08 Yes 20mg QD Take 20 mg Methodi n (CRESTOR) 0-[address] 20 mg 11:40: daily. Hospita tablet 06 l metoprolol 2021-08 Yes 50mg Q.5D Take 50 mg M ethodi succinate 0-[address] XL 11:40: (two) Hospita (TOPROL-XL) 06 times a l 50 mg 24 hr day. tablet CALCIUM 2021-08 Yes 600mg Q.5D Take 600 Metho di ORAL 0-[address] 11:40: mouth 2 Hospita 06 (two) l times a day. cyanocobala 2021-08 Yes 5000ug QD Take 5,000 Methodi min 0-[address] (VITAMIN 11:40: mouth Hospita B-12) 1000 06 daily. l MCG tablet cholecalcif 2021-08 Yes Take by Met hodi cristina, 0-[address] vitamin D3, 11:40: Hospit a 125 mcg 06 l (5,000 unit) tablet metFORMIN 2021-08 Yes 1000mg Q.5D Take 1,000 Methodi (GLUCOPHAGE 0-[address] ) 500 mg 11:40: mouth 2 Hospit a tablet 06 (two) l times a day with meals. apixaban 2021-08 Yes 5mg Q.5D Take 1 Methodi (ELIQUIS) 5 0-18 tablet (5 st mg tablet 11:40: mg total) Hos andres 06 by mouth 2 l (two) times a day. Held for colonoscop y 05/20/2022 pantoprazol 2021-08 Yes 40mg QD Take 40 mg Methodi e 0-[address] (PROTONIX) 11:40: daily. Hospi ta 40 MG EC 06 l tablet rosuvastati 2021-08 Yes 20mg QD Take 20 mg Methodi n (CRESTOR) 0-[address] 20 mg 11:40: daily. Hospita tablet 06 l metoprolol 2021-08 Yes 50mg Q.5D Take 50 mg M ethodi succinate 0-[address] XL 11:40: (two) Hospita (TOPROL-XL) 06 times a l 50 mg 24 hr day. tablet CALCIUM 2021-08 Yes 600mg Q.5D Take 600 Metho di ORAL 0-[address] 11:40: mouth 2 Hospita 06 (two) l times a day. cyanocobala 2021-08 Yes 5000ug QD Take 5,000 Methodi min 0-[address] (VITAMIN 11:40: mouth Hospita B-12) 1000 06 daily. l MCG tablet cholecalcif 2021-08 Yes Take by Met hodi cristina, 0-[address] vitamin D3, 11:40: Hospit a 125 mcg 06 l (5,000 unit) tablet metFORMIN 2021-08 Yes 1000mg Q.5D Take 1,000 Methodi (GLUCOPHAGE 0-[address] ) 500 mg 11:40: mouth 2 Hospit a tablet 06 (two) l times a day with meals. apixaban 2021-08 Yes 5mg Q.5D Take 1 Methodi (ELIQUIS) 5 0-18 tablet (5 st mg tablet 11:40: mg total) Hos andres 06 by mouth 2 l (two) times a day. Held for colonoscop y 05/20/2022 pantoprazol 2021-08 Yes 40mg QD Take 40 mg Methodi e 0-[address] (PROTONIX) 11:40: daily. Hospi ta 40 MG EC 06 l tablet rosuvastati 2021-08 Yes 20mg QD Take 20 mg Methodi n (CRESTOR) 0-[address] 20 mg 11:40: daily. Hospita tablet 06 l metoprolol 2021-08 Yes 50mg Q.5D Take 50 mg M ethodi succinate 0-[address] XL 11:40: (two) Hospita (TOPROL-XL) 06 times a l 50 mg 24 hr day. tablet cyclobenzap 2- 2022- No 5mg Q.5D Take 1 Met hodi rine 0-17 11-17 tablet (5 st (FLEXERIL) 00:00: 05:59 mg total) H ospita 5 mg tablet 00 :00 by mouth 2 l (two) times a day as needed for muscle spasms for up to 30 days. cyclobenzap 2021- 2022- No 5mg Q.5D Take 1 Met hodi rine 0-17 11-17 tablet (5 st (FLEXERIL) 00:00: 05:59 mg total) H ospita 5 mg tablet 00 :00 by mouth 2 l (two) times a day as needed for muscle spasms for up to 30 days. cyclobenzap 2022-1 2022- No 5mg Q.5D Take 1 Met hodi rine 0-17 11-17 tablet (5 st (FLEXERIL) 00:00: 05:59 mg total) H ospita 5 mg tablet 00 :00 by mouth 2 l (two) times a day as needed for muscle spasms for up to 30 days. cyclobenzap 2-1 2022- No 5mg Q.5D Take 1 Met hodi rine 0-17 11-17 tablet (5 st (FLEXERIL) 00:00: 05:59 mg total) H ospita 5 mg tablet 00 :00 by mouth 2 l (two) times a day as needed for muscle spasms for up to 30 days. dulaglutide 2022-0 Yes 1.5 mg, Mem oria 1.5 mg/0.5 8-12 SUB-Q, l mL 13:20: qWeek, # 2 [place] subcutaneou 00 mL, 3 s solution Refill(s), Pharmacy: [facility] #[id number], 170.18, cm, 02/10/22 9:52:00 CDT, Height, 109.182, kg, 02/10/22 9:52:00 CDT, Weight Dulaglutide 2-0 Yes 3 mg, Kelse y (Trulicity) 8-12 SUB-Q, Seybol d 3 MG/0.5ML 00:00: qWeek, # 3 - subcutaneou 00 ea, 3 Externa s Solution Refill(s), l Pen-injecto Pharmacy: [facility] #[id number], 170.18, cm, 02/02/23 8:40:00 CDT, Height, 105.636, kg, 02/02/23 8:40:00 CDT, Weight MireilleTouch 2021-0 Yes 10, # 100 Mem oria Delica 8-11 ea, Not l Extra Fine 16:55: insulin Herm gabi 33G Lancets 00 dependent, Does not use insulin pump, Last DM eval date 03/12/22, 3 Refill(s), Pharmacy: [facility] #[id number], 170.18, cm, 02/10/22 9:52:00 CDT, Height, 109.182, kg, 02/10/22 9:52:00 CDT, Weight MireilleTouch 0 Yes 10, # 100 Mem oria Ultra Blue 8-11 ea, Not l Blood 16:55: insulin Arturo Glucose 00 dependent, Test Strip Does not use insulin pump, Last DM eval date 03/12/22, 3 Refill(s), Pharmacy: [facility] #[id number], 170.18, cm, 02/10/22 9:52:00 CDT, Height, 109.182, kg, 02/10/22 9:52:00 CDT, Weight apixaban 2021-0 Yes 5mg Q.5D Take 5 mg Meth roberto (ELIQUIS) 5 8-[address] mg tablet 16:06: (two) Hospita 01 times a l day. pantoprazol 2021-0 Yes 40mg QD Take 40 mg Methodi e 8-[address] (PROTONIX) 16:06: daily. Hospi ta 40 MG EC 01 l tablet rosuvastati 2021-0 Yes 20mg QD Take 20 mg Methodi n (CRESTOR) 8-[address] 20 mg 16:06: daily. Hospita tablet 01 l metoprolol 2021-0 Yes 50mg Q.5D Take 50 mg M ethodi succinate 8-[address] XL 16:06: (two) Hospita (TOPROL-XL) 01 times a l 50 mg 24 hr day. tablet apixaban 2021-0 Yes 5mg Q.5D Take 5 mg Meth roberto (ELIQUIS) 5 8-[address] mg tablet 16:06: (two) Hospita 01 times a l day. pantoprazol 2-0 Yes 40mg QD Take 40 mg [facility] 8[facility] (PROTONIX) 16:06: daily. Hospi ta 40 MG EC 01 l tablet rosuvastati 2-0 Yes 20mg QD Take 20 mg [facility] (CRESTOR) 8-[address] 20 mg 16:06: daily. [facility]osp[facility] tablet 01 l metoprolol 2-0 Yes 50mg Q.5D Take 50 mg [facility] succinate 8-[address] XL 16:06: (two) [facility]ospita (TOPROL-XL) 01 times a l 50 mg 24 hr day. tablet apixaban 2-0 Yes 5mg Q.5D Take 5 mg Meth roberto (ELIQUIS) 5 8-[address] mg tablet 16:06: (two) [facility]ospita 01 times a l day. pantoprazol 2-0 Yes 40mg QD Take 40 mg [facility] 8[facility] (PROTONIX) 16:06: daily. [facility] ta 40 MG EC 01 l tablet rosuvastati 2-0 Yes 20mg QD Take 20 mg [facility] (CRESTOR) 8-[address] 20 mg 16:06: daily. [facility]osp[facility] tablet 01 l metoprolol 2-0 Yes 50mg Q.5D Take 50 mg [facility] succinate 8-[address] XL 16:06: (two) Hospita (TOPROL-XL) 01 times a l 50 mg 24 hr day. tablet CALCIUM 2021-0 Yes 600mg Q.5D Take 600 Metho di ORAL 8-[address] 16:07: mouth 2 Hospita 06 (two) l times a day. cyanocobala 2021-0 Yes 5000ug QD Take 5,000 [facility] min 8-[address] (VITAMIN 16:07: mouth [facility]osp[facility] B-12) 1000 06 daily. l MCG tablet cholecalcif 2021-0 Yes Take by [facility], 8-[address] vitamin D3, 16:07: Hospit a 125 mcg 06 l (5,000 unit) tablet metFORMIN 2-0 Yes 1000mg Q.5D Take 1,000 [facility] (GLUCOPHAGE 8-[address] ) 500 mg 16:07: mouth 2 Hospit a tablet 06 (two) l times a day with meals. CALCIUM 2022-0 Yes 600mg Q.5D Take 600 Metho di ORAL 8-[address] 16:07: mouth 2 [facility] 06 (two) l times a day. cyanocobala 2022-0 Yes 5000ug QD Take 5,000 [facility] min 8-[address] (VITAMIN 16:07: mouth Hospita B-12) 1000 06 daily. l MCG tablet cholecalcif 2022-0 Yes Take by Met sandra evans 03-[address] vitamin D3, 16:07: Hospit a 125 mcg 06 l (5,000 unit) tablet metFORMIN 2022-0 Yes 1000mg Q.5D Take 1,000 [facility] (GLUCOPHAGE 8-09 mg by ) 500 mg 16:07: mouth 2 Hospit a tablet 06 (two) l times a day with meals. CALCIUM 2022-0 Yes 600mg Q.5D Take 600 Metho di ORAL 8-[address] 16:07: mouth 2 [facility]osp[facility] 06 (two) l times a day. cyanocobala 2022-0 Yes 5000ug QD Take 5,000 [facility] min 8-[address] (VITAMIN 16:07: mouth [facility]ospita B-12) 1000 06 daily. l MCG tablet cholecalcif 2022-0 Yes Take by Met sandra evans 03-[address] vitamin D3, 16:07: Hospit a 125 mcg 06 l (5,000 unit) tablet metFORMIN 2022-0 Yes 1000mg Q.5D Take 1,000 [facility] (GLUCOPHAGE 8-[address] ) 500 mg 16:07: mouth 2 Hospit a tablet 06 (two) l times a day with meals. HYDROcodone 2021-0 202- No [id number] 1{tbl} Q6H Take 1 [facility] -acetaminop 03-[address] dahlia (NORCO) 00:00: 04:59 mouth [facility]osp ro[facility] 5-325 mg 00 :00 every 6 l per tablet (six) hours as needed for severe pain for up to 5 days .acute pain. Max Daily Amount: 4 tablets minocycline 2022-0 2022- No 100mg Q.5D Take 1 [facility] (MINOCIN) 03-11-[address] 100 MG 00:00: 04:59 (100 mg Hospita capsule 00 :00 total) by l mouth 2 (two) times a day for 5 days. Hold oral calcium while taking this antibiotic HYDROcodone 2022-0 2022- No [id number] 1{tbl} Q6H Take 1 [facility] -acetaminop 03-11-[address] hen (Nodeable) 00:00: 04:59 mouth [facility]osp rohit 5-325 mg 00 :00 every 6 l per tablet (six) hours as needed for severe pain for up to 5 days .acute pain. Max Daily Amount: 4 tablets minocycline 2022-0 2022- No 100mg Q.5D Take 1 [facility] (MINOCIN) 03-11-[address] 100 MG 00:00: 04:59 (100 mg Hospita capsule 00 :00 total) by l mouth 2 (two) times a day for 5 days. Hold oral calcium while taking this antibiotic HYDROcodone 2-0 2021- [place] [id number] 1{tbl} Q6H Take 1 [facility] -acetaminop 03-11-[address] hen (Nodeable) 00:00: 04:59 mouth [facility]osp ro[facility] 5-325 mg 00 :00 every 6 l per tablet (six) hours as needed for severe pain for up to 5 days .acute pain. Max Daily Amount: 4 tablets minocycline 2022-0 2022- No 100mg Q.5D Take 1 [facility] (MINOCIN) 03-11-[address] 100 MG 00:00: 04:59 (100 mg Hospita capsule 00 :00 total) by l mouth 2 (two) times a day for 5 days. Hold oral calcium while taking this antibiotic HYDROcodone 2022-0 2022- [place] [id number] 1{tbl} Q6H Take 1 [facility] -acetaminop 03-11-[address] hen (Nodeable) 00:00: 04:59 mouth [facility]osp ro[facility] 5-325 mg 00 :00 every 6 l per tablet (six) hours as needed for severe pain for up to 5 days .acute pain. Max Daily Amount: 4 tablets minocycline 2022-0 2022- No 100mg Q.5D Take 1 [facility] (MINOCIN) 03-11-[address] 100 MG 00:00: 04:59 (100 mg Hospita capsule 00 :00 total) by l mouth 2 (two) times a day for 5 days. Hold oral calcium while taking this antibiotic HYDROcodone 2021-0 2021- No [id number] 1{tbl} Q6H Take 1 [facility] -acetaminop 03-[address] [facility] (Nodeable) 00:00: 04:59 mouth [facility]osp ro[facility] 5-325 mg 00 :00 every 6 l per tablet (six) hours as needed for severe pain for up to 5 days .acute pain. Max Daily Amount: 4 tablets minocycline 2-0 202- No 100mg Q.5D Take 1 [facility] (MINOCIN) 03-[address] 100 MG 00:00: 04:59 (100 mg Hospita capsule 00 :00 total) by l mouth 2 (two) times a day for 5 days. Hold oral calcium while taking this antibiotic HYDROcodone 2021-0 2021- No [id number] 1{tbl} Q6H Take 1 [facility] -acetaminop 03-11 tablet by [facility]) 00:00: 04:59 mouth [facility]osp ro[facility] 5-325 mg 00 :00 every 6 l per tablet (six) hours as needed for severe pain for up to 5 days .acute pain. Max Daily Amount: 4 tablets minocycline 2021-0 2021- No 100mg Q.5D Take 1 [facility] (MINOCIN) 03-[address] 100 MG 00:00: 04:59 (100 mg Hospita capsule 00 :00 total) by l mouth 2 (two) times a day for 5 days. Hold oral calcium while taking this antibiotic aspirin 2021-0 2021- No Take 1 [facility] (ECOTRIN) 03-05- tablet st 81 MG 00:32: 00:00 every day Hospit a enteric 05 :00 by oral l coated route. tablet aspirin 2021-0 2021- No Take 1 [facility] (ECOTRIN) 03-05- tablet st 81 MG 00:32: 00:00 every day Hospit a enteric 05 :00 by oral l coated route. tablet aspirin 2021-0 2021- No Take 1 [facility] (ECOTRIN) 03-05- tablet st 81 MG 00:32: 00:00 every day Hospit a enteric 05 :00 by oral l coated route. tablet aspirin 2021- No Take 1 [facility] (ECOTRIN) 03-05- tablet st 81 MG 00:32: 00:00 every day Hospit a enteric 05 :00 by oral l coated route. tablet aspirin 2021- No Take 1 [facility] (ECOTRIN) 03-05 08- tablet st 81 MG 00:32: 00:00 every day Hospit a enteric 05 :00 by oral l coated route. tablet aspirin 2021- No Take 1 [facility] (ECOTRIN) 03-05- tablet st 81 MG 00:32: 00:00 every day Hospit a enteric 05 :00 by oral l coated route. tablet gabapentin 2021- No 300mg QD Take 300 M ethodi (NEURONTIN) 8 08-[address] 300 mg 00:27: 00:00 mouth Hospita capsule 38 :00 nightly. l gabapentin 2021-2021- No 300mg QD Take 300 M ethodi (NEURONTIN) 8 08-[address] 300 mg 00:27: 00:00 mouth Hospita capsule 38 :00 nightly. l gabapentin 2021- No 300mg QD Take 300 M [facility]i (NEURONTIN) 8 08-[address] 300 mg 00:27: 00:00 mouth Hospita capsule 38 :00 nightly. l gabapentin 2021- No 300mg QD Take 300 M ethodi (NEURONTIN) 8- 08-[address] 300 mg 00:27: 00:00 mouth Hospita capsule 38 :00 nightly. l gabapentin 2021- No 300mg QD Take 300 M ethodi (NEURONTIN) 8 08-[address] 300 mg 00:27: 00:00 mouth Hospita capsule 38 :00 nightly. l gabapentin 2021-2021- No 300mg QD Take 300 M ethodi (NEURONTIN) 8 08-[address] 300 mg 00:27: 00:00 mouth Hospita capsule 38 :00 nightly. l famotidine 2021- No 20mg Q24H Take 20 mg [facility] (PEPCID) 20 03-05 08-[address] MG tablet 00:26: 00:00 daily as Hos andres 28 :00 needed for l heartburn. famotidine 0 2021- No 20mg Q24H Take 20 mg [facility] (PEPCID) 20 03-[address] MG tablet 00:26: 00:00 daily as Hos andres 28 :00 needed for l heartburn. famotidine 2021-0 2022- No 20mg Q24H Take 20 mg [facility] (PEPCID) 20 03-[address] MG tablet 00:26: 00:00 daily as Hos andres 28 :00 needed for l heartburn. famotidine 2021-0 202- No 20mg Q24H Take 20 mg [facility] (PEPCID) 20 03-[address] MG tablet 00:26: 00:00 daily as Hos andres 28 :00 needed for l heartburn. famotidine 2021-2021- No 20mg Q24H Take 20 mg [facility] (PEPCID) 20 03-[address] MG tablet 00:26: 00:00 daily as Hos andres 28 :00 needed for l heartburn. famotidine 2021-0 2021- No 20mg Q24H Take 20 mg [facility] (PEPCID) 20 03-[address] MG tablet 00:26: 00:00 daily as Hos andres 28 :00 needed for l heartburn. DOCOSAHEXAN 2021- No Take by [facility] 03-[address] ACID/EPA 00:26: 00:00 Hospita (FISH OIL 03 :00 l ORAL) DOCOSAHEXAN 2021-0 2021- No Take by [facility] 03-[address] ACID/EPA 00:26: 00:00 Hospita (FISH OIL 03 :00 l ORAL) DOCOSAHEXAN 2021-0 2021- No Take by [facility] 03-[address] ACID/EPA 00:26: 00:00 Hospita (FISH OIL 03 :00 l ORAL) DOCOSAHEXAN 2021-0 2021- No Take by [facility] 03-[address] ACID/EPA 00:26: 00:00 Hospita (FISH OIL 03 :00 l ORAL) DOCOSAHEXAN 2021- No Take by [facility] 03-[address] ACID/EPA 00:26: 00:00 Hospita (FISH OIL 03 :00 l ORAL) DOCOSAHEXAN 2021- No Take by [facility] 03-[address] ACID/EPA 00:26: 00:00 Hospita (FISH OIL 03 :00 l ORAL) Trulicity Yes 0.75 mg, Maurizio rainer Pen 0.75 7-19 SUB-Q, l mg/0.5 mL 15:07: qWeek, # Herm gabi subcutaneou 00 15 mL, 3 s solution Refill(s), Pharmacy: [facility] #[id number], 170.18, cm, 02/10/22 9:52:00 CDT, Height, 109.182, kg, 02/10/22 9:52:00 CDT, Weight NovoFine Yes 1 ea, Memoria Insulin Pen 7-19 MISC, l [place] 32G 13:42: Daily, # He rmann 6 mm=08/06 00 90 ea, 3 inch Refill(s), Pharmacy: [facility] #[id number], 170.18, cm, 02/10/22 9:52:00 CDT, Height, 109.182, kg, 02/10/22 9:52:00 CDT, Weight liraglutide No 0.6 mg, Mem oria 18 mg/3 mL 7-19 SUB-Q, l subcutaneou 13:40: Daily, # He rmann s injection 00 15 mL, 3 Refill(s), Pharmacy: [facility] #[id number], 170.18, cm, 02/10/22 9:52:00 CDT, Height, 109.182, kg, 02/10/22 9:52:00 CDT, Weight MetFORMIN Yes 1,000 mg = Me moria (Eqv-Glucop 7-18 2 tab, PO, l brooke XR) 19:22: BID, with Herm gabi 500 mg oral 00 evening tablet, meal, # extended 360 tab, 3 release Refill(s), Pharmacy: [facility] #[id number], 170.18, cm, 02/10/22 9:52:00 CDT, Height, 109.182, kg, 02/10/22 9:52:00 CDT, Weight rosuvastati Yes 20 mg = 1 M emoria n 20 mg 7-18 tab, PO, l oral tablet 19:19: Bedtime, # Arturo 00 90 tab, 3 Refill(s), Pharmacy: [facility] #[id number], STOP SIMVASTATI N, 170.18, cm, 02/10/22 9:52:00 CDT, Height, 109.182, kg, 02/10/22 9:52:00 CDT, Weight clotrimazol Yes 1 appl, Mem oria e topical 7-11 TOP, BID, l 1% cream 15:14: X 7 day, # Her webb 00 15 gm, 0 Refill(s), Pharmacy: [facility] #[id number], 170.18, cm, 02/10/22 9:52:00 CDT, Height, 109.182, kg, 02/10/22 9:52:00 CDT, Weight empaglifloz Yes 25 mg = 1 M emoria in 25 mg 6-28 tab, PO, l oral tablet 21:38: QAM, # 90 H ermann 00 tab, 3 Refill(s), other BD Eclipse Yes 1 ea, Memori a Luer-Daniela 6-24 MISC, l Needle 30G 22:17: Daily, # tracey 1/2 inch 00 90 ea, 3 Refill(s), Pharmacy: [id number], 170.18, cm, 01/24/22 10:39:00 CDT, Height, 108.364, kg, 01/24/22 10:39:00 CDT, Weight fluconazole Yes 150 mg = 1 Memoria 150 mg oral 6-24 tab, PO, l tablet 16:13: ONCE, # 1 Miguel n 00 tab, 0 Refill(s), Pharmacy: [facility] #[id number], 170.18, cm, 01/24/22 10:39:00 CDT, Height, 108.364, kg, 01/24/22 10:39:00 CDT, Weight Ozempic 2 Yes 0.25 mg =, Me moria mg/1.5 mL 6-24 SUB-Q, l (0.25 mg or 16:12: qWeek, # 3 Arturo 0.5 mg 00 ea, 3 dose) Refill(s), [facility] Pharm[facility]: [id number], 170.18, cm, 01/24/22 10:39:00 CDT, Height, 108.364, kg, 01/24/22 10:39:00 CDT, Weight pantoprazol Yes TAKE 1 Maurizio rainer e 40 mg 6-08 TABLET BY l oral 18:16: MOUTH ONCE [facility] 00 A DAY coated BEFORE tablet MEALS DME Yes See Memoria Prescriptio 5-27 Instructio l n 14:39: ns, MISC, [place] 00 ONCE, DIABETIC SHOES, # 2 ea, 0 Refill(s) simvastatin Yes 40 mg = 1 M emoria 40 mg oral 5-27 tab, PO, l tablet 14:33: Bedtime, # Beth nn 00 30 tab, 0 Refill(s), Pharmacy: [facility] #[id number], 171.45, cm, 12/27/21 9:02:00 CDT, Height, 110.727, kg, 12/27/21 9:02:00 CDT, Weight metFORMIN Yes 1,000 mg = Me moria 500 mg oral 5-27 2 tab, PO, l tablet 14:33: BID-Meals, Beth nn 00 # 180 tab, 3 Refill(s), Pharmacy: [facility] #[id number], 171.45, cm, 12/27/21 9:02:00 CDT, Height, 110.727, kg, 12/27/21 9:02:00 CDT, Weight glimepiride Yes 2 mg = 1 Me moria 2 mg oral 5-27 tab, PO, l tablet 14:33: Breakfast, Beth nn 00 # 90 tab, 3 Refill(s), Pharmacy: [facility] #[id number], 171.45, cm, 12/27/21 9:02:00 CDT, Height, 110.727, kg, 12/27/21 9:02:00 CDT, Weight hydrochloro 2021-0 Yes 1 tab, PO, Memoria thiazide-li 5-27 BID, # 180 l sinopril 25 14:33: tab, 3 Herm gabi mg-20 mg 00 Refill(s), oral tablet [id number], 171.45, cm, 12/27/21 9:02:00 CDT, Height, 110.727, kg, 12/27/21 9:02:00 CDT, Weight metoprolol 2021-0 Yes 50 mg = 1 Me moria 50 mg oral 5-27 tab, PO, l tablet, 14:33: BID, per Miguel n extended [address], # 180 tab, 3 Refill(s), Pharmacy: [facility] #[id number], 171.45, cm, 12/27/21 9:02:00 CDT, Height, 110.727, kg, 12/27/21 9:02:00 CDT, Weight amLODIPine 0 Yes 5 mg = 1 Mem oria 5 mg oral 5-27 tab, PO, l tablet 14:33: BID, # 180 Beth nn 00 tab, 3 Refill(s), [id number], 171.45, cm, 12/27/21 9:02:00 CDT, Height, 110.727, kg, 12/27/21 9:02:00 CDT, Weight Eliquis 5 2021-0 Yes 5 mg = 1 Maurizio rainer mg oral 5-27 tab, PO, l tablet 14:33: Q12H, # Arturo 00 180 tab, 3 Refill(s), [id number], 171.45, cm, 12/27/21 9:02:00 CDT, Height, 110.727, kg, 12/27/21 9:02:00 CDT, Weight Tylenol 8 2021-0 No 1,300 mg = Me moria Hour Caplet 5-27 2 tab, PO, l 650 mg oral 14:00: Q8H, prn, H ermann tablet, 00 0 extended Refill(s) release Tylenol 2021-0 Yes 500 mg = 1 Maurizio rainer Extra 5-27 tab, PO, l Strength 13:58: Q4-6H, PRN Her webb 500 mg oral 00 Pain, prn, tablet # 120 tab, 0 Refill(s) Eliquis 5 No 5 mg, PO, Mem oria mg oral 5-27 Q12H, tab, l tablet 13:57: 0 Arturo 00 Refill(s), For Atrial Fibrilatio n amLODIPine 2020-08 Yes Take 1 Metho di (NORVASC) 5 2-[address] mg tablet 00:00: mouth Hospita 00 twice l daily amLODIPine 2020-08 Yes Take 1 Metho di (NORVASC) 5 2-[address] mg tablet 00:00: mouth Hospita 00 twice l daily amLODIPine 2020-08 Yes Take 1 Metho di (NORVASC) 5 2-[address] mg tablet 00:00: mouth Hospita 00 twice l daily amLODIPine 2020-08 Yes Take 1 Metho di (NORVASC) 5 2-[address] mg tablet 00:00: mouth Hospita 00 twice l daily amLODIPine 2020-08 Yes Take 1 Metho di (NORVASC) 5 2-[address] mg tablet 00:00: mouth Hospita 00 twice l daily amLODIPine 2020-08 Yes Take 1 Metho di (NORVASC) 5 2-[address] mg tablet 00:00: mouth Hospita 00 twice l daily amLODIPine 2020-08- No Take 1 Meth roberto (NORVASC) 5 2-17 07-[address] mg tablet 00:00: 00:00 mouth Hospit a 00 :00 twice l daily simvastatin 2020-08- No TAKE 1 [facility] (ZOCOR) 40 0-27 08-[address] mg tablet 00:00: 00:00 MOUTH ONCE H ospita 00 :00 DAILY AT l NIGHT simvastatin 2020-08- No TAKE 1 Met [facility] (ZOCOR) 40 0-27 08-[address] mg tablet 00:00: 00:00 MOUTH ONCE H ospita 00 :00 DAILY AT l NIGHT simvastatin 2020-08- No TAKE 1 Met hodi (ZOCOR) 40 0-27 08-[address] mg tablet 00:00: 00:00 MOUTH ONCE H ospita 00 :00 DAILY AT l NIGHT simvastatin 2020-08- No TAKE 1 Met hodi (ZOCOR) 40 0-27 08-[address] mg tablet 00:00: 00:00 MOUTH ONCE H ospita 00 :00 DAILY AT l NIGHT simvastatin 2020-08- No TAKE 1 Met [facility] (ZOCOR) 40 0-27 08-[address] mg tablet 00:00: 00:00 MOUTH ONCE H ospita 00 :00 DAILY AT l NIGHT simvastatin 2020-08- No TAKE 1 Met hodi (ZOCOR) 40 0-27 08-[address] mg tablet 00:00: 00:00 MOUTH ONCE H ospita 00 :00 DAILY AT l NIGHT Iron-150 Yes 1 tab, PO, Mem oria oral tablet 04-04 Daily, 0 l 15:12: Refill(s) Vitamin C Yes 1,000 mg, Mem oria 04-04 PO, Daily, l 15:12: 0 Refill(s) simvastatin 2020- No TAKE 1 Met hodi (ZOCOR) 40 7-01 10- TABLET BY st mg tablet 00:00: 00:00 MOUTH ONCE H ospita 00 :00 DAILY AT l NIGHT simvastatin 2020- No TAKE 1 Met hodi (ZOCOR) 40 7- 10-[address] mg tablet 00:00: 00:00 MOUTH ONCE H ospita 00 :00 DAILY AT l NIGHT simvastatin 2020- No TAKE 1 Met hodi (ZOCOR) 40 02-05 10- TABLET BY st mg tablet 00:00: 00:00 MOUTH ONCE H ospita 00 :00 DAILY AT l NIGHT gabapentin Yes 300 mg = 1 M emoria 300 MG Oral 6-03 cap, PO, l Capsule 16:24: TID, 0 Refill(s) amLODIPine 2020- No Take 1 Meth roberto (NORVASC) 5 11-[address] mg tablet 00:00: 00:00 mouth Hospit a 00 :00 twice l daily amLODIPine 2020- No Take 1 Meth roberto (NORVASC) 5 11-01-[address] mg tablet 00:00: 00:00 mouth Hospit a 00 :00 twice l daily amLODIPine 2020-0 2020- No Take 1 Meth roberto (NORVASC) 5 11-01-[address] mg tablet 00:00: 00:00 mouth Hospit a 00 :00 twice l daily amLODIPine 2020-0 2020- No Take 1 Meth roberto (NORVASC) 5 -08 14-[address] mg tablet 00:00: 00:00 mouth Hospit a 00 :00 twice l daily Misc 0 No 200 mL, Memoria Medication 2-22 Soln-IV, l 15:41: IV, Once, first dose 09/24/20 9:41:00 RETAIL ACCOUNT MANAGER, stop date 09/24/20 9:41:00 RETAIL ACCOUNT MANAGER propofol No 50 mg = 5 Maurizio rainer 2-22 mL, l 15:26: Emulsion, IV, Once, first dose 09/24/20 9:26:00 RETAIL ACCOUNT MANAGER, stop date 09/24/20 9:26:00 RETAIL ACCOUNT MANAGER propofol 2020- No 70 mg = 7 Maurizio rainer 2-22 mL, l 15:22: Emulsion, IV, Once, first dose 09/24/20 9:22:00 RETAIL ACCOUNT MANAGER, stop date 09/24/20 9:22:00 RETAIL ACCOUNT MANAGER lidocaine 0 No 50 mg = Memor ia 2-22 2.5 mL, l 15:20: Injection, IV, Once, first dose 09/24/20 9:20:00 RETAIL ACCOUNT MANAGER, stop date 09/24/20 9:20:00 RETAIL ACCOUNT MANAGER LR 1,000 mL 2020-0 No 1,000 mL, M emoria 2-22 IV, 30 l 13:35: mL/hr, start date 09/24/20 7:35:00 RETAIL ACCOUNT MANAGER, 2.2, m2 Lidocaine 2020-0 Yes 0.2 mL, Memor ia 2% 0.2 mL 2-22 Injection, l IV Start 13:35: Subcutaneo Her webb [[facility]] 00 us, Once PRN for other (see comment), first dose 09/24/20 7:35:00 RETAIL ACCOUNT MANAGER Metformin 2020-0 Yes 500 mg, Memor ia 2-20 Oral, BID, l 17:05: DM Arturo 00 gabapentin Yes 300 mg = 1 M [...] oral 2-20 tabs, l tablet 16:44: Oral, [place] 00 Daily, DM lisinopril Yes 20 mg = 1 Me moria 20 mg oral 2-20 tabs, l tablet 16:44: Oral, Arturo 00 Daily, HTN Metoprolol Yes 50 mg = 1 Me moria Succinate 2-20 tabs, l ER 50 mg 16:43: Oral, qHS, Her webb oral 00 HTN tablet, extended release Omeprazole Yes 20 mg = 1 Me moria 20 MG 2-20 caps, l Enteric 16:43: Oral, [place] Coated 00 Daily, Capsule GERD amLODIPine Yes 2.5 mg = 1 M emoria 2.5 mg oral 2-20 tabs, l tablet 16:41: Oral, [place] 00 Daily, HTN Aspir 81 Yes 81 mg = 1 Maurizio rainer oral 2-20 tabs, l delayed 16:41: Oral, [place] release 00 Daily tablet metoprolol Yes 50 mg = 1 Me moria 50 mg oral 2-05 tab, PO, l tablet, 18:18: Daily, # Miguel n extended 00 90 tab, 3 release Refill(s), Pharmacy: [id number], 175.26, cm, 09/07/20 11:34:00 RETAIL ACCOUNT MANAGER, Height, 108.182, kg, 09/07/20 11:34:00 RETAIL ACCOUNT MANAGER, Weight Metformin Yes 500 mg = 1 Me moria hydrochlori 2-05 tab, PO, l de 500 MG 17:42: BID-Meals, He rmann Oral Tablet 00 # 30 tab, 0 Refill(s) Hydrochloro Yes 1 tab, PO, Memoria thiazide 25 2-05 Daily, # l MG / 17:42: 30 tab, 0 Arturo Lisinopril 00 Refill(s) 20 MG Oral Tablet amLODIPine Yes 5 mg = 1 Mem oria 5 mg oral 2-05 tab, PO, l tablet 17:42: Daily, # [place] 00 90 tab, 0 Refill(s) simvastatin Yes 40 mg = 1 M emoria 40 mg oral 2-05 tab, PO, l tablet 17:42: Bedtime, # Beth nn 00 90 tab, 1 Refill(s) glimepiride Yes 2 mg = 1 Me moria 2 mg oral 2-05 tab, PO, l tablet 17:42: Breakfast, Beth nn 00 # 30 tab, 0 Refill(s) Aspirin 81 Yes 81 mg = 1 Me moria MG Enteric 2-05 tab, PO, l Coated 17:42: Daily, # [place] Tablet 00 90 tab, 3 Refill(s) Calcium Yes CHEW, BID, Maurizio rainer 500+D 2-05 0 l 17:42: Refill(s) Arturo 00 omeprazole Yes 20 mg = 1 Me moria 20 mg oral 2-05 cap, PO, l delayed 17:42: Daily, # Miguel n release 00 30 cap, 0 capsule Refill(s) Vitamin D3 Yes 25 Memoria 2-05 microgram, l 17:42: PO, Daily, Arturo 00 0 Refill(s) Vitamin B12 Yes 50 Memori a 2-05 microgram, l 17:42: PO, Daily, Arturo 00 0 Refill(s) lisinopril- Yes TAKE ONE [facility] hydrochloro 1-[address] thiazide 00:00: MOUTH Hospita (PRINZIDE,Z 00 TWICE l ESTORETIC) DAILY 20-25 mg per tablet lisinopril- Yes TAKE ONE Me thodi hydrochloro 1-[address] thiazide 00:00: MOUTH Hospita (PRINZIDE,Z 00 TWICE l ESTORETIC) DAILY 20-25 mg per tablet lisinopril- Yes TAKE ONE Me thodi hydrochloro 1-[address] thiazide 00:00: MOUTH Hospita (PRINZIDE,Z 00 TWICE l ESTORETIC) DAILY 20-25 mg per tablet lisinopril- Yes TAKE ONE Me thodi hydrochloro 1-[address] thiazide 00:00: MOUTH Hospita (PRINZIDE,Z 00 TWICE l ESTORETIC) DAILY 20-25 mg per tablet lisinopril- Yes TAKE ONE Me thodi hydrochloro 1-[address] thiazide 00:00: MOUTH Hospita (PRINZIDE,Z 00 TWICE l ESTORETIC) DAILY 20-25 mg per tablet lisinopril- Yes TAKE ONE Me thodi hydrochloro 1-[address] thiazide 00:00: MOUTH Hospita (PRINZIDE,Z 00 TWICE l ESTORETIC) DAILY 20-25 mg per tablet lisinopril- 2022- No TAKE ONE M ethodi hydrochloro 1-28 07-[address] thiazide 00:00: 00:00 MOUTH Hospita (PRINZIDE,Z 00 :00 TWICE l ESTORETIC) DAILY 20-25 mg per tablet Tylenol as Tylenol as No Tylenol as [...] TWICE A DAY FreeStyle FreeStyle No FreeStyle [place] Mar[place] 2 Marisabel 2 Marisabel 2 Family Sensor kit Sensor kit Sensor kit Practic Use as Use as Use as e directed. directed. directed. glimepiride glimepiride No glimepirid [place] 2 mg tablet 2 mg tablet e 2 mg Family TAKE 1 TAKE 1 tablet Practic TABLET BY TABLET BY TAKE 1 e MOUTH EVERY MOUTH EVERY TABLET BY DAY DAY MOUTH EVERY DAY iron 1QD iron 1QD No iron 1QD [facility] lisinopril lisinopril No lisinopril [facility] 20 20 20 Family mg-hydrochl mg-hydrochl mg-hydroch Practic orothiazide orothiazide lorothiazi e 25 mg 25 mg de 25 mg tablet TAKE tablet TAKE tablet 1 TABLET 1 TABLET TAKE 1 TWICE A DAY TWICE A DAY TABLET BY ORAL BY ORAL TWICE A ROUTE FOR ROUTE FOR DAY BY 90 DAYS. 90 DAYS. ORAL ROUTE FOR 90 DAYS. metformin metformin No metformin [place] ER 500 mg ER 500 mg ER [...] FOR 90 DAYS metoprolol metoprolol No metoprolol [facility] succinate succinate succinate Family ER 50 mg [...] DAYS omeprazole omeprazole No 1mg Q1D omeprazole [facility] 20 mg 20 mg 20 mg Family [...] 33 e gauge OneTouch OneTouch No OneTouch [facility] Ultra Test Ultra Test Ultra Test Family strips USE strips USE strips USE Practic 1 STRIP TO 1 STRIP TO 1 STRIP TO e CHECK 3 CHECK 3 CHECK 3 TIMES DAILY TIMES DAILY TIMES DAILY OneTouch OneTouch No OneTouch [facility] Ultra2 Ultra2 Ultra2 Family Meter Meter Meter Practic e simvastatin simvastatin No simvastati [place] 40 mg 40 mg n 40 mg Family tablet tablet tablet Practic simvastatin simvastatin simvastati e 40 mg 40 mg n 40 mg tablet 1 tablet 1 tablet 1 Tablet(s) Tablet(s) Tablet(s) Oral at Oral at Oral at bedtime bedtime bedtime Immunizations Ordered Immunization Filled Immunization Date Status Commen ts Source Name Name Tdap- (Boostrix, 2022-09-04 Completed [facility] jinbold Adacel) 00:00:00 - External Shingles IM 2022-09-04 Completed Constance camacho (Shingrix) 00:00:00 - External Tdap- (Boostrix, 2022-09-04 Completed [facility] jinbold Adacel) 00:00:00 - External Shingles IM 2022-09-04 Completed Constance camacho (Shingrix) 00:00:00 - External Influenza Virus 2022-06-16 Completed [facility] Olivarez ybold Vaccine, 00:00:00 - External Quadrivalent, High Dose, Age 65 And Up Influenza Virus 2022-06-16 Completed Con[facility] Olivarez ybold Vaccine, 00:00:00 - External Quadrivalent, High Dose, Age 65 And Up COVID-19, mRNA, COVID-19, mRNA, 2021-07-03 Completed [facility] LNP-S, PF, 30 LNP-S, PF, 30 00:00:00 Practice mcg/0.3 mL dose mcg/0.3 mL dose ([employer]) ([employer]) PFIZER COVID-19 MRNA 2021-07-03 Completed [facility] VACC[facility]ATION 00:00:00 Hospital PFIZER COVID-19 MRNA 2021-07-03 Completed [facility] VACCINATION 00:00:00 Hospital PFIZER COVID-19 MRNA 2021-07-03 Completed [facility] VACCINATION 00:00:00 Hospital PFIZER COVID-19 MRNA 2021-07-03 Completed [facility] VACCINATION 00:00:00 Hospital PFIZER COVID-19 MRNA 2021-07-03 Completed [facility] VACCINATION 00:00:00 Hospital PFIZER COVID-19 MRNA 2021-07-03 Completed [facility] VACCINATION 00:00:00 Hospital influenza, influenza, 2021-04-03 Completed [facility] high-dose, high-dose, 00:00:00 Practice quadrivalent quadrivalent COVID-19, mRNA, COVID-19, mRNA, 2020-10-04 Completed [facility] L[facility], PF, 30 LNP-S, PF, 30 00:00:00 Practice mcg/0.3 mL dose mcg/0.3 mL dose ([employer]) (Pf[employer]) PFIZER COVID-19 MRNA 2020-10-04 Completed [facility] VACC[facility] 00:00:00 Hospital PFIZER COVID-19 MRNA 2020-10-04 Completed [facility] VACCINATION 00:00:00 Hospital PFIZER COVID-19 MRNA 2020-10-04 Completed [facility] VACCINATION 00:00:00 Hospital PFIZER COVID-19 MRNA 2020-10-04 Completed [facility] VACCINATION 00:00:00 Hospital PFIZER COVID-19 MRNA 2020-10-04 Completed [facility] VACCINATION 00:00:00 Hospital PFIZER COVID-19 MRNA 2020-10-04 Completed Meth odist VACCINATION 00:00:00 [facility] PFIZER COVID-19 MRNA 2020-09-13 Completed Meth odist VACCINATION 00:00:00 [facility] PFIZER COVID-19 MRNA 2020-09-13 Completed [facility] odist VACCINATION 00:00:00 [facility] PFIZER COVID-19 MRNA 2020-09-13 Completed [facility] VACCINATION 00:00:00 Hospital PFIZER COVID-19 MRNA 2020-09-13 Completed [facility] VACCINATION 00:00:00 Hospital PFIZER COVID-19 MRNA 2020-09-13 Completed [facility] VACCINATION 00:00:00 [facility] PFIZER COVID-19 MRNA 2020-09-13 Completed [facility]ist VACCINATION 00:00:00 [facility] COVID-19, mRNA, COVID-19, mRNA, 2020-09-03 Completed [facility] LNP-S, PF, 30 LNP-S, PF, 30 00:00:00 Practice mcg/0.3 mL dose mcg/0.3 mL dose (Pfizer-BioNTech) (Pfizer-BioNTech) FLUZONE HIGH-DOSE PF 2017-07-14 Completed [facility] 00:00:00 Hospital FLUZONE HIGH-DOSE PF 2017-07-14 Completed Meth odist 00:00:00 [facility] FLUZONE HIGH-DOSE PF 2017-07-14 Completed [facility] 00:00:00 Hospital FLUZONE HIGH-DOSE PF 2017-07-14 Completed [facility] 00:00:00 Hospital FLUZONE HIGH-DOSE PF 2017-07-14 Completed [facility] 00:00:00 Hospital FLUZONE HIGH-DOSE PF 2017-07-14 Completed [facility] 00:00:00 Hospital Influenza Virus 2017-07-14 Completed Constance Olivarez ybold Vaccine, 00:00:00 - External Quadrivalent, High Dose, Age 65 And Up Influenza Virus 2017-07-14 Completed Constance Olivarez ybold Vaccine, 00:00:00 - External Quadrivalent, High Dose, Age 65 And Up influenza, seasonal, influenza, seasonal, 2014-05-09 Completed [facility] injectable injectable 00:00:00 Practice pneumococcal pneumococcal 2011-12-05 Completed [facility] bassem polysaccharide PPV23 polysaccharide PPV23 00:00:00 Practice Td (adult) Td (adult) 2003-04-27 Completed [facility] preservative free preservative free 00:00:00 Practice FLUZONE HIGH-DOSE PF Unknown Completed [facility] PFIZER COVID-19 MRNA Unknown Completed [facility] PFIZER COVID-19 MRNA Unknown Completed [facility] PFIZER COVID-19 MRNA Unknown Completed [facility] zoster vaccine, Unknown Completed [facility] inactivated [facility] diphtheria/pertussis Unknown Completed Maurizio rial , acel/tetanus adult Herm gabi [id number] Unknown Completed [facility] [id number] Herm gabi oost<sup>1</sup> influenza virus Unknown Completed [facility] vaccine, Arturo inactivated<sup>2</s up> influenza virus Unknown Completed [facility] vaccine, Arturo inactivated<sup>1</s up> [id number] Unknown Completed Maurizio rial [id number] Herm gabi [id number] Unknown Completed Maurizio rial [id number] Herm gabi [id number] Unknown Completed Maurizio rial [id number] Herm gabi Influenza Virus Unknown Completed Constance Olivarez ybold Vaccine, - External Quadrivalent, High Dose, Age 65 And Up Influenza Virus Unknown Completed Constance ybold Vaccine, - External Quadrivalent, High Dose, Age 65 And Up Tdap- (Boostrix, Unknown Completed Constance Pereyra eybold Adacel) - External Shingles IM Unknown Completed Constance Bustillo d (Shingrix) - External Influenza Virus Unknown Completed Constnace peters Vaccine, - External Quadrivalent, High Dose, Age 65 And Up Influenza Virus Unknown Completed Constance peters Vaccine, - External Quadrivalent, High Dose, Age 65 And Up Tdap- (Boostrix, Unknown Completed Constance stoddardld Adacel) - External Shingles IM Unknown Completed Constance Odonnellol d (Shingrix) - External Vital Signs Vital Name Observation Time Observation Value Comments Source Systolic blood 2023-04-30 14:44:00 160 mm[Hg] Constance Seybold - pressure External Diastolic blood 2023-04-30 14:44:00 60 mm[Hg] Israel solano Seybold - pressure External Heart rate 2023-04-30 14:44:00 64 /min Constance Pereyra eybold - External Body temperature 2023-04-30 14:44:00 36.89 Torri Kaylie ey Seybold - External Respiratory rate 2023-04-30 14:44:00 18 /min Kaylie jin Seybold - External Body height 2023-04-30 14:44:00 170.2 cm Constance Pereyra eybold - External Body weight 2023-04-30 14:44:00 104.327 kg Constance Pereyra eybold - External BMI 2023-04-30 14:44:00 36.02 kg/m2 Constance Pereyra eybold - External Systolic blood 2023-03-23 14:57:00 158 mm[Hg] Constance Olivarezybold - pressure External Diastolic blood 2023-03-23 14:57:00 64 mm[Hg] Israel solano Seybold - pressure External Heart rate 2023-03-23 14:23:00 84 /min Constance Pereyra eybold - External Body temperature 2023-03-23 14:23:00 36.83 Torri Kaylie ey Seybold - External Respiratory rate 2023-03-23 14:23:00 18 /min Kaylie jin Seybold - External Body height 2023-03-23 14:23:00 170.2 cm Constance Pereyra eybold - External Body weight 2023-03-23 14:23:00 103.42 kg Constance Pereyra eybold - External BMI 2023-03-23 14:23:00 35.71 kg/m2 Constance Pereyra eybold - External Systolic blood 2023-02-24 14:04:00 156 mm[Hg] Constance Rosa - pressure External Diastolic blood 2023-02-24 14:04:00 82 mm[Hg] Israel Rosa - pressure External Heart rate 2023-02-24 14:04:00 76 /min Constance jinbocale - External Body temperature 2023-02-24 14:04:00 36.11 Torri Kaylie Rosa - External Respiratory rate 2023-02-24 14:04:00 16 /min Kaylie Rosa - External Body height 2023-02-24 14:04:00 170.2 cm Constance jinbocale - External Body weight 2023-02-24 14:04:00 105.235 kg Constance mclaughlin - External BMI 2023-02-24 14:04:00 36.34 kg/m2 Constance mclaughlin - External Oxygen saturation in 2023-02-24 14:04:00 98 /min Constance Rosa - Arterial blood by External Pulse oximetry BP Diastolic 2021-11-18 00:00:00 74 mm[Hg] [facility] Height 2021-11-18 00:00:00 68 [in_i] [facility] BMI (Body Mass 2021-11-18 00:00:00 36.9 kg/m2 [facility] BP Systolic 2021-11-18 00:00:00 149 mm[Hg] [facility] Body Weight 2021-11-18 00:00:00 242.6 [lb_av] [facility] BP Diastolic 2021-08-19 00:00:00 80 mm[Hg] [facility] Height 2021-08-19 00:00:00 68 [in_i] [facility] BMI (Body Mass 2021-08-19 00:00:00 38.3 kg/m2 [facility] BP Systolic 2021-08-19 00:00:00 156 mm[Hg] [facility] Body Weight 2021-08-19 00:00:00 252 [lb_av] [facility] Systolic blood 2023-03-15 04:51:23 155 mm[Hg] [facility] pressure Diastolic blood 2023-03-15 04:51:23 75 mm[Hg] [facility] Hospital pressure Heart rate 2023-03-15 04:51:23 66 /min [facility] Respiratory rate 2023-03-15 04:51:23 18 /min [facility] Oxygen saturation in 2023-03-15 04:51:23 99 /min [facility] Arterial blood by Pulse oximetry Body height 2023-03-15 00:58:00 170.2 cm [facility] Body weight 2023-03-15 00:58:00 103.42 kg [facility] BMI 2023-03-15 00:58:00 35.71 kg/m2 [facility] Body temperature 2023-03-15 00:38:00 37.33 Torri [facility] Heart Rate 2023-02-26 14:18:00 [facility] Systolic (mm Hg) 2023-02-26 14:18:00 Maurizio rial [facility] Diastolic (mm Hg) 2023-02-26 14:18:00 [facility] orial Arturo Height 2023-02-26 14:18:00 5 [ft_i] [facility] Weight 2023-02-26 14:18:00 [facility] BMI Calculated 2023-02-26 14:18:00 [facility] Systolic (mm Hg) 2023-02-02 14:23:00 Maurizio rial [facility] Diastolic (mm Hg) 2023-02-02 14:23:00 [facility] Heart Rate 2023-02-02 13:40:00 [facility] Height 2023-02-02 13:40:00 5 [ft_i] [facility] Weight 2023-02-02 13:40:00 [facility] BMI Calculated 2023-02-02 13:40:00 [facility] Height 2022-09-01 15:50:00 5 [ft_i] [facility] Weight 2022-09-01 15:50:00 [facility] BMI Calculated 2022-09-01 15:50:00 [facility] Heart Rate 2022-09-01 15:50:00 [facility] Systolic (mm Hg) 2022-09-01 15:50:00 Maurizio rial [facility] Diastolic (mm Hg) 2022-09-01 15:50:00 [facility] Heart Rate 2022-08-28 16:46:00 [facility] Systolic (mm Hg) 2022-08-28 16:46:00 Maurizio rial [facility] Diastolic (mm Hg) 2022-08-28 16:46:00 Mem [facility] Height 2022-08-28 16:46:00 5 [ft_i] [facility] Weight 2022-08-28 16:46:00 [facility] BMI Calculated 2022-08-28 16:46:00 [facility] Heart Rate 2022-07-01 21:55:00 [facility] Systolic (mm Hg) 2022-07-01 21:55:00 Maurizio rial [facility] Diastolic (mm Hg) 2022-07-01 21:55:00 Mem [facility] Height 2022-07-01 21:55:00 5 [ft_i] [facility] Weight 2022-07-01 21:55:00 [facility] BMI Calculated 2022-07-01 21:55:00 [facility] Systolic (mm Hg) 2022-06-16 16:07:00 Maurizio rial [facility] Diastolic (mm Hg) 2022-06-16 16:07:00 [facility] Temperature Oral (F) 2022-06-16 15:51:00 97.7 F [facility] Heart Rate 2022-06-16 15:51:00 [facility] Height 2022-06-16 15:51:00 5 [ft_i] [facility] Weight 2022-06-16 15:51:00 [facility] BMI Calculated 2022-06-16 15:51:00 [facility] al [facility] Systolic blood 2022-05-20 16:14:00 155 mm[Hg] [facility] pressure Diastolic blood 2022-05-20 16:14:00 75 mm[Hg] [facility] pressure Heart rate 2022-05-20 16:14:00 62 /min [facility] Respiratory rate 2022-05-20 16:14:00 21 /min [facility] Oxygen saturation in 2022-05-20 16:14:00 98 /min [facility] Arterial blood by Pulse oximetry Body temperature 2022-05-20 15:44:00 36.44 Torri [facility] Body height 2022-05-20 13:03:00 175.3 cm [facility] Body weight 2022-05-20 13:03:00 102.513 kg [facility] BMI 2022-05-20 13:03:00 33.37 kg/m2 [facility] Heart Rate 2022-05-15 16:15:00 [facility] Systolic (mm Hg) 2022-05-15 16:15:00 Maurizio rial [facility] Diastolic (mm Hg) 2022-05-15 16:15:00 Mem [facility]rial [facility] Height 2022-05-15 16:15:00 5 [ft_i] [facility] Weight 2022-05-15 16:15:00 [facility] Calculated 2022-05-15 16:15:00 [facility] Systolic blood 2022-03-11 17:13:56 141 mm[Hg] [facility] pressure Diastolic blood 2022-03-11 17:13:56 79 mm[Hg] [facility] pressure Heart rate 2022-03-11 17:13:56 83 /min [facility] Body temperature 2022-03-11 17:13:56 36.11 Torri [facility] Respiratory rate 2022-03-11 17:13:56 8 /min [facility] Oxygen saturation in 2022-03-11 17:13:56 99 /min [facility] Arterial blood by Pulse oximetry Body weight 2022-03-11 10:00:13 108.5 kg [facility] BMI 2022-03-11 10:00:13 35.32 kg/m2 [facility] Body height 2022-03-04 19:50:00 175.3 cm [facility] Heart Rate 2022-02-10 14:52:00 [facility] Respitory Rate 2022-02-10 14:52:00 [facility] Systolic (mm Hg) 2022-02-10 14:52:00 Maurizio rial [facility] Diastolic (mm Hg) 2022-02-10 14:52:00 [facility] Height 2022-02-10 14:52:00 170.18 cm [facility] Weight 2022-02-10 14:52:00 [facility] BMI Calculated 2022-02-10 14:52:00 [facility] Heart Rate 2022-01-24 15:39:00 [facility] Respitory Rate 2022-01-24 15:39:00 [facility] Systolic (mm Hg) 2022-01-24 15:39:00 Maurizio rial [facility] Diastolic (mm Hg) 2022-01-24 15:39:00 [facility] Height 2022-01-24 15:39:00 170.18 cm [facility] Weight 2022-01-24 15:39:00 [facility] BMI Calculated 2022-01-24 15:39:00 [facility] Height 2022-01-08 18:12:00 170.18 cm [facility] Weight 2022-01-08 18:12:00 [facility] BMI Calculated 2022-01-08 18:12:00 [facility] Heart Rate 2022-01-08 18:12:00 [facility] Systolic (mm Hg) 2022-01-08 18:12:00 Maurizio rial [facility] Diastolic (mm Hg) 2022-01-08 18:12:00 [facility] Heart Rate 2021-12-27 14:02:00 [facility] Respitory Rate 2021-12-27 14:02:00 [facility] Systolic (mm Hg) 2021-12-27 14:02:00 Maurizio rial [facility] Diastolic (mm Hg) 2021-12-27 14:02:00 [facility] Height 2021-12-27 14:02:00 171.45 cm [facility] Weight 2021-12-27 14:02:00 [facility] BMI Calculated 2021-12-27 14:02:00 [facility] Systolic (mm Hg) 2021-04-04 15:11:00 Maurizio rial [facility] Diastolic (mm Hg) 2021-04-04 15:11:00 Mem [facility] Heart Rate 2021-04-04 15:11:00 [facility] Height 2021-04-04 15:11:00 175.26 cm [facility] Weight 2021-04-04 15:11:00 [facility] BMI Calculated 2021-04-04 15:11:00 [facility] Systolic (mm Hg) 2021-01-03 16:17:00 Mauriizo rial [facility] Diastolic (mm Hg) 2021-01-03 16:17:00 [facility] Heart Rate 2021-01-03 16:17:00 [facility] Height 2021-01-03 16:17:00 175.26 cm [facility] Weight 2021-01-03 16:17:00 [facility] BMI Calculated 2021-01-03 16:17:00 [facility] Systolic (mm Hg) 2020-10-08 15:56:00 Maurizio rial [facility] Diastolic (mm Hg) 2020-10-08 15:56:00 Mem [facility] Heart Rate 2020-10-08 15:56:00 [facility] Height 2020-10-08 15:56:00 175.26 cm [facility] Weight 2020-10-08 15:56:00 [facility] BMI Calculated 2020-10-08 15:56:00 [facility] Respitory Rate 2020-09-24 16:06:00 [facility] Systolic (mm Hg) 2020-09-24 16:06:00 Maurizio rial [facility] Diastolic (mm Hg) 2020-09-24 16:06:00 Mem [facility] Heart Rate 2020-09-24 15:50:00 [facility] Respitory Rate 2020-09-24 15:50:00 [facility] Systolic (mm Hg) 2020-09-24 15:50:00 Maurizio rial [facility] Diastolic (mm Hg) 2020-09-24 15:50:00 [facility] Heart Rate 2020-09-24 15:40:00 [facility] Respitory Rate 2020-09-24 15:40:00 [facility] Systolic (mm Hg) 2020-09-24 15:40:00 Maurizio rial [facility] Diastolic (mm Hg) 2020-09-24 15:40:00 [facility] Temperature Oral (F) 2020-09-24 15:30:00 36.4 Torri [facility] Heart Rate 2020-09-24 15:30:00 [facility] Temperature Oral (F) 2020-09-24 13:46:00 36.5 Torri [facility] Height 2020-09-24 13:46:00 175.2 cm [facility] Height 2020-09-22 16:40:00 175.2 cm Deonna Morris Systolic (mm Hg) 2020-09-07 17:34:00 Maurizio Morris Diastolic (mm Hg) 2020-09-07 17:34:00 Gonzalo Morris Heart Rate 2020-09-07 17:34:00 Deonna Morris Height 2020-09-07 17:34:00 175.26 cm Deonna Morris Weight 2020-09-07 17:34:00 [facility] BMI Calculated 2020-09-07 17:34:00 Nadeem al [facility] Procedures Procedure Date / Time Performing Source Performed Clinician CHEST PA LATERAL 2023-04-30 Robbin Hitchcockold - 16:09:15 External QUANTAFLO 2023-04-30 Robbin Hitchcock - 14:42:58 External ASSIGNMENT OF BENEFITS 2023-04-15 [facility] 19:42:07 Unassigned, No [facility] REAGENT STRIP/BLOOD GLUCOSE 2023-03-23 Robbin Hitchcockold - 14:32:00 External RESPIRATORY PATHOGEN PANEL WITH 2023-03-15 Celestine Grissom COVID-19 RT-PCR 03:40:00 Hospital ECG ED PRELIMINARY INTERPRETATION 2023-03-15 Celestine Grissom 03:20:10 Hospital XR CHEST 1 VW PORTABLE 2023-03-[address] 01:36:28 Hospital CBC WITH PLATELET AND DIFFERENTIAL 2023-03-15 Ruben Grissomist 01:11:00 Hospital COMPREHENSIVE METABOLIC PANEL 2023-03-15 Celestine Grissomist 01:11:00 Hospital TROPONIN T 2023-03-15 Celestine Grissomist 01:11:00 Hospital NT-PROBNP 2023-03-15 Celestine Grissomist 01:11:00 Hospital ESTIMATED GFR 2023-03-15 Celestine Grissom Mu-Ism 01:11:00 Hospital COVID-19, INFLUENZA A&B, AND RSV 2023-03-15 Celestine Grissom QUALITATIVE RT-PCR 01:11:00 [facility] ECG 12-LEAD 2023-03-15 Celestine Grissom 00:49:06 Hospital DURABLE MEDICAL EQUIPMENT 2023-02-12 Britney Allie Method ist 14:08:25 [facility] POC GLUCOSE 2023-02-12 Britney, Allie Mu-Ism 13:32:00 [facility] CBC WITH PLATELET AND DIFFERENTIAL 2023-02-12 Sukhwinder Alfaroist 09:58:00 Hospital PROTHROMBIN TIME WITH INR 2023-02-12 Sukhwinder Alfaro Method ist 09:58:00 Hospital PARTIAL THROMBOPLASTIN TIME (PTT) 2023-02-12 Sukhwinder Alfaroist 09:58:00 Hospital COMPREHENSIVE METABOLIC PANEL 2023-02-12 Sukhwinder Alfaro thodist 09:58:00 Hospital MAGNESIUM LEVEL 2023-02-12 Sukhwinder Alfaroist 09:58:00 Hospital PHOSPHORUS LEVEL 2023-02-12 Sukhwinder Alfaro 09:58:00 Hospital ESTIMATED GFR 2023-02-12 Sukhwinder Alfaroist 09:58:00 Hospital POC GLUCOSE 2023-02-12 Britney Allie Mu-Ism 04:21:00 [facility] POC GLUCOSE 2023-02-12 Allie Tan Mu-Ism 03:18:00 [facility] US CAROTID DUPLEX BILATERAL 2023-02-11 Zhanna Manriquez odist 23:14:00 Hospital POC GLUCOSE 2023-02-11 Britney Allie Mu-Ism 20:56:00 [facility] POC GLUCOSE 2023-02-11 Allie Tan Mu-Ism 16:55:00 [facility] TTE COMPLETE, W CONTRAST, W 2023-02-11 Harpreet Novak DOPPLER ([id number]) 16:36:00 [facility] POC GLUCOSE 2023-02-11 Allie Tan Mu-Ism 12:59:00 [facility] CBC WITH PLATELET AND DIFFERENTIAL 2023-02-11 Sukhwinder Alfaroist 09:11:00 Hospital PROTHROMBIN TIME WITH INR 2023-02-11 Sukhwinder Alfaro ist 09:11:00 Hospital PARTIAL THROMBOPLASTIN TIME (PTT) 2023-02-11 Sukhwinder Alfaro 09:11:00 Hospital COMPREHENSIVE METABOLIC PANEL 2023-02-11 Sukhwinder Alfaro thodist 09:11:00 Hospital MAGNESIUM LEVEL 2023-02-11 Sukhwinder Alfaro 09:11:00 Hospital PHOSPHORUS LEVEL 2023-02-11 Sukhwinder Alfaro 09:11:00 Hospital ESTIMATED GFR 2023-02-11 Sukhwinder Alfaro 09:11:00 Hospital POC GLUCOSE 2023-02-11 Sukhwinder Alfaro 03:34:00 Hospital FERRITIN LEVEL 2023-02-11 Sukhwinder Alfaro 03:10:00 Hospital TOTAL IRON BINDING CAPACITY 2023-02-11 Sukhwinder Alfaro Meth odist 03:10:00 Hospital TROPONIN T 2023-02-11 Sukhwinder Alfaro 03:10:00 Hospital TROPONIN T 2023-02-10 Katia Paniaguaist 23:32:00 Hospital XR CHEST 1 VW PORTABLE 2023-02-10 Darin Martínez 18:39:52 [facility] CT HEAD WO CONTRAST 2023-02-10 Darin Martínez 18:39:42 [facility] CBC WITH PLATELET AND DIFFERENTIAL 2023-02-10 Darin Martínez 18:21:00 [facility] COMPREHENSIVE METABOLIC PANEL 2023-02-10 Darin Martínez thodist 18:21:00 [facility] TROPONIN, I-STAT 2023-02-10 Darin Mratínez 18:21:00 [facility] B NATRIURETIC PEP, I-STAT 2023-02-10 Darin Martínez ist 18:21:00 [facility] ESTIMATED GFR 2023-02-10 Darin Martínez 18:21:00 [facility] SMEAR REVIEW 2023-02-10 Darin Martínez 18:21:00 [facility] ECG ED PRELIMINARY INTERPRETATION 2023-02-10 Darin Martínez 18:20:42 [facility] ECG 12-LEAD 2023-02-10 Darin Martínez 18:07:42 [facility] Diabetic retinopathy 2022-07-23 [facility] screening<sup>1</sup> 06:00:00 Debridement of nail(s) by any 2022-07-01 Me morisimone Morris method(s); 6 or more 22:25:00 Removal impacted cerumen using 2022-06-16 [facility] irrigation/lavage, unilateral 16:07:00 COLONOSCOPY 2022-05-20 Keturah Calzada 15:17:00 [facility]COSE [facility]22[facility]05-[facility] 13:08[facility]00 [facility] XR CHEST 1 VW PORTABLE 2022-05-[address] 08:02:18 [facility] CBC WITH PLATELET AND DIFFERENTIAL 2022-05-19 Jorje Riggs 07:25:00 [facility] COMPREHENSIVE METABOLIC PANEL 2022-05-19 Kristine Riggs 07:25:00 [facility] TROPONIN T 2022-05-19 Kristine Riggs 07:25:00 [facility] B NATRIURETIC PEPTIDE 2022-05-19 Kristine Riggs t 07:25:00 [facility] ESTIMATED GFR 2022-05-19 Kristine Riggs 07:25:00 [facility] ECG ED PRELIMINARY INTERPRETATION 2022-05-19 Mariaelena Riggs 07:22:38 [facility] ECG 12-LEAD 2022-05-19 Kristine Riggs 07:14:46 [facility] CBC WITH PLATELET AND DIFFERENTIAL 2022-03-11 Marlene Dalton 16:12:00 Hospital BASIC METABOLIC PANEL 2022-03-11 Marlene Dalton 16:12:00 Hospital ESTIMATED GFR 2022-03-11 Marlene Dalton 16:12:00 Hospital POC GLUCOSE 2022-03-11 Marlene Dalton 15:43:00 Hospital XR CHEST 1 VW PORTABLE 2022-03-11 Andressa Jiménez 15:16:29 [facility] EP AICD IMPLANT SINGLE DUAL BI 2022-03-11 Kel Chowdhury ethodist VENT 14:39:55 [facility] POC GLUCOSE 2022-03-11 Yasmeen Quevedo 01:30:00 [facility] POC GLUCOSE 2022-03-10 Arquisola, Mu-Ism 22:47:00 [facility] POC GLUCOSE 2022-03-10 Arquisola, Mu-Ism 16:49:00 [facility] POC GLUCOSE 2022-03-10 Arquisola, Mu-Ism 13:05:00 [facility] BASIC METABOLIC PANEL 2022-03-10 Arquisola, Mu-Ism 10:34:00 [facility] CBC HEMOGRAM 2022-03-10 Arquisola, Mu-Ism 10:34:00 [facility] MAGNESIUM LEVEL 2022-03-10 Arquisola, Mu-Ism 10:34:00 [facility] PROTHROMBIN TIME WITH INR 2022-03-10 Arquisola, Method ist 10:34:00 [facility] ESTIMATED GFR 2022-03-10 Arquisola, Mu-Ism 10:34:00 [facility] PHOSPHORUS LEVEL 2022-03-10 Arquisola, Mu-Ism 10:34:00 [facility] POC GLUCOSE 2022-03-10 Arquisola, Mu-Ism 01:56:00 [facility] POC GLUCOSE 2022-03-09 Arquisola, Mu-Ism 22:26:00 [facility] POC GLUCOSE 2022-03-09 Arquisola, Mu-Ism 17:13:00 [facility] POC GLUCOSE 2022-03-09 Arquisola, Mu-Ism 12:51:00 [facility] BASIC METABOLIC PANEL 2022-03-09 Arquisola, Mu-Ism 10:40:00 [facility] CBC HEMOGRAM 2022-03-09 Arquisola, Mu-Ism 10:40:00 [facility] ESTIMATED GFR 2022-03-09 Arquisola, Mu-Ism 10:40:00 [facility] POC GLUCOSE 2022-03-09 Arquisola, Mu-Ism 02:13:00 [facility] POC GLUCOSE 2022-03-08 Arquisola, Mu-Ism 22:26:00 [facility] POC GLUCOSE 2022-03-08 Arquisola, Mu-Ism 16:32:00 [facility] POC GLUCOSE 2022-03-07 Arquisola, Mu-Ism 21:33:00 [facility] POC GLUCOSE 2022-03-07 Arquisola, Mu-Ism 16:39:00 [facility] POC GLUCOSE 2022-03-07 Arquisola, Mu-Ism 16:22:00 [facility] POC GLUCOSE 2022-03-07 Arquisola, Mu-Ism 15:42:00 [facility] EP COMPREHENSIVE STUDY W 2022-03-[address] ARRHYTHMIA INDUCTION 14:48:05 [facility] POC GLUCOSE 2022-03-07 Micheal Quevedoist 12:36:00 [facility] ABO AND RH CONFIRMATION BY 2022-03-07 Sae Metho dist PROTOCOL 12:29:00 [facility] BASIC METABOLIC PANEL 2022-03-07 Yasmeen Quevedo 10:18:00 [facility] CBC HEMOGRAM 2022-03-07 Micheal Quevedoist 10:18:00 [facility] PROTHROMBIN TIME WITH INR 2022-03-07 Sae Method ist 10:18:00 [facility] TYPE AND SCREEN 2022-03-07 Yasmeen Quevedo 10:18:00 [facility] ESTIMATED GFR 2022-03-07 Micheal Quevedoist 10:18:00 [facility] POC GLUCOSE 2022-03-07 Yasmeen uQevedo 01:25:00 [facility] XR SHOULDER 2+ VW LEFT 2022-03-06 Yasmeen Quevedo 23:09:38 [facility] POC GLUCOSE 2022-03-06 Sae Mu-Ism 21:42:00 [facility] ECG 12-LEAD 2022-03-06 Andressa Jiménez 17:51:28 [facility] POC GLUCOSE 2022-03-06 Micheal Quevedoist 15:42:00 [facility] CV STRESS TEST NUCLEAR CARDIO 2022-03-06 Lorene Rubin thodist 15:00:00 [facility] NM MYOCARDIAL PERFUSION STRESS 2022-03-06 Lorene Rubin ethodist REST 2 DAY 15:00:00 [facility] POC GLUCOSE 2022-03-06 Micheal Quevedoist 12:19:00 [facility] CBC HEMOGRAM 2022-03-06 Yasmeen Quevedo 08:56:00 [facility] BASIC METABOLIC PANEL 2022-03-06 Yasmeen Quevedo 08:56:00 [facility] MAGNESIUM LEVEL 2022-03-06 Sae Mu-Ism 08:56:00 [facility] PHOSPHORUS LEVEL 2022-03-06 Sae Mu-Ism 08:56:00 [facility] ESTIMATED GFR 2022-03-06 Yasmeen Quevedo 08:56:00 [facility] POC GLUCOSE 2022-03-06 Yasmeen Quevedo 02:16:00 [facility] POC GLUCOSE 2022-03-05 Yasmeen Quevedo 21:27:00 [facility] POC GLUCOSE 2022-03-05 Yasmeen Quevedo 16:47:00 [facility] TTE COMPLETE, W CONTRAST, W 2022-03-05 Stefani Michelle DOPPLER ([id number]) 14:48:00 [facility] POC GLUCOSE 2022-03-05 Yasmeen Quevedo 12:42:00 [facility] CBC WITH PLATELET AND DIFFERENTIAL 2022-03-05 Stefani Michelle 10:15:00 Hospital BASIC METABOLIC PANEL 2022-03-05 Stefani Michelle 10:15:00 Hospital MAGNESIUM LEVEL 2022-03-05 Stefani Michelle 10:15:00 Hospital ESTIMATED GFR 2022-03-05 Stefani Michelle 10:15:00 [facility] ANTI-SPIKE IGG ANTIBODY 2022-03-05 Stefani Michelle TITER 03:34:00 Hospital TROPONIN T 2022-03-05 rEvin Leslie 03:34:00 [facility]IENT 2022-03-05 Stefani Michelle SURVEILLANCE 03:34:00 Hospital HEMOGLOBIN A1C 2022-03-05 Stefani Michelle 03:34:00 Hospital MAGNESIUM LEVEL 2022-03-05 Ervin Leslie 03:34:00 T. [facility] US DUPLEX VENOUS LOWER EXTREMITY 2022-03-05 Stefani Michelle LEFT 01:45:00 Hospital POC GLUCOSE 2022-03-05 Stefani Michelle 01:31:00 Hospital TROPONIN T 2022-03-04 Ervin Leslie 23:53:00 T. Hospital POC GLUCOSE 2022-03-04 Stefani Michelle 23:21:00 Hospital COVID-19 QUALITATIVE RT-PCR 2022-03-04 Ervin Leslie 21:27:00 T. Hospital CBC WITH PLATELET AND DIFFERENTIAL 2022-03-04 Kelvin Leslie Mu-Ism 19:50:00 T. Hospital COMPREHENSIVE METABOLIC PANEL 2022-03-04 Ervin Leslieodist 19:50:00 T. Hospital MAGNESIUM LEVEL 2022-03-04 Ervin Leslie 19:50:00 T. Hospital TROPONIN T 2022-03-04 Ervin Leslie 19:50:00 T. Hospital B NATRIURETIC PEPTIDE 2022-03-04 Ervin Leslie 19:50:00 T. Hospital ESTIMATED GFR 2022-03-04 Ervin Leslie 19:50:00 T. Hospital ECG ED PRELIMINARY INTERPRETATION 2022-03-04 Karen Leslie 19:40:20 T. Hospital ECG 12-LEAD 2022-03-04 Ervin Leslie 19:37:40 T. Hospital ECG 12-LEAD 2022-03-04 Eladio Bonilla 18:12:36 Hospital X-RAY CERVICAL SPINE 2 OR 3 VIEW 2021-08-19 [facility] Family 00:00:00 Practice Diabetic retinopathy 2021-08-01 [facility] screening<sup>2</sup> 06:00:00 XR CHEST 1 VW PORTABLE 2021-05-12 Ervin Leslie t 16:14:49 T. Hospital ECG ED PRELIMINARY INTERPRETATION 2021-05-12 Karen Leslie 16:08:06 T. Hospital HC COMPLETE BLD COUNT W/AUTO DIFF 2021-05-12 Karen Leslie 16:05:00 T. Hospital COMPREHENSIVE METABOLIC PANEL 2021-05-12 Ervin Leslie ethodist 16:05:00 T. Hospital TROPONIN, I-STAT 2021-05-12 Ervin Leslie 16:05:00 T. Hospital B NATRIURETIC PEP, I-STAT 2021-05-12 Ervin Leslie Metho dist 16:05:00 T. Hospital ESTIMATED GFR 2021-05-12 Ervin Leslie 16:05:00 T. Hospital SMEAR REVIEW 2021-05-12 Ervin Leslie 16:05:00 T. Hospital ECG 12-LEAD 2021-05-12 Ervin Leslie 15:16:29 T. Hospital ESOPHAGOGASTRODUODENOSCOPY 2020[facility] [id number] (N/A)<sup>1</sup> 15:25:00 PACEMAKER PLACEMENT<sup>2, 3</sup> 2020-07-03 [facility] 00:00:00 [facility] [place] [place] [facility] Cardiac pacemaker procedure Maurizio marzena Morris Plan of Care Planned Activity Planned Date Details Comments Source Future Scheduled Test 2023-04-15 DIABETIC FOOT EXAM [facility] 16:02:08 [code = DIABETIC FOOT EXAM] Future Scheduled Test 2023-04-15 Hepatitis C screening [facility] 16:02:08 (procedure) [code = 203489978] Future Scheduled Test 2023-04-15 65+ PNEUMOCOCCAL [facility] 16:02:08 VACCINE (2 - PCV) [code = 65+ PNEUMOCOCCAL VACCINE (2 - PCV)] Future Scheduled Test 2023-04-15 URINE MICROALBUMIN [facility] 16:02:08 [code = URINE MICROALBUMIN] Future Scheduled Test 2023-04-15 DIABETES: RETINAL EYE [facility] 16:02:08 EXAM [code = DIABETES: RETINAL EYE EXAM] Future Scheduled Test 2023-04-15 SHINGLES VACCINES (2 [facility] 16:02:08 of 2) [code = SHINGLES VACCINES (2 of 2)] Future Scheduled Test 2023-04-15 COVID-19 VACCINE (5 [facility] 16:02:08 Pfizer series) [code = COVID-19 VACCINE (5 - Pfizer series)] Future Scheduled Test 2023-04-15 INFLUENZA VACCINE [facility] 16:02:08 (#1) [code = INFLUENZA VACCINE (#1)] Future Scheduled Test 2022-11-10 Hepatitis C screening [facility] 18:48:20 (procedure) [code = 766223565] Future Scheduled Test 2022-11-10 SHINGLES VACCINES (1 [facility] 18:48:20 of 2) [code = SHINGLES VACCINES (1 of 2)] Future Scheduled Test 2022-11-10 65+ PNEUMOCOCCAL [facility] 18:48:20 VACCINE (2 - PCV) [code = 65+ PNEUMOCOCCAL VACCINE (2 - PCV)] Future Scheduled Test 2022-11-10 COVID-19 VACCINE (4 [facility] 18:48:20 Booster for Pfizer series) [code = COVID-19 VACCINE (4 - Booster for Pfizer series)] Future Scheduled Test 2022-11-10 INFLUENZA VACCINE [facility] 18:48:20 [code = INFLUENZA VACCINE] Future Scheduled Test 2022-07-25 Hepatitis C screening [facility] 10:36:29 (procedure) [code = [id number]] Future Scheduled Test 2022-07-25 SHINGLES VACCINES (1 [facility] 10:36:29 of 2) [code = SHINGLES VACCINES (1 of 2)] Future Scheduled Test 2022-07-25 65+ PNEUMOCOCCAL [facility] 10:36:29 VACCINE (2 - PCV) [code = 65+ PNEUMOCOCCAL VACCINE (2 - PCV)] Future Scheduled Test 2022-07-25 COVID-19 VACCINE ([address] [place] [address] 10:36:29 Booster for Pfizer series) [code = COVID-19 VACCINE (4 - Booster for Pfizer series)] Future Scheduled Test 2022-07-25 INFLUENZA VACCINE [facility] 10:36:29 [code = INFLUENZA VACCINE] Future Scheduled Test 2022-06-17 HEPATITIS B VACCINES [facility] 15:51:12 (1 of 3 - 3-dose series) [code = HEPATITIS B VACCINES (1 of 3 - 3-dose series)] Future Scheduled Test 2022-06-17 Hepatitis C screening [facility] 15:51:12 (procedure) [code = [id number]] Future Scheduled Test 2022-06-17 SHINGLES VACCINES (1 [facility] 15:51:12 of 2) [code = SHINGLES VACCINES (1 of 2)] Future Scheduled Test 2022-06-17 65+ PNEUMOCOCCAL [facility] 15:51:12 VACCINE (2 - PCV) [code = 65+ PNEUMOCOCCAL VACCINE (2 - PCV)] Future Scheduled Test 2022-06-17 COVID-19 VACCINE ([address] [place] [address] 15:51:12 Booster for Pfizer series) [code = COVID-19 VACCINE (4 - Booster for Pfizer series)] Future Scheduled Test 2022-06-17 INFLUENZA VACCINE [facility] 15:51:12 [code = INFLUENZA VACCINE] Future Scheduled Test 2022-04-23 HEPATITIS B VACCINES [facility] 13:33:26 (1 of 3 - 3-dose series) [code = HEPATITIS B VACCINES (1 of 3 - 3-dose series)] Future Scheduled Test 2022-04-23 Hepatitis C screening [facility] 13:33:26 (procedure) [code = [id number]] Future Scheduled Test 2022-04-23 SHINGLES VACCINES (1 [facility] 13:33:26 of 2) [code = SHINGLES VACCINES (1 of 2)] Future Scheduled Test 2022-04-23 65+ PNEUMOCOCCAL [facility] 13:33:26 VACCINE (2 - PCV) [code = 65+ PNEUMOCOCCAL VACCINE (2 - PCV)] Future Scheduled Test 2022-04-23 COVID-19 VACCINE (4 - [facility] 13:33:26 Booster for Pfizer series) [code = COVID-19 VACCINE (4 - Booster for Pfizer series)] Future Scheduled Test 2022-04-23 INFLUENZA VACCINE [facility] 13:33:26 [code = INFLUENZA VACCINE] Future Scheduled Test 2022-04-02 HEPATITIS B VACCINES [facility] 14:41:00 (1 of 3 - 3-dose series) [code = HEPATITIS B VACCINES (1 of 3 - 3-dose series)] Future Scheduled Test 2022-04-02 Hepatitis C screening [facility] 14:41:00 (procedure) [code = [id number]] Future Scheduled Test 2022-04-02 SHINGLES VACCINES (1 [facility] 14:41:00 of 2) [code = SHINGLES VACCINES (1 of 2)] Future Scheduled Test 2022-04-02 65+ PNEUMOCOCCAL [facility] 14:41:00 VACCINE (2 - PCV) [code = 65+ PNEUMOCOCCAL VACCINE (2 - PCV)] Future Scheduled Test 2022-04-02 COVID-19 VACCINE (4 - [facility] 14:41:00 Booster for Pfizer series) [code = COVID-19 VACCINE (4 - Booster for Pfizer series)] Future Scheduled Test 2022-04-02 INFLUENZA VACCINE [facility] 14:41:00 [code = INFLUENZA VACCINE] Future Scheduled Test 2022-04-02 HEPATITIS B VACCINES [facility] 14:41:00 (1 of 3 - 3-dose series) [code = HEPATITIS B VACCINES (1 of 3 - 3-dose series)] Future Scheduled Test 2022-04-02 Hepatitis C screening [facility] 14:41:00 (procedure) [code = 390870565] Future Scheduled Test 2022-04-02 SHINGLES VACCINES (1 [facility] 14:41:00 of 2) [code = SHINGLES VACCINES (1 of 2)] Future Scheduled Test 2022-04-02 65+ PNEUMOCOCCAL [facility] 14:41:00 VACCINE (2 - PCV) [code = 65+ PNEUMOCOCCAL VACCINE (2 - PCV)] Future Scheduled Test 2022-04-02 [facility]19 [facility] Booster for Pfizer series) [code = COVID-19 VACCINE (4 - Booster for Pfizer series)] Future Scheduled Test 2022-04-02 INFLUENZA VACCINE [facility] 14:41:00 [code = INFLUENZA VACCINE] Diagnostic Test 2021-11-18 microalbumin/creatini Destinee [facility] Family Pending 00:00:00 ne, mass ratio, urine Practi ce [code = microalbumin/creatini ne, mass ratio, urine] Diagnostic Test 2021-11-18 lipid [facility]00 [code = lipid panel, Practic e serum] Diagnostic Test 2021-11-18 vitamin B12 + folate, Destinee [facility] Pending 00:00:00 serum or blood [code Practic e = vitamin B12 + folate, serum or blood] Diagnostic Test 2021-11-18 vitamin D, [facility] Pending 00:00:00 25-hydroxy, total, Practice serum [code = vitamin D, 25-hydroxy, total, serum] Diagnostic Test 2021-11-18 iron + TIBC + [facility] Fam beth Pending 00:00:00 ferritin, serum [code Practi ce = iron + TIBC + ferritin, serum] Diagnostic Test 2021-11-18 CBC w/ auto diff [facility] Pending 00:00:00 [code = CBC w/ auto Practice diff] Diagnostic Test 2021-11-18 HbA1c (hemoglobin [facility] Pending 00:00:00 A1c), blood [code = Practice HbA1c (hemoglobin A1c), blood] Instructions [facility] Practice Encounters Start End Encounter Admission Attending Care Care Encounter Source Date/Time Date/Time Type Type Clinicians Facility Department ID 2023-05-08 Preadmit nullFlavo [facility] [id number] [place] 05:48:16 jose rafael Morris 2023-08-13 2023-08-13 Outpatient CONSTANCE HENDRICKS [id number] Constance 09:40:00 09:40:00 DEDE camacho 2023-07-15 2023-07-15 Outpatient CONSTANCE BIRCH [id number] Constance 10:20:00 10:20:00 RICH Seybo ld 2023-06-26 2023-06-26 Outpatient AKHTARMAG CONSTANCE MEDINA [id number] Constance 11:15:00 11:15:00 Seybol d 2023-06-01 2023-06-01 Outpatient DOCRACONSTANCE Bonds [id number] Constance 10:30:00 10:30:00 HAFIZA Seybol d 2023-05-07 2023-05-07 Outpatient RUTHIECONSTANCE BORREGO [id number] Constance 10:00:00 10:00:00 DEDE Seybol d 2023-05-05 2023-05-05 Outpatient KWABENA MEDINA [id number] Constance 00:00:00 00:00:00 MD KRISTEN Seybol d 2023-05-04 2023-05-04 Outpatient KWABENA MEDINA [id number] Constance 00:00:00 00:00:00 MD KRISTEN Seybol d 2023-04-30 2023-04-30 Outpatient CONSTANCE MEDINA [id number] Constance 11:40:00 11:40:00 Seybol d 2023-04-30 2023-04-30 Outpatient CONSTANCE MEDINA [id number] Constance 11:05:00 11:05:00 Seybol d 2023-04-30 2023-04-30 Outpatient LAB45 CONSTANCE MEDINA [id number] Constance 10:45:00 10:45:00 Seybol d 2023-04-30 2023-04-30 Outpatient DOCRATCONSTANCE [id number] Constance 09:15:00 09:15:00 HAFIZA Seybol d 2023-04-30 2023-04-30 Outpatient DOCRATCONSTANCE [id number] Constance 00:00:00 00:00:00 HAFIZA Seybol d 2023-04-29 2023-04-29 Outpatient DOCCONSTANCE RAYGOZA [id number] Constance 10:45:00 10:45:00 HAFIZA Seybol d 2023-04-20 2023-04-20 Outpatient CONSTANCE HITCHCOCK [id number] Constance 10:15:00 10:15:00 ROBBIN Seybol janice 2023-04-15 2023-04-15 Outpatient Jose Rafael [facility] [id number] Univers 14:45:00 14:50:54 RANIA ity of [facility] 2023-04-15 2023-04-15 Laboratory Only, Ang Db Test [facility] 1.2.8 40.114 [id number] Univers 14:45:00 14:50:54 Only Unknown, Attending HEALTH 350.1.13.10 ity of [place] 4.2.7.2.686 Aidan as DELGADO?BLEA [phone] [address] MEDICAL OFFICE BUILDING 2023-04-15 2023-04-15 Orders Doctor ESTEVAN 1.2.840.114 [id number] Univers 00:00:00 00:00:00 Only Unassigned, JOSE 350.1.13.10 ity of [place] [facility] 4.2.7.2.686 Aidan as [phone] [address] 2023-04-13 2023-04-13 Ambulatory MHIE [facility] Family [id number] Memoria 13:40:00 13:40:00 Pre-Reg Medicine 62 l Purple Pod Beth newberry 2023-04-13 2023-04-13 Outpatient MHIE MHIE [id number] Memoria 08:40:00 08:40:00 62 l Arturo 2023-04-13 2023-04-13 Outpatient LAURENCE Travis [facility] [id number] 08:40:00 08:40:00 Wendy 62 Mayte 2023-04-10 2023-04-10 Outpatient KWABENA MEDINA [id number] Constance 00:00:00 00:00:00 MD Keny PETERSON 2023-04-09 2023-04-09 Outpatient CONSTANCE HITCHCOCK [id number] Constance 11:00:00 11:00:00 ROBBIN Seybol janice 2023-04-08 2023-04-08 Outpatient MHIE CANDELARIAIE [id number] Memoria 15:30:00 15:30:00 62 nancy Morris 2023-03-23 2023-03-23 Outpatient LAB45 CONSTANCE MEDINA [id number] Constance 11:15:00 11:15:00 Seybol d 2023-03-23 2023-03-23 Outpatient CONSTANCE HITCHCOCK [id number] Constance 10:30:00 10:30:00 HAFIZA Seybol d 2023-03-18 2023-03-20 Phone MHIE [facility] Family [id number] Memoria 16:08:52 04:59:59 Message Medicine 20 l Purple Pod Beth nn 2023-03-18 2023-03-20 Outside MHIE [facility] Family [id number] Memoria 14:12:13 04:59:59 Medical Medicine 19 l Records Purple Pod Beth nn 2023-03-18 2023-03-19 Outpatient MHMG MG [id number] 11:08:52 23:59:59 20 2023-03-18 2023-03-19 Outpatient MHMG MHMG [id number] 09:12:13 23:59:59 19 2023-03-14 2023-03-15 Emergency [place], .2.840.1 [id number] Methodi 19:47:00 00:13:[address] 3.430.2.7 Hospit a .3.730519 l .8 2023-03-14 2023-03-15 Emergency [facility] 802 [id number] [place] 00:00:00 00:00:00 CELESTINE [address] 2023-03-04 2023-03-04 Outpatient CONSTANCE PAULINO [id number] Constance 11:30:00 11:30:00 ROSE Seybol d 2023-03-02 2023-03-02 Outpatient CONSTANCE MEDINA [id number] Constance 00:00:00 00:00:00 Seybol d 2023-02-26 2023-02-27 Outpatient MHIE MHMG [id number] Memoria 15:15:00 04:59:59 Cardiology 58 l [place]ades Beth nn 2023-02-26 2023-02-27 Outpatient MHIE [facility] [id number] Memoria 14:30:00 04:59:59 Cardiology 59 l [place] Beth nn 2023-02-26 2023-02-26 Outpatient Brody, [facility] [id number] 10:15:00 23:59:59 Chay 58 Jose 2023-02-26 2023-02-26 Outpatient VISIT, [facility] [id number] 09:30:00 23:59:59 NURSE CSL 59 ECHO 2023-02-26 2023-02-26 Outpatient ZAYRA RADHA [id number] Memoria 10:15:00 10:15:00 57 l Radcliffe 2023-02-26 2023-02-26 Outpatient ZAYRA IVERSNO [id number] Memoria 09:30:00 09:30:00 58 l [place]cliffe 2023-02-24 2023-02-24 Outpatient CONSTANCE PAULINO [id number] Constance 11:30:00 11:30:00 ROSE Seybol d 2023-02-24 2023-02-24 Outpatient LAB45 CONSTANCE MEDINA [id number] Constance 10:45:00 10:45:00 Seybol d 2023-02-10 2023-02-12 Emergency Mantena, Neri 1.2.840.1 [id number] Methodi 12:56:00 10:28:00 Erin Itsamuel 72229.1.1 951 s Sukhwinder Yoo 3.430.2.7 [facility] Allie Tan .3.391376 l .8 2023-02-10 2023-02-12 Outpatient [facility] [id number] [place] 00:00:00 00:00:00 ALLIE [address] 2023-02-02 2023-02-03 Outpatient [facility] [id number] Memoria 13:40:00 04:59:59 Medicine 60 l Purple Pod Beth nn 2023-02-02 2023-02-02 Outpatient Margarita, [facility] [id number] 08:40:00 23:59:59 Kelsy 60 2023-02-02 2023-02-02 Outpatient RADHA [facility] [id number] Memoria 08:40:00 08:40:00 60 l Arturo 2022-10-09 2022-10-11 Outside [facility] Family [id number] Memoria 20:16:03 05:59:59 Medical Medicine 18 l Records Purple Pod Beth 2022-10-09 2022-10-10 Outpatient MHMG MHMG [id number] 14:16:03 23:59:59 18 2022-10-07 2022-10-09 Phone [facility] [id number] Memoria 21:53:28 05:59:59 Message Medicine 17 l Purple Pod Beth 2022-10-07 2022-10-08 Outpatient MHMG MHMG [id number] 15:53:28 23:59:59 17 2022-09-29 2022-10-01 Phone [facility] [id number] Memoria 14:23:32 05:59:59 Message Medicine 16 l Purple Pod Beth 2022-09-29 2022-09-30 Outpatient MHMG MHMG [id number] 08:23:32 23:59:59 16 2022-09-30 2022-09-30 Ambulatory MHIE PSC [id number] Memoria 20:10:00 20:10:00 Pre-Reg Multi-Speci 57 l alty Pod Arturo 2022-09-30 2022-09-30 Outpatient MHIE MHIE [id number] Memoria 14:10:00 14:10:00 57 l Radcliffe 2022-09-30 2022-09-30 Outpatient Gomez, [facility]MG [id number] 14:10:00 14:10:00 Sarmad Navarro 2022-09-19 2022-09-19 Ambulatory [facility] [id number] Memoria 16:40:00 16:40:00 Pre-Reg Medicine 61 l Purple Pod Beth 2022-09-19 2022-09-19 Outpatient MHIE MHIE [id number] Memoria 10:40:00 10:40:00 61 l Radcliffe 2022-09-19 2022-09-19 Outpatient Thaddeus, MHMG MHMG [id number] 10:40:00 10:40:00 Wendy 61 Mayte 2022-09-01 2022-09-02 Outpatient [facility] [id number] Memoria 15:40:00 05:59:59 Medicine 55 l Purple Pod Beth nn 2022-09-01 2022-09-01 Outpatient Thaddeus, MHMG MHMG [id number] 09:40:00 23:59:59 Wendy 55 Mayte 2022-09-01 2022-09-01 Outpatient MHIE MHIE [id number] Memoria 09:40:00 09:40:00 55 l Arturo 2022-08-28 2022-08-29 Outpatient MHIE MHMG [id number] Memoria 16:45:00 05:59:59 Cardiology 54 l [place] Beth 2022-08-28 2022-08-28 Outpatient Brody, [facility] MHMG [id number] 10:45:00 23:59:59 Chay 54 Jose 2022-08-28 2022-08-28 Outpatient MHIE MHIE [id number] Memoria 10:45:00 10:45:00 53 l Arturo 2022-08-25 2022-08-27 Phone [facility] Family [id number] Memoria 15:51:45 05:59:59 Message Medicine 15 l Purple Pod Beth 2022-08-25 2022-08-26 Outpatient MHMG MHMG [id number] 09:51:45 23:59:59 15 2022-08-11 2022-08-13 Phone [facility]IE [facility] Family [id number] Memoria 16:39:01 05:59:59 Message Medicine 14 l Blue Pod Arturo 2022-08-11 2022-08-12 Outpatient MHMG MG [id number] 10:39:01 23:59:59 14 2022-07-09 2022-07-09 Ambulatory MHIE MHMG [id number] Memoria 16:30:00 16:30:00 Pre-Reg Cardiology 47 l [place] Beth [facility] 2022-07-09 2022-07-09 Outpatient MHIE MHIE [id number] Memoria 10:30:00 10:30:00 47 l Arturo 2022-07-09 2022-07-09 Outpatient Roly, MHMG MHMG [id number] 10:30:00 10:30:00 Raina Sales 46 2022-07-01 2022-07-02 Outpatient MHIE PSC [id number] Memoria 21:50:00 05:59:59 Multi-Speci 56 l alty Pod Arturo 2022-07-01 2022-07-01 Outpatient Margarita, MHMG MHMG [id number] 15:50:00 23:59:59 Kelsy 55 2022-07-01 2022-07-01 Outpatient MHIE MHIE [id number] Memoria 15:50:00 15:50:00 56 l Arturo 2022-06-19 2022-06-21 Phone [facility] Family [id number] Memoria 20:28:36 05:59:59 Message Medicine 13 l Blue Pod Radcliffe 2022-06-19 2022-06-21 Phone MHIE PSC After [id number] Memoria 20:27:22 05:59:59 Message Hours Pod 12 l Arturo 2022-06-19 2022-06-20 Outpatient MHMG MHMG [id number] 14:28:36 23:59:59 13 2022-06-19 2022-06-20 Outpatient MHMG MHMG [id number] 14:27:22 23:59:59 12 2022-06-16 2022-06-17 Outpatient [facility] Family [id number] Memoria 15:40:00 05:59:59 Medicine 53 l Purple Pod Beth 2022-06-16 2022-06-16 Outpatient Thaddeus, MHMG MHMG [id number] 09:40:00 23:59:59 Wendy 53 Mayte 2022-06-16 2022-06-16 Outpatient MHIE MHIE [id number] Memoria 09:40:00 09:40:00 53 l Arturo 2022-05-20 2022-05-20 [facility], 1.2.840.1 [id number] Methodi 06:22:00 11:40:00 Encounter Keturah Palencia 43351.1.[address] 3.430.2.7 Hospit a .3.281853 l .8 2022-05-20 2022-05-20 [facility], 1.2.840.1 [id number] Methodi 06:22:00 11:40:00 Encounter Keturah Palencia 92607.1.[address] 3.430.2.7 Hospit a .3.654550 l .8 2022-05-20 2022-05-20 Anesthesia Byron Suh 1.2.8 40.1 [id number] Methodi 10:19:00 10:46:00 Event Thania Campuzano 71954.1.[address] 3.430.2.7 Hospit a .3.746545 l .8 2022-05-20 2022-05-20 Anesthesia Byron Suh 1.2.8 40.1 [id number] Methodi 10:19:00 10:46:00 Event Thania Campuzano 61562.1.[address] 3.430.2.7 Hospit a .3.433371 l .8 2022-05-20 2022-05-20 Surgery [facility], 1.2.840.1 [id number] Methodi 08:25:00 08:55:[address]31[address] 3.430.2.7 Hospit a .3.328779 l .8 2022-05-20 2022-05-20 Surgery [facility], 1.2.840.1 [id number] Methodi 08:25:00 08:55:[address] 19661.1.[address] 3.430.2.7 Hospit a .3.315298 l .8 2022-05-19 2022-05-19 Emergency Oneil, 1.2.840.1 [id number] 2 [id number] Methodi 01:54:00 04:30:[address] Erika 3.430.2.7 Hospit a .3.445314 l .8 2022-05-19 2022-05-19 Emergency Oneil, 1.2.840.1 [id number] 2 [id number] Methodi 01:54:00 04:30:[address] Erika 3.430.2.7 Hospit a .3.029488 l .8 2022-05-19 2022-05-19 Travel 1.2.840.1 1.2.416.216 [id number] Methodi 00:00:00 00:00:[address] 3.430.2.7 0.2.7.3.698 Ho spita .3.583896 084.8 l .8 2022-05-19 2022-05-19 Travel 1.2.840.1 1.2.388.853 [id number] Methodi 00:00:00 00:00:[address] 3.430.2.7 0.2.7.3.698 Ho spita .3.443029 084.8 l .8 2022-05-15 2022-05-16 Outpatient nullFlavo [facility] [id number] Memoria 15:45:00 04:59:59 r Cardiology 52 l [place] Beth coni 2022-05-15 2022-05-15 Outpatient Brody [facility] [id number] 10:45:00 23:59:59 Chay 51 Jose 2022-05-15 2022-05-15 Outpatient ZAYRA RADHA [id number] Memoria 10:45:00 10:45:00 52 l Arturo 2022-04-28 2022-04-28 Ambulatory nullFlavo [facility] Family 34 [id number] Memoria 15:20:00 15:20:00 Pre-Reg r Medicine 50 l Purple Pod Beth coni 2022-04-28 2022-04-28 Outpatient ZAYRA RADHA [id number] Memoria 10:20:00 10:20:00 50 l Arturo 2022-04-28 2022-04-28 Outpatient Thaddeus [facility] [id number] 10:20:00 10:20:00 Wendy 50 Mayte 2022-04-22 2022-04-22 Ambulatory nullFlavo [facility] [id number] Memoria 20:00:00 20:00:00 Pre-Reg r Cardiology 50 l Alexandrea Rivera n 2022-04-22 2022-04-22 Outpatient MHIE MHIE [id number] Memoria 15:00:00 15:00:00 50 nancy Morris 2022-04-22 2022-04-22 Outpatient Brody, [facility] [id number] 15:00:00 15:00:00 Chay Garcia 2022-03-13 2022-03-15 Phone nullFlavo [facility] [id number] Memoria 18:40:43 04:59:59 Message r Medicine 11 l Purple Pod Beth nn 2022-03-13 2022-03-15 Phone nullFlavo [facility] [id number] Memoria 16:46:34 04:59:59 Message r Medicine 10 l Gold Pod Arturo 2022-03-13 2022-03-14 Outpatient [facility] [id number] 13:40:43 23:59:59 11 2022-03-13 2022-03-14 Outpatient [facility] [id number] 11:46:34 23:59:59 10 2022-03-10 2022-03-12 Phone nullFlavo [facility] [id number] Memoria 13:42:37 04:59:59 Message r Medicine 09 l Purple Pod Beth nn 2022-03-10 2022-03-11 Outpatient [facility] [id number] 08:42:37 23:59:59 09 2022-03-04 2022-03-11 [facility] Ervin Leslie 1.2.840.1 [id number] Methodi 14:21:00 16:06:00 Encounter Stefani Michelle [address]504.1.[address] [facility]430[facility]2.7 [facility] .3.528687 l .8 2022-03-11 2022-03-11 Surgery Andressa Jiménez 1.2.840.1 [id number] Methodi 09:00:00 10:45:[address] 3.430.2.7 Hospit a .3.022378 l .8 2022-03-06 2022-03-08 Phone nullFlavo [facility] After [id number] Memoria 15:56:21 04:59:59 Message r Hours Pod 08 l [place] 2022-03-06 2022-03-07 Outpatient [facility] [id number] 10:56:21 23:59:59 08 2022-03-07 2022-03-07 Ambulatory nullFlavo [facility] Family 34 [id number] Memoria 16:00:00 16:00:00 Pre-Reg r Medicine 49 l Purple Pod Beth 2022-03-07 2022-03-07 Outpatient Thaddeus [facility] [id number] 11:00:00 11:00:00 Wendy 49 Mayte 2022-03-07 2022-03-07 Outpatient RADHA [facility] [id number] Memoria 10:20:00 10:20:00 49 l Arturo 2022-03-07 2022-03-07 Surgery Andressa Jiménez 1.2.840.1 [id number] Methodi 08:10:00 09:40:[address] 3.430.2.7 Hospit a .3.426529 l .8 2022-03-06 2022-03-06 Ambulatory nullFlavo [facility] [id number] Memoria 15:45:00 15:45:00 Pre-Reg r Cardiology 44 l [place] Beth 2022-03-06 2022-03-06 Outpatient [facility] [id number] Memoria 10:45:00 10:45:00 44 l [place]cliffe 2022-03-06 2022-03-06 Outpatient Brody, [facility] [id number] 10:45:00 10:45:00 Chay Garcia 2022-03-01 2022-03-01 Letter ESTEVAN Dominguez 1.2.840.114 [id number] Univers 00:00:00 00:00:00 (Out) Lilibeth GARCIA 350.1.13.10 it [facility] 4.2.7.2.686 Aidan as [phone] [address] 2022-02-28 2022-02-28 Laboratory Only, Ang Db Test [facility] 1.2.8 40.114 [id number] Univers 12:15:00 12:30:00 Only Kindra Steiner [facility] 350.1.13.10 [facility] 4.2.7.2.686 Aidan as DELGADO?BLEA [phone] Me baron [address] MEDICAL OFFICE BUILDING 2022-02-28 2022-02-28 Outpatient R OBDULIA [facility] [id number] Univers 12:15:00 12:15:00 KINDRA estevez o f [facility] 2022-02-18 2022-02-20 Phone nullFlavo [facility] [id number] Memoria 14:29:48 04:59:59 Message r Medicine 07 l Gold Pod Arturo 2022-02-18 2022-02-20 Phone nullFlavo [facility] [id number] Memoria 14:28:04 04:59:59 Message r Medicine 06 l Blue Pod Arturo 2022-02-18 2022-02-19 Outpatient [facility] [id number] 09:29:48 23:59:59 07 2022-02-18 2022-02-19 Outpatient [facility] [id number] 09:28:04 23:59:59 06 2022-02-17 2022-02-19 Phone nullFlavo [facility] [id number] Memoria 20:31:17 04:59:59 Message r Medicine 05 l Blue Pod Arturo 2022-02-17 2022-02-18 Outpatient [facility] [id number] 15:31:17 23:59:59 05 2022-02-13 2022-02-15 Phone nullFlavo [facility] [id number] Memoria 16:47:58 04:59:59 Message r Medicine 04 l Purple Pod Beth 2022-02-13 2022-02-14 Outpatient MHMG [facility] [id number] 11:47:58 23:59:59 04 2022-02-10 2022-02-11 Outpatient nullFlavo [facility] 34 [id number] Memoria 14:40:00 04:59:59 r Medicine 45 l Purple Pod Beth 2022-02-10 2022-02-10 Outpatient Margarita, [facility] [id number] 09:40:00 23:59:59 Kelsy 45 2022-02-10 2022-02-10 Outpatient MHIE MHIE [id number] Memoria 09:40:00 09:40:00 45 l Arturo 2022-01-28 2022-01-30 Phone nullFlavo [facility] [id number] Memoria 20:37:21 04:59:59 Message r Medicine 03 l Purple Pod Beth 2022-01-28 2022-01-30 Phone nullFlavo [facility] [id number] Memoria 20:35:59 04:59:59 Message r Medicine 02 l Purple Pod Beth 2022-01-28 2022-01-29 Outpatient MHMG MG [id number] 655 15:37:21 23:59:59 03 2022-01-28 2022-01-29 Outpatient MHMG MG [id number] 15:35:59 23:59:59 02 2022-01-24 2022-01-25 Outpatient nullFlavo [facility] 34 [id number] Memoria 15:20:00 04:59:59 r Medicine 48 l Purple Pod Beth 2022-01-24 2022-01-24 Outpatient Margarita, MHMG MG [id number] 10:20:00 23:59:59 Kelsy 48 2022-01-24 2022-01-24 Outpatient MHIE IE [id number] Memoria 10:20:00 10:20:00 47 nancy Morris 2022-01-08 2022-01-09 [place] [id number] Memoria 18:00:00 04:59:59 r Cardiology 46 l [place] [facility] 2022-01-08 2022-01-08 Outpatient Roly, MG MG [id number] 13:00:00 23:59:59 Majid Mónica 46 2022-01-08 2022-01-08 Outpatient MHIE IE [id number] Memoria 13:00:00 13:00:00 45 nancy Morris 2022-01-02 2022-01-04 Phone nullFlavo [facility] [id number] Memoria 21:02:59 04:59:59 Message r Medicine 01 l Purple Pod Beth 2022-01-02 2022-01-03 Outpatient MHMG MG [id number] 16:02:59 23:59:59 2021-12-27 2021-12-28 Outpatient nullFlavo [facility] 34 [id number] Memoria 13:20:00 04:59:59 r Medicine 43 l Purple Pod Beth 2021-12-27 2021-12-27 Outpatient LAURENCE Avila [id number] 08:20:00 23:59:59 Kelsy 43 2021-12-27 2021-12-27 Outpatient ZAYRA IVERSON [id number] Memoria 08:20:00 08:20:00 43 l Arturo 2021-11-18 2021-11-18 Outpatient Dave_S VFP VFP [id number] [facility] 02:05:00 02:05:00 [id number] Family Practic e 2021-11-18 2021-11-18 Yobany VFP [place] - [id number] [facility] 00:00:00 00:00:00 Jose Rafael Natarajan, Kiesha Family DO: 1309 Medical - Pract ic 1092 _[facility] [address], [facility], ([facility] [place]) [place] [address] , Ph. 2021-10-24 2021-10-24 Ambulatory nullFlavo [facility] [id number] Memoria 16:00:00 16:00:00 Pre-Reg r Cardiology 42 l [place] Beth 2021-10-24 2021-10-24 Outpatient Brody [facility] [id number] 11:00:00 11:00:00 Chay Garcia 2021-10-10 2021-10-10 Outpatient ZAYRA IVERSON [id number] Memoria 10:30:00 10:30:00 42 l Arturo 2021-09-04 2021-09-04 Outpatient Dave_S VFP VFP [id number] -[id number] [place] 05:38:00 05:38:00 [id number] Family Practic e 2021-09-04 2021-09-04 Outpatient Dave_S VFP VFP [id number] [facility] 05:38:00 05:38:00 [id number] Family Practic e 2021-08-22 2021-08-22 Outpatient Dave_S VFP VFP [id number] -[id number] [facility] 03:12:00 03:12:00 [id number] Family Practic e 2021-08-19 2021-08-19 Outpatient Dave_S VFP VFP [id number] -[id number] [facility] 01:08:00 01:08:00 [id number] Family Practic e 2021-08-19 2021-08-19 Yobany VFP [place] - [id number] [facility] 00:00:00 00:00:00 Kiesha Guerrero DO: 1309 Medical - Pract ic Fm 10[address] VM_HOU_[facility] Suite [facility], ([facility] [place]) [place] [address] , Ph. 2021-07-31 2021-08-01 Outpt Diag nullFlavo [facility] [id number] [facility] 18:20:00 05:59:00 Services r Outpatient 02 l Imaging Arturo [place] 2021-07-31 2021-07-31 Outpatient Le, Tani MHOIP OIP [id number] 12:20:00 23:59:00 Vernon Narayanan 02 2021-07-30 2021-07-30 Outpatient Dave_S VFP VFP [id number] [facility] 10:12:00 10:12:00 [id number] Family Practic e 2021-07-19 2021-07-19 Refotilio Carey, 1.2.840.1 [id number] Methodi 00:00:00 00:00:[address] 3.430.2.7 Hospit a .3.935006 l .8 2021-07-03 2021-07-03 Clinical 1.2.840.1 [id number] Methodi 11:05:00 11:29:[address] 3.430.2.7 Hospit a .3.483478 l .8 2021-05-29 2021-05-29 Jean Carey 1.2.840.1 [id number] Methodi 00:00:00 00:00:[address] 3.430.2.7 Hospit a .3.877209 l .8 2021-05-12 2021-05-12 Emergency Anuj, 1.2.840.1 [id number] Methodi 10:16:00 12:52:00 [address]ason [address] 3.430.2.7 Hospit a .3.609594 l .8 2021-05-12 2021-05-12 Travel 1.2.840.1 1.2.124.134 [id number] [id number] Methodi 00:00:00 00:00:[address] 3.430.2.7 0.2.7.3.698 Ho spita .3.551977 084.8 l .8 2021-04-17 2021-04-18 Outpatient nullFlavo [facility] [id number] Memoria 16:30:00 04:59:59 r Cardiology 41 l [place] Beth 2021-04-17 2021-04-17 Outpatient VISIT, [facility] [id number] 11:30:00 23:59:59 NURSE CSL 41 ECHO 2021-04-17 2021-04-17 Outpatient ZAYRA IVERSON [id number] Memoria 11:30:00 11:30:00 41 nancy Morris 2021-04-04 2021-04-05 Outpatient nullFlavo [facility] [id number] Memoria 15:00:00 04:59:59 r Cardiology 39 l [place] Beth 2021-04-05 2021-04-05 Letter ESTEVAN Dominguez 1.2.840.114 [id number] Univers 00:00:00 00:00:00 (Out) Lilibeth GARCIA 350.1.13.10 y [facility] 4.2.7.2.686 Aidan as [phone] [facility] josé 019 [address] 2021-04-04 2021-04-04 Outpatient [facility], [facility] [id number] 10:00:00 23:59:59 Chay 39 Jose 2021-04-04 2021-04-04 Outpatient ZAYRA IVERSON [id number] Memoria 10:00:00 10:00:00 39 nancy Morris 2021-04-03 2021-04-03 Laboratory Only, Ang Db Test [facility] 1.2.8 40.114 [id number] Univers 14:12:44 14:22:44 Only Brad Gomez 350.1.13.10 itNoniton 4.2.7.2.686 Aidan as Delgado?Blea [id number] La baron [address] Medical Office Building 2021-04-03 2021-04-03 Outpatient R [facility] [id number] Univers 14:10:00 14:10:00 BRAD estevez o f [facility] 2021-01-03 2021-01-04 Outpatient nullFlavo [facility] [id number] Memoria 16:00:00 04:59:59 r Cardiology 40 l [facility] Miguel 2021-01-03 2021-01-04 Outpt Diag nullFlavo [facility] [id number] Memoria 16:34:00 04:59:00 Services r Outpatient 01 l [facility] Arturo [facility] 2021-01-03 2021-01-03 Outpatient Juan A, [facility] [id number] 11:00:00 23:59:59 Yani 40 [place] 2021-01-03 2021-01-03 Outpatient Brody, 2.16.840. 2.16.840.1. [id number] 11:34:00 23:59:00 Chay 1.053146. 236860.3.61 01 Jose 3.615.36 5.36 2021-01-03 2021-01-03 Outpatient MHIE RADHA [id number] Memoria 11:00:00 11:00:00 40 l Arturo 2020-12-04 2020-12-06 Phone nullFlavo [facility] [id number] Memoria 15:12:08 04:59:59 Message r Cardiology [facility] 2020-12-04 2020-12-05 Outpatient [facility] [id number] 10:12:08 23:59:59 00 2020-11-06 2020-11-06 Emergency [facility], [facility] 064 [id number] [place] 00:00:00 00:00:[address] NERI [address] 2020-10-08 2020-10-09 Outpatient nullFlavo [facility] [id number] Memoria 16:15:00 05:59:59 r Cardiology 37 l [facility] Miguel n 2020-10-08 2020-10-09 Outpatient nullFlavo [facility] [id number] Memoria 14:15:00 05:59:59 r Cardiology 38 l [facility] Miguel n 2020-10-08 2020-10-08 Outpatient Brody, [facility] [id number] 10:15:00 23:59:59 Chay 37 Jose 2020-10-08 2020-10-08 Outpatient Brody, [facility] [id number] 08:15:00 23:59:59 Chay 38 Jose 2020-10-08 2020-10-08 Outpatient MHIE IE [id number] Memoria 10:15:00 10:15:00 37 nancy Morris 2020-10-08 2020-10-08 Outpatient IE RADHA [id number] Memoria 08:15:00 08:15:00 [facility]-10-[facility] 2020-10-04 Outpatient PIERCE [facility] [id number] [address] [place] [address] 00:00:00 00:00:00 POLO Nicholas[address] 2020-09-27 2020-09-27 Ambulatory nullFlavo [facility] [id number] Memoria 20:00:00 20:00:00 Pre-Reg r Cardiology 36 l [facility] Miguel 2020-09-27 2020-09-27 Outpatient MH[facility] [id number] Memoria 14:00:00 14:00:00 [facility] 2020-09-27 2020-09-27 Outpatient VISIT, [facility] [id number] 14:00:00 14:00:00 NURSE GRADUATE STUDENT 36 STRESS 2020-09-24 2020-09-24 Outpatient nullFlavo [facility] [id number] Memoria 13:16:01 16:18:00 r [facility] 2020-09-24 2020-09-24 Outpatient Peddamatham [id number] 07:16:01 10:18:00 , Roslyn 8 2020-09-24 2020-09-24 Outpatient nullFlavo [facility] [id number] Memoria 07:16:01 10:18:00 r l Arturo 2020-09-13 2020-09-13 Outpatient [facility] [id number] [place] 00:00:00 00:00:[address] 2020-09-07 2020-09-08 [place] [id number] Memoria 17:00:00 05:59:59 r Cardiology 35 l Alexandrea Rivera n 2020-09-07 2020-09-07 [place] [id number] 11:00:00 23:59:59 Chay 35 Jose 2020-09-07 2020-09-07 Outpatient MHIE IE [id number] Memoria 11:00:00 11:00:00 35 l Arturo 2020-07-13 2020-07-17 Inpatient NINO, [facility] 064 [id number] [place] 00:00:00 00:00:00 BILL [address] 2020-07-16 2020-07-16 Ambulatory nullFlavo [facility] [id number] Memoria 21:00:00 21:00:00 Pre-Reg r Cardiology 34 l Alexandrea Rivera n 2020-07-16 2020-07-16 Outpatient MHIE IE [id number] Memoria 15:00:00 15:00:00 34 l Arturo 2020-07-16 2020-07-16 Outpatient Maniar, MG MG [id number] 15:00:00 15:00:00 Yoan H 34 2018-12-22 2018-12-22 Outpatient [place]_[facility] [id number] [place] 11:37:00 11:37:00 [facility] Results Test Description Test Time Test Comments Results Result Comments Source [employer]ANT[employer] 2023-04-30 14:43:30 Test Item Value Reference Range Interpretation Comme nts [employer] left side (test code See_Comment L [Automated message] The system = 13144-4Q) which generated this result transmitted ref erence range: 1.40 - 0.90 NA. The reference range was not u sed to interpret this result as normal/abnormal. [employer] right side (test See_Comment P resentation Factors: code = 12482-0H) Hypertensio n, Hyperlipidemia, DiabetesExercis e Modality: At RestNormal - 1. 40 - 1.00Borderline - 0.99 - 0.90Mild - 0.89 - 0.60Mo derate - 0.59 - 0.30Severe - 0. 29 - 0.00 [Automated mess age] The system which generated this result transmitted ref erence range: 1.40 - 0.90 NA. The reference range was not u sed to interpret this result as normal/abnormal. Lab Interpretation (test code Abnormal = 39971-1) Constance fran - ExternalREAGENT STRIP/BLOOD [id number] 14:32:00 Test Item Value Reference Range Interpretation Comments BLOOD SUGAR (test code = 178 mg/dL 65-99 A fas ting/with meds 258015) Lab Interpretation (test Abnormal code = 74934-4) Constancetushar Rosa - ExternalECG 12 [id number] 04:38:53 Test Item Value Reference Range Interpretation Comments Ventricular rate (test 66 code = 253) Atrial rate (test code 66 = 255) MI interval (test code 192 = 266) QRSD interval (test 144 code = 260) QT interval (test code 432 = 264) QTC interval (test code 452 = 265) P axis 1 (test code = 46 267) QRS axis 1 (test code = -61 268) T wave axis (test code 123 = 270) EKG impression (test Atrial-sensed code = 273) ventricular-paced rhythm-Abnormal ECG-In automated comparison with ECG of 10-FEB-2023 13:07,-Vent. rate has decreased BY 4 [facility] Preliminary Interpretation - Not an [id number] 03:20:10 Test Item Value Reference Range Interpretation Comments CARLOS A (test code = CARLOS A) Celestine Grissom MD 03/15/2023 3:59 AMECG ED Preliminary Interpretation - Not an Order Performed by: Celestine Grissom MDAuthorized by: Celestine Grissom MD ECG reviewed by ED Physician in the absence of a flattening machine operator: yes Previous ECG: Previous ECG: Compared to current Comparison ECG info: 02/10/23 Similarity: No changeInterpretation: Interpretation: abnormal Rate: ECG rate: 66 ECG rate assessment: normal Rhythm: Rhythm: paced Pacing: Type of pacing: AVQRS: QRS axis: Left QRS intervals: Wide Lab Interpretation Abnormal (test code = 55016-1) [facility] A and B [id number] 21:02:22 Test Item Value Reference Range Interpretation Comments SARS-CoV-2 (COVID-19) RNA Not detected [Presence] in Respiratory specimen by MILLY with probe detection (test code = 41442-8) Whether patient resides in a No congregate care setting (test code = 50094-0) Date and time of symptom onset Unknown (test code = 01074-5) Whether the patient was No hospitalized for condition of interest (test code = 23938-2) Whether the patient was admitted No to intensive care unit (ICU) for condition of interest (test code = 88369-4) Whether patient is employed in a No healthcare setting (test code = 98451-7) Whether the patient has symptoms No related to condition of interest (test code = 01137-3) status (test code = No 95553-1) [facility] [id number] 21:25:19 Test Item Value Reference Range Interpretation Comments SUPPLIER NAME (test [facility] code = 6415) SUPPLIER PHONE (test code = 6416) ORDER STATUS (test code Delivery Successful = 6417) DELIVERY NOTE (test Will get from code = 6419) consignment closet if you give me approval to take.Thanks REQUESTED DELIVEY DATE 02/12/2023 (test code = 6420) ITEM DESCRIPTION (test Wheeled Walker, Adult Qty: 1 code = 6423) ACTUAL DELIVERY DATE 02/12/2023 (test code = 6422) [facility] [id number] 13:43:00 Test Item Value Reference Range Interpretation Comments POC glucose (test code 176 mg/dL 65-99 H Opera tor Name: Bree = 06770-9) ElisenaDevice I D: [id number] able: RN Notified Lab Interpretation Abnormal (test code = 69089-8) [facility] HospitalTran[facility]horacic Echocardiogram Complete, (w Contrast, Strain and 3D if needed)2023-02-11 22:31:56 Test Item Value Reference Interpretation Comments Range Ao Root Diameter 2.00 cm (test code = 9981433610) AoV Area, Vmax (test 2.91 cm2 >=1.5 code = 5114225100) AoV Area, VTI (test 3.01 cm2 code = 3967859605) AoV Mean PG (test 2.58 mmHg code = 7828423514) AoV Peak PG (test 4.57 mmHg code = 5392997127) AoV Vmax (test code 1.11 m/s = 1012317448) AoV VTI (test code = 0.25 m 5778433803) BSA Jane (test code 2.26 m2 = 6089684273) BSA (test code = 2.13 m2 1849376305) IVS,d (test code = 1.89 cm 0.6-1.19 A 8281136706) IVS/LVPW,2D (test 1.20 code = 6015656078) Left Atrium 4.26 cm Dimension Anterior (test code = 8751070110) LV,d (test code = 4.91 cm 3.8-5.2 1579489662) LV EF,2D (test code 61.13 % = 7229493915) LV % FS,2D (test 26.88 % code = 8470615253) LV,s (test code = 3.59 cm 2608679842) LVOT area (test code 4.12 cm2 = 0762823901) LVOT Diam,S (test 2.29 cm code = 6581545122) LVOT Vmax (test code 0.75 m/s = 5979665767) LVOT VTI (test code 0.18 m = 2011012704) LVPWD,d (test code = 1.58 cm 0.60-1.19 A 4803275727) PV Pk Grad (test 2.24 mmHg code = 7370269329) PV VMAX (test code = 0.75 m/s 1568523917) RVOT Vmax (test code 0.59 m/s = 8239885039) RVSP (TR) (test code 42.35 mmHg = 2661295658) TR Vpeak (test code 3.32 m/s = 4832651060) MV E A ratio (test 0.70 code = 7403139350) RA pressure (test 10.00 mmHg code = 5494353351) TR pk grad (test 32.35 mmHg code = 5257677299) AoV area i VTI BSA 1.41 cm2/m2 >=0.85 [place] (test code = 2554428873) MR Vmax (test code = 2.69 m/s 4476744631) BMI (test code = 35.40 kg/m2 0038331824) LV mass (test code = 391.47 g 3514546850) E wave decelartion 184.10 See_Comment A [Automat ed time (test code = message] T he 7104523336) system which generated this result transmitted reference range : 200 msec. The reference range was not used to interpret this result as normal/abnormal . MV Peak A El (test 0.74 m/s code = 4622670145) MV valve area p 1/2 4.12 cm2 method (test code = 1181234814) MV Peak E El (test 0.52 m/s code = 9428578140) MV stenosis pressure 53.39 ms 1/2 time (test code = 2208607518) LVOT stroke volume 0.74 ml (test code = 3039773832) AV LVOT peak 2.26 mmHg gradient (test code = 4612541177) Ascending aorta 3.41 cm (test code = 5968985356) RVSP (test code = 42.35 mmHg 7576560475) Ao Root Diameter 2.00 cm (test code = 3138977447) Mitral Valve E/E' 14.63 Septal Ratio (test code = 6319222486) MV Area VTI (test 3.73 cm2 code = 9740400551) MV mean gradient 1.34 mmHg (test code = 0429782153) LV SYS VOL (test 53.92 ml 14-42 A code = 1130005092) LV GTZ VOL (test 113.53 ml 46-106 A code = 7957595126) LA area s A4C (test 18.13 cm2 code = 4716402481) LV SI Teich 2D (test 27.99 ml/m2 code = 7765246933) LV SV Teich 2D (test 59.61 ml code = 8199960124) LV Vol s Teich PSAX 53.92 ml (test code = 5319077991) LVOT SI (test code = 35.23 ml/m2 8402582953) MR peak grad (test 3.28 mmHg code = 7377164735) MV Vmax (test code = 0.91 m 3419670705) MV VTI Tips (test 0.20 m code = 8415065114) RVOT pk grad (test 1.38 mmHg code = 4629857550) BSA [place] (test 2.24 m2 code = 3457160597) AoV Vmn (test code = 0.75 m/s 7212697552) LV FS Teich 2D (test 27.02 code = 5993740679) MV AE ratio (test 1.43 code = 7783723281) LV FS Cube 2D (test 27.02 code = 3328509186) LVOT Vmn (test code 0.58 = 1658478147) Pt Size (test code = 170.18 9894869823) Pt Wt (test code = 102.51 9672773402) Aov area Vmn (test 3.14 cm2 code = 4838695825) LVOT mean grad (test 1.46 mmHg code = 7408042675) 85 of MPHR (test 120.26 code = 2926824504) AoV area I VMN bsa 1.48 cm2/m2 (test code = 1151749335) Calc MPHR (test code 141.48 bpm = 7885272797) LV SI Cube 2D (test 34.04 ml/m2 code = 3364956748) LV SV Cube 2D (test 72.51 ml code = 8206214619) LV vol d cube 2D 118.61 ml (test code = 2535598393) LV vol s cube 2D 46.10 ml (test code = 9790871137) MV Decel slope (test 2.82 m/s2 code = 1814536738) Pred Exer Dur R1 5.90 (test code = 7319452196) Pred METS R1 (test 4.49 code = 6835725973) LA Vol MOD A4C (test 50.81 ml code = 1809520705) E prime sept (test 0.04 >=7.00 A code = 9808566915) E prime lat (test 0.07 >=10.00 A code = 7895039797) Velocity Ratio 0.68 m/s (V1/V2) (test code = 4689) Relative wall 0.64 cm thickness (test code = 5645809727) E/A ratio (test code 0.70 = 6005998516) LV Mass Index (test 183.79 g/m2 code = 7557706074) LVOT VTI (CM) (test 18.00 cm code = 5512929041) CARLOS A (test code = CARLOS A) Moderate concentric LV hypertrophy. Normal LV systolic function, estimated LVEF 55-59%. Grade I diastolic dysfunction. Normal RV size and systolic function. Moderately dilated LA. Mild pulmonary hypertension. Left VentricleLeft ventricle size is normal. Moderately increased wall thickness. Normal wall motion. Normal systolic function with a visually estimated EF of 55 - 60%. Grade I (impaired relaxation) diastolic dysfunction.Right VentricleRight ventricle size is normal. Normal systolic function.Left AtriumLeft atrium is moderately dilated.Right AtriumRight atrium size is normal.IVC/SVCIVC diameter is less than or equal to 21 mm and decreases greater than 50% during inspiration; therefore the estimated right atrial pressure is normal (~3 mmHg).Mitral ValveLeaflet thickening present. Mild valvular regurgitation.Tricus pid ValveValve structure is normal. Mild valvular regurgitation. Mildly elevated pulmonary artery systolic pressure.Aortic ValveValve structure appears tricuspid. Cusp sclerosis present. No significant valvular regurgitation. No stenosis.Pulmonic ValveValve structure is normal. No significant valvular regurgitation.AortaN ormal sized ascending aorta.Study DetailsStudy quality was adequate. A complete 2D, color flow Doppler and spectral Doppler echocardiogram was performed.The apical, parasternal, subcostal and suprasternal views were obtained. Optison ultrasound enhancing agent used. Technical difficulties due to patient's body habitus. Lab Interpretation Abnormal (test code = 54354-5) [facility] [id number] 14:26:00 Test Item Value Reference Range Interpretation Comments Ferritin Lvl (test code = Ferritin Lvl) 39 16-288 [id number] 14:26:00 Test Item Value Reference Range Interpretation Comments WBC (test code = WBC) 4.9 3.8-10.8 [facility] CampusKszetjvJKCJRONNMC7230-96-52 14:26:00 Test Item Value Reference Range Interpretation Comments RBC (test code = RBC) 4.77 3.80-5.10 [place] [id number] 14:26:00 Test Item Value Reference Range Interpretation Comments Hgb (test code = Hgb) 9.8 11.7-15.5 [place] [address]-07-03 14:26:00 Test Item Value Reference Range Interpretation Comments Hct (test code = Hct) 33.0 35.0-45.0 [place] [address]-07-03 14:26:00 Test Item Value Reference Range Interpretation Comments MCV (test code = MCV) 69.2 80.0-100.0 [place] [address]-07-03 14:26:00 Test Item Value Reference Range Interpretation Comments MCH (test code = MCH) 20.5 pg 27.0-33.0 [place] [id number] 14:26:00 Test Item Value Reference Range Interpretation Comments MCHC (test code = MCHC) 29.7 32.0-36.0 [place] [address]-07-03 14:26:00 Test Item Value Reference Range Interpretation Comments RDW (test code = RDW) 16.7 11.0-15.0 [place] [address]-07-03 14:26:00 Test Item Value Reference Range Interpretation Comments Platelet (test code = Platelet) 221 140-400 [id number] 14:26:00 Test Item Value Reference Range Interpretation Comments MPV (test code = MPV) 11.2 7.5-12.5 [place] [address]-07-03 14:26:00 Test Item Value Reference Range Interpretation Comments Neutrophils # (test code = Neutrophils 3043 [phone] #) [facility]IbfehenXOOAXNKCFA7087-02-14 14:26:00 Test Item Value Reference Range Interpretation Comments Lymphocytes # (test code = Lymphocytes 4449 306-7548 #) [facility] CampusIjomghjOMKATQKRFV4156-66-48 14:26:00 Test Item Value Reference Range Interpretation Comments Monocytes # (test code = Monocytes #) 568 200-950 [place] 843993-07-03 14:26:00 Test Item Value Reference Range Interpretation Comments Eosinophils # (test code = Eosinophils 78 15-500 #) [facility] CampusAltugldUWQLVUXYTR9219-21-40 14:26:00 Test Item Value Reference Range Interpretation Comments Basophils # (test code = Basophils #) 29 <=200 [facility] CampusYpztcfxJVLYRLTUHH4990-86-71 14:26:00 Test Item Value Reference Range Interpretation Comments Segs (test code = Segs) 62.1 [facility] CampusIyblppsIKVMXNUUDG3760-65-27 14:26:00 Test Item Value Reference Range Interpretation Comments Lymphocytes (test code = Lymphocytes) 24.1 [facility] CampusKqxbqvkRFRTRQAZZL7401-39-48 14:26:00 Test Item Value Reference Range Interpretation Comments Monocytes (test code = Monocytes) 11.6 [place] 843993-07-03 14:26:00 Test Item Value Reference Range Interpretation Comments Eosinophils (test code = Eosinophils) 1.6 [facility] CampusLwctsghHHXGXSBTHF8707-60-79 14:26:00 Test Item Value Reference Range Interpretation Comments Basophils (test code = Basophils) 0.6 [facility] CampusBlxuouwQPRTBLLJQJ1996-54-83 14:26:00 Test Item Value Reference Range Interpretation Comments Diff Comment (test code = Diff SEE COMMENT Comment) [facility]JouxnhcXZDXKOYCL7492-[facility] 14:25:00 Test Item Value Reference Range Interpretation Comments Hgb A1C (test code = Hgb A1C) 7.3 [facility] HospitalKjezgwnLUEIBSWXJ2806-91-88 14:25:00 Test Item Value Reference Range Interpretation Comments Chol (test code = Chol) 123 [facility] HospitalDsmaqgvCVKGPORYU7639-98-23 14:25:00 Test Item Value Reference Range Interpretation Comments HDL (test code = HDL) 44 [facility] HospitalAwydsobFCNUDLNKX6439-09-90 14:25:00 Test Item Value Reference Range Interpretation Comments Trig (test code = Trig) 83 [facility] HospitalDswqusjOGAYDCPQZ1766-40-86 14:25:00 Test Item Value Reference Range Interpretation Comments LDL (Calculated) (test code = LDL 62 (Calculated)) [facility] HospitalSrqfdtvOQHOSIMEY8795-24-76 14:25:00 Test Item Value Reference Range Interpretation Comments Chol/HDL Ratio (test code = Chol/HDL 2.8 Ratio) [facility] HospitalAaflzqaBDGWWJYGY2831-18-29 14:25:00 Test Item Value Reference Range Interpretation Comments Non HDL Chol (test code = Non HDL Chol) 79 [facility] HospitalPubycvqJVTSCFLTD0887-69-48 14:25:00 Test Item Value Reference Range Interpretation Comments Glucose Lvl (test code = Glucose Lvl) 164 65-99 [facility] HospitalIuexdfpUSOBCIKMR0037-50-09 14:25:00 Test Item Value Reference Range Interpretation Comments BUN (test code = BUN) 21 7-25 [place] [address]-07-03 14:25:00 Test Item Value Reference Range Interpretation Comments Creatinine Lvl (test code = Creatinine 0.83 0.60-1.00 Lvl) [place] [address]-07-03 14:25:00 Test Item Value Reference Range Interpretation Comments eGFR (test code = eGFR) 72 [place] 306303-07-03 14:25:00 Test Item Value Reference Range Interpretation Comments B/C Ratio (test code = B/C NOT APPLICABLE 622 Ratio) [place] [address]-07-03 14:25:00 Test Item Value Reference Range Interpretation Comments Sodium Lvl (test code = Sodium Lvl) 141 135-146 [facility] HospitalQehefdgVYWBOFMVR1962-70-25 14:25:00 Test Item Value Reference Range Interpretation Comments Potassium Lvl (test code = Potassium 4.0 3.5-5.3 Lvl) [facility] HospitalOjdjyddSODWQNEMN9741-75-45 14:25:00 Test Item Value Reference Range Interpretation Comments Chloride Lvl (test code = Chloride Lvl) 102 98-110 [place] 306303-07-03 14:25:00 Test Item Value Reference Range Interpretation Comments CO2 (test code = CO2) 29 20-32 [place] 306303-07-03 14:25:00 Test Item Value Reference Range Interpretation Comments Calcium Lvl (test code = Calcium Lvl) 9.6 8.6-10.4 [place] 306303-07-03 14:25:00 Test Item Value Reference Range Interpretation Comments Total Protein (test code = Total 6.8 6.1-8.1 Protein) [place] 306303-07-03 14:25:00 Test Item Value Reference Range Interpretation Comments Albumin Lvl (test code = Albumin Lvl) 4.0 3.6-5.1 [place] 306303-07-03 14:25:00 Test Item Value Reference Range Interpretation Comments Globulin (test code = Globulin) 2.8 1.9-3.7 [place] 306303-07-03 14:25:00 Test Item Value Reference Range Interpretation Comments A/G Ratio (test code = A/G Ratio) 1.4 1.0-2.5 [facility] HospitalPijdskvGRZYEVURM2612-86-53 14:25:00 Test Item Value Reference Range Interpretation Comments Bili Total (test code = Bili Total) 0.4 0.2-1.2 [facility] HospitalZhsufgiWBBYCVTVM1148-10-05 14:25:00 Test Item Value Reference Range Interpretation Comments Alk Phos (test code = Alk Phos) 49 37-153 [facility] HospitalNixtmjmMTXMYJWGV6734-70-53 14:25:00 Test Item Value Reference Range Interpretation Comments AST (test code = AST) 10 10-35 [facility] HospitalAzbgszdHTXPVVVLT1209-33-09 14:25:00 Test Item Value Reference Range Interpretation Comments ALT (test code = ALT) 8 6-29 [facility] HospitalGwlvgyzGLHZZZUPG8042-91-06 14:17:00 Test Item Value Reference Range Interpretation Comments U Creat mg/dL (test code = U Creat 99 20-275 mg/dL) [facility] HospitalTocbheeOKOIRYDAU9560-20-74 14:17:00 Test Item Value Reference Range Interpretation Comments U Alb (test code = U Alb) 1.3 [facility] HospitalItzogwcHPIYQFPTA0317-21-94 14:17:00 Test Item Value Reference Range Interpretation Comments U Alb/Crea (test code = U Alb/Crea) 13 [facility] AND JXOFF8949-75-59 13:54:00 Test Item Value Reference Range Interpretation Comments POC UA Color (test code = POC UA Light yellow Color) [facility] AND XBODS1078-22-54 13:54:00 Test Item Value Reference Range Interpretation Comments POC UA Turbidity (test Slightly Cloudy code = POC UA *NA*(02/02/23 8:54 AM) Turbidity) [facility] YDOMC9091-26-24 13:54:00 Test Item Value Reference Range Interpretation Comments POC UA SG (test code = POC UA SG) 1.020 1 [facility] HURIK4330-39-80 13:54:00 Test Item Value Reference Range Interpretation Comments POC UA pH (test code = POC UA pH) 6.5 1 5.0-8.0 [facility] GJJXX9846-20-08 13:54:00 Test Item Value Reference Range Interpretation Comments POC UA Prot (test code = POC Negative mg/dL UA Prot) [facility] AND YYOMM7439-39-54 13:54:00 Test Item Value Reference Range Interpretation Comments POC UA Glu (test code = POC UA Negative mg/dL Glu) [facility] AND CZTOW9367-38-99 13:54:00 Test Item Value Reference Range Interpretation Comments POC UA Ket (test code = POC UA Negative mg/dL Ket) [facility] AND WLWAR6448-14-66 13:54:00 Test Item Value Reference Range Interpretation Comments POC UA Bili (test Negative *NA*(02/02/23 code = POC UA Bili) 8:54 AM) [facility] AND VWAKL2507-20-92 13:54:00 Test Item Value Reference Range Interpretation Comments POC UA Bld (test code Negative *NA*(02/02/23 = POC UA Bld) 8:54 AM) [facility] AND [id number] 13:54:00 Test Item Value Reference Range Interpretation Comments POC UA Uro (test code = POC UA Uro) 0.2 0.1-1.0 [facility] AND OJGOU3088-10-68 13:54:00 Test Item Value Reference Range Interpretation Comments POC UA Nit (test code Negative *NA*(02/02/23 = POC UA Nit) 8:54 AM) [facility] AND VZOWK8666-34-07 13:54:00 Test Item Value Reference Range Interpretation Comments POC UA LeukEst (test Small *ABN*(02/02/23 code = POC UA LeukEst) 8:54 AM) [facility] HospitalSmiomcrOXNXPVQQH2499-22-87 16:45:00 Test Item Value Reference Range Interpretation Comments Vitamin B12 Lvl (test code = Vitamin 736 582-1413 B12 Lvl) [facility] HospitalBjuwubsPNLVSQUXB1587-22-42 16:45:00 Test Item Value Reference Range Interpretation Comments Folate Lvl (test code = Folate Lvl) 10.5 [facility] HospitalUgrdzhaWHIBNBFFH9265-16-26 16:45:00 Test Item Value Reference Range Interpretation Comments Ferritin Lvl (test code = Ferritin Lvl) 65 16-288 [facility] CampusHpfgqfjYDZUIQYAJL4098-09-64 16:45:00 Test Item Value Reference Range Interpretation Comments WBC (test code = WBC) 4.9 3.8-10.8 [facility] CampusFrcuujhDZHOTHJXGI8987-41-68 16:45:00 Test Item Value Reference Range Interpretation Comments RBC (test code = RBC) 4.97 3.80-5.10 [facility] CampusOebzrbjBRVYHLVQPH6537-56-05 16:45:00 Test Item Value Reference Range Interpretation Comments Hgb (test code = Hgb) 10.1 11.7-15.5 [facility] CampusGttlxkwZOHJYHQYLU9158-57-43 16:45:00 Test Item Value Reference Range Interpretation Comments Hct (test code = Hct) 33.9 35.0-45.0 [facility] CampusKhmczxkFBQGPMTAPD2546-31-30 16:45:00 Test Item Value Reference Range Interpretation Comments MCV (test code = MCV) 68.2 80.0-100.0 [place] 843993-01-30 16:45:00 Test Item Value Reference Range Interpretation Comments MCH (test code = MCH) 20.3 pg 27.0-33.0 [facility] CampusIsfpivyGUDMPJTGDZ8415-50-92 16:45:00 Test Item Value Reference Range Interpretation Comments MCHC (test code = MCHC) 29.8 32.0-36.0 [facility] CampusVxtepzoAHEXJQASDZ9697-29-23 16:45:00 Test Item Value Reference Range Interpretation Comments RDW (test code = RDW) 15.9 11.0-15.0 [facility] CampusGqzorucJBYXYSWEPB4722-41-95 16:45:00 Test Item Value Reference Range Interpretation Comments Platelet (test code = Platelet) 242 140-400 [facility] CampusUvxddpsITOVLJHMAZ4405-07-16 16:45:00 Test Item Value Reference Range Interpretation Comments MPV (test code = MPV) 11.4 7.5-12.5 [facility] CampusGzqlmskFRVFUBCEJR9163-23-85 16:45:00 Test Item Value Reference Range Interpretation Comments Neutrophils # (test code = Neutrophils 2920 4432-7741 #) [facility] CampusWcbaqtwQEZDKOTFOQ4419-08-22 16:45:00 Test Item Value Reference Range Interpretation Comments Lymphocytes # (test code = Lymphocytes 9949 201-6739 #) [facility] CampusLqmsadcQNLWDPBDWF0811-17-17 16:45:00 Test Item Value Reference Range Interpretation Comments Monocytes # (test code = Monocytes #) 588 200-950 [place] 843993-01-30 16:45:00 Test Item Value Reference Range Interpretation Comments Eosinophils # (test code = Eosinophils 78 15-500 #) [facility] CampusJikuxhbHKMUUOVWOM5468-29-04 16:45:00 Test Item Value Reference Range Interpretation Comments Basophils # (test code = Basophils #) 20 <=200 [facility] CampusSaidpaqPVIKCKVIDU9108-75-95 16:45:00 Test Item Value Reference Range Interpretation Comments Segs (test code = Segs) 59.6 [facility] CampusOeghmqyQFPDDBIOVI7422-96-31 16:45:00 Test Item Value Reference Range Interpretation Comments Lymphocytes (test code = Lymphocytes) 26.4 [facility] CampusKutrjpyLLYTNNVIUT6272-16-11 16:45:00 Test Item Value Reference Range Interpretation Comments Monocytes (test code = Monocytes) 12.0 [facility] CampusQaodwaiKGUIIARTHH6019-82-80 16:45:00 Test Item Value Reference Range Interpretation Comments Eosinophils (test code = Eosinophils) 1.6 [facility] CampusSfmplqwQZLDXYTBUO0501-83-46 16:45:00 Test Item Value Reference Range Interpretation Comments Basophils (test code = Basophils) 0.4 [facility] CampusRgndakoZRBNZKXBSH9949-82-49 16:45:00 Test Item Value Reference Range Interpretation Comments RBC Morph (test code = RBC Morph) SEE COMMENT [facility] HospitalNesrogrWSGGQLXLQ4018-09-54 16:50:00 Test Item Value Reference Range Interpretation Comments Hgb A1C (test code = Hgb A1C) 6.8 [facility]2022-10-18 13:10:00 Test Item Value Reference Range Interpretation Comments POC glucose (test code 120 mg/dL 65-99 H Opera tor Name: [place] = 12189-0) ElizabethDevice ID: [id number] Lab Interpretation Abnormal (test code = 31293-3) [facility]2022-10-18 13:10:00 Test Item Value Reference Range Interpretation Comments POC glucose (test code 120 mg/dL 65-99 [facility] [employer] Name: [place] = 90864-7) ElizabethDevice ID: [id number] Lab Interpretation Abnormal (test code = 85836-7) [facility]2022-10-18 13:10:00 Test Item Value Reference Range Interpretation Comments POC glucose (test code 120 mg/dL 65-99 H [employer] tor Name: [place] = 46202-8) ElizabethDevice ID: [id number] Lab Interpretation Abnormal (test code = 61214-4) [address]2022-10-17 14:50:38 Test Item Value Reference Range Interpretation Comments Ventricular rate (test code = 253) Atrial rate (test code = 255) MI interval (test code = 266) QRSD interval (test code = 260) QT interval (test code = 264) QTC interval (test code = 265) P axis 1 (test code = 267) QRS axis 1 (test code = 268) T wave axis (test code = 270) EKG impression (test Atrial-sensed code = 273) ventricular-paced rhythm with occasional AV dual-paced complexes-In automated comparison with ECG of 06-MAR-2022 12:51,-Vent. rate has increased BY 7 BPM- [address]2022-10-17 14:50:38 Test Item Value Reference Range Interpretation Comments Ventricular rate (test code = 253) Atrial rate (test code = 255) MI interval (test code = 266) QRSD interval (test code = 260) QT interval (test code = 264) QTC interval (test code = 265) P axis 1 (test code = 267) QRS axis 1 (test code = 268) T wave axis (test code = 270) EKG impression (test Atrial-sensed code = 273) ventricular-paced rhythm with occasional AV dual-paced complexes-In automated comparison with ECG of 06-MAR-2022 12:51,-Vent. rate has increased BY 7 BPM- [address]2022-10-17 14:50:38 Test Item Value Reference Range Interpretation Comments Ventricular rate (test 67 code = 253) Atrial rate (test code 67 = 255) MI interval (test code 190 = 266) QRSD interval (test 148 code = 260) QT interval (test code 424 = 264) QTC interval (test code 448 = 265) P axis 1 (test code = 78 267) QRS axis 1 (test code = -57 268) T wave axis (test code 110 = 270) EKG impression (test Atrial-sensed code = 273) ventricular-paced rhythm with occasional AV dual-paced complexes-In automated comparison with ECG of 04-AUG-2022 12:51,-Vent. rate has increased BY 7 BPM- [facility] ED Preliminary Interpretation - Not an Sixed1229-61-37 07:22:38 Test Item Value Reference Range Interpretation Comments CARLOS A (test code = CARLOS A) Kristine Riggs, 05/20/2022 3:39 [facility] ED Preliminary Interpretation - Not an OrderPerformed by: Kristine Riggs, Authorized by: Kristine Riggs DO ECG reviewed by ED Physician in the absence of a flattening machine operator: yes Interpretation: Interpretation: abnormal Rate: ECG rate: 67 ECG rate assessment: normal Rhythm: Rhythm: paced QRS: QRS axis: LeftComments: paced Lab Interpretation Abnormal (test code = 72386-2) [facility] ED Preliminary Interpretation - Not an Fvjzk3025-54-55 07:22:38 Test Item Value Reference Range Interpretation Comments CARLOS A (test code = CARLOS A) Kristine Riggs, 05/20/2022 3:39 [facility] ED Preliminary Interpretation - Not an OrderPerformed by: Kristine Riggs, DOAuthorized by: Kristine Riggs DO ECG reviewed by ED Physician in the absence of a flattening machine operator: yes Interpretation: Interpretation: abnormal Rate: ECG rate: 67 ECG rate assessment: normal Rhythm: Rhythm: paced QRS: QRS axis: LeftComments: paced Lab Interpretation Abnormal (test code = 34657-6) [facility] ED Preliminary Interpretation - Not an Xibeh6818-04-31 07:22:38 Test Item Value Reference Range Interpretation Comments CARLOS A (test code = CARLOS A) Kristine Riggs, 05/20/2022 3:[facility] Interpretation - Not an OrderPerformed by: Kristine Riggs, Authorized by: Kristine Riggs DO ECG reviewed by ED Physician in the absence of a flattening machine operator: yes Interpretation: Interpretation: abnormal Rate: ECG rate: 67 ECG rate assessment: normal Rhythm: Rhythm: paced QRS: QRS axis: LeftComments: paced Lab Interpretation Abnormal (test code = 20730-3) [address]2022-08-09 17:25:47 Test Item Value Reference Range Interpretation Comments Ventricular rate (test code = 253) Atrial rate (test code = 255) QRSD interval (test code = 260) QT interval (test code = 264) QTC interval (test code = 265) QRS axis 1 (test code = 268) T wave axis (test code = 270) EKG impression (test Atrial-paced rhythm with code = 273) frequent ventricular-paced complexes-Marked ST abnormality, possible inferior subendocardial injury-Prolonged QT-Abnormal ECG-In automated comparison with ECG of 06-MAR-2022 12:50,-Electronic ventricular pacemaker has replaced Junctional rhythm- [address]2022-08-09 17:25:47 Test Item Value Reference Range Interpretation Comments Ventricular rate (test code = 253) Atrial rate (test code = 255) QRSD interval (test code = 260) QT interval (test code = 264) QTC interval (test code = 265) QRS axis 1 (test code = 268) T wave axis (test code = 270) EKG impression (test Atrial-paced rhythm with code = 273) frequent ventricular-paced complexes-Marked ST abnormality, possible inferior subendocardial injury-Prolonged QT-Abnormal ECG-In automated comparison with ECG of 06-MAR-2022 12:50,-Electronic ventricular pacemaker has replaced Junctional rhythm- [address]2022-08-09 17:25:47 Test Item Value Reference Range Interpretation Comments Ventricular rate (test code = 253) Atrial rate (test code = 255) QRSD interval (test code = 260) QT interval (test code = 264) QTC interval (test code = 265) QRS axis 1 (test code = 268) T wave axis (test code = 270) EKG impression (test Atrial-paced rhythm with code = 273) frequent ventricular-paced complexes-Marked ST abnormality, possible inferior subendocardial injury-Prolonged QT-Abnormal ECG-In automated comparison with ECG of 06-MAR-2022 12:50,-Electronic ventricular pacemaker has replaced Junctional rhythm- [facility]2022-08-09 15:44:00 Test Item Value Reference Range Interpretation Comments POC glucose (test code = 145 mg/dL 65-99 H Ope rator Name: [id number]) Karthik Padilla ID: [id number] able : RN Notified Lab Interpretation (test Abnormal code = 87451-9) [facility] qfipehc6667-13-54 15:44:00 Test Item Value Reference Range Interpretation Comments POC glucose (test code = 145 mg/dL 65-99 H Ope rator Name: [id number]) Karthik Padilla ID: [id number] able : RN Notified Lab Interpretation (test Abnormal code = 44342-5) [facility] fotxbtl0897-33-47 15:44:00 Test Item Value Reference Range Interpretation Comments POC glucose (test code = 145 mg/dL 65-99 H Ope rator Name: [id number]) Karthik Padilla ID: [id number] able : RN Notified Lab Interpretation (test Abnormal code = 85022-6) [facility] myocardial xzrnxekoh0916-15-10 15:27:45 Test Item Value Reference Range Interpretation Comments Target HR (test code 143.00 bpm = 1524194509) Resting HR (test 75 BPM code = 7349610008) Resting BP (test 168/87 mmHg code = 1552245550) Post Peak HR (test 109 bpm code = 6996325648) Percent HR (test 76.22 % code = 5157358537) Post Peak BP (test 177/81 mmHg code = 3747561238) Exercise duration 1 min (min) (test code = 6656910593) Nuc Stress EF (test 57 % code = 6185286600) Base ST Depression 0 mm (mm) (test code = 9243262582) Nuc Rest EF (test 57 % code = 8516676052) Radiology Study observation (narrative) (test code = 32089-2) CARLOS A (test code = CARLOS A) Gated Rest Function: Left ventricular function at rest was normal. Resting ejection fraction was 57%. Conclusion: Normal myocardial perfusion. Resting ECGECG is normal. Resting ECG shows no ST-segment changes.Stress FindingsA pharmacological stress test was performed using regadenoson. The patient was infused with 5 ml of regadenoson intravenous over 10 seconds for a total dose of 0.4 mg, followed by a 5 ml saline flush intravenous over 10 seconds. The stress radiotracer followed the intravenous saline flush over 10 seconds. The patient exercised for 1 min and had a maximal HR of 76.22% ( BPM of max predicted heart rate) METS. The patient reached the end of the protocol.Isotope AdministrationThe isotope used for nuclear imaging was technetium tetrofosmin. Images performed at rest after an injection of 30 mCi. The resting administration time was at 08:37 CDT on 03/06/2022. Images performed at stress after an injection of 30 mCi. The stress administration time was at 14:30 CDT on 03/05/2022.Nuclear Study QualityA perfusion 2-day stress/rest protocol was performed. Diaphragmatic attenuation artifact is present.Perfusion DefectNo defects were noted.Stress Function CommentsPost-stress ejection fraction is 57%.Rest Function CommentsLeft ventricular function at rest was normal. Resting ejection fraction was 57%.Stress Combined ConclusionNormal myocardial perfusion. Post-stress ejection fraction is 57%. [facility] stress vdha9513-36-06 19:49:33 Test Item Value Reference Range Interpretation Comments Resting HR (test code = 4842364963) Peak MET Achieved (test code = 6567222226) Protocol Name (test Regadenoson code = 8764275856) Time in Exercise 00:01:00 Phase (test code = 2779494086) Max Systolic BP (test code = 6667485326) Max Diastolic BP (test code = 3078775553) Max Heart Rate (test code = 2404961733) Max Predicted Heart Rate (test code = 8674520168) Target HR Formula (220 - Age)*85% (test code = 0895191368) Test Indication (test ANGINA code = 6546444786) Arrhy During Ex (test ventricular premature code = 1292162101) beats-isolated ECG Interp Before EX abnormal (test code = 6599973795) Chest Pain Statement none (test code = 4197906473) Overall HR Response appropriate to Exercise (test code = 5981900846) Overall BP Response normal resting BP - To Exercise (test appropriate response code = 7287186073) Reason for COMPLETION OF PROTOCOL Termination (test code = 7107222833) Stress Test Waveform interpreted in Impression (test code report associated with = 9322491202) image study. No interpretation is provided as part of this Stress ECG report.--Electronically Signed By Lorene Rubin MD ([id number]), newspaper editor Mohamud Ryder ([id number]) on 03/05/2022 2:49:30 PM Target HR (test code bpm = 0506791137) [facility] phmd0682-[facility]40 19:49:33 Test Item Value Reference Range Interpretation Comments Resting HR (test code 73 = 6764255050) Peak MET Achieved 1.0 (test code = 4144262225) Protocol Name (test Regadenoson code = 8913723799) Time in Exercise 00:01:00 Phase (test code = 1753116120) Max Systolic BP (test 177 code = 4901047129) Max Diastolic BP 81 (test code = 9721943637) Max Heart Rate (test 109 code = 0695462578) Max Predicted Heart 143 Rate (test code = 4301480151) Target HR Formula (220 - Age)*85% (test code = 5705182509) Test Indication (test ANGINA code = 5824557569) Arrhy During Ex (test ventricular premature code = 7355395561) beats-isolated ECG Interp Before EX abnormal (test code = 6510577560) Chest Pain Statement none (test code = 0248577195) Overall HR Response appropriate to Exercise (test code = 2812793911) Overall BP Response normal resting BP - To Exercise (test appropriate response code = 8493181556) Reason for COMPLETION OF PROTOCOL Termination (test code = 6337191325) Stress Test Waveform interpreted in Impression (test code report associated with = [id number]) image study. No interpretation is provided as part of this Stress ECG report.--Electronically Signed By Lorene Rubin MD ([id number]), newspaper editor Mohamud Ryder ([id number]) on 03/05/2022 2:49:30 PM Target HR (test code 143.00 bpm = 3825630128) [facility], (w Contrast, Strain and 3D if needed)2022-03-05 15:56:32 Test Item Value Reference Range Interpretation Comments Ao Root Diameter (test 3.11 cm code = 5968266983) AoV Area, Vmax (test 2.84 cm2 code = 8193971763) AoV Area, VTI (test 2.48 cm2 code = 7287071197) AoV Mean PG (test code 3.57 mmHg = 9525125812) AoV Peak PG (test code 5.72 mmHg = 1755798741) AoV Vmax (test code = 1.24 m/s 5357440465) AoV VTI (test code = 0.29 m 8070443429) IVS,d (test code = 1.61 cm 0.6-0.9 A 2205630144) IVS/LVPW,2D (test code 1.23 = 9923528448) Left Atrium Dimension 3.46 cm Anterior (test code = 3421185977) LV,d (test code = 4.48 cm 6228183144) LV EF,2D (test code = 51.35 % 2971279431) LV,s (test code = 3.53 cm 2001862943) LVOT area (test code = 4.34 cm2 9535511937) LVOT Diam,S (test code 2.35 cm = 9788963889) LVOT Vmax (test code = 0.82 m/s 5690099557) LVOT VTI (test code = 0.12 m 5907984634) LVPWD,d (test code = 1.38 cm 0.6-0.9 A 7198619802) PV Pk Grad (test code = 3.37 mmHg 3703396294) PV VMAX (test code = 0.92 m/s 6095895113) RVOT Vmax (test code = 0.62 m/s 8212737656) TR Vpeak (test code = 3.39 m/s 4594448524) MV E A ratio (test code 0.46 = 1295978922) TR pk grad (test code = 39.69 mmHg 0975700587) MR Vmax (test code = 4.88 m/s 5516844091) E wave decelartion time 168.57 msec (test code = 6386255124) MV Peak A El (test 1.23 m/s code = 2094706863) MV valve area p 1/2 4.50 cm2 method (test code = 5426898490) MV Peak E El (test 0.57 m/s code = 3004209505) MV stenosis pressure 48.88 ms 1/2 time (test code = 5171352263) LVOT stroke volume 0.52 ml (test code = 2194766117) AV LVOT peak gradient 2.45 mmHg (test code = 3063804196) Ascending aorta (test 3.24 cm code = 0967106590) Ao Root Diameter (test 3.11 cm code = 8490739490) MV mean gradient (test 2.78 mmHg code = 2051008407) LV SYS VOL (test code = 49.43 ml 14-42 A 8072265046) LV GTZ VOL (test code 87.56 ml 46-106 = 9343808074) LA area s A4C (test 22.96 cm2 code = 8163463496) LV SV Teich 2D (test 38.13 ml code = 8512204233) LV Vol s Teich PSAX 49.43 ml (test code = 8841025726) MR peak grad (test code 6.29 mmHg = 2008836552) MV Vmax (test code = 1.25 m 2353546301) MV VTI Tips (test code 0.20 m = 8114114146) RVOT pk grad (test code 1.56 mmHg = 1987690644) AoV Vmn (test code = 0.89 m/s 0598827079) LV FS Teich 2D (test 21.35 code = 5328294888) MV AE ratio (test code 2.15 = 5538813690) LV FS Cube 2D (test 21.35 code = 2999319320) LVOT Vmn (test code = 0.49 9540806324) Aov area Vmn (test code 2.60 cm2 = 8127641247) LVOT mean grad (test 1.07 mmHg code = 1218637061) MAX Pred HR (test code 142.42 = 0897670089) 85 of MPHR (test code = 121.06 5548858180) Calc MPHR (test code = 142.42 bpm 4127779901) LV SV Cube 2D (test 43.66 ml code = 0526179431) LV vol d cube 2D (test 85.03 ml code = 7817646611) LV vol s cube 2D (test 41.37 ml code = 1688460264) MV Decel slope (test 3.40 m/s2 code = 8265662267) Pred Exer Dur R1 (test 6.00 code = 8899735397) Pred METS R1 (test code 4.62 = 3259527717) LA Vol MOD A4C (test 67.98 ml code = 1391094638) E jeannie sept (test code 0.03 = 5270204260) E prime lat (test code 0.07 = 4485869216) Velocity Ratio (V1/V2) 0.66 m/s (test code = 4689) EF (test code = 44 % 1472242506) E/A ratio (test code = 0.46 4779120964) LVOT VTI (CM) (test 12.00 cm code = 4073878173) CARLOS A (test code = CARLOS A) Left Ventricle: Normal systolic function with a visually estimated EF of 55 - 60%. Left VentricleLeft ventricle size is normal. Normal wall thickness. Ventricular mass is normal. Normal systolic function with a visually estimated EF of 55 - 60%.Right VentricleRight ventricle size is normal. Normal systolic function.Left AtriumLeft atrium size is normal.Right AtriumRight atrium size is normal.Mitral ValveValve structure is normal. No leaflet thickening. Trace valvular regurgitation. No stenosis.Tricuspid ValveValve structure is normal. No leaflet thickening. Trace valvular regurgitation. No stenosis.Aortic ValveValve structure is normal. No significant valvular regurgitation. No stenosis.Pulmonic ValveValve structure is normal. No significant valvular regurgitation. No stenosis.PericardiumTh ere is no pericardial effusion present.AortaNormal sized annulus.Study DetailsStudy quality was adequate. A complete 2D, color flow Doppler and spectral Doppler echocardiogram was performed.The apical, parasternal and suprasternal views were obtained. The subcostal view was limited. Optison ultrasound enhancing agent used. Lab Interpretation Abnormal (test code = 45434-5) Mu-Ism WsoxdilmFFHY-EbV-3 (COVID-19) RNA [Presence] in Respiratory specimen by MILLY with probe bgxfytqqu6792-02-36 02:11:08 Test Item Value Reference Range Interpretation Comments SARS-CoV-2 (COVID-19) RNA Not detected [Presence] in Respiratory specimen by MILLY with probe detection (test code = 33357-6) Whether patient is employed in a Unknown healthcare setting (test code = 89084-9) Whether the patient has symptoms Unknown related to condition of interest (test code = 34400-5) Whether the patient was Unknown hospitalized for condition of interest (test code = 20007-1) Whether the patient was admitted Unknown to intensive care unit (ICU) for condition of interest (test code = 97118-5) Whether patient resides in a Unknown congregate care setting (test code = 35691-7) status (test code = Unknown 42366-1) Date and time of symptom onset Unknown (test code = 31770-4) [facility] Preliminary Interpretation - Not an [id number] 19:40:20 Test Item Value Reference Range Interpretation Comments CARLOS A (test code = CARLOS A) Ervin Leslie MD 03/04/2022 9:10 [facility] [place] Interpretation - Not an OrderPerformed by: Ervin Leslie, MDAuthorized by: Ervin Leslie MD ECG reviewed by ED Physician in the absence of a flattening machine operator: yes Interpretation: Interpretation: abnormal Rate: ECG rate: 73 ECG rate assessment: normal Rhythm: Rhythm: paced Pacing: Capture: Complete Type of pacing: VentricularEctopy: Ectopy: none QRS: QRS axis: Normal QRS intervals: NormalConduction: Conduction: normal ST segments: ST segments: AbnormalT waves: T waves: non-specific Lab Interpretation Abnormal (test code = 04789-1) [facility] ED Preliminary Interpretation - Not an [id number] 19:40:20 Test Item Value Reference Range Interpretation Comments CARLOS A (test code = CARLOS A) Ervin Leslie MD 03/04/2022 9:10 [facility] Preliminary Interpretation - Not an OrderPerformed by: Ervin Leslie, MDAuthorized by: Ervin Leslie MD ECG reviewed by ED Physician in the absence of a flattening machine operator: yes Interpretation: Interpretation: abnormal Rate: ECG rate: 73 ECG rate assessment: normal Rhythm: Rhythm: paced Pacing: Capture: Complete Type of pacing: VentricularEctopy: Ectopy: none QRS: QRS axis: Normal QRS intervals: NormalConduction: Conduction: normal ST segments: ST segments: AbnormalT waves: T waves: non-specific Lab Interpretation Abnormal (test code = 88112-0) [facility] ED Preliminary Interpretation - Not an [id number] 19:40:20 Test Item Value Reference Range Interpretation Comments CARLOS A (test code = CARLOS A) Ervin Leslie MD 03/04/2022 9:10 [facility] Preliminary Interpretation - Not an OrderPerformed by: Ervin Leslie MDAuthorized by: Ervin Leslie MD ECG reviewed by ED Physician in the absence of a flattening machine operator: yes Interpretation: Interpretation: abnormal Rate: ECG rate: 73 ECG rate assessment: normal Rhythm: Rhythm: paced Pacing: Capture: Complete Type of pacing: VentricularEctopy: Ectopy: none QRS: QRS axis: Normal QRS intervals: NormalConduction: Conduction: normal ST segments: ST segments: AbnormalT waves: T waves: non-specific Lab Interpretation Abnormal (test code = 62672-1) [facility] [id number] 15:16:00 Test Item Value Reference Range Interpretation Comments T vaginalis by Amp Det(APTIMA) NOT DETECTED (test code = T vaginalis by Amp Det(APTIMA)) [facility] [id number] 15:16:00 Test Item Value Reference Range Interpretation Comments C trachomatis by MILLY (test code NOT DETECTED = C trachomatis by MILLY) [facility] [id number] 15:16:00 Test Item Value Reference Range Interpretation Comments N gonorrhea by MILLY (test code = NOT DETECTED N gonorrhea by MILLY) [facility] [id number] 16:15:00 Test Item Value Reference Range Interpretation Comments Hgb A1C (test code = Hgb A1C) 10.2 [facility] AND [id number] 16:05:00 Test Item Value Reference Range Interpretation Comments POC UA Color (test code = POC UA Light yellow Color) [facility] [id number] 16:05:00 Test Item Value Reference Range Interpretation Comments POC UA Turbidity (test Slightly Cloudy code = POC UA *NA*(01/24/22 11:05 AM) Turbidity) [facility] [id number] 16:05:00 Test Item Value Reference Range Interpretation Comments POC UA SG (test code = POC UA SG) 1.010 1 [facility] [id number] 16:05:00 Test Item Value Reference Range Interpretation Comments POC UA pH (test code = POC UA pH) 5.0 1 5.0-8.0 [facility] [id number] 16:05:00 Test Item Value Reference Range Interpretation Comments POC UA Prot (test code = POC Negative mg/dL UA Prot) [facility] [id number] 16:05:00 Test Item Value Reference Range Interpretation Comments POC UA Glu (test code = POC UA >=1000 mg/dL Glu) [facility] [id number] 16:05:00 Test Item Value Reference Range Interpretation Comments POC UA Ket (test code = POC UA Negative mg/dL Ket) [facility] [id number] 16:05:00 Test Item Value Reference Range Interpretation Comments POC UA Bili (test Negative *NA*(01/24/22 code = POC UA Bili) 11:05 AM) [facility] [id number] 16:05:00 Test Item Value Reference Range Interpretation Comments POC UA Bld (test code Negative *NA*(01/24/22 = POC UA Bld) 11:05 AM) [facility] [id number] 16:05:00 Test Item Value Reference Range Interpretation Comments POC UA Uro (test code = POC UA Uro) 0.2 0.1-1.0 [facility] [id number] 16:05:00 Test Item Value Reference Range Interpretation Comments POC UA Nit (test code Negative *NA*(01/24/22 = POC UA Nit) 11:05 AM) [facility] [id number] 16:05:00 Test Item Value Reference Range Interpretation Comments POC UA LeukEst (test Negative *NA*(01/24/22 code = POC UA LeukEst) 11:05 AM) [facility] [id number] 15:53:00 Test Item Value Reference Range Interpretation Comments U Creat mg/dL (test code = U Creat 173 20-275 mg/dL) [facility] [id number] 15:53:00 Test Item Value Reference Range Interpretation Comments U Alb (test code = U Alb) 0.9 [facility] [id number] 15:53:00 Test Item Value Reference Range Interpretation Comments U Alb/Crea (test code = U Alb/Crea) 5 [facility] [id number] 05:00:00 Test Item Value Reference Range Interpretation Comments Vitamin B12 Lvl (test code = Vitamin no gt 200-1100 B12 Lvl) [facility]2022-05-27 05:00:00 Test Item Value Reference Range Interpretation Comments Glucose Lvl (test code = Glucose Lvl) 311 65-139 [facility]2022-05-27 05:00:00 Test Item Value Reference Range Interpretation Comments BUN (test code = BUN) 21 7-25 [place] [id number] 05:00:00 Test Item Value Reference Range Interpretation Comments Creatinine Lvl (test code = Creatinine 0.87 0.60-0.93 Lvl) [facility]2022-05-27 05:00:00 Test Item Value Reference Range Interpretation Comments eGFR NON-AFR. SRI LANKAN (test code = 64 eGFR NON-AFR. SRI LANKAN) [facility]2022-05-27 05:00:00 Test Item Value Reference Range Interpretation Comments eGFR (test code = eGFR 74 ) [place] 625072-05-27 05:00:00 Test Item Value Reference Range Interpretation Comments B/C Ratio (test code = B/C NOT APPLICABLE 6-22 Ratio) [facility]2022-05-27 05:00:00 Test Item Value Reference Range Interpretation Comments Sodium Lvl (test code = Sodium Lvl) 137 135-146 [facility]2022-05-27 05:00:00 Test Item Value Reference Range Interpretation Comments Potassium Lvl (test code = Potassium 3.9 3.5-5.3 Lvl) [place] 625072-05-27 05:00:00 Test Item Value Reference Range Interpretation Comments Chloride Lvl (test code = Chloride Lvl) 98 98-110 [facility]2022-05-27 05:00:00 Test Item Value Reference Range Interpretation Comments CO2 (test code = CO2) 30 20-32 [facility]2022-05-27 05:00:00 Test Item Value Reference Range Interpretation Comments Calcium Lvl (test code = Calcium Lvl) 9.5 8.6-10.4 [place] 625072-05-27 05:00:00 Test Item Value Reference Range Interpretation Comments Total Protein (test code = Total 6.8 6.1-8.1 Protein) [place] 625072-05-27 05:00:00 Test Item Value Reference Range Interpretation Comments Albumin Lvl (test code = Albumin Lvl) 4.1 3.6-5.1 [place] 625072-05-27 05:00:00 Test Item Value Reference Range Interpretation Comments Globulin (test code = Globulin) 2.7 1.9-3.7 [place] 625072-05-27 05:00:00 Test Item Value Reference Range Interpretation Comments A/G Ratio (test code = A/G Ratio) 1.5 1.0-2.5 [place] 625072-05-27 05:00:00 Test Item Value Reference Range Interpretation Comments Bili Total (test code = Bili Total) 0.3 0.2-1.2 [place] 625072-05-27 05:00:00 Test Item Value Reference Range Interpretation Comments Alk Phos (test code = Alk Phos) 50 37-153 [place] 625072-05-27 05:00:00 Test Item Value Reference Range Interpretation Comments ASPARTATE TRANSAMINASE (test code = 11 10-35 ASPARTATE TRANSAMINASE) [place] 625072-05-27 05:00:00 Test Item Value Reference Range Interpretation Comments ALANINE AMINOTRANSFERASE (test code = 8 6-29 ALANINE AMINOTRANSFERASE) [place] [address]-05-27 05:00:00 Test Item Value Reference Range Interpretation Comments Hep C Ab (test code = Hep C Ab) NON-REACTIVE [place] [address]-05-27 05:00:00 Test Item Value Reference Range Interpretation Comments Hep Signal to Cut-Off (test code = Hep 0.01 1 Signal to Cut-Off) [id number] 05:00:00 Test Item Value Reference Range Interpretation Comments Chol (test code = Chol) 116 [facility]cunjwnDIOPRL2925-[facility]-25 05:00:00 Test Item Value Reference Range Interpretation Comments HDL (test code = HDL) 38 [id number] 05:00:00 Test Item Value Reference Range Interpretation Comments Trig (test code = Trig) 107 [facility] HospitalQbgpmanAEDDMC7342-15-31 05:00:00 Test Item Value Reference Range Interpretation Comments LDL (Calculated) (test code = LDL 59 (Calculated)) [facility]ebd[facility]EXWZS5916[facility]36-72 05:00:00 Test Item Value Reference Range Interpretation Comments CHD Risk (test code = CHD Risk) 3.1 [facility] [id number] 05:00:00 Test Item Value Reference Range Interpretation Comments Non HDL Chol (test code = Non HDL Chol) 78 [facility] HospitalQbpnlnoMXZVCYRPDC7848-46-24 13:37:00 Test Item Value Reference Range Interpretation Comments Blood Glucose, Capillary (test code = 164 74-106 Blood Glucose, Capillary) [facility] (COVID-19) RNA [Presence] in Respiratory specimen by MILLY with probe [id number] 05:35:39 Test Item Value Reference Range Interpretation Comments SARS-CoV-2 (COVID-19) RNA Not detected Not-Detected [Presence] in Respiratory specimen by MILLY with probe detection (test code = 10357-0) [facility]
[2023-05-08] MEDS ORDERED: ONDANSETRON 4 MG/2 ML VIAL ONE (06:13)
[2023-05-08] MEDS ORDERED: METOCLOPRAMIDE 10 MG/2mL INJ ONE (06:13)
[2023-05-08 06:20] LABS: Absolute Lymphocytes (CBC) 1.8 K/uL (0.7-4.9); Hematocrit 33.1 % (36.0-45.0); Lymphocytes % 31.8 % (15.3-44.8); MCV 66.1 fL (80-100); MPV 9.3 fL (7.6-11.3); Platelets 221 thou/uL (152-406)
[2023-05-08 06:25] LABS: Protime INR 1.16
[2023-05-08] MEDS ORDERED: NA CHLORIDE 0.9% 1,000 ML ONE (06:37)
[2023-05-08 06:42] LABS: ALT/SGPT 15 U/L (13-56); AST/SGOT 13 U/L (15-37); Albumin 3.4 g/dL (3.4-5.0); Alkaline Phosphatase 48 U/L (45-117); BUN Blood Urea Nitrogen 18 mg/dL (7-18); Bicarbonate 26 mEq/L (21-32); Bilirubin Total 0.2 mg/dL (0.2-1.0); Glomerular Filtration Rate 66 ml/min (=/>90); Glucose Level 237 mg/dL (74-106); Magnesium 1.5 mg/dL (1.6-2.4); Potassium 3.2 mEq/L (3.5-5.1); Protein, Total 7.2 g/dL (6.4-8.2); Sodium Level 137 mEq/L (136-145)
[2023-05-08 06:51] LABS: Bilirubin Direct < 0.1 mg/dL (0-0.2); Bilirubin Indirect, Calculated ND mg/dL (0.2-0.8); Troponin High Sensitivity 60.8 pg/mL (<58.9)
--- NOTE | 2023-05-08 07:19 | ER ---
Nurse's Notes [facility] Name: Marianela Mills Age: 77 yrs Sex: Female : 1945 Arrival Date: 05/08/2023 Time: 05:46 Bed 4 Private MD: Diagnosis: Subsequent non-ST elevation (NSTEMI) myocardial infarction;Generalized weakness, syncopal episode Presentation: 05/08 05:48 Chief complaint: EMS states: R FACIAL DROOP, RUE WEAKNESS, APHASIA. LAST KNOWN NORMAL bp 2230. Coronavirus screen: At this time, the client does not indicate any symptoms associated with coronavirus-19. Ebola Screen: No symptoms or risks identified at this time. An acute neurological deficit is present. The charge nurse has been notified. The patient has been moved to a treatment area. The patients blood glucose was checked prior to arriving to the hospital and was found to be hyperglycemic. The patient has been moved to a treatment room. Initial Sepsis Screen: Does the patient meet any 2 criteria? No. Patient's initial sepsis screen is negative. Does the patient have a suspected source of infection? No. Patient's initial sepsis screen is negative. Risk Assessment: Do you want to hurt yourself or someone else? Patient reports no desire to harm self or others. Onset of symptoms was May 07, 2023 at 22:30. Care prior to arrival: IV initiated. 18 GA, in the right antecubital area, Glucose check: 230. 05:48 Method Of Arrival: EMS: [facility] bp 05:48 Acuity: CASANDRA 2 bp Triage Assessment: 05:50 The onset of the patients symptoms was May 07, 2023 at 22:30. General: Appears bp distressed, Behavior is drowsy, restless. Pain: Denies pain. Neuro: Level of Consciousness is lethargic, Oriented to person, Paresis in right arm(s) Speech is slurred, Facial droop on right, Reports weakness in right arm. Stroke Activation: Symptom onset > 6 hours Physician: Stroke Attending; Name: ; Notified At: ; Arrived At: Physician: Chief Stroke Resident; Name: ; Notified At: ; Arrived At: Physician: Stroke Resident; Name: ; Notified At: ; Arrived At: Physician: ED Attending; Name: ; Notified At: ; Arrived At: Physician: ED Resident; Name: ; Notified At: ; Arrived At: Historical: - Allergies: 05:50 Codeine; bp - PMHx: 05:50 Diabetes - NIDDM; Hyperlipidemia; Hypertension; bp - PSHx: 05:50 pacemaker; bp - Immunization history:: Adult Immunizations up to date. - Social history:: Smoking status: unknown. - Family history:: not pertinent. Screenin:55 [facility] ED Fall Risk Assessment (Adult) History of falling in the last 3 months, kl including since admission No falls in past 3 months (0 pts) Confusion or Disorientation No (0 pts) Intoxicated or Sedated No (0 pts) Impaired Gait No (0 pts) Mobility Assist Device Used No (0 pt) Altered Elimination No (0 pt) Score/Fall Risk Level 0 - 2 = Low Risk Oriented to surroundings, Maintained a safe environment. Abuse screen: Denies threats or abuse. Nutritional screening: No deficits noted. Tuberculosis screening: No symptoms or risk factors identified. 06:15 Rosie Swallow Protocol Brief Cognitive Screen What is your name? Normal, Where are you kl right now? Normal, What year is it? Normal. Oral Mechanism Examination Facial Symmetry: Normal, Motion: Normal, Lip Closure: Normal, Oral Mechanism Result: Normal. 3 oz Water Swallow Challenge: Pt able to drink all water without stopping, coughing, choking or throat clearing: Yes Result: PASS. Assessment: 05:53 General: Appears uncomfortable, Behavior is cooperative, anxious. Pain: Denies pain. kl Neuro: Denies weakness blurred vision difficulty swallowing, numbness headache photophobia. Cardiovascular: Rhythm is ventricular pacer. Respiratory: No deficits noted. GI: Reports nausea. : No deficits noted. No signs and/or symptoms were reported regarding the genitourinary system. 06:08 VAN Scoring: Arm Drift: Patients demonstrates NO arm weakness. Patient is VAN Negative. kl Visual Disturbance: No visual disturbance noted. Aphasia: No aphasia noted. Neglect: No neglect noted. 06:08 Reassessment: per patient spouse pt was nit responding to questions for a brief moment kl and appeared to have bit her tongue. Vital Signs: 05:48 BP 170 / 50; Pulse 82; Resp 22; Temp 98; Pulse Ox 94% on R/A; bp 05:56 BP 160 / 75; kl 05:56 Pulse 93; kl 05:56 Weight 106.5 kg (M); Height 5 ft. 9 in. ; kl 07:01 BP 148 / 96; Pulse 85; Resp 18; Pulse Ox 97% on R/A; kl 07:30 BP 149 / 64; Pulse 76; Resp 18; Pulse Ox 98% ; ko1 08:14 BP 162 / 72; Pulse 79; Resp 18; Pulse Ox 99% ; ko1 05:56 Body Mass Index 34.67 (106.50 kg, 175.26 cm) Yadiel Coma Score: 06:08 Eye Response: spontaneous(4). Motor Response: obeys commands(6). Verbal Response: sp4 oriented(5). Total: 15. NIH Stroke Scale Scores: 06:08 NIHSS Score: 0 kl 06:08 NIHSS Score: 0 sp4 ED Course: 05:48 Patient arrived in ED. bp 05:50 Triage completed. bp 05:50 Arm band placed on. bp 05:53 Ken Montes De Oca MD is Attending Physician. sp4 05:55 Maintain EMS IV. Dressing intact. Good blood return noted. Site clean \T\ dry. Gauge \T\ kl site: 20 right ac. 06:21 Head Brain Wo Cont In Process Unspecified. EDMS 07:01 Lucero Nelson, RN is Primary Nurse. ko1 07:12 initiated a transfer with Jerica from the [facility] at the request of the patient. 07:23 Stroke CXR 1 View In Process Unspecified. EDMS 07:23 per Jerica [facility] will have to decline due to being at capacity/ provider notified. 07:24 initiated a transfer with LAVERNE Pinon from the [facility]. eb 07:28 Attending Physician role handed off by Ken Montes De Oca MD rt 07:28 Victoriano Nino MD is Attending Physician. rt 07:52 COVID-19 SARS RT PCR Sent. ko1 07:[address] Pearson the hospitalist cushion builder for [facility] with Dr. Nino for eb patient transfer consultation. 08:[address] Wanda Bolden the neuro cushion builder for [facility] with Dr. christiana Nino for patient transfer consultation. 08:15 Inserted saline lock: 20 gauge in left antecubital area, using aseptic technique. cp4 08:25 CT Head Angio In Process Unspecified. EDMS 08:25 CT Neck Angio In Process Unspecified. EDMS 08:35 administrative approval given by LAVERNE Pinon/ patient has been accepted to [facility] eb 14 T room 1446/ Dr. Halima Pearson has accepted the patient in transfer/ report to be called to [phone]. 08:55 [facility] CALLED FOR TRANSPORT. eb 09:21 Patient has correct armband on for positive identification. Placed in gown. Bed in low ko1 position. Call light in reach. Provided Education on: na. 09:21 No provider procedures requiring assistance completed. Patient transferred, IV remains ko1 in place. Administered Medications: 06:07 Drug: metoCLOPramide IVP 10 mg IVP once; over 1 to 2 minutes Route: IVP; Site: right kl antecubital; 06:14 Follow up: Response: No adverse reaction; Marked relief of symptoms kl 06:07 Drug: Ondansetron IVP 8 mg IVP once; over 2 minutes Route: IVP; Site: right antecubital;kl 06:14 Follow up: Response: No adverse reaction; Marked relief of symptoms kl 06:51 Drug: NS 0.9% IV 1000 ml IV at 125 ml/hr continuous Route: IV; Rate: 125 ml/hr; Site: kl right antecubital; 07:40 Drug: Aspirin PO Chewable Tablet 324 mg PO once; 81 mg tablets x 4 Route: PO; ko1 08:02 Drug: Acetaminophen PO 1000 mg PO once Route: PO; ko1 08:03 Drug: HEParin IV 5000 units IV at bolus once {Co-Signature: cp4 (Nikkie Riley).} ko1 Route: IV; Rate: bolus; Site: right antecubital; 08:03 Drug: Heparin ([place] Drip) 12 units/kg/[place] - ([place] [address] units, D5W IV 500 ml) IV at ko1 calculated rate Per protocol; Max initial rate 1000 units/hr {Co-Signature: cp4 (Nikkie Riley).} Route: IV; Rate: calculated rate; Site: right antecubital; 08:19 Drug: Magnesium Sulfate IVPB 2 grams IVPB once over 2 hrs Route: IVPB; Infused Over: 2 cp4 hrs; Site: left antecubital; Medication: 09:21 VIS not applicable for this client. ko1 Outcome: 07:18 ER care complete, transfer ordered by MD. lopez 09:21 Transferred by [facility]. Transfer form completed. ko1 09:21 Condition: stable 09:21 Discharge instructions given to patient, family, Instructed on the need for transfer, Demonstrated understanding of instructions, follow-up care, 09:34 Patient left the ED. ko1 NIH Stroke Scale - NIH Stroke Score Date: 05/08/2023 Time: 06:08 Total Score = 0 10. Dysarthria (speech clarity - read or repeat words) - 0(Normal) 11. Extinction and Inattention (visual/tactile/auditory/spatial/personal) - 0(No abnormality) 1a. Level of Consciousness (LOC) - 0(Alert) 1b. Level of Consciousness (LOC) (Month \T\ Age) - 0(Both) 1c. LOC Commands (Open \T\ Closes Eyes/Curriculum Supervisor) - 0(Both) 2. Best Gaze (Lateral Gaze Paresis) - 0(Normal) 3. Visual Field Loss - 0(No visual loss) 4. Facial Palsy - 0(Normal) 5a. Left Arm: Motor (10-second hold) - 0(No drift) 5b. Right Arm: Motor (10-second hold) - 0(No drift) 6a. Left Leg: Motor (5-second hold - always test supine) - 0(No drift) 6b. Right Leg: Motor (5-second hold - always test supine) - 0(No drift) 7. Limb Ataxia (finger/nose \T\ heel/ferguson - test with eyes open) - 0(Absent) 8. Sensory Loss (pinprick arms/legs/face) - 0(Normal) 9. Best Language: Aphasia (description/naming/reading) - 0(No aphasia) Initials: NIH Stroke Scale - NIH Stroke Score Date: 05/08/2023 Time: 06:08 Total Score = 0 10. Dysarthria (speech clarity - read or repeat words) - 0(Normal) 11. Extinction and Inattention (visual/tactile/auditory/spatial/personal) - 0(No abnormality) 1a. Level of Consciousness (LOC) - 0(Alert) 1b. Level of Consciousness (LOC) (Month \T\ Age) - 0(Both) 1c. LOC Commands (Open \T\ Closes Eyes/Curriculum Supervisor) - 0(Both) 2. Best Gaze (Lateral Gaze Paresis) - 0(Normal) 3. Visual Field Loss - 0(No visual loss) 4. Facial Palsy - 0(Normal) 5a. Left Arm: Motor (10-second hold) - 0(No drift) 5b. Right Arm: Motor (10-second hold) - 0(No drift) 6a. Left Leg: Motor (5-second hold - always test supine) - 0(No drift) 6b. Right Leg: Motor (5-second hold - always test supine) - 0(No drift) 7. Limb Ataxia (finger/nose \T\ heel/ferguson - test with eyes open) - 0(Absent) 8. Sensory Loss (pinprick arms/legs/face) - 0(Normal) 9. Best Language: Aphasia (description/naming/reading) - 0(No aphasia) Initials: sp4 Signatures: Dispatcher [employer] EDKindra Cassidy RN RN kl Peltier, Brian, RN RN bp Botello, Elizabeth eb Oliver, Kathy, RN RN ko1 Victoriano Nino MD MD rt Ken Montes De Oca MD MD sp4 Nikkie Riley cp4 Nikkie Riley Corrections: (The following items were deleted from the chart) 07:44 07:12 initiated a transfer with Jerica from the [facility]. eb
--- NOTE | 2023-05-08 07:19 | EDPHYS ---
Physician Documentation [facility] Name: Marianela Mills Age: 77 yrs Sex: Female : 1945 Arrival Date: 05/08/2023 Time: 05:46 Bed 4 Private MD: ED Physician Victoriano Nino HPI: 05/08 05:53 This 77 yrs old Black Female presents to ER via EMS with complaints of S/S of Possible sp4 Stroke. 06:08 77-year-old female with history of diabetes [id number], hyperlipidemia and sp4 hypertension presents with EMS for altered mental status. Patient reportedly went to bed at 10:30 in the evening the last night. At 5 AM she was noted to be mumbling something in her sleep and would not respond to her . Patient's states patient was talking to herself in her sleep and would not wake up. This prompted a call to the ambulance EMS arrived to the emergency room and reported patient possibly has right-sided weakness and facial asymmetry. On emergent examination on arrival patient has no signs of lateralizing weakness. Patient reported nausea and dry heaving on examination in the ER. . Historical: - Allergies: 05:50 Codeine; bp - PMHx: 05:50 Diabetes - NIDDM; Hyperlipidemia; Hypertension; bp - PSHx: 05:50 pacemaker; bp - Immunization history:: Adult Immunizations up to date. - Social history:: Smoking status: unknown. - Family history:: not pertinent. ROS: 06:08 Constitutional: Negative for fever, chills, and weight loss, positive generalized sp4 weakness Abdomen/GI: Negative for abdominal pain, diarrhea, and constipation, positive nausea and vomiting 06:08 All other systems are negative, Exam: 06:08 Radiologist reports: Normal CT head noncontrast study sp4 06:08 Constitutional: This is a well developed, well nourished patient who is awake, alert, acute dry heaving on exam, nausea on exam, patient has generalized weakness at this time nonambulatory, no signs of localizing neurologic deficits Head/Face: Normocephalic, atraumatic. Eyes: Pupils equal round and reactive to light, extra-ocular motions intact. Lids and lashes normal. Conjunctiva and sclera are not injected. Cornea within normal limits. Periorbital areas with no swelling, redness, or edema. ENT: Nares patent. No nasal discharge, no septal abnormalities noted. Tympanic membranes are normal and external auditory canals are clear. Oropharynx with no redness, swelling, or masses, exudates, or evidence of obstruction, uvula midline. Mucous membranes moist. Neck: Trachea midline, no thyromegaly or masses palpated, and no cervical lymphadenopathy. Supple, full range of motion without nuchal rigidity, or vertebral point tenderness. Chest/axilla: Normal chest wall appearance and motion. Nontender with no deformity. No lesions are appreciated. Cardiovascular: Regular rate and rhythm with a normal S1 and S2. No gallops, murmurs, or rubs. Normal PMI, no JVD. No pulse deficits. Respiratory: Lungs have equal breath sounds bilaterally, clear to auscultation and percussion. No rales, rhonchi or wheezes noted. No increased work of breathing, no retractions or nasal flaring. Abdomen/GI: Soft, non-tender, with normal bowel sounds. No distension or tympany. No guarding or rebound. No evidence of tenderness throughout. Back: No spinal tenderness. No costovertebral tenderness. Skin: Warm, dry with normal turgor. Normal color with no rashes, no lesions, and no evidence of cellulitis. MS/ Extremity: Pulses equal, no cyanosis. Neurovascular intact. Full, normal range of motion. Neuro: Awake and alert, GCS 15, oriented to person, place, time, and situation. Cranial nerves II-XII grossly intact. Motor strength 5/5 in all extremities. Sensory grossly intact. There is generalized weakness, no oral mild peripheral visual negron, no sign of acute CVA Psych: Awake, alert, with orientation to person, place and time. Behavior, mood, and affect are within normal limits 06:08 ECG was reviewed by the Attending Physician. EKG time 5:50 AM. Paced rhythm at a rate sp4 of 93, occasional PVCs, chronic ventricular pacemaker Vital Signs: 05:48 BP 170 / 50; Pulse 82; Resp 22; Temp 98; Pulse Ox 94% on R/A; bp 05:56 BP 160 / 75; kl 05:56 Pulse 93; kl 05:56 Weight 106.5 kg (M); Height 5 ft. 9 in. ; kl 07:01 BP 148 / 96; Pulse 85; Resp 18; Pulse Ox 97% on R/A; kl 07:30 BP 149 / 64; Pulse 76; Resp 18; Pulse Ox 98% ; ko1 08:14 BP 162 / 72; Pulse 79; Resp 18; Pulse Ox 99% ; ko1 05:56 Body Mass Index 34.67 (106.50 kg, 175.26 cm) kl NIH Stroke Scale Scores: 06:08 NIHSS Score: 0 kl 06:08 NIHSS Score: 0 sp4 Yadiel Coma Score: 06:08 Eye Response: spontaneous(4). Motor Response: obeys commands(6). Verbal Response: sp4 oriented(5). Total: 15. MDM: 06:32 Patient medically screened. sp4 07:13 Differential diagnosis: CVA, TIA, paralysis, Alzheimer disease, Parkinson disease, sp4 metabolic disorder, drug effects. Data reviewed: vital signs, nurses notes, EMS record, old medical records, lab test result(s), EKG, radiologic studies, CT scan, plain films. Consideration of Admission/Observation Escalation of care including admission/observation considered. Management of patient was discussed with the following: Metal Fabricator Apprentice: Discussed patient with utility forester who states that Child And Family Services Worker is out of order and the patient should be transferred for higher level of care and consideration for angiography. Patient will be discussed initially with [facility] [place] where she prefers to go. Patient has history of cardiac pacemaker that was done at [facility] [place] in [place] . Transition of care: After a detail discussion of the patient's case, care is transferred to Victoriano Nino MD. ED course: Patient at this time will be ordered heparin bolus and infusion. 09:21 Independent interpretation of the following test(s) in the Emergency Department CT rt Scan: My interpretation is No hemorrhage seen on interpretation of CT scan images. Care significantly affected by the following chronic conditions: Diabetes. Counseling: I had a detailed discussion with the patient and/or guardian regarding the historical points, exam findings, and any diagnostic results supporting the discharge/admit diagnosis, lab results, radiology results, the need to transfer to another facility. 10:36 ED course: Correction, patient was transferred to [facility] rt rather than the [facility].. 05/08 06:17 Order name: Basic Metabolic Panel; Complete Time: 07:04 EDMS 05/08 06:17 Order name: Liver (Hepatic) Function; Complete Time: 07:04 EDMS 05/08 06:17 Order name: Troponin High Sensitivity; Complete Time: 07:04 EDMS 05/08 06:17 Order name: Magnesium; Complete Time: 07:04 EDMS 05/08 06:17 Order name: CBC with Automated Diff; Complete Time: 07:52 EDMS 05/08 06:17 Order name: Protime (+INR); Complete Time: 07:04 EDMS 05/08 06:17 Order name: PTT, Activated Partial Thromb; Complete Time: 07:04 EDMS 05/08 07:12 Order name: COVID-19 SARS RT PCR; Complete Time: 09:15 sp4 05/08 07:30 Order name: CBC Smear Scan; Complete Time: 07:52 EDMS 05/08 05:53 Order name: Stroke CXR 1 View; Complete Time: 09:15 sp4 05/08 06:17 Order name: Head Brain Wo Cont EDMS 05/08 08:08 Order name: CT Head Angio; Complete Time: 09:15 rt 05/08 08:08 Order name: CT Neck Angio; Complete Time: 09:15 rt 05/08 05:53 Order name: EKG; Complete Time: 07:09 sp4 05/08 05:53 Order name: Accucheck; Complete Time: 07:14 sp4 05/08 05:53 Order name: Cardiac monitoring; Complete Time: 07:14 sp4 05/08 05:53 Order name: EKG - Nurse/Tech; Complete Time: 05:55 sp4 05/08 05:53 Order name: IV Saline Lock; Complete Time: 06:14 sp4 05/08 05:53 Order name: Labs collected and sent; Complete Time: 06:14 sp4 05/08 05:53 Order name: NPO; Complete Time: 06:14 sp4 05/08 05:53 Order name: O2 Per Protocol; Complete Time: 07:14 sp4 05/08 05:53 Order name: O2 Sat Monitoring; Complete Time: 06:14 sp4 05/08 05:53 Order name: Stroke Swallow Screen; Complete Time: 06:14 sp4 EC:08 Rate is 93 beats/min. Rhythm is irregular, Paced. Interpreted by me. sp4 Administered Medications: 06:07 Drug: metoCLOPramide IVP 10 mg IVP once; over 1 to 2 minutes Route: IVP; Site: right kl antecubital; 06:14 Follow up: Response: No adverse reaction; Marked relief of symptoms kl 06:07 Drug: Ondansetron IVP 8 mg IVP once; over 2 minutes Route: IVP; Site: right antecubital; 06:14 Follow up: Response: No adverse reaction; Marked relief of symptoms kl 06:51 Drug: NS 0.9% IV 1000 ml IV at 125 ml/hr continuous Route: IV; Rate: 125 ml/hr; Site: kl right antecubital; 07:40 Drug: Aspirin PO Chewable Tablet 324 mg PO once; 81 mg tablets x 4 Route: PO; ko1 08:02 Drug: Acetaminophen PO 1000 mg PO once Route: PO; ko1 08:03 Drug: HEParin IV 5000 units IV at bolus once {Co-Signature: cp4 (Nikkie Riley).} ko1 Route: IV; Rate: bolus; Site: right antecubital; 08:03 Drug: Heparin ([place] Drip) 12 units/kg/[place] - ([place] [address] units, D5W IV 500 ml) IV at ko1 calculated rate Per protocol; Max initial rate 1000 units/hr {Co-Signature: cp4 (Nikkie Riley).} Route: IV; Rate: calculated rate; Site: right antecubital; 08:19 Drug: Magnesium Sulfate IVPB 2 grams IVPB once over 2 hrs Route: IVPB; Infused Over: 2 cp4 hrs; Site: left antecubital; Disposition Summary: 05/08/23 07:18 Transfer Ordered Notes: Transfer Location: [facility] sp4 Reason: Higher level of care sp4 Condition: Fair sp4 Problem: new sp4 Symptoms: are unchanged sp4 Accepting Physician: Attending at accepting facility (05/08/23 09:34) ko1 Diagnosis - Subsequent non-ST elevation (NSTEMI) myocardial infarction sp4 - Generalized weakness, syncopal episode sp4 Forms: - Medication Reconciliation Form sp4 - SBAR form sp4 NIH Stroke Scale - NIH Stroke Score Date: 05/08/2023 Time: 06:08 Total Score = 0 10. Dysarthria (speech clarity - read or repeat words) - 0(Normal) 11. Extinction and Inattention (visual/tactile/auditory/spatial/personal) - 0(No abnormality) 1a. Level of Consciousness (LOC) - 0(Alert) 1b. Level of Consciousness (LOC) (Month \T\ Age) - 0(Both) 1c. LOC Commands (Open \T\ Closes Eyes/Activities Aide) - 0(Both) 2. Best Gaze (Lateral Gaze Paresis) - 0(Normal) 3. Visual Field Loss - 0(No visual loss) 4. Facial Palsy - 0(Normal) 5a. Left Arm: Motor (10-second hold) - 0(No drift) 5b. Right Arm: Motor (10-second hold) - 0(No drift) 6a. Left Leg: Motor (5-second hold - always test supine) - 0(No drift) 6b. Right Leg: Motor (5-second hold - always test supine) - 0(No drift) 7. Limb Ataxia (finger/nose \T\ heel/ferguson - test with eyes open) - 0(Absent) 8. Sensory Loss (pinprick arms/legs/face) - 0(Normal) 9. Best Language: Aphasia (description/naming/reading) - 0(No aphasia) Initials: NIH Stroke Scale - NIH Stroke Score Date: 05/08/2023 Time: 06:08 Total Score = 0 10. Dysarthria (speech clarity - read or repeat words) - 0(Normal) 11. Extinction and Inattention (visual/tactile/auditory/spatial/personal) - 0(No abnormality) 1a. Level of Consciousness (LOC) - 0(Alert) 1b. Level of Consciousness (LOC) (Month \T\ Age) - 0(Both) 1c. LOC Commands (Open \T\ Closes Eyes/Activities Aide) - 0(Both) 2. Best Gaze (Lateral Gaze Paresis) - 0(Normal) 3. Visual Field Loss - 0(No visual loss) 4. Facial Palsy - 0(Normal) 5a. Left Arm: Motor (10-second hold) - 0(No drift) 5b. Right Arm: Motor (10-second hold) - 0(No drift) 6a. Left Leg: Motor (5-second hold - always test supine) - 0(No drift) 6b. Right Leg: Motor (5-second hold - always test supine) - 0(No drift) 7. Limb Ataxia (finger/nose \T\ heel/ferguson - test with eyes open) - 0(Absent) 8. Sensory Loss (pinprick arms/legs/face) - 0(Normal) 9. Best Language: Aphasia (description/naming/reading) - 0(No aphasia) Initials: sp4 Signatures: Dispatcher [employer] EDMS Kindra Cosby, RN Yaakov Jc, RN RN Lucero Domingo RN RN ko1 Victoriano Nino MD MD rt Potepalov, Sergey, MD MD sp4 Nikkie Riley Christina cp4 Corrections: (The following items were deleted from the chart) 06:17 06:04 Ct Stroke Brain Wo Cont ordered. EDMS EDMS 07:13 07:09 CT-STROKE BRAIN W/O CONTRAST+CT.RAD.BRZ ordered. EDMS EDMS 07:26 07:09 BASIC METABOLIC PANEL+C.LAB.BRZ ordered. EDMS EDMS 07:26 07:09 HEPATIC FUNCTION+C.LAB.BRZ ordered. EDMS EDMS 07:26 07:09 Troponin High Sensitivity+C.LAB.BRZ ordered. EDMS EDMS 07:26 07:09 MAGNESIUM+C.LAB.BRZ ordered. EDMS EDMS 08:16 07:09 URINE DRUG SCREEN+UC.LAB.BRZ ordered. EDMS EDMS 09:05 07:09 CBC+H.LAB.BRZ ordered. EDMS EDMS 09:05 07:09 PROTIME (+INR)+COAG.LAB.BRZ ordered. EDMS EDMS 09:05 07:09 PTT, ACTIVATED+COAG.LAB.BRZ ordered. EDMS EDMS 09:34 07:18 Attending at accepting facility sp4 ko1
[2023-05-08 07:30] LABS: Anisocytosis SLIGHT; Blood Morphology Comment NOTED (NOT SEEN); Hypochromasia 1+; Platelet Estimate ADEQ; White Blood Cell Scan OK (OK)
[2023-05-08] MEDS ORDERED: HEPARIN 5000 UNIT/ML 1 ML VIAL ONE (07:42)
[2023-05-08] MEDS ORDERED: HEPARIN/D5W 25,000 UNIT/500 ML BAG IV ONE (07:43)
[2023-05-08] MEDS ORDERED: ASPIRIN 81 MG CHEWABLE TABLET ONE (07:44)
--- NOTE | 2023-05-08 08:09 | RAD REPORT ---
EXAM DESCRIPTION: RADChest Single View05/08/2023 7:24 am CLINICAL HISTORY: CHEST PAIN COMPARISON: Chest Single View dated 01/07/2022; Chest Single View dated 07/10/2020; Chest Pa And Lat (2 Views) dated 12/16/2018; Chest Pa And Lat (2 Views) dated 09/14/2018 TECHNIQUE: Portable AP view of the chest. FINDINGS: The lungs are clear. No pneumothorax or effusion. The cardiomediastinal contours are unre markable. Left chest wall pacer/AICD, obscuring the left mid to lower lung. IMPRESSION: No acute cardiopulmonary process.
[2023-05-08] MEDS ORDERED: ACETAMINOPHEN 500 MG TAB ONE (08:12)
[2023-05-08] MEDS ORDERED: Magnesium Sulfate 2gm IVPB 2 G/50 ML BAG IV ONE (08:13)
--- NOTE | 2023-05-08 09:02 | RAD REPORT ---
EXAM DESCRIPTION: CT - Head angio - 05/08/2023 8:24 am CLINICAL HISTORY: TIA COMPARISON: Head Brain Wo Cont dated 05/08/2023; HEAD BRAIN W O CONTRAST dated 01/21/2009 TECHNIQUE: Axial CT angiography images of the head was performed with multiplanar and maximum intens ity projection reconstructions. Images performed following intravenous administration of 100mL Isovue 370. All CT scans are performed using dose optimization technique as appropriate and may include automated exposure control or mA/KV adjustment according to patient size. FINDINGS: No evidence of large vessel occlusion. No evidence of aneurysm or dissection flap is detec terry. No flow-limiting stenosis or vascular malformation identified. Antegrade flow is seen in the vertebral arteries. The vertebral arteries are codominant. The visualized dural venous sinuses are grossly patent. IMPRESSION: No evidence of large vessel occlusion or flow-limiting stenosis.
--- NOTE | 2023-05-08 09:08 | RAD REPORT ---
EXAM DESCRIPTION: CT - Neck Angio - 05/08/2023 8:24 am CLINICAL HISTORY: tia COMPARISON: Head C Spine Mpr Wo Con dated 01/08/2022 TECHNIQUE: Axial CT angiography images of the head was performed with multiplanar and maximum intens ity projection reconstructions. Images performed following intravenous administration of 100mL Isovue 370. All CT scans are performed using dose optimization technique as appropriate and may include automated exposure control or mA/KV adjustment according to patient size. Quantification of carotid stenosis, if any, is performed according to NASCET criteria. FINDINGS: A left aortic arch is identified with normal three vessel configuration of the great vesse ls. No significant flow abnormality is seen of the common carotid bilaterally. No significant stenosis is identified involving the cervical segments of both internal carotid arteri es. Normal flow is seen within both vertebral arteries. IMPRESSION: No significant flow abnormality of the neck vessels is identified. CAROTID STENOSIS REFERENCE USING NASCET CRITERIA: % ICA stenosis = (1 - narrowest ICA diameter/diameter of distal cervical ICA) x 100. Mild - <50% stenosis. Moderate - 50-69% stenosis. Severe - 70-94% stenosis. Near occlusion - 95-99% stenosis. Occluded - 100% stenosis.
[2023-05-08 09:43] VITALS: TEMP 98
[2023-05-08 10:01] VITALS: BP 162/72; O2SAT 99
--- NOTE | 2023-05-08 12:20 | EKG ---
Test Date: 2023-05-08 Test Time: 05:50:38 Aging Room Operator: STEPHANY MEASUREMENT RESULTS: Intervals: Rate: 93 OK: 176 QRSD: 156 QT: 422 QTc: 524 [place]: P: 63 OK: 176 QRS: -65 T: 114 INTERPRETIVE STATEMENTS: Electronic ventricular pacemaker Compared to ECG 01/07/2022 23:18:07 AV dual-paced complex(es) or rhythm no longer present Electronically Signed On 05-08-23 12:19:36 CDT by Carlos Khan
--- NOTE | 2023-05-08 14:27 | RAD REPORT ---
EXAM DESCRIPTION: CT - Head Brain Wo Cont - 05/08/2023 7:08 am CLINICAL HISTORY: R SIDED FACIAL DROOP AND RUE WEAKNESS COMPARISON: 01/07/2022 TECHNIQUE: Axial CT of the head obtained from the skull apex to the skull base without contrast. Thi s exam was performed according to our departmental dose-optimization program, which includes automate d exposure control, adjustment of the mA and/or kV according to patient size and/or use of iterative reconstruction technique. FINDINGS: No acute intracranial hemorrhage identified. No mass, mass effect, shift of the midline, a bnormal extra-axial fluid collection or CT evidence of acute ischemic change identified. The ventricu lar system and sulcal spaces are mildly enlarged compatible with mild cerebral atrophy. Confluent a reas of hypodensity throughout the supratentorial white matter are nonspecific and may be related to chronic small vessel ischemic change. The visualized paranasal sinuses and mastoid air cells are well aerated. No skull fracture identifi ed. Visualized orbits and globes are unremarkable. Atherosclerotic calcification of the intracranial internal carotid arteries. IMPRESSION: 1. No acute intracranial abnormality by CT criteria. Electronically signed by: Carlos Perez 05/08/2023 6:32 AM CDT Due to temporary technical issues with the PACS/Fluency reporting system, reports are being signed by the in house radiologists without review as a courtesy to insure prompt reporting. The interpreting radiologist is fully responsible for the content of the report.
== END 2023-05-08 09:34 | disposition short-term general hospital (02) ==
LOC: ER 05:46
DX: I22.2 Subsequent non-ST elevation (NSTEMI) myocardial infarction (principal); I21.9 Acute myocardial infarction, unspecified; R53.1 Weakness; R55 Syncope and collapse; I10 Essential (primary) hypertension; E11.9 Type 2 diabetes mellitus without complications; Z20.822 Contact with and (suspected) exposure to COVID-19; Z95.0 Presence of cardiac pacemaker; Z88.5 Allergy status to narcotic agent
CPT/HCPCS: 93005; 85025; 80048; 36415; 83735; 85610; 80076; 85730; 84484; 87635; 70450; 70496; 70498; 71045; 99285; Q9967; J1644; J3475; J2765; J2405; J7030